=== PATIENT | male | born 1935 | race Caucasian/White ===

== ENCOUNTER 2018-02-04 21:09 | Emergency (ER) | payer OTHER ==
[2018-02-04 21:21] VITALS: BP 165/94; PULSE 82; TEMP 98; BMI 27.8
--- NOTE | 2018-02-04 21:26 | PDOC ---
History of Present Illness - General Chief Complaint: Wound Stated Complaint: skin tear Time Seen by Provider: 02/04/18 21:25 History Source: Patient - History of Present Illness Initial Comments: 02/04/18 21:41 Chief complaint: Skin tear Patient is an 82-year-old male with multiple medical problems, not diabetic who has been skin and scraped his right arm on a concrete wall causing an abrasion. Patient is up-to-date with tetanus. Patient applied Silvadene and dressing and came to the ER. GENERAL/CONSTITUTIONAL: No fever, weakness. dizziness HEAD, EYES, EARS, NOSE AND THROAT: No change in vision. No ear pain or discharge. No sore throat. CARDIOVASCULAR: No chest pain RESPIRATORY: No shortness of breath or cough GASTROINTESTINAL: No pain, nausea, vomiting, diarrhea or constipation GENITOURINARY: No dysuria MUSCULOSKELETAL: No neck or back pain SKIN: No rash, + abrasion NEUROLOGIC: No headache, vertigo, loss of consciousness, or loss of sensation. GENERAL: The patient is awake, alert, and fully oriented, in no acute distress. HEAD: Normal with no signs of trauma. EYES: Pupils equal, round and reactive to light, sclera anicteric, conjunctiva clear. ENT: pharynx: no erythema, no exudate, uvula midline NECK: supple CHEST: clear, nontender, rr ABD: soft, nontender EXTREMITIES: Right proximal forearm with 6 cm x 3 cm superficial abrasion, no active bleeding, no swelling, no signs of bony injury, full range of motion, neurovascular intact. Rest of extremities, normal range of motion, no edema. NEUROLOGICAL: Normal speech, normal gait. SKIN: Warm, Dry Past History - Past Medical History Home Medications: Ambulatory Orders Cholecalciferol (Vitamin D3) [Vitamin D3] 1,000 unit PO BID 05/21/15 Cyanocobalamin [Vitamin B12 -] 1,000 mcg PO WEEKLY 05/21/15 Diltiazem HCl [Diltiazem 24Hr Cd] 120 mg PO DAILY 05/21/15 Montelukast Na [Singulair -] 10 mg PO HS 05/21/15 Rosuvastatin Calcium [Crestor] 5 mg PO DAILY 05/21/15 Tamsulosin HCl 0.4 mg PO DAILY 05/21/15 Telmisartan 40 mg PO DAILY 05/21/15 Valacyclovir HCl [Valtrex -] 1,000 mg PO TID #21 tablet 05/21/15 Aspirin Coated [Ecotrin -] 81 mg PO DAILY 02/04/18 Ranitidine [Zantac -] 150 mg PO DAILY 02/04/18 Anemia: Yes Cardiac Disorders: Yes (CABG 2005) CVA: Yes (TIA) GI Disorders: Yes (GERD) HTN: Yes Hypercholesterolemia: Yes - Surgical History Cardiac Surgery: Yes (CABG) Orthopedic Surgery: Yes (BARB ARTHROSCOPY) - Suicide/Smoking/Psychosocial Hx Smoking History: Never smoked Have you smoked in the past 12 months: No Information on smoking cessation initiated: No Hx Alcohol Use: No Drug/Substance Use Hx: No Substance Use Type: Alcohol *Physical Exam - Vital Signs Last Vital Signs Temp Pulse Resp BP Pulse Ox 98.0 F 82 16 165/94 100 02/04/18 21:13 02/04/18 21:13 02/04/18 21:13 02/04/18 21:13 02/04/18 21:13 Medical Decision Making - Medical Decision Making 02/04/18 2 82-year-old male with abrasion to right forearm who had already stopped bleeding , applied Silvadene and wrapped it as this is happen before. Tetanus is up-to- date. Area was cleaned, no gross bleeding, will be wrapped patient. He will follow-up with his primary care doctor and/or wound care *DC/Admit/Observation/Transfer Diagnosis at time of Disposition: Skin tear of forearm without complication Qualifiers: Encounter type: initial encounter Laterality: right Qualified Code(s): S51.811A - Laceration without foreign body of right forearm, initial encounter - Discharge Dispostion Disposition: HOME Condition at time of disposition: Stable Decision to Admit order: No - Referrals Referrals: Mikal Le MD [Primary Care Provider] - - Patient Instructions Printed Discharge Instructions: DI for Abrasion Additional Instructions: Clean with soap and water 2-3 times daily, apply bacitracin or silvadene 2 times daily Have her reevaluated if redness, pus, fever or getting worse Followup with your doctor on thursday - Post Discharge Activity
[2018-02-04] MEDS ORDERED: SILVER SULFADIAZINE 1% TOP CREAM 50 GM JAR TP ONE (21:42)
== END 2018-02-04 21:51 | disposition home or self-care (01) ==
LOC: JER 21:09 → JERFT 21:09
DX: S51.811A Laceration without foreign body of right forearm, initial encounter (principal); W22.01XA Walked into wall, initial encounter; Y93.89 Activity, other specified; Y92.89 Other specified places as the place of occurrence of the external cause; Y99.8 Other external cause status; I25.810 Atherosclerosis of coronary artery bypass graft(s) without angina pectoris; I10 Essential (primary) hypertension; Z95.1 Presence of aortocoronary bypass graft; E78.00 Pure hypercholesterolemia, unspecified; K21.9 Gastro-esophageal reflux disease without esophagitis; Z86.73 Personal history of transient ischemic attack (TIA), and cerebral infarction without residual deficits; Z79.82 Long term (current) use of aspirin
CPT/HCPCS: 99281-25

== ENCOUNTER 2019-04-18 15:53 | Inpatient (IN) | payer OTHER ==
[~2019-04-18 15:53] MED LIST: PIPERACILLIN/TAZOB 4.5 GM 4.5 GM in DEXTROSE 5%-WATER 100 ML IVPB SCH
--- NOTE | 2019-04-18 16:10 | PDOC ---
History of Present Illness - General Chief Complaint: Pain Stated Complaint: ABD PAIN Time Seen by Provider: 04/18/19 16:10 History Source: Patient Exam Limitations: Intoxication (10 mg IV morphine given by EMS) - History of Present Illness Initial Comments: Pt is an 83 yo M, with PMH of HTN, CABG (quadruple bypass 2005), and cholelithiasis, who is presenting with complaints of constant, diffuse abdominal cramping since 12 pm today. Pt states he tolerated PO intake this AM, and has had regular BMs. Pt denies any prior abdominal surgeries. Pt states the pain does not radiate to the back or groin. Pt denies any fevers/chills, headache, vision changes, syncope, chest pain, palpitations, SOB, nausea/ vomiting, urinary symptoms, diarrhea/constipation, or leg swelling. Allergies: NKDA PCP: Miesha Social: Social alcohol use. Pt denies any cigarette or drug use. Pt denies any recent travel or sick contacts. Surgical: as above Family: no relevant history. 04/18/19 19:26 Past History - Travel Traveled outside of the country in the last 30 days: No Close contact w/someone who was outside of country & ill: No - Past Medical History Allergies/Adverse Reactions: Allergies Allergy/AdvReac Type Severity Reaction Status Date / Time No Known Allergies Allergy Verified 02/04/18 21:50 Home Medications: Ambulatory Orders Cholecalciferol (Vitamin D3) [Vitamin D3] 1,000 unit PO BID 05/21/15 Cyanocobalamin [Vitamin B12 -] 1,000 mcg PO WEEKLY 05/21/15 Diltiazem HCl [Diltiazem 24Hr Cd] 120 mg PO DAILY 05/21/15 Montelukast Na [Singulair -] 10 mg PO HS 05/21/15 Rosuvastatin Calcium [Crestor] 20 mg PO DAILY 05/21/15 Tamsulosin HCl 0.4 mg PO DAILY 05/21/15 Telmisartan 40 mg PO DAILY 05/21/15 Aspirin Coated [Ecotrin -] 81 mg PO DAILY 02/04/18 Ranitidine [Zantac -] 150 mg PO DAILY 02/04/18 Metoprolol Succinate 1.5 tab PO DAILY 04/18/19 Nitroglycerin [Nitrostat] 0.4 mg SL DAILY 04/18/19 Anemia: Yes Cardiac Disorders: Yes (CABG 2005) CVA: Yes (TIA) GI Disorders: Yes (GERD) HTN: Yes Hypercholesterolemia: Yes - Surgical History Cardiac Surgery: Yes (CABG) Orthopedic Surgery: Yes (BARB ARTHROSCOPY) - Suicide/Smoking/Psychosocial Hx Smoking History: Never smoked Have you smoked in the past 12 months: No Hx Alcohol Use: Yes (DAILY) Drug/Substance Use Hx: No Substance Use Type: Alcohol Review of Systems - Review of Systems Able to Perform ROS?: Yes Is the patient limited Bengali proficient: No Constitutional: Yes: Weight Stable. No: Chills, Diaphoresis, Fever, Loss of Appetite, Malaise, Weakness HEENTM: No: Blurred Vision, Double Vision, Nose Congestion, Throat Pain, Throat Swelling, Difficulty Swallowing Respiratory: No: Cough, Orthopnea, Shortness of Breath Cardiac (ROS): No: Chest Pain, Edema, Irregular Heart Rate, Lightheadedness, Palpitations, Syncope, Chest Tightness ABD/GI: Yes: See HPI, Abdominal cramping. No: Constipated, Diarrhea, Nausea, Poor Appetite, Poor Fluid Intake, Rectal Bleeding, Vomiting : No: Burning, Dysuria, Frequency, Pain, Urgency Musculoskeletal: No: Back Pain, Joint Pain, Muscle Pain, Muscle Weakness Integumentary: No: Rash Neurological: No: Headache, Numbness, Weakness, Unsteady Gait, Dizziness Psychiatric: No: Sleep Pattern Change, Change in Appetite Endocrine: No: Increased Urine, Change in Weight Hematologic/Lymphatic: No: Anemia, Blood Clots, Easy Bleeding, Easy Bruising All Other Systems: Reviewed and Negative *Physical Exam - Physical Exam Comments: Vitals stable, pt afebrile. Pt in NAD, lying comfortably, normal body habitus. Pt alert and oriented x3. manager star generally intact, muscular strength and sensation intact. No midline spinal tenderness, step-offs, or crepitus. Head normocephalic, atraumatic. Eyes PERRLA, EOMI. Oropharynx without erythema or exudates, no LAD b/l. No nasal congestion, hearing intact. Clear heart sounds, S1/S2, no JVD, b/l pedal edema, or heart murmur. Clear lung sounds, no respiratory distress, wheezes, crackles, or accessory muscle use. Diffusely tender abdomen, worst in RLQ. Non-reducible umbilical hernia (pt baseline, not received surgery 2/2 cardiac complications). Abdomen soft, protuberant, and with normoactive bowel sounds. Skin without jaundice or rash. 04/18/19 19:29 ED Treatment Course - LABORATORY CBC & Chemistry Diagram: 04/18/19 16:35 04/18/19 16:35 Medical Decision Making - Medical Decision Making Pt was seen at bedside, also will be seen by attending Dr. Huang. Pt presenting with complaints of diffuse abdominal pain. Eval for ischemia/AAA, appendicitis, bowel perforation, obstruction, diverticulitis. Provided 1 g IV ofirmev and 1 L IV NS for improvement of discomfort and hydration. Will continue to reassess pt and monitor for symptomatic improvement. ECG: NSR, intervals WNL, LAD (HR 81, AK 146, QRS 86, QTc 399). No TWIs or significant ST segment changes. No significant changes from prior ECG (05/21/2015 ). 04/18/19 19:34 CBC and CMP WNL -- mild elevated creatinine -- providing IVF Pt taken for CT abd/pelvis with IV contrast chest x-ray showed no evidence of free air. 04/18/19 19:37 CT showed pneumoperitoneum with sigmoid diverticulitis/possible abscess. Started IV zosyn Pt will go to surgery immediately with Dr. Acuna, as pt BP dropping (80s/50s ) -- pt provided more IVF and another IV peripheral line placed Pt taken emergently to OR Consulted ICU and pt accepted to hospitalist team. 04/18/19 21:08 *DC/Admit/Observation/Transfer Diagnosis at time of Disposition: Abdominal pain Qualifiers: Abdominal location: generalized Qualified Code(s): R10.84 - Generalized abdominal pain - Discharge Dispostion Condition at time of disposition: Stable Decision to Admit order: Yes - Referrals Referrals: Mikal Le MD [Primary Care Provider] - - Patient Instructions - Post Discharge Activity
[2019-04-18] MEDS ORDERED: ACETAMINOPHEN 1000 MG/100 ML VIAL (NON FORMULARY) IVPB ONE (16:46)
[2019-04-18] MEDS ORDERED: ONDANSETRON 4 MG/2 ML VIAL IVPUSH ONE (16:47)
[2019-04-18] MEDS ORDERED: ONDANSETRON 4 MG/2 ML VIAL ONE (16:54)
[2019-04-18 17:02] LABS: BASO % 0.5 % (0-2.0); EOS % 1.1 % (0-4.5); HEMATOCRIT 42.7 % (35.4-49); HEMOGLOBIN 14.7 GM/dL (11.7-16.9); LYMPH % 9.8 % (8-40); MCH 30.4 pg (25.7-33.7); MCHC 34.5 g/dl (32.0-35.9); MEAN PLT VOLUME 7.1 fl (7.5-11.1); MONO % 4.4 % (3.8-10.2); NEUT % 84.2 % (42.8-82.8); PLATELET COUNT 180 K/MM3 (134-434); RBC 4.85 M/mm3 (4.00-5.60); RDW 14.6 % (11.9-15.9); WHITE BLOOD COUNT 8.7 K/mm3 (4.0-10.0)
[2019-04-18 17:19] LABS: INR 1.13 (0.83-1.09); PROTHROMBIN TIME (PATIENT) 13.3 SEC (9.7-13.0)
[2019-04-18 17:27] LABS: ALBUMIN 3.7 g/dl (3.4-5.0); BLOOD UREA NITROGEN 24.9 mg/dL (7-18); POTASSIUM 4.3 mmol/L (3.5-5.1); TOT PROT 6.8 g/dl (6.4-8.2)
[2019-04-18] MEDS ORDERED: SODIUM CHLORIDE 1,000 ML IV STA ×2 (17:41→20:19)
--- NOTE | 2019-04-18 18:19 | PDOC ---
Documentation entered by Mikel Last SCRIBE, acting as scribe for Dalila Huang MD. Dalila Huang MD: This documentation has been prepared by the Shala lane Elijah, SCRIBE, under my direction and personally reviewed by me in its entirety. I confirm that the documentation accurately reflects all work, treatment, procedures, and medical decision making performed by me. Attending Attestation - Resident Resident Name: Antonia Chiang - ED Attending Attestation I have performed the following: I have examined & evaluated the patient, The case was reviewed & discussed with the resident, I agree w/resident's findings & plan, Exceptions are as noted - HPI HPI: 04/18/19 17:30 Patient is an 83 year old male with a significant past medical history of CAD s/ p CABG, HTN, HLD, CVA, and BPH who presents to the ED with diffuse abdominal pain beginning x4 hours ago. Patient reports that he was driving when he started to have a sudden onset of symptoms. Patient associates nausea with the pain and notes that he has not had pain like this in the past. He states the pain extends across his lower abdomen. Denies associated vomiting, constipation , diarrhea, F/C, dysuria, hematuria, frequency. Denies headache, focal weakness/numbness, CP, SOB, LE edema, rashes. Allergies: NKA PCP: Mission Commander: Dr. Driver - Physicial Exam PE: 04/18/19 17:35 GENERAL: Awake, alert, and fully oriented, in no acute distress. EYES: PERRLA, EOMI, sclera anicteric, conjunctiva clear ENT: Oropharynx clear without exudates. Moist mucosa NECK: Nontender, no stepoffs, Normal ROM, supple, no lymphadenopathy, JVD, or masses LUNGS: Breath sounds equal, clear to auscultation bilaterally. No wheezes, and no crackles HEART: Regular rate and rhythm, normal S1 and S2, no murmurs, rubs or gallops ABDOMEN: +Tenderness to RLQ. +mild distention No guarding, no rebound. No masses EXTREMITIES: Normal range of motion, no edema. No clubbing or cyanosis. No cords, erythema, or tenderness NEUROLOGICAL: Cranial nerves II through XII intact. 5/5 strength and sensation in all extremities, Normal speech, normal gait, normal cerebellar function SKIN: Warm, Dry, normal turgor, no rashes or lesions noted. - Medical Decision Making 04/18/19 18:14 83yo M presents to the ED with sudden onset lower abd pain, ttp to RLQ Pt got morphine 10mg IV en route 2/2 pain Elevated BP on arrival, likely 2/2 pain DDx includes appendicitis vs perforation vs SBO vs renal colic vs colitis vs UTI Lactic negative, making mesenteric ischemia less likely Plan for labs, UA, pain control, CTAP, reassess 04/18/19 19:00 Pain well controlled Labs thus far wnl UA and CTAP pending Case signed out to Dr. Ron for further mgmt/dispo Heart Score/ECG Review #1 04/18/19 17:08 Twelve-lead EKG was performed and reviewed by me. Normal sinus rhythm, rate 81. Normal axis and intervals wavy baseline but no obvious ST elevations
[2019-04-18] MEDS ORDERED: PIPERACILLIN/TAZOB 3.375 GM 3.375 GM in DEXTROSE 5%-WATER - 50 ML IVPB ONE (19:56)
[2019-04-18] MEDS ORDERED: PIPERACILLIN/TAZOB 3.375 GM 3.375 GM/50 ML BAG IVPB ONE (20:26)
--- NOTE | 2019-04-18 20:59 | PN ---
Teaching Attending Note Name of Resident: Jose Daniel Simon ATTENDING PHYSICIAN STATEMENT I saw and evaluated the patient. I reviewed the resident's note and discussed the case with the resident. I agree with the resident's findings and plan as documented. Seen and examined; please see resident note for further historical information. Briefly, this is a 83 y/o male with a PMH as documented presenting with abdominal pain found to have free intraperitoneal air; he has acute sigmoid diverticulitis and a 1.3cm pericolonic sigmoid abscess. Limited history obtained prior to going to OR and I saw he has documented CABG with stated "CHF " in old note from several years ago; spoke with his CV, Dr. Driver, as it was documented that he did not go to OR for umbilical hernia repair in g 6-8 mos ago angina, 1x vessel ischemia medically managed. Low risk ischemia, medicall VS, labs, imaging reviewed Moderate distress, resting in bed NC AT EOMI PERRLA Tachycardic, regular, s1/2, s/p sternotomy Tender diffusely, mild to moderate distention with some mild tympany Lungs CTAB, w/ sym exp Normal mood, not agitated Home Medications Medication Instructions Recorded Cholecalciferol (Vitamin D3) 1,000 unit PO BID 05/21/15 [Vitamin D3] Cyanocobalamin [Vitamin B12 -] 1,000 mcg PO WEEKLY 05/21/15 Diltiazem HCl [Diltiazem 24Hr Cd] 120 mg PO DAILY 05/21/15 Montelukast Na [Singulair -] 10 mg PO HS 05/21/15 Rosuvastatin Calcium [Crestor] 20 mg PO DAILY 05/21/15 Tamsulosin HCl 0.4 mg PO DAILY 05/21/15 Telmisartan 40 mg PO DAILY 05/21/15 Aspirin Coated [Ecotrin -] 81 mg PO DAILY 02/04/18 Ranitidine [Zantac -] 150 mg PO DAILY 02/04/18 Metoprolol Succinate 1.5 tab PO DAILY 04/18/19 Nitroglycerin [Nitrostat] 0.4 mg SL DAILY 04/18/19 EKG reviewed; tele ordered CT: Described pneumoperitoneum/diverticulitis with abscess; also s/p sternotopmy , cholelithiasis w/o cysitis, .6x.4cm bladder stone, atelectesis vs. scarring CXR reviewed CBC with neutrophilia without white count, slightly elevated BUN but overall unremarkable CMP. ASSESSMENT AND PLAN: Presents with abdominal pain found to have pneumoperitoneum 2/2 diverticulitis with pericolonic sigmoid abscess; he is being taken to the OR # Perforated diverticulitis with abscess -Chosing single-agent coverage; 4.5 zosyn q6h and ID consult with Dr. Ugalde; followup post-op. Will need plans for OP scope. Isotonic fluids; need to see what he gets intraoperatively and then continue maintenance. NPO. IV protonix for GI ppx. Appreciate specialist management. # Hx CAD s/p CABG -Spoke with his vice president of operations, Dr. Driver, as it was documented in previous notes that due to CV history he couldn't go to the OR for hernia repair. He had CAD s /p CABG with return of anginal sx ~6-8 months ago; he had subsequent stress test which revealed apparent single-vessel ischemia that was medically managed by titrating up beta blockers. Appreciate cardiac input, and will place consultation. -Hold ASA, BB, statin. Kiana on hold. Resume when clincially appropriate # Hx BPH -Monitor for obstruction; resume medications when confirmed dose/clincially appropriate # Hx CVA -Holding asa, statin. Resume statin when PO OK, ASA per sgy # Hx HTN -Holding diltiazem, telmisartan, metoprolol # Hx HLD -Hold statin for now # Likely asthma -On monteleukast; will need to speak with him and PCP as he was rushed to OR. Post op incentive kelly, PRN albuterol. Monitor for exacerbation. Continue monteleukast when taking PO Full Code Consults: ICU, Sgy, CV, ID
[2019-04-18] MEDS ORDERED: LACTATED RINGERS SOLUTION 1,000 ML/1,000 ML INFUS.BAG IV SCH ×2 (21:00)
--- NOTE | 2019-04-18 21:01 | CONSULT ---
Consultation: REQUESTING PROVIDER: Dr. Chiang CONSULT REQUEST: We have been asked to medically evaluate this patient for bowel perforation/pneumoperitoneum HISTORY OF PRESENT ILLNESS: 83 year old male with a history of hypertension, coronary artery bypass graft, s /p quadruple bypass, cholelithiasis, CVA, BPH presented to the hospital for several hours of sudden onset, diffuse abdominal pain with associated nausea. Per ED note, patient had not had any other history of similar pain in the past. In the ED, a CT scan found patient to have pneumoperitoneum, acute diverticulitis and 1.3cm abscess. Patient notably had no fevers in the ED but became hypotensive with maps in the 50s/low 60s. Dr. Bettencourt was consulted and patient was taken to the OR. Patient seen and examined postoperatively. He returned from the OR intubated and sedated on versed/fentanyl. No perioperative complications reported. EBL 150cc. Patient is not awake or alert and is unable to answer questions. Allergies: Calcium, penicillin (documented in 2014), iron supplements, meclizine Past surgical history: CABG, Bilateral arthroscopy Social history: prior alcohol use, no tobacco use PCP - Dr. Mikal Le REVIEW OF SYSTEMS: CONSTITUTIONAL: Absent: fever, chills, diaphoresis, generalized weakness, malaise, loss of appetite, weight change HEENT: Absent: rhinorrhea, nasal congestion, throat pain, throat swelling, difficulty swallowing, mouth swelling, ear pain, eye pain, visual changes CARDIOVASCULAR: Absent: chest pain, syncope, palpitations, irregular heart rate, lightheadedness , peripheral edema RESPIRATORY: Absent: cough, shortness of breath, dyspnea with exertion, orthopnea, wheezing, stridor, hemoptysis GASTROINTESTINAL: abdominal pain Absent: abdominal distension, nausea, vomiting, diarrhea, constipation, melena , hematochezia GENITOURINARY: Absent: dysuria, frequency, urgency, hesitancy, hematuria, flank pain, genital pain MUSCULOSKELETAL: Absent: myalgia, arthralgia, joint swelling, back pain, neck pain SKIN: Absent: rash, itching, pallor HEMATOLOGIC/IMMUNOLOGIC: Absent: easy bleeding, easy bruising, lymphadenopathy, frequent infections ENDOCRINE: Absent: unexplained weight gain, unexplained weight loss, heat intolerance, cold intolerance NEUROLOGIC: Absent: headache, focal weakness or paresthesias, dizziness, unsteady gait, seizure, mental status changes, bladder or bowel incontinence PSYCHIATRIC: Absent: anxiety, depression, suicidal or homicidal ideation, hallucinations. PHYSICAL EXAMINATION Vital Signs - 24 hr 04/18/19 04/18/19 04/18/19 16:10 20:17 20:27 Temperature 98 F 98.4 F Pulse Rate 81 Pulse Rate [ 88 90 Right Radial] Respiratory 20 16 23 H Rate Blood Pressure 133/102 H Blood Pressure 85/44 L 92/58 L [Right Arm] O2 Sat by Pulse 96 98 98 Oximetry (%) GENERAL: A&Ox0, intubated and sedated EYES: Pupils small and sluggish reacting to light ENT: Moist mucus membranes NECK: No JVD LUNGS: mechanical breath sounds, patient is vented HEART: RRR, no murmurs ABDOMEN: Soft but mildly distended with what appears to be gas (tympanitic to percussion), midline incision scar noted with overlying dressing that is dry and intact. Colostomy bag noted on L side of umbilicus without any surrounding erythema or bleeding. YI drain in place in inferior R abdomen draining small amount of serosanguinous fluid. Bowel sounds not auscultated EXTREMITIES: 2+ pulses, no edema. NEUROLOGICAL: Unable to assess due to mental status Laboratory Results - last 24 hr 04/18/19 04/18/19 04/18/19 16:35 16:35 16:35 WBC 8.7 RBC 4.85 Hgb 14.7 Hct 42.7 MCV 88.0 MCH 30.4 MCHC 34.5 RDW 14.6 Plt Count 180 MPV 7.1 L Absolute Neuts (auto) 7.3 Neutrophils % 84.2 H D Lymphocytes % 9.8 D Monocytes % 4.4 Eosinophils % 1.1 Basophils % 0.5 Nucleated RBC % 0 PT with INR INR Sodium 139 Potassium 4.3 Chloride 103 Carbon Dioxide 30 Anion Gap 6 L BUN 24.9 H Creatinine 1.0 Est GFR (CKD-EPI)AfAm 79.75 Est GFR (CKD-EPI)NonAf 68.81 Random Glucose 124 H Lactic Acid Calcium 9.0 Magnesium 2.0 Total Bilirubin 1.0 AST 17 ALT 27 Alkaline Phosphatase 43 L Total Protein 6.8 Albumin 3.7 Lipase 76 Blood Type Antibody Screen 04/18/19 04/18/19 04/18/19 16:35 16:35 17:45 WBC RBC Hgb Hct MCV MCH MCHC RDW Plt Count MPV Absolute Neuts (auto) Neutrophils % Lymphocytes % Monocytes % Eosinophils % Basophils % Nucleated RBC % PT with INR 13.30 H INR 1.13 H Sodium Potassium Chloride Carbon Dioxide Anion Gap BUN Creatinine Est GFR (CKD-EPI)AfAm Est GFR (CKD-EPI)NonAf Random Glucose Lactic Acid 1.7 Calcium Magnesium Total Bilirubin AST ALT Alkaline Phosphatase Total Protein Albumin Lipase Blood Type O POSITIVE Antibody Screen Negative Active Medications Generic Name Dose Route Start Last Admin Trade Name Ekta PRN Reason Stop Dose Admin Chlorhexidine Gluconate 1 applic 04/18/19 22:00 Hibiclens For Decolonization - TP HS RENITA Sodium Chloride 1,000 mls @ 1,000 mls/hr 04/18/19 20:19 04/18/19 20:33 Normal Saline - IV 04/18/19 21:18 1,000 mls/hr ASDIR STA Administration Lactated Ringer's 1,000 ml in 1,000 mls @ 83 mls/hr 04/18/19 21:00 Lactated Ringers Solution IV 04/20/19 09:03 ASDIR RENITA Mupirocin 1 applic 04/18/19 22:00 Bactroban Ointment (For Decolonization) - NS 04/23/19 21:59 BID RENITA CBC, BMP 04/18/19 16:35 04/18/19 16:35 ASSESSMENT/PLAN: 83 year old male with a history of hypertension, coronary artery bypass graft, s /p quadruple bypass, cholelithiasis, CVA, BPH presented to the hospital for several hours of sudden onset, diffuse abdominal pain with associated nausea found to have acute sigmoid diverticulitis with abscess and bowel perforation/ pneumoperitoneum #Sepsis 2/2 Acute Sigmoid Diverticulitis/Sigmoid Abscess #Bowel Perforation #Pneumoperitoneum #Hypertension #CAD #Hx CVA Neurological -intubated and sedated -hx of CVA and unable to assess for any current neurologic deficits -sedated with fentanyl and adding propofol -likely extubate in the AM, sedation vacation ~7am Cardiovascular -CAD and hx of CABG: hold antiplatelet agents at present time, can re-evaluate in AM -no acute abnormalities in AM -repeat morning labs -cardiology consulted for hx of single vessel ischemia on stress test Pulmonary -patient is intubated and mechanically ventilated -settings are TV 600, RR12, FiO2 50%, PEEP5 -monitor O2 sats -CXR in AM -likely extubate in AM Gastrointestinal -Sepsis 2/2 acute sigmoid diverticulitis/sigmoid abscess with bowel perforation : -got 1 dose zosyn in ED, will continue 4.5gm zosyn q6h -emergently taken to OR Per [facility] for colectomy w/ colostomy -protonix IV 40 BID -volume resuscitation -pain control -NPO -will need goals of care conversation post-operatively -ID consultation Renal -no prior renal deficits -repeat BMP in AM Infectious Diseases -patient presented for sepsis 2/2 acute sigmoid diverticulitis with bowel perforation -continue zosyn -ID consultation -fluid resuscitation post-operatively FEN -NPO while intubated, monitor for gas/stool production once awake/alert and extubated -replete lytes as necessary in AM -LR @ 125cc/hr Prophylaxis -SCDs for prophylaxis Disposition -admit to ICU, anticipate downgrade in 48 hours Visit type - Emergency Visit Emergency Visit: Yes ED Registration Date: 04/18/19 Care time: The patient presented to the Emergency Department on the above date and was hospitalized for further evaluation of their emergent condition. - New Patient This patient is new to me today: Yes Date on this admission: 04/18/19 - Critical Care Critical Care patient: Yes Total Critical Care Time (in minutes): 45 Critical Care Statement: The care of this patient involved high complexity decision making to prevent further life threatening deterioration of the patient 's condition and/or to evaluate & treat vital organ system(s) failure or risk of failure. ATTENDING PHYSICIAN STATEMENT I saw and evaluated the patient. I reviewed the resident's note and discussed the case with the resident. I agree with the resident's findings and plan as documented. SUBJECTIVE: OBJECTIVE: ASSESSMENT AND PLAN:
[2019-04-18] MEDS ORDERED: ETOMIDATE 20 MG/10 ML AMPUL IVPUSH ONE (21:16)
[2019-04-18] MEDS ORDERED: MIDAZOLAM HCL 2 MG/2 ML SINGLE DOSE VIAL ONE ×3 (21:17→22:41)
[2019-04-18] MEDS ORDERED: ROCURONIUM BROMIDE 50 MG/5 ML SYRINGE ONE ×2 (21:17→22:14)
--- NOTE | 2019-04-18 21:20 | PN ---
Progress Note (short form) - Note Progress Note: surgery pt seen and examined. full consult dictated. 83m cad, cva, htn, presented with [address] showed free air. While on phone with ED attending pt who had been normotensive developed septic shock. Emergency surgery arranged. zosyn and fluid boluses given. suspect perforated diverticulitis. for likely partial colectomy and colostomy. Prognosis poor.
[2019-04-18] MEDS ORDERED: SUCCINYLCHOLINE CHLORIDE 200 MG/10 ML SYRINGE ONE (21:30)
[2019-04-18] MEDS ORDERED: PROPOFOL 20 ML ONE (21:34)
--- NOTE | 2019-04-18 21:55 | HP ---
CHIEF COMPLAINT: Abdominal pain PCP: Dr. Whiteside HISTORY OF PRESENT ILLNESS: 83 y/o M, w/ pmh of HTN, HLD, CVA, BPH, CAD s/p CABG, presents to the ED c/o of diffuse abdominal pain of 4 hour duration, associated with nausea, that started while pt was driving. As per ED pt reports that the pain started spontaneously and worsened since onset. Nothing improved the pain. No similar episodes in the past. CT w/ contrast showed intraperiotneal free air and 1.3 cm pericolonic abscess. Pt was rushed to the OR as he began to develop septic shock. Pt was transferred to ICU post op and remains intubated. As per ED, denies fevers, chills, nausea, vomit, diarrhea, hematuria. ER course was notable for: (1) Zosyn started in ED (2) CT w/ contrast: Free air in the anterior abdominal wall, sigmoid diverticulitis noted, 1.3 cm pericolonic abscess. (3) CXR: atelectasis at the left lung base Recent Travel: denies PAST MEDICAL HISTORY: HTN, HLD, CVA, BPH, CAD s/p CABG PAST SURGICAL HISTORY: CABG Social History: Smoking/Alcohol/Drugs: unable to obtain Family History: unable to obtain Allergies No Known Allergies Allergy (Verified 02/04/18 21:50) HOME MEDICATIONS: Home Medications Medication Instructions Recorded Cholecalciferol (Vitamin D3) 1,000 unit PO BID 05/21/15 [Vitamin D3] Cyanocobalamin [Vitamin B12 -] 1,000 mcg PO WEEKLY 05/21/15 Diltiazem HCl [Diltiazem 24Hr Cd] 120 mg PO DAILY 05/21/15 Montelukast Na [Singulair -] 10 mg PO HS 05/21/15 Rosuvastatin Calcium [Crestor] 20 mg PO DAILY 05/21/15 Tamsulosin HCl 0.4 mg PO DAILY 05/21/15 Telmisartan 40 mg PO DAILY 05/21/15 Aspirin Coated [Ecotrin -] 81 mg PO DAILY 02/04/18 Ranitidine [Zantac -] 150 mg PO DAILY 02/04/18 Metoprolol Succinate 1.5 tab PO DAILY 04/18/19 Nitroglycerin [Nitrostat] 0.4 mg SL DAILY 04/18/19 REVIEW OF SYSTEMS unable to obtain- pt remains intubated PHYSICAL EXAMINATION Last Vital Signs Temp Pulse Resp BP Pulse Ox 99 F 92 H 14 114/62 100 04/19/19 00:05 04/19/19 00:05 04/19/19 00:05 04/19/19 00:05 04/19/19 00:05 GENERAL: Awake, alert, and fully oriented, in no acute distress. HEAD: Normal with no signs of trauma. EYES: PERRLA, EOMI, conjunctiva clear. NECK: supple without lymphadenopathy, JVD, or masses. LUNGS: Breath sounds equal, clear to auscultation bilaterally. No wheezes, and no crackles. HEART: Regular rate and rhythm, normal S1 and S2 without murmur, rub or gallop. ABDOMEN: Soft, not distended, decreased bowel sounds. Colostomy intact, beefy red, round, moist. YI drain 45 ml, serosanguinas UPPER EXTREMITIES: 2+ pulses, warm, well-perfused. No cyanosis. No peripheral edema. LOWER EXTREMITIES: 2+ pulses, warm, well-perfused. No peripheral edema. Left leg mildly cold, pulses intact SKIN: Warm, dry, normal turgor, no rashes or lesions noted, normal capillary refill. Laboratory Results - last 24 hr 04/18/19 04/18/19 04/18/19 16:35 16:35 16:35 WBC 8.7 RBC 4.85 Hgb 14.7 Hct 42.7 MCV 88.0 MCH 30.4 MCHC 34.5 RDW 14.6 Plt Count 180 MPV 7.1 L Absolute Neuts (auto) 7.3 Neutrophils % 84.2 H D Lymphocytes % 9.8 D Monocytes % 4.4 Eosinophils % 1.1 Basophils % 0.5 Nucleated RBC % 0 PT with INR INR Sodium 139 Potassium 4.3 Chloride 103 Carbon Dioxide 30 Anion Gap 6 L BUN 24.9 H Creatinine 1.0 Est GFR (CKD-EPI)AfAm 79.75 Est GFR (CKD-EPI)NonAf 68.81 Random Glucose 124 H Lactic Acid Calcium 9.0 Magnesium 2.0 Total Bilirubin 1.0 AST 17 ALT 27 Alkaline Phosphatase 43 L Total Protein 6.8 Albumin 3.7 Lipase 76 Blood Type Antibody Screen YI drain: 45ml Lopez 50ml Vent settings: AC/Rate 8/TV 528/O2 sat 50/ PEEP 5 ASSESSMENT/PLAN: 83 y/o M, w/ pmh of HTN, HLD, CVA, BPH, CAD s/p CABG, presents to the ED c/o of diffuse abdominal pain of 4 hour duration 2/2 to colonic perforation #) Perforated sigmoid Diverticuli w/abscess CT-Free air in the anterior abdominal wall, sigmoid diverticulitis noted, 1.3 cm pericolonic abscess. Taken to OR- sigmoid resection and colostomy placed Started on Zosyn in ED Transfer to ICU s/p surgery Pt remains intubated Keep NPO IV protonix Consult ID- to continue Zosyn Lopez inserted- output 250 ml/hr Pt high risk for shock from volume loss vs sepsis- monitor closely in ICU Arterial line placed in OR Monitor MAP continuously via A-line Maintain MAP >65 #) CAD Hold ASA, Betablockers, statins, ACEi Consult cardiology-Dr Driver Spoke w/ Dr. Driver, pts previous stress test showed single vessel ischemia #)CVA Hold ASA, statins re-asses post op #)HTN Hold Diltiazem, Telmisartan Hold metoprolol- if pt becomes tachy, possibly due to rebound, also consider sepsis and volume depletion re-asses post op #) DVT ppx SCDs and Lovenox 40 as per surgery FEN: NPO Dispo: re-asses post op, speak to surgery for abx used so it can be continued post op Visit type - Emergency Visit Emergency Visit: Yes ED Registration Date: 04/18/19 Care time: The patient presented to the Emergency Department on the above date and was hospitalized for further evaluation of their emergent condition. - New Patient This patient is new to me today: Yes Date on this admission: 04/22/19 - Critical Care Critical Care patient: No ATTENDING PHYSICIAN STATEMENT I saw and evaluated the patient. I reviewed the resident's note and discussed the case with the resident. I agree with the resident's findings and plan as documented. SUBJECTIVE: OBJECTIVE: ASSESSMENT AND PLAN:
--- NOTE | 2019-04-18 21:56 | CONS ---
DATE OF CONSULTATION: 04/18/2019 This is an emergency consultation at the request of the emergency room physician. REASON FOR CONSULTATION: Perforated viscus. BRIEF HISTORY: This is an 83-year-old male with multiple medical problems including heart disease, stroke, hypertension, hyperlipidemia with previous coronary artery bypass graft. States that 4 hours ago he developed abdominal pain while driving. He states that he had never had any pain previous to this and had been doing well up until then without loss of appetite. Because of this, came into the emergency room where he had an abdominal x-ray, which was unremarkable. He had a CAT scan of his abdomen and pelvis, which showed free air and a collection in the pelvis felt to be an abscess. His white blood cell count was noted to be normal with a left shift. A coagulation profile was unremarkable. His chemistries showed a normal creatinine and was, otherwise, unremarkable. I was notified by the ED attending of the perforated viscus, and at the time of the phone call, the patient had a normal blood pressure. It actually was elevated without tachycardia. During the conversation with the ER attending, the patient developed septic shock, and blood pressure dropped to 85/44. At this point, I spoke with the son as well as the who both were agreeable for emergent surgery, and an operating team was arranged, and the patient is going straight for surgery. PAST MEDICAL HISTORY: As stated in the HPI. PAST SURGICAL HISTORY: Includes coronary artery bypass graft. He has had no abdominal surgeries. His last colonoscopy was he feels 4 years ago and was unremarkable and was told that he did not need further colonoscopies. HOME MEDICATIONS: Reviewed. His only blood thinner was aspirin. He was on multiple medications for hypertension as well as hyperlipidemia including beta-sonia. ALLERGIES: He has no known drug allergies. SOCIAL HISTORY: Positive for occasional alcohol consumption. FAMILY HISTORY: Noncontributory. REVIEW OF SYSTEMS: General: Admits to fatigue. Cardiac: Denies chest pain. Respiratory: Admits to some shortness of breath. Gastrointestinal: Admits to constant abdominal pain diffuse in nature. At the time of my exam, he has had this pain now for approximately 8 hours. He denies nausea, denies vomiting, denies diarrhea, denies blood in his stool. Genitourinary: Denies dysuria. Musculoskeletal: Denies joint pain. Psychiatric: Denies anxiety, depression, or hearing voices. PHYSICAL EXAMINATION: General: This is a well-developed, well-nourished 83-year-old male in no distress. HEENT: His head is normocephalic. His sclerae are anicteric. Neck: Supple. Chest: Clear. Abdomen: Distended. He has a ventral hernia, which is reducible located near the central ring. He has 4 quadrant peritoneal findings. Extremities: Trace edema. DIAGNOSTIC DATA: Review of his laboratory, his white blood cell count is 8.7, his hemoglobin is 14.7, his platelet count is 180, his chemistries are unremarkable. On review of his CAT scan, he has pneumoperitoneum with acute sigmoid diverticulitis and a 1.3-cm sigmoid abscess. ASSESSMENT: This is an 83-year-old male with septic shock, perforated viscus, and significant diverticulitis seen on CAT scan. Clinically, this is most likely perforated sigmoid diverticulitis. Since the patient is hypotensive and this appears to be an acute event, would recommend emergent exploration. I suspect he will need a sigmoid colectomy as well as a colostomy. His wound will probably be left open due to contamination. I have recommended this to the patient's family as well as the patient. They are agreeable to surgery. They understand that without surgery his prognosis is extremely poor. They also understand that with surgery he has a poor prognosis as well due to his advanced age, multiple medical problems, and the fact that he is currently in septic shock. Postoperatively, the patient will require ICU care and will likely remain intubated and will have a protracted hospital course. He understands that with a colostomy this will need to stay in for at least 2 months and likely more than 6 at which point he will need another major surgery if he chooses to have this reversed. Zosyn has been given by the ER at my request, and he has also received fluids by the ED physician. At this point, the team has been assembled and will begin emergency service. DO SOTO SWEET/[id number]
[2019-04-18] MEDS ORDERED: PIPERACILLIN/TAZOB 4.5 GM 4.5 GM in DEXTROSE 5%-WATER 100 ML IVPB SCH (22:45)
--- NOTE | 2019-04-18 23:29 | OP ---
Operative Note - Note: Operative Date: 04/18/19 Pre-Operative Diagnosis: perforated viscous, acute abdoment, septic shock Operation: exploratory laparotomy, sigmoid colectomy, creation of end colostomy , creation of mucous fistula, drainage of abscess, lavage Findings: recently perforated sigmoid colon, inflammatory fluid, Post-Operative Diagnosis: Same as Pre-op Surgeon: Jaquan Bettencourt Anesthesiologist/INCOME TAX AUDITOR: Vane Wilson Anesthesia: General Specimens Removed: sigmoid colon Estimated Blood Loss (mls): 150 Drains & Tubes with Location: latricia pelvis Operative Report Dictated: Yes
[2019-04-18] MEDS ORDERED: FENTANYL INJECTION 500 MCG in DEXTROSE 5%-WATER - 90 ML IVPB SCH (23:45)
[2019-04-18] MEDS ORDERED: LACTATED RINGERS SOLUTION 1,000 ML IV SCH (23:45)
[2019-04-18] MEDS ORDERED: PROPOFOL 1,000,000 MCG/100 ML VIAL IVPB SCH (23:45)
[2019-04-19] MEDS: CHLORHEXIDINE GLUCONATE 4% CLEANSER FOR DECOLONIZATION TP SCH ×2 (00:26→23:29)
[2019-04-19] MEDS: MUPIROCIN 2% TOPICAL OINTMENT FOR DECOLONIZATION NS SCH ×3 (00:26→23:29)
[2019-04-19 00:31] LABS: ARTERIAL BLD GAS O2 SATURATION 98.6 % (95-98); ARTERIAL BLOOD GAS BASE EXCESS -0.8 meq/l (-2-2); ARTERIAL BLOOD GAS PCO2 38.8 mmHg (35-45); ARTERIAL BLOOD GAS PO2 121 mmHg (80-105)
[2019-04-19] MEDS ORDERED: PIPERACILLIN/TAZOBACTAM 4.5 GM VIAL IVPB ONE ×3 (00:31→17:45)
[2019-04-19] MEDS ORDERED: DEXTROSE 5%-WATER 100 ML IVPB ONE ×3 (00:31→17:45)
[2019-04-19 00:33] LABS: ALLENS TEST POSITIVE
[2019-04-19] MEDS: PIPERACILLIN/TAZOB 4.5 GM 4.5 GM in DEXTROSE 5%-WATER 100 ML IVPB SCH ×4 (01:08→20:00)
[2019-04-19] MEDS ORDERED: fentaNYL CITRATE 250 MCG/5 ML VIAL ONE (01:19)
[2019-04-19] MEDS ORDERED: SODIUM CHLORIDE 1,000 ML IV STA (02:40)
[2019-04-19 03:21] LABS: EPI CELLS 1.2 /HPF (0-5/HPF); HYALINE CASTS 4 /lpf (0-8); URINE APPEARANCE Error; URINE BILIRUBIN NEGATIVE (NEGATIVE); URINE COLOR YELLOW; URINE GLUCOSE (UA) NEGATIVE (NEGATIVE); URINE KETONE NEGATIVE (NEGATIVE); URINE LEUK ESTERASE NEGATIVE (NEGATIVE); URINE NITRITE NEGATIVE (NEGATIVE); URINE PROTEIN NEGATIVE (NEGATIVE); URINE RBC 236 /hpf (0-4); URINE UROBILINOGEN 0.2 mg/dL (0.2-1.0); URINE WBC 7 /hpf (0-5)
[2019-04-19 06:28] LABS: BASO % 0.2 % (0-2.0); EOS % 0.5 % (0-4.5); HEMATOCRIT 34.3 % (35.4-49); LYMPH % 9.7 % (8-40); MCH 30.5 pg (25.7-33.7); MEAN CELL VOLUME 87.2 fl (80-96); MEAN PLT VOLUME 7.1 fl (7.5-11.1); MONO % 4.3 % (3.8-10.2); NEUT % 85.3 % (42.8-82.8); PLATELET COUNT 156 K/MM3 (134-434); RBC 3.94 M/mm3 (4.00-5.60); RDW 14.6 % (11.9-15.9); WHITE BLOOD COUNT 5.8 K/mm3 (4.0-10.0)
--- NOTE | 2019-04-19 06:29 | OP ---
DATE OF OPERATION: 04/18/2019 PROCEDURE: Exploratory laparotomy, sigmoid colectomy, creation of end-colostomy , creation of mucous fistula, drainage of abscess, lavage. SURGEON: Jaquan Bettencourt MD PIPE ORGAN MECHANIC APPRENTICE: There is no executive administrative assistant. ANESTHESIOLOGIST: Vane Wilson MD DRAINS: Jorje-Beasley drain in the pelvis. BLOOD LOSS: Approximately 150 mL. DISPOSITION: ICU room in guarded condition. SPECIMEN: Sigmoid colon with perforation. BRIEF HISTORY: This is an 83-year-old male who presented to [facility] Emergency Room with abdominal pain. He was found to have a perforated viscus on CT scan, and shortly thereafter developed septic shock. He was given Zosyn antibiotic and presented for emergency surgery. DESCRIPTION OF PROCEDURE: The patient was placed in a supine procedure. After general anesthesia was initiated, the abdomen was prepped and draped in sterile fashion, and a Lopez catheter had been inserted. Next, a vertical incision was made from approximately 1 inch above the umbilicus to approximately 1 inch above the pubic tubercle. A scalpel was used to go through the skin and subcutaneous tissue. The fascia was then divided in the midline. The peritoneum was entered sharply into the abdominal cavity. Upon doing this, some purulent fluid was noted, which was sent to Microbiology for Gram stain and culture. Next, the abdomen was inspected. The sigmoid colon was thickened and inflamed with an obvious perforation on its anterior surface, which was cecal stained. The sigmoid colon was mobilized from its lateral attachments. This provided enough laxity in order to do the resection. A splenic flexure takedown was not required. At this point, a window was made proximal to the inflamed segment. A AZALIA 80 blue staple was used to divide the colon. The mesocolon was then divided with the LigaSure device along the areas where it had been scored close to the mesenteric surface of the colon. This was taken down to the junction of the sigmoid colon with the rectum. The presacral space was not violated. A Collins clamp was placed across the junction at this point. The colon was then divided with scissors proximal to the clamp and sent to Pathology marked as specimen. It was labeled as proximal sigmoid colon, was stapled then, and perforation was marked with a suture. At this point, a vigorous lavage was done with approximately 6 L of warm saline in all 4 quadrants. All return was clear. A location was selected for a left- sided ostomy in the rectus muscle approximately 1 inch above the umbilicus. A core of skin and fat was taken down to the anterior rectus sheath. It was scored in a cruciate fashion. The rectus muscle was then divided, and the posterior sheath was opened in a cruciate fashion, as well. Two finger-breadth dilatation was done. The end of the proximal sigmoid colon was brought out through the ostomy site, and there was adequate length and laxity. Care was made to avoid that the mesentery of the colon was not twisted. Next, a Jorje-Beasley drain was placed in the pelvis and secured through a skin incision in the left lower quadrant. The midline fascia was then closed with a combination of running PDS suture and 0 Vicryl suture. The Collins clamp holding the proximal rectum was incorporated into the closure to serve as a mucous fistula. Next, the skin was loosely approximated with chromic and packed with Iodoform. The mucous fistula was matured with 4 sutures to the inferior portion of the wound as the Collins clamp was removed. It was covered with a dry dressing. Attention was then turned towards the ostomy. It was matured with multiple 3-0 chromic sutures in a [place] fashion. There was significant amount of fat around the ostomy making protrusion difficult, but it was above surface level and pink at the end of the procedure. Colostomy appliance was placed. At this point, the operation terminated. The patient remained in guarded condition. His initial hypotension had resolved during the surgery, and he made adequate urine output. A Lopez catheter which was placed during the operation was left in. No nasogastric tube was required as he did not have a significant ileus at the end of the operation. Patient was sent to the intensive care unit where he was to remain intubated overnight and continue on intravenous antibiotic. If the patient chooses to be reversed in the future, he will need a longer incision and a splenic flexure takedown. DO SOTO SWEET/[id number] MTDD
[2019-04-19 07:04] LABS: ALBUMIN 2.4 g/dl (3.4-5.0); BILIRUBIN,TOTAL 1.5 mg/dL (0.2-1); BLOOD UREA NITROGEN 20.9 mg/dL (7-18); CALCIUM 7.5 mg/dL (8.5-10.1); CREATININE 0.9 mg/dL (0.55-1.3); MAGNESIUM 1.5 mg/dL (1.8-2.4); N-TERMINAL BNP 1236.8 pg/ml (5-450); PHOSPHOROUS 3.6 mg/dL (2.5-4.9); POTASSIUM 3.6 mmol/L (3.5-5.1); TOT PROT 4.8 g/dl (6.4-8.2)
[2019-04-19] MEDS ORDERED: ACETAMINOPHEN 1000 MG/100 ML VIAL (NON FORMULARY) IVPB ONE (07:15)
[2019-04-19] MEDS ORDERED: MAGNESIUM SULF 50% (8.12 MEQ/2 ML-1 GM VIAL) IVPB ONE (07:26)
--- NOTE | 2019-04-19 08:40 | PN ---
Progress Note (short form) - Note Progress Note: ID consult dictated imp/reccd seen in ICU 83 yo man admitted yesterday via ER with abdominal pain found to have perforated viscus- he is s/p ex lap with sigmoid colectomy, creation end colostomy, and drainage of abscess he remains intubated postop alert no pressors on zosyn operative cultures pending peritonitis s/p perforated diverticulitis pod #1 s//p sigmoid colectomy continue zosyn f/u operative cultures Problem List - Problems (1) Peritonitis (acute) generalized Code(s): K65.0 - GENERALIZED (ACUTE) PERITONITIS (2) Perforation of sigmoid colon due to diverticulitis Code(s): K57.20 - DVTRCLI OF LG INT W PERFORATION AND ABSCESS W/O BLEEDING
[2019-04-19] MEDS: ENOXAPARIN NA (PORCINE) 40 MG/0.4 ML DISP.SYRIN SQ SCH (10:05)
--- NOTE | 2019-04-19 10:12 | CONS ---
DATE OF CONSULTATION: 04/19/2019 HISTORY OF PRESENT ILLNESS: This is an 83-year-old man who presented to the emergency room yesterday with acute onset of abdominal pain that had started 4 hours prior. He was driving his car when the symptom occurred. He had a CT scan of his abdomen that revealed pneumoperitoneum and acute sigmoid diverticulitis with a 1.3-cm abscess. He was . He was treated with IV fluids and placed on tazobactam. He was taken to the operating room yesterday evening where he underwent an exploratory laparotomy with sigmoid colectomy, creation end-colostomy, creation mucous fistula and drainage of abscess. He currently remains intubated overnight. He is alert and resting comfortably on the ventilator. There were no pressors that were used. He is receiving IV fluids. PAST MEDICAL HISTORY: Notable for history of hypertension, hyperlipidemia, CPA, BPH, and coronary artery disease. SURGICAL HISTORY: Status post CABG. SOCIAL HISTORY: Not obtainable at this time. FAMILY HISTORY: Not obtainable at this time. REVIEW OF SYSTEMS: As per HPI. PHYSICAL EXAMINATION General: He is awake and alert. He is resting comfortably. Vital signs: Temperature is 99.3, he has had no fever, blood pressure is 87/55, pulse is 88. He on 100% of O2 saturation on 35%. He weighs 83 kg. HEENT: He is normocephalic. His eyes are anicteric. Neck: Supple. Lungs: Clear to auscultation. Heart: Regular rate and rhythm. Abdomen: Soft. It is protuberant. He has midline postoperatively. He has colostomy bag. Extremities: Without edema. DIAGNOSTIC DATA: White count is 5.8, hemoglobin 12, platelets about 156. On admission, white count was 8.7. Chemistries are notable for BUN of 9 and creatinine of 0.9. LFTs are normal. Urinalysis with 7 white cells, and operative culture from peritoneal fluid is pending. Chest x-ray is without any evidence of any infiltrate. SUMMARY: This is an 83-year-old man with peritonitis status post perforated diverticulitis postop day No. 1 status post sigmoid colectomy. Would continue Zosyn as ordered with followup of operative cultures. He remains intubated. Extubation per the ICU team. Further recommendations to follow. Hardeep [id number]
--- NOTE | 2019-04-19 10:13 | CON.CARD ---
Consult Consult Specialty:: Cardiology Referred by:: ICU Reason for Consultation:: CAD - History of Present Illness Chief Complaint: abd pain History of Present Illness: 83M h/o HTN, HLD, CVA, CAD s/p CABG p/w abd pain, nausea. Did not improve, had intraperitoneal free air on CT in ER and pericolonic abscess, went for urgent surgery yesterday for exlap and partial colectomy. Now observing in ICU, patient is intubated and unable to give further history, off sedation and awake - History Source Limitations to Obtaining History: Intubated - Past Medical History Cardio/Vascular: Yes: CAD, CHF - Past Surgical History Past Surgical History: Yes: CABG - Alcohol/Substance Use Hx Alcohol Use: Yes (daily) - Smoking History Smoking history: Never smoked Have you smoked in the past 12 months: No Home Medications - Allergies Allergies/Adverse Reactions: Allergies Allergy/AdvReac Type Severity Reaction Status Date / Time No Known Allergies Allergy Verified 02/04/18 21:50 - Home Medications Home Medications: Ambulatory Orders Cholecalciferol (Vitamin D3) [Vitamin D3] 1,000 unit PO BID 05/21/15 Cyanocobalamin [Vitamin B12 -] 1,000 mcg PO WEEKLY 05/21/15 Diltiazem HCl [Diltiazem 24Hr Cd] 120 mg PO DAILY 05/21/15 Montelukast Na [Singulair -] 10 mg PO HS 05/21/15 Rosuvastatin Calcium [Crestor] 20 mg PO DAILY 05/21/15 Tamsulosin HCl 0.4 mg PO DAILY 05/21/15 Telmisartan 40 mg PO DAILY 05/21/15 Aspirin Coated [Ecotrin -] 81 mg PO DAILY 02/04/18 Ranitidine [Zantac -] 150 mg PO DAILY 02/04/18 Metoprolol Succinate 37.5 mg PO DAILY 04/18/19 Nitroglycerin [Nitrostat] 0.4 mg SL DAILY PRN 04/18/19 Telmisartan 20 mg PO DAILY 04/18/19 Family Disease History - Family Disease History Family History: Unable to Obtain Review of Systems Unable to obtain ROS, reason: intubated Vital Signs: Vital Signs Temperature 99.3 F 04/19/19 06:00 Pulse Rate 88 04/19/19 06:00 Respiratory Rate 22 H 04/19/19 08:38 Blood Pressure 87/55 L 04/19/19 06:00 O2 Sat by Pulse Oximetry (%) 100 04/19/19 06:00 Constitutional: Yes: Well Nourished, No Distress, Calm Eyes: Yes: Conjunctiva Clear, EOM Intact HENT: Yes: Atraumatic, Normocephalic Neck: Yes: Supple, Trachea Midline Respiratory: Yes: Regular, CTA Bilaterally Gastrointestinal: Yes: Soft Cardiovascular: Yes: Regular Rate and Rhythm JVD: No Carotid Bruit: No PMI: Non-Displaced Extremities: No: Cold Edema: No Integumentary: No: Jaundice Neurological: Yes: Alert Psychiatric: No: Agitated - Other Data Labs, Other Data: CBC, BMP 04/19/19 06:00 04/19/19 06:00 INR, PTT INR 1.13 (0.83-1.09) H 04/18/19 16:35 Troponin, BNP 04/19/19 06:00 B-Natriuretic Peptide 1236.8 H Troponin, BNP 04/19/19 06:00 B-Natriuretic Peptide 1236.8 H Assessment/Plan mibi 11/2018 medium sized area of severe ischemia in basal anteroseptum ( diaphragmatic attenuation artifact present), nl EF, nl cavity size, no TID. echo 07/2018 tds, mildly impaired LV function 50-55%, RV nl, mild AR, mild to mod MR, ao root dilated 4.3 cm at sinus tele: sinus 83 y/o M, w/ pmh of HTN, HLD, CVA, BPH, CAD s/p CABG, presents to the ED c/o of diffuse abdominal pain of 4 hour duration 2/2 to colonic perforation perforated sigmoid diverticuli with abscess, s/p sigmoid resection and colostomy - monitoring in ICU post op, manage per surgery, critical care CAD, s/p CABG - last saw Dr. Driver 02/2019 - had mibi 11/2018 for chest pain that showed severe ischemia basal anteroseptum, reportedly had anginal symptoms that improved with medical management - holding BP meds for hypotension - restart metoprolol, aspirin, statin when able HTN - low BPs here - holding home meds h/o CVA - holding aspirin, statin HLD - holding statin
[2019-04-19] MEDS: PANTOPRAZOLE SODIUM 40 MG VIAL IVPUSH SCH (10:14)
[2019-04-19] MEDS ORDERED: LACTATED RINGERS SOLUTION 1000 ML INFUS.BAG IV ONE (10:33)
--- NOTE | 2019-04-19 11:26 | EKG ---
Test Reason : Blood Pressure : / mmHG Vent. Rate : 081 BPM Atrial Rate : 081 BPM P-R Int : 146 ms QRS Dur : 086 ms QT Int : 344 ms P-R-T Axes : 048 -07 057 degrees QTc Int : 399 ms POOR DATA QUALITY, INTERPRETATION MAY BE ADVERSELY AFFECTED NORMAL SINUS RHYTHM NORMAL ECG WHEN COMPARED WITH ECG OF 21-MAY-2015 09:59, NO SIGNIFICANT CHANGE WAS FOUND Confirmed by Cheo Ferris MD ([id number]) on 04/19/2019 11:26:00 AM Referred By: Confirmed By:Cheo Ferris MD
--- NOTE | 2019-04-19 11:34 | PN ---
Physical Exam: SUBJECTIVE: Patient seen and examined POD#1 S.P exploratory lab chol intubated, sedated OBJECTIVE: Vital Signs Period Temp Pulse Resp BP Sys/Young Pulse Ox Last 24 Hr 98 F-99.3 F 81-101 10-23 82-133/44-102 96-100 GENERAL: intubated but awake HEAD: NC/AT EYES: sclera anicteric ENT: moist mucous membrane NECK: Supple, no JVD LUNGS: CTA B/L, no crackles no wheezing no accessory muscle use. HEART: RRR,normal s1, s2, no M/R/G ABDOMEN: distended diffuse tenderness , cjolostomy bag on the right ma drainage in place , hypoactive bowel sounds LOWER EXTREMITIES: no edema, +2DP pulse, NEUROLOGICAL: No focal deficit. Laboratory Results - last 24 hr 04/18/19 04/18/19 04/18/19 16:35 16:35 16:35 WBC 8.7 RBC 4.85 Hgb 14.7 Hct 42.7 MCV 88.0 MCH 30.4 MCHC 34.5 RDW 14.6 Plt Count 180 MPV 7.1 L Absolute Neuts (auto) 7.3 Neutrophils % 84.2 H D Lymphocytes % 9.8 D Monocytes % 4.4 Eosinophils % 1.1 Basophils % 0.5 Nucleated RBC % 0 PT with INR INR Puncture Site ABG pH ABG pCO2 at Pt Temp ABG pO2 at Pt Temp ABG HCO3 ABG O2 Sat (Measured) ABG O2 Content ABG Base Excess Melvin Test O2 Delivery Device Oxygen Flow Rate Vent Mode Vent Rate Mechanical Rate PEEP Pressure Support Vent Sodium 139 Potassium 4.3 Chloride 103 Carbon Dioxide 30 Anion Gap 6 L BUN 24.9 H Creatinine 1.0 Est GFR (CKD-EPI)AfAm 79.75 Est GFR (CKD-EPI)NonAf 68.81 Random Glucose 124 H Hemoglobin A1c % Lactic Acid Calcium 9.0 Phosphorus Magnesium 2.0 Total Bilirubin 1.0 AST 17 ALT 27 Alkaline Phosphatase 43 L B-Natriuretic Peptide Total Protein 6.8 Albumin 3.7 Lipase 76 Urine Color Urine Appearance Urine pH Ur Specific [place] Urine Protein Urine Glucose (UA) Urine Ketones Urine Blood Urine Nitrite Urine Bilirubin Urine Urobilinogen Ur Leukocyte Esterase Urine WBC (Auto) Urine RBC (Auto) Urine Casts (Auto) U Epithel Cells (Auto) Urine Bacteria (Auto) Blood Type Antibody Screen 04/18/19 04/18/19 04/18/19 16:35 16:35 17:45 WBC RBC Hgb Hct MCV MCH MCHC RDW Plt Count MPV Absolute Neuts (auto) Neutrophils % Lymphocytes % Monocytes % Eosinophils % Basophils % Nucleated RBC % PT with INR 13.30 H INR 1.13 H Puncture Site ABG pH ABG pCO2 at Pt Temp ABG pO2 at Pt Temp ABG HCO3 ABG O2 Sat (Measured) ABG O2 Content ABG Base Excess Melvin Test O2 Delivery Device Oxygen Flow Rate Vent Mode Vent Rate Mechanical Rate PEEP Pressure Support Vent Sodium Potassium Chloride Carbon Dioxide Anion Gap BUN Creatinine Est GFR (CKD-EPI)AfAm Est GFR (CKD-EPI)NonAf Random Glucose Hemoglobin A1c % Lactic Acid 1.7 Calcium Phosphorus Magnesium Total Bilirubin AST ALT Alkaline Phosphatase B-Natriuretic Peptide Total Protein Albumin Lipase Urine Color Urine Appearance Urine pH Ur Specific [place] Urine Protein Urine Glucose (UA) Urine Ketones Urine Blood Urine Nitrite Urine Bilirubin Urine Urobilinogen Ur Leukocyte Esterase Urine WBC (Auto) Urine RBC (Auto) Urine Casts (Auto) U Epithel Cells (Auto) Urine Bacteria (Auto) Blood Type O POSITIVE Antibody Screen Negative 04/19/19 04/19/19 04/19/19 00:20 02:15 06:00 WBC 5.8 RBC 3.94 L Hgb 12.0 Hct 34.3 L D MCV 87.2 MCH 30.5 MCHC 35.0 RDW 14.6 Plt Count 156 MPV 7.1 L Absolute Neuts (auto) 5.0 Neutrophils % 85.3 H Lymphocytes % 9.7 Monocytes % 4.3 Eosinophils % 0.5 Basophils % 0.2 Nucleated RBC % 0 PT with INR INR Puncture Site Arterial line ABG pH 7.40 ABG pCO2 at Pt Temp 38.8 ABG pO2 at Pt Temp 121 H ABG HCO3 23.3 ABG O2 Sat (Measured) 98.6 H ABG O2 Content 16.9 ABG Base Excess -0.8 Melvin Test Positive O2 Delivery Device Vent Oxygen Flow Rate 50% Vent Mode A/c Vent Rate 8 Mechanical Rate Yes PEEP 5.0 Pressure Support Vent 600 Sodium Potassium Chloride Carbon Dioxide Anion Gap BUN Creatinine Est GFR (CKD-EPI)AfAm Est GFR (CKD-EPI)NonAf Random Glucose Hemoglobin A1c % Lactic Acid Calcium Phosphorus Magnesium Total Bilirubin AST ALT Alkaline Phosphatase B-Natriuretic Peptide Total Protein Albumin Lipase Urine Color Yellow Urine Appearance Error Urine pH 5.0 D Ur Specific [place] 1.036 H Urine Protein Negative Urine Glucose (UA) Negative Urine Ketones Negative Urine Blood 3+ H Urine Nitrite Negative Urine Bilirubin Negative Urine Urobilinogen 0.2 Ur Leukocyte Esterase Negative Urine WBC (Auto) 7 Urine RBC (Auto) 236 Urine Casts (Auto) 4 U Epithel Cells (Auto) 1.2 Urine Bacteria (Auto) 1.0 Blood Type Antibody Screen 04/19/19 04/19/19 06:00 06:00 WBC RBC Hgb Hct MCV MCH MCHC RDW Plt Count MPV Absolute Neuts (auto) Neutrophils % Lymphocytes % Monocytes % Eosinophils % Basophils % Nucleated RBC % PT with INR INR Puncture Site ABG pH ABG pCO2 at Pt Temp ABG pO2 at Pt Temp ABG HCO3 ABG O2 Sat (Measured) ABG O2 Content ABG Base Excess Melvin Test O2 Delivery Device Oxygen Flow Rate Vent Mode Vent Rate Mechanical Rate PEEP Pressure Support Vent Sodium 140 Potassium 3.6 Chloride 108 H Carbon Dioxide 23 Anion Gap 9 BUN 20.9 H Creatinine 0.9 Est GFR (CKD-EPI)AfAm 90.58 Est GFR (CKD-EPI)NonAf 78.15 Random Glucose 99 Hemoglobin A1c % 5.6 Lactic Acid Calcium 7.5 L Phosphorus 3.6 Magnesium 1.5 L Total Bilirubin 1.5 H AST 12 L ALT 18 Alkaline Phosphatase 27 L B-Natriuretic Peptide 1236.8 H Total Protein 4.8 L Albumin 2.4 L Lipase Urine Color Urine Appearance Urine pH Ur Specific [place] Urine Protein Urine Glucose (UA) Urine Ketones Urine Blood Urine Nitrite Urine Bilirubin Urine Urobilinogen Ur Leukocyte Esterase Urine WBC (Auto) Urine RBC (Auto) Urine Casts (Auto) U Epithel Cells (Auto) Urine Bacteria (Auto) Blood Type Antibody Screen Active Medications Generic Name Dose Route Start Last Admin Trade Name Freq PRN Reason Stop Dose Admin Chlorhexidine Gluconate 1 applic 04/18/19 22:00 04/19/19 00:26 Hibiclens For Decolonization - TP 1 applic HS RENITA Administration Enoxaparin Sodium 40 mg 04/19/19 10:00 04/19/19 10:05 Lovenox - SQ 40 mg DAILY RENITA Administration Piperacillin Sod/Tazobactam 100 mls @ 200 mls/hr 04/19/19 14:00 Sod 4.5 gm/ Dextrose IVPB Q6H-IV RENITA Protocol Morphine Sulfate 4 mg 04/19/19 11:30 Morphine Injection - IVPUSH Q4H PRN PAIN LEVEL 6-10 Mupirocin 1 applic 04/18/19 22:00 04/19/19 10:05 Bactroban Ointment (For Decolonization) - NS 04/23/19 21:59 1 applic BID RENITA Administration Pantoprazole Sodium 40 mg 04/19/19 10:00 04/19/19 10:14 Protonix Iv IVPUSH 40 mg DAILY RENITA Administration CBC, BMP 04/19/19 06:00 04/19/19 06:00 Per cardiology mibi 11/2018 medium sized area of severe ischemia in basal anteroseptum ( diaphragmatic attenuation artifact present), nl EF, nl cavity size, no TID. echo 07/2018 tds, mildly impaired LV function 50-55%, RV nl, mild AR, mild to mod MR, ao root dilated 4.3 cm at sinus ASSESSMENT/PLAN: 83 y/o M, w/ pmh of HTN, HLD, CVA, BPH, CAD s/p CABG, presents to the ED c/o of diffuse abdominal pain of 4 hour duration 2/2 to perforated vesus. # Sepsis 2/2 Acute diverticulitis with sigmoid abscess and perforated vescus # pneumoperitionium # POD#1 Exploratory laparotomy, sigmoid colectomy, creation of end colostomy, creation of mucous fistula, drainage of abscess, and lavage * monitor in ICU * maintain BP with no pressors . * intubated and plan to extubate later today * cont zosyn * cont IV fluids * Monitor I&O * NPO * pain control * ID and cardiology consulted * images reviewed # CAD # HTN # HLD #Coronary artery bypass graft #S/P quadruple bypass #Cholelithiasis #CVA #BPH * hold home meds in term of sepsis and NPo * PPI IV Visit type - Emergency Visit Emergency Visit: Yes ED Registration Date: 04/18/19 Care time: The patient presented to the Emergency Department on the above date and was hospitalized for further evaluation of their emergent condition. - New Patient This patient is new to me today: Yes Date on this admission: 04/19/19 - Critical Care Critical Care patient: Yes Total Critical Care Time (in minutes): 45 Critical Care Statement: The care of this patient involved high complexity decision making to prevent further life threatening deterioration of the patient 's condition and/or to evaluate & treat vital organ system(s) failure or risk of failure. ATTENDING PHYSICIAN STATEMENT I saw and evaluated the patient. I reviewed the resident's note and discussed the case with the resident. I agree with the resident's findings and plan as documented. SUBJECTIVE: OBJECTIVE: ASSESSMENT AND PLAN:
[2019-04-19] MEDS ORDERED: morphine SULFATE 4 MG/ML VIAL IVPUSH PRN (11:38)
--- NOTE | 2019-04-19 11:46 | PN ---
Progress Note (short form) - Note Progress Note: Anesthesia postop note 83 y/o M, s/p GA for exploratory laparotomy POD#1, vss, aaox3, extubated in icu. No anesthesia complications.
--- NOTE | 2019-04-19 11:46 | PN ---
Teaching Attending Note Name of Resident: Jaquan Samano ATTENDING PHYSICIAN STATEMENT I saw and evaluated the patient. I reviewed the resident's note and discussed the case with the resident. I agree with the resident's findings and plan as documented. SUBJECTIVE: Patient seen and examined in the ICU. Intubated and awake. No pressors but BP has been marginal overnight. Able to follow commands. Intake & Output 04/16/19 04/17/19 04/18/19 04/19/19 23:59 23:59 23:59 23:59 Intake Total 9500 2033 Output Total 7720 400 Balance 1780 1633 Weight 175 lb 185 lb Last Vital Signs Temp Pulse Resp BP Pulse Ox 99.3 F 88 22 H 87/55 L 100 04/19/19 06:00 04/19/19 06:00 04/19/19 08:38 04/19/19 06:00 04/19/19 06:00 Active Medications Chlorhexidine Gluconate (Hibiclens For Decolonization -) 1 applic TP HS [facility] Last Admin: 04/19/19 00:26 Dose: 1 applic Enoxaparin Sodium (Lovenox -) 40 mg SQ DAILY [facility] Last Admin: 04/19/19 10:05 Dose: 40 mg Piperacillin Sod/Tazobactam (Sod 4.5 gm/ Dextrose) 100 mls @ 200 mls/hr IVPB Q6H-IV RENITA; Protocol Morphine Sulfate (Morphine Sulfate) 4 mg IVPUSH Q4H PRN PRN Reason: PAIN LEVEL 6-10 Mupirocin (Bactroban Ointment (For Decolonization) -) 1 applic NS BID [facility] Stop: 04/23/19 21:59 Last Admin: 04/19/19 10:05 Dose: 1 applic Pantoprazole Sodium (Protonix Iv) 40 mg IVPUSH DAILY [facility] Last Admin: 04/19/19 10:14 Dose: 40 mg GENERAL: Awake and alert, Vented EYES: (-) Pallor (-) Icterus ENT: Dry mucus membranes NECK: No JVD LUNGS: Vented, clear HEART: RRR, no murmurs ABDOMEN: Soft, mildly distended, hypoactive BS., dressings intact, (+) Colostomy bag without any surrounding erythema or bleeding. (+) YI drain RLQ EXTREMITIES: 2+ pulses, no edema. NEUROLOGICAL: Awake and alert, non-focal Laboratory Results - last 24 hr 04/18/19 04/18/19 04/18/19 16:35 16:35 16:35 WBC 8.7 RBC 4.85 Hgb 14.7 Hct 42.7 MCV 88.0 MCH 30.4 MCHC 34.5 RDW 14.6 Plt Count 180 MPV 7.1 L Absolute Neuts (auto) 7.3 Neutrophils % 84.2 H D Lymphocytes % 9.8 D Monocytes % 4.4 Eosinophils % 1.1 Basophils % 0.5 Nucleated RBC % 0 PT with INR INR Puncture Site ABG pH ABG pCO2 at Pt Temp ABG pO2 at Pt Temp ABG HCO3 ABG O2 Sat (Measured) ABG O2 Content ABG Base Excess Melvin Test O2 Delivery Device Oxygen Flow Rate Vent Mode Vent Rate Mechanical Rate PEEP Pressure Support Vent Sodium 139 Potassium 4.3 Chloride 103 Carbon Dioxide 30 Anion Gap 6 L BUN 24.9 H Creatinine 1.0 Est GFR (CKD-EPI)AfAm 79.75 Est GFR (CKD-EPI)NonAf 68.81 Random Glucose 124 H Hemoglobin A1c % Lactic Acid Calcium 9.0 Phosphorus Magnesium 2.0 Total Bilirubin 1.0 AST 17 ALT 27 Alkaline Phosphatase 43 L B-Natriuretic Peptide Total Protein 6.8 Albumin 3.7 Lipase 76 Urine Color Urine Appearance Urine pH Ur Specific [place] Urine Protein Urine Glucose (UA) Urine Ketones Urine Blood Urine Nitrite Urine Bilirubin Urine Urobilinogen Ur Leukocyte Esterase Urine WBC (Auto) Urine RBC (Auto) Urine Casts (Auto) U Epithel Cells (Auto) Urine Bacteria (Auto) Blood Type Antibody Screen 04/18/19 04/18/19 04/18/19 16:35 16:35 17:45 WBC RBC Hgb Hct MCV MCH MCHC RDW Plt Count MPV Absolute Neuts (auto) Neutrophils % Lymphocytes % Monocytes % Eosinophils % Basophils % Nucleated RBC % PT with INR 13.30 H INR 1.13 H Puncture Site ABG pH ABG pCO2 at Pt Temp ABG pO2 at Pt Temp ABG HCO3 ABG O2 Sat (Measured) ABG O2 Content ABG Base Excess Melvin Test O2 Delivery Device Oxygen Flow Rate Vent Mode Vent Rate Mechanical Rate PEEP Pressure Support Vent Sodium Potassium Chloride Carbon Dioxide Anion Gap BUN Creatinine Est GFR (CKD-EPI)AfAm Est GFR (CKD-EPI)NonAf Random Glucose Hemoglobin A1c % Lactic Acid 1.7 Calcium Phosphorus Magnesium Total Bilirubin AST ALT Alkaline Phosphatase B-Natriuretic Peptide Total Protein Albumin Lipase Urine Color Urine Appearance Urine pH Ur Specific [place] Urine Protein Urine Glucose (UA) Urine Ketones Urine Blood Urine Nitrite Urine Bilirubin Urine Urobilinogen Ur Leukocyte Esterase Urine WBC (Auto) Urine RBC (Auto) Urine Casts (Auto) U Epithel Cells (Auto) Urine Bacteria (Auto) Blood Type O POSITIVE Antibody Screen Negative 04/19/19 04/19/19 04/19/19 00:20 02:15 06:00 WBC 5.8 RBC 3.94 L Hgb 12.0 Hct 34.3 L D MCV 87.2 MCH 30.5 MCHC 35.0 RDW 14.6 Plt Count 156 MPV 7.1 L Absolute Neuts (auto) 5.0 Neutrophils % 85.3 H Lymphocytes % 9.7 Monocytes % 4.3 Eosinophils % 0.5 Basophils % 0.2 Nucleated RBC % 0 PT with INR INR Puncture Site Arterial line ABG pH 7.40 ABG pCO2 at Pt Temp 38.8 ABG pO2 at Pt Temp 121 H ABG HCO3 23.3 ABG O2 Sat (Measured) 98.6 H ABG O2 Content 16.9 ABG Base Excess -0.8 Melvin Test Positive O2 Delivery Device Vent Oxygen Flow Rate 50% Vent Mode A/c Vent Rate 8 Mechanical Rate Yes PEEP 5.0 Pressure Support Vent 600 Sodium Potassium Chloride Carbon Dioxide Anion Gap BUN Creatinine Est GFR (CKD-EPI)AfAm Est GFR (CKD-EPI)NonAf Random Glucose Hemoglobin A1c % Lactic Acid Calcium Phosphorus Magnesium Total Bilirubin AST ALT Alkaline Phosphatase B-Natriuretic Peptide Total Protein Albumin Lipase Urine Color Yellow Urine Appearance Error Urine pH 5.0 D Ur Specific [place] 1.036 H Urine Protein Negative Urine Glucose (UA) Negative Urine Ketones Negative Urine Blood 3+ H Urine Nitrite Negative Urine Bilirubin Negative Urine Urobilinogen 0.2 Ur Leukocyte Esterase Negative Urine WBC (Auto) 7 Urine RBC (Auto) 236 Urine Casts (Auto) 4 U Epithel Cells (Auto) 1.2 Urine Bacteria (Auto) 1.0 Blood Type Antibody Screen 04/19/19 04/19/19 06:00 06:00 WBC RBC Hgb Hct MCV MCH MCHC RDW Plt Count MPV Absolute Neuts (auto) Neutrophils % Lymphocytes % Monocytes % Eosinophils % Basophils % Nucleated RBC % PT with INR INR Puncture Site ABG pH ABG pCO2 at Pt Temp ABG pO2 at Pt Temp ABG HCO3 ABG O2 Sat (Measured) ABG O2 Content ABG Base Excess Melvin Test O2 Delivery Device Oxygen Flow Rate Vent Mode Vent Rate Mechanical Rate PEEP Pressure Support Vent Sodium 140 Potassium 3.6 Chloride 108 H Carbon Dioxide 23 Anion Gap 9 BUN 20.9 H Creatinine 0.9 Est GFR (CKD-EPI)AfAm 90.58 Est GFR (CKD-EPI)NonAf 78.15 Random Glucose 99 Hemoglobin A1c % 5.6 Lactic Acid Calcium 7.5 L Phosphorus 3.6 Magnesium 1.5 L Total Bilirubin 1.5 H AST 12 L ALT 18 Alkaline Phosphatase 27 L B-Natriuretic Peptide 1236.8 H Total Protein 4.8 L Albumin 2.4 L Lipase Urine Color Urine Appearance Urine pH Ur Specific [place] Urine Protein Urine Glucose (UA) Urine Ketones Urine Blood Urine Nitrite Urine Bilirubin Urine Urobilinogen Ur Leukocyte Esterase Urine WBC (Auto) Urine RBC (Auto) Urine Casts (Auto) U Epithel Cells (Auto) Urine Bacteria (Auto) Blood Type Antibody Screen ASSESSMENT/PLAN: POD #1: Exploratory laparotomy, sigmoid colectomy, creation of end colostomy, creation of mucous fistula, drainage of abscess, and lavage Hypertension Coronary artery bypass graft S/P quadruple bypass Cholelithiasis CVA BPH Acute sigmoid diverticulitis Pneumoperitoneum Wean to extubate IVF for volume resuscitation VTE prophylaxis ABX coverage per ID Pain control PPI Cardiology evaluation called PO when cleared by surgery Requires ICU monitoring Dr Mueller Critical care time spent in reviewing chart, evaluating patient and formulating plan - 36 minutes.
--- NOTE | 2019-04-19 12:35 | ECHO ---
Name: VIJI VIRAMONTES Exam:Adult Echocardiogram Study Date: 04/19/2019 07:54 AM Age: 83 yrs Reason For Study: CHF Height: 68 in Weight: 175 lb BSA: 1.9 m2 MMode/2D Measurements & Calculations IVSd: 1.1 cm Ao root diam: 3.9 cm LVIDd: 4.3 cm LA dimension: 3.0 cm LVIDs: 3.2 cm LVPWd: 0.88 cm EDV(Teich): 82.5 ml LVOT diam: 2.0 cm ESV(Teich): 41.1 ml LAV (MOD-bp): 30.9 ml Doppler Measurements & Calculations MV E max jose: 58.7 cm/sec Ao V2 max: 164.2 cm/sec MV A max jose: 85.9 cm/sec Ao max P.8 mmHg MV E/A: 0.68 MV dec time: 0.14 sec KIMANI(V,D): 1.8 cm2 LV V1 max P.3 mmHg TR max jose: 195.5 cm/sec LV V1 max: 90.2 cm/sec TR max P.3 mmHg PA V2 max: 119.4 cm/sec Med Peak E' Jose: 13.2 cm/sec PA max P.7 mmHg Med E/e': 4.5 Lat Peak E' Jose: 14.4 cm/sec Lat E/e': 4.1 PI Vmax: 173.7 cm/sec Procedure A two-dimensional transthoracic echocardiogram with color flow and Doppler was performed. The study w as technically difficult with many images being suboptimal in quality. The patient was in normal sinus r hythm during the exam. Left Ventricle Ejection Fraction = 50%. Left ventricular systolic function is low normal. E/A reversal consistent wi th but not diagnostic of poor LV compliance. Right Ventricle The right ventricle is not well visualized. Atria The left atrial size is normal. Mitral Valve There is mild to moderate mitral annular calcification. There is no mitral regurgitation noted. Tricuspid Valve The tricuspid valve is not well visualized. The tricuspid valve is not well visualized, but is grossl y normal. No tricuspid regurgitation. Aortic Valve Fibrocalcific aortic valve without significant stenosis. No aortic regurgitation is present. Pulmonic Valve The pulmonic valve is not well visualized. There is no pulmonic valvular regurgitation. Great Vessels Mild aortic root dilatation. Mildly dilated ascending aorta. Pericardium/Pleura There is no pericardial effusion. Moderate size left pleural effusion. Interpretation Summary The study was technically difficult with many images being suboptimal in quality. Left ventricular systolic function is low normal. E/A reversal consistent with but not diagnostic of poor LV compliance Ejection Fraction = 50%. There is mild to moderate mitral annular calcification. Fibrocalcific aortic valve without significant stenosis. Mild aortic root dilatation. Mildly dilated ascending aorta. There is no pericardial effusion. Moderate size left pleural effusion. MD Jakob Bass 04/19/2019 12:35 PM
[2019-04-19] MEDS ORDERED: SODIUM CHLORIDE 500 ML IV STA (12:52)
--- NOTE | 2019-04-19 12:52 | PN ---
Progress Note (short form) - Note Progress Note: surgery pt seen and examined. awake. extubated. no nausea. lethargic from morphine. b/p 85/40. urine clear. abd- soft, distended, dressing with minimal soilage. mucous fistula intact. colostomy maroon without output. latricia sanguinous Laboratory Tests 04/19/19 04/19/19 06:00 06:00 WBC 5.8 Hgb 12.0 Plt Count 156 Magnesium 1.5 L A/P 1) Pod#1- cont npo, ivf, latricia packing. bacon per critical care 2) ileus- should last 2-3 more days 3) perforated viscous- on zosyn, follow cultures. consider adding yeast coverage until gram stain back 4) septic shock- getting volume replacement per critical care 5) prophylaxis- lovenox, oob, spirometer, protonix 6) hypomagnesemia- replaced
[2019-04-19] MEDS: KCL 10 MEQ IVPB 10 MEQ/100 ML INFUS.BAG IVPB SCH ×3 (13:49→16:00)
[2019-04-19] MEDS ORDERED: PIPERACILLIN/TAZOB 4.5 GM 4.5 GM in DEXTROSE 5%-WATER 100 ML IVPB SCH (14:00)
--- NOTE | 2019-04-19 14:00 | PN ---
Physical Exam: SUBJECTIVE: Patient seen and examined at the bedside. This morning was alert and oriented and taken off sedation. Good mental status, cough, and RSBI and subsequently extubated during rounds to venti-mask. Had low end blood pressures and given boluses of fluids to which he responded well to. OBJECTIVE: Vital Signs Period Temp Pulse Resp BP Sys/Young Pulse Ox Last 24 Hr 98 F-99.3 F 81-101 10-27 78-133/44-102 95-100 GENERAL: awake and alert, responsive to stimuli, oriented EYES: PERRL, EOMI ENT: Moist mucus membranes NECK: No JVD LUNGS: decreased breath sounds at the bases. No noted wheezes, coarse breath sounds, crackles. HEART: Regular rhythm with premature beats heard, no murmurs or rubs. ABDOMEN: Soft, mildly distended, midline incision scar noted with overlying dressing that is dry and intact. Colostomy bag noted on L side of umbilicus without any surrounding erythema or bleeding. YI drain in place in inferior R abdomen draining small amount of serosanguinous fluid. EXTREMITIES: 2+ pulses, no edema. NEUROLOGICAL: CNII-XII intact, muscle strength equal bilaterally upper and lower extremities. Laboratory Results - last 24 hr 04/18/19 04/18/19 04/18/19 16:35 16:35 16:35 WBC 8.7 RBC 4.85 Hgb 14.7 Hct 42.7 MCV 88.0 MCH 30.4 MCHC 34.5 RDW 14.6 Plt Count 180 MPV 7.1 L Absolute Neuts (auto) 7.3 Neutrophils % 84.2 H D Lymphocytes % 9.8 D Monocytes % 4.4 Eosinophils % 1.1 Basophils % 0.5 Nucleated RBC % 0 PT with INR INR Puncture Site ABG pH ABG pCO2 at Pt Temp ABG pO2 at Pt Temp ABG HCO3 ABG O2 Sat (Measured) ABG O2 Content ABG Base Excess Melvin Test O2 Delivery Device Oxygen Flow Rate Vent Mode Vent Rate Mechanical Rate PEEP Pressure Support Vent Sodium 139 Potassium 4.3 Chloride 103 Carbon Dioxide 30 Anion Gap 6 L BUN 24.9 H Creatinine 1.0 Est GFR (CKD-EPI)AfAm 79.75 Est GFR (CKD-EPI)NonAf 68.81 Random Glucose 124 H Hemoglobin A1c % Lactic Acid Calcium 9.0 Phosphorus Magnesium 2.0 Total Bilirubin 1.0 AST 17 ALT 27 Alkaline Phosphatase 43 L B-Natriuretic Peptide Total Protein 6.8 Albumin 3.7 Lipase 76 Urine Color Urine Appearance Urine pH Ur Specific Golden Urine Protein Urine Glucose (UA) Urine Ketones Urine Blood Urine Nitrite Urine Bilirubin Urine Urobilinogen Ur Leukocyte Esterase Urine WBC (Auto) Urine RBC (Auto) Urine Casts (Auto) U Epithel Cells (Auto) Urine Bacteria (Auto) Blood Type Antibody Screen 04/18/19 04/18/19 04/18/19 16:35 16:35 17:45 WBC RBC Hgb Hct MCV MCH MCHC RDW Plt Count MPV Absolute Neuts (auto) Neutrophils % Lymphocytes % Monocytes % Eosinophils % Basophils % Nucleated RBC % PT with INR 13.30 H INR 1.13 H Puncture Site ABG pH ABG pCO2 at Pt Temp ABG pO2 at Pt Temp ABG HCO3 ABG O2 Sat (Measured) ABG O2 Content ABG Base Excess Melvin Test O2 Delivery Device Oxygen Flow Rate Vent Mode Vent Rate Mechanical Rate PEEP Pressure Support Vent Sodium Potassium Chloride Carbon Dioxide Anion Gap BUN Creatinine Est GFR (CKD-EPI)AfAm Est GFR (CKD-EPI)NonAf Random Glucose Hemoglobin A1c % Lactic Acid 1.7 Calcium Phosphorus Magnesium Total Bilirubin AST ALT Alkaline Phosphatase B-Natriuretic Peptide Total Protein Albumin Lipase Urine Color Urine Appearance Urine pH Ur Specific Golden Urine Protein Urine Glucose (UA) Urine Ketones Urine Blood Urine Nitrite Urine Bilirubin Urine Urobilinogen Ur Leukocyte Esterase Urine WBC (Auto) Urine RBC (Auto) Urine Casts (Auto) U Epithel Cells (Auto) Urine Bacteria (Auto) Blood Type O POSITIVE Antibody Screen Negative 04/19/19 04/19/19 04/19/19 00:20 02:15 06:00 WBC 5.8 RBC 3.94 L Hgb 12.0 Hct 34.3 L D MCV 87.2 MCH 30.5 MCHC 35.0 RDW 14.6 Plt Count 156 MPV 7.1 L Absolute Neuts (auto) 5.0 Neutrophils % 85.3 H Lymphocytes % 9.7 Monocytes % 4.3 Eosinophils % 0.5 Basophils % 0.2 Nucleated RBC % 0 PT with INR INR Puncture Site Arterial line ABG pH 7.40 ABG pCO2 at Pt Temp 38.8 ABG pO2 at Pt Temp 121 H ABG HCO3 23.3 ABG O2 Sat (Measured) 98.6 H ABG O2 Content 16.9 ABG Base Excess -0.8 Melvin Test Positive O2 Delivery Device Vent Oxygen Flow Rate 50% Vent Mode A/c Vent Rate 8 Mechanical Rate Yes PEEP 5.0 Pressure Support Vent 600 Sodium Potassium Chloride Carbon Dioxide Anion Gap BUN Creatinine Est GFR (CKD-EPI)AfAm Est GFR (CKD-EPI)NonAf Random Glucose Hemoglobin A1c % Lactic Acid Calcium Phosphorus Magnesium Total Bilirubin AST ALT Alkaline Phosphatase B-Natriuretic Peptide Total Protein Albumin Lipase Urine Color Yellow Urine Appearance Error Urine pH 5.0 D Ur Specific Golden 1.036 H Urine Protein Negative Urine Glucose (UA) Negative Urine Ketones Negative Urine Blood 3+ H Urine Nitrite Negative Urine Bilirubin Negative Urine Urobilinogen 0.2 Ur Leukocyte Esterase Negative Urine WBC (Auto) 7 Urine RBC (Auto) 236 Urine Casts (Auto) 4 U Epithel Cells (Auto) 1.2 Urine Bacteria (Auto) 1.0 Blood Type Antibody Screen 04/19/19 04/19/19 06:00 06:00 WBC RBC Hgb Hct MCV MCH MCHC RDW Plt Count MPV Absolute Neuts (auto) Neutrophils % Lymphocytes % Monocytes % Eosinophils % Basophils % Nucleated RBC % PT with INR INR Puncture Site ABG pH ABG pCO2 at Pt Temp ABG pO2 at Pt Temp ABG HCO3 ABG O2 Sat (Measured) ABG O2 Content ABG Base Excess Melvin Test O2 Delivery Device Oxygen Flow Rate Vent Mode Vent Rate Mechanical Rate PEEP Pressure Support Vent Sodium 140 Potassium 3.6 Chloride 108 H Carbon Dioxide 23 Anion Gap 9 BUN 20.9 H Creatinine 0.9 Est GFR (CKD-EPI)AfAm 90.58 Est GFR (CKD-EPI)NonAf 78.15 Random Glucose 99 Hemoglobin A1c % 5.6 Lactic Acid Calcium 7.5 L Phosphorus 3.6 Magnesium 1.5 L Total Bilirubin 1.5 H AST 12 L ALT 18 Alkaline Phosphatase 27 L B-Natriuretic Peptide 1236.8 H Total Protein 4.8 L Albumin 2.4 L Lipase Urine Color Urine Appearance Urine pH Ur Specific Golden Urine Protein Urine Glucose (UA) Urine Ketones Urine Blood Urine Nitrite Urine Bilirubin Urine Urobilinogen Ur Leukocyte Esterase Urine WBC (Auto) Urine RBC (Auto) Urine Casts (Auto) U Epithel Cells (Auto) Urine Bacteria (Auto) Blood Type Antibody Screen Active Medications Generic Name Dose Route Start Last Admin Trade Name Freq PRN Reason Stop Dose Admin Chlorhexidine Gluconate 1 applic 04/18/19 22:00 04/19/19 00:26 Hibiclens For Decolonization - TP 1 applic HS RENITA Administration Enoxaparin Sodium 40 mg 04/19/19 10:00 04/19/19 10:05 Lovenox - SQ 40 mg DAILY RENITA Administration Fluconazole 200 mg 04/20/19 10:00 Diflucan - PO DAILY RENITA Potassium Chloride 10 meq in 100 mls @ 100 mls/hr 04/19/19 13:15 04/19/19 13: 49 Potassium Chloride 10 Meq Premix Ivpb - IVPB 04/19/19 16:14 100 mls/hr Q60M RENITA Administration Piperacillin Sod/Tazobactam 100 mls @ 200 mls/hr 04/19/19 18:00 Sod 4.5 gm/ Dextrose IVPB Q8H-IV RENITA Protocol Morphine Sulfate 4 mg 04/19/19 11:38 04/19/19 12:13 Morphine Sulfate IVPUSH 4 mg Q4H PRN Administration PAIN LEVEL 6-10 Mupirocin 1 applic 04/18/19 22:00 04/19/19 10:05 Bactroban Ointment (For Decolonization) - NS 04/23/19 21:59 1 applic BID RENITA Administration Pantoprazole Sodium 40 mg 04/19/19 10:00 04/19/19 10:14 Protonix Iv IVPUSH 40 mg DAILY RENITA Administration ASSESSMENT/PLAN: Man Mccoy is an 83 year old male with a history of hypertension, coronary artery bypass graft, s/p quadruple bypass, cholelithiasis, CVA, BPH presented to the hospital for several hours of sudden onset, diffuse abdominal pain with associated nausea found to have acute sigmoid diverticulitis with abscess and bowel perforation/pneumoperitoneum admitted to the ICU s/p washout, sigmoid colectomy, abscess drainage POD 1. Sepsis 2/2 Acute Sigmoid Diverticulitis/Sigmoid Abscess Bowel Perforation Pneumoperitoneum Hypertension CAD Hx CVA Neurological -awake and alert -morphine 4mg q6h prn for pain Cardiovascular -cardiology consulted for hx of single vessel ischemia on stress test -BP low, given boluses, responding well -continue to monitor BP -volume resuscitate s/p surgery Pulmonary -monitor O2 sats, on NC -CXR 04/19, no acute abnormalities Gastrointestinal -CT showing pneumoperitoneum, acute diverticulitis, perforation, and 1.3cm abscess -got 1 dose zosyn in ED, will continue 4.5gm zosyn q8h -emergently taken to OR Per [facility] for colectomy w/ colostomy -add Diflucan 200mg for yeast coverage -peritoneal fluid noted to be purulent, sent off for cultures -protonix IV 40 BID -volume resuscitation LR at 125cc/hr and boluses as necessary -GI consulted Renal -no acute issues Infectious Diseases -continue zosyn 4.45gm -add diflucan 200mg for yeast coverage -peritoneal fluid cultures -urine cultures -Dr. Patrick consulted, recs appreciated FEN -NPO until cleared by surgery, meds PO -continue to monitor electrolytes and replete as necessary, hypomagnesemia repleted -LR @ 125cc/hr, boluses as necessary Prophylaxis -SCDs for prophylaxis -Lovenox 40mg daily CODE -full code Disposition -continue to monitor in ICU CASE DISCUSSED WITH DR JAY JAY RAGLAND DO - PGY-1 Visit type - Emergency Visit Emergency Visit: No - New Patient This patient is new to me today: Yes Date on this admission: 04/19/19 - Critical Care Critical Care patient: Yes Total Critical Care Time (in minutes): 35 Critical Care Statement: The care of this patient involved high complexity decision making to prevent further life threatening deterioration of the patient 's condition and/or to evaluate & treat vital organ system(s) failure or risk of failure.
[2019-04-19] MEDS ORDERED: FLUCONAZOLE 100 MG TABLET (UD) PO SCH (15:00)
--- NOTE | 2019-04-19 15:23 | CONS ---
DATE OF CONSULTATION: DATE OF DICTATION: 04/19/2019 GASTROINTESTINAL CONSULTATION HISTORY OF PRESENT ILLNESS: The patient is an 83-year-old man with a past medical history of hypertension, hyperlipidemia, CVA, BPH, and CAD, bypass surgery, who was admitted to the hospital with a 4-hour history of diffuse abdominal pain and associated nausea which began as the patient was driving. A CT scan in the ER revealed intraperitoneal free air and a 1.3-cm pericolonic abscess and sigmoid diverticulitis. During the course he underwent exploratory laparotomy, sigmoid colectomy, creation of end colostomy and mucous fistula, drainage of abscess and lavage for a perforated sigmoid colon. This was done on the . Today he is extubated, and the family is at the bedside. He is complaining of some abdominal pain. No other complaints at this time. He has not had a recent colonoscopy or upper endoscopy in the past. PAST MEDICAL AND SURGICAL HISTORY: As listed in the HPI. ALLERGIES: No known drug allergies. SOCIAL HISTORY: Does not drink, smoke, or use drugs. FAMILY HISTORY: No history of GI or gynecologic malignancy as per the family. HOME MEDICATIONS: Reviewed, include vitamin D, vitamin B12, diltiazem, Singulair, Crestor, tamsulosin, aspirin, Zantac, metoprolol, nitroglycerin, and . REVIEW OF SYSTEMS: Unable to obtain a full review of systems, given the patient was just extubated. PHYSICAL EXAMINATION: VITAL SIGNS: Temperature 98.6, pulse 81, blood pressure 95/56, respiratory rate 20, saturation 95% on venturi mask. GENERAL: In no acute distress. HEENT: Anicteric sclerae. CARDIOVASCULAR: S1, S2, regular rate and rhythm. ABDOMEN: Tender postsurgically, colostomy intact. Serosanguineous fluid is visualized and the drain approximately 40 mL. LABORATORY: White blood cell count 5.8, hemoglobin and hematocrit 12/34, platelet count 156, INR 1.1. Sodium 140, potassium 3.6, BUN/creatinine 20/0.9, glucose 99, total bilirubin 1.5. AST 12, ALT 18, alkaline phosphatase 27, BNP 1200, lipase 76. IMPRESSION: Perforated sigmoid diverticulitis. RECOMMENDATION: Continue him on therapy, gentle hydration. Continue PPI therapy as well as Diflucan. Surgery followup. Diet should be advanced as per the surgical team. Medical ICU care. DO DILLON NICOLEFMA/[id number]
--- NOTE | 2019-04-19 15:35 | PN ---
Teaching Attending Note Name of Resident: Rubens Montero ATTENDING PHYSICIAN STATEMENT I saw and evaluated the patient. I reviewed the resident's note and discussed the case with the resident. I agree with the resident's findings and plan as documented. SUBJECTIVE: Mr Mccoy is intubated but awake. Indicates that he is feeling well except he wants to be extubated. Denies pain OBJECTIVE: Last Vital Signs Temp Pulse Resp BP Pulse Ox 37.4 C 81 27 H 96/56 L 95 04/19/19 06:00 04/19/19 12:00 04/19/19 12:00 04/19/19 12:00 04/19/19 12:30 Gen: nad Pulm: ctab, intubated CV: rrr w/o m/r/g Abd: hypoactive bowel sounds, distended, drain in place Ext: no c/c/e CBC, BMP 04/19/19 06:00 04/19/19 06:00 ASSESSMENT AND PLAN: Problem List - Problems (1) Perforation of sigmoid colon due to diverticulitis Assessment/Plan: -s/p surgical intervention -general surgery following and drain in place -GI note reviewed -continue zosyn and diflucan for peritonitis -currently npo Code(s): K57.20 - DVTRCLI OF LG INT W PERFORATION AND ABSCESS W/O BLEEDING (2) Acute respiratory failure with hypoxia Assessment/Plan: -currently in ICU -plan for extubation today -case d/w icu team Code(s): J96.01 - ACUTE RESPIRATORY FAILURE WITH HYPOXIA (3) HTN (hypertension) Assessment/Plan: -low normal currently -close monitoring Code(s): I10 - ESSENTIAL (PRIMARY) HYPERTENSION (4) CAD (coronary artery disease) Assessment/Plan: -case d/w Dr Martines -restart medical management when stable and can tolerate Code(s): I25.10 - ATHSCL HEART DISEASE OF [place] CORONARY ARTERY W/O ANG PCTRS (5) CVA (cerebral vascular accident) Assessment/Plan: -restart aspirin when safe Code(s): I63.9 - CEREBRAL INFARCTION, UNSPECIFIED
[2019-04-19] MEDS: FLUCONAZOLE 200 MG/D5W 100 ML IVPB SCH (17:57)
[2019-04-19] MEDS ORDERED: LACTATED RINGERS SOLUTION 1,000 ML/1,000 ML INFUS.BAG IV SCH (23:15)
[2019-04-20] MEDS: PIPERACILLIN/TAZOB 4.5 GM 4.5 GM in DEXTROSE 5%-WATER 100 ML IVPB SCH ×5 (03:00→17:09)
[2019-04-20] MEDS ORDERED: PIPERACILLIN/TAZOBACTAM 4.5 GM VIAL IVPB ONE ×3 (03:16→17:01)
[2019-04-20] MEDS ORDERED: DEXTROSE 5%-WATER 100 ML IVPB ONE ×3 (03:17→17:01)
[2019-04-20 06:47] LABS: HEMATOCRIT 36.1 % (35.4-49); HEMOGLOBIN 12.4 GM/dL (11.7-16.9); MCH 30.5 pg (25.7-33.7); MCHC 34.5 g/dl (32.0-35.9); MEAN CELL VOLUME 88.6 fl (80-96); MEAN PLT VOLUME 7.5 fl (7.5-11.1); PLATELET COUNT 149 K/MM3 (134-434); RBC 4.07 M/mm3 (4.00-5.60); RDW 14.8 % (11.9-15.9); WHITE BLOOD COUNT 9.2 K/mm3 (4.0-10.0)
[2019-04-20 06:52] LABS: ALBUMIN 2.3 g/dl (3.4-5.0); BILIRUBIN,TOTAL 1.5 mg/dL (0.2-1); BLOOD UREA NITROGEN 16.1 mg/dL (7-18); CALCIUM 8.2 mg/dL (8.5-10.1); MAGNESIUM 2.1 mg/dL (1.8-2.4); POTASSIUM 4.7 mmol/L (3.5-5.1); TOT PROT 5.1 g/dl (6.4-8.2)
--- NOTE | 2019-04-20 07:43 | PN ---
Physical Exam: SUBJECTIVE: Patient seen and examined at bed side, in ICU , feeling better , sitting in chair , no flatus and no BM yet . abdominal pain and distension.no fever,no chills, OBJECTIVE: Vital Signs Period Temp Pulse Resp BP Sys/Young Pulse Ox Last 24 Hr 98.2 F-99.9 F 81-108 18-27 78-143/55-87 92-100 GENERAL: intubated but awake HEAD: NC/AT EYES: sclera anicteric ENT: moist mucous membrane NECK: Supple, no JVD LUNGS: CTA B/L, no crackles no wheezing no accessory muscle use. HEART: RRR,normal s1, s2, no M/R/G ABDOMEN: distended diffuse tenderness , colostomy bag on the right , drainage in place , hypoactive bowel sounds , LOWER EXTREMITIES: no edema, +2DP pulse, NEUROLOGICAL: No focal deficit. Laboratory Results - last 24 hr 04/20/19 04/20/19 05:15 05:15 WBC 9.2 RBC 4.07 Hgb 12.4 Hct 36.1 MCV 88.6 MCH 30.5 MCHC 34.5 RDW 14.8 Plt Count 149 MPV 7.5 Sodium 139 Potassium 4.7 Chloride 104 Carbon Dioxide 30 Anion Gap 5 L BUN 16.1 Creatinine 1.0 Est GFR (CKD-EPI)AfAm 79.75 Est GFR (CKD-EPI)NonAf 68.81 Random Glucose 102 Calcium 8.2 L Phosphorus 3.0 Magnesium 2.1 Total Bilirubin 1.5 H AST 20 ALT 17 Alkaline Phosphatase 33 L Total Protein 5.1 L Albumin 2.3 L Active Medications Generic Name Dose Route Start Last Admin Trade Name Ekta PRN Reason Stop Dose Admin Chlorhexidine Gluconate 1 applic 04/18/19 22:00 04/19/19 23:29 Hibiclens For Decolonization - TP 1 applic HS RENITA Administration Enoxaparin Sodium 40 mg 04/19/19 10:00 04/19/19 10:05 Lovenox - SQ 40 mg DAILY RENITA Administration Piperacillin Sod/Tazobactam 100 mls @ 200 mls/hr 04/19/19 18:00 Sod 4.5 gm/ Dextrose IVPB Q8H-IV RENITA Protocol Piperacillin Sod/Tazobactam 100 mls @ 200 mls/hr 04/19/19 18:00 04/20/19 03: 20 Sod 4.5 gm/ Dextrose IVPB 04/20/19 10:29 200 mls/hr Q8H-IV RENITA Administration Protocol Fluconazole 100 mls @ 100 mls/hr 04/19/19 17:00 04/19/19 17:57 Diflucan 200 Mg/D5w Premixed Ivpb - IVPB 100 mls/hr Q24H RENITA Administration Morphine Sulfate 4 mg 04/19/19 11:38 04/19/19 12:13 Morphine Sulfate IVPUSH 4 mg Q4H PRN Administration PAIN LEVEL 6-10 Mupirocin 1 applic 04/18/19 22:00 04/19/19 23:29 Bactroban Ointment (For Decolonization) - NS 04/23/19 21:59 1 applic BID RENITA Administration Pantoprazole Sodium 40 mg 04/19/19 10:00 04/19/19 10:14 Protonix Iv IVPUSH 40 mg DAILY RENITA Administration CBC, BMP 04/20/19 05:15 04/20/19 05:15 Per cardiology mibi 11/2018 medium sized area of severe ischemia in basal anteroseptum ( diaphragmatic attenuation artifact present), nl EF, nl cavity size, no TID. echo 07/2018 tds, mildly impaired LV function 50-55%, RV nl, mild AR, mild to mod MR, ao root dilated 4.3 cm at sinus ASSESSMENT/PLAN: 83 y/o M, w/ pmh of HTN, HLD, CVA, BPH, CAD s/p CABG, presents to the ED c/o of diffuse abdominal pain of 4 hour duration 2/2 to perforated vesus. # Sepsis 2/2 Acute diverticulitis with sigmoid abscess and perforated vescus # pneumoperitionium # POD#1 Exploratory laparotomy, sigmoid colectomy, creation of end colostomy, creation of mucous fistula, drainage of abscess, and lavage * monitor in ICU * maintain BP with no pressors . * extubated * cont zosyn and diflucan day 2 * cont IV fluids * Monitor I&O * NPO till pass flatus * pain control * ID and cardiology consulted * images reviewed * peritoneal fluids with lactose fermenting negative bacilli # CAD # HTN # HLD #Coronary artery bypass graft #S/P quadruple bypass #Cholelithiasis #CVA #BPH * hold home meds in term of sepsis and NPo * PPI IV Visit type - Emergency Visit Emergency Visit: Yes ED Registration Date: 04/18/19 Care time: The patient presented to the Emergency Department on the above date and was hospitalized for further evaluation of their emergent condition. - New Patient This patient is new to me today: No - Critical Care Critical Care patient: No ATTENDING PHYSICIAN STATEMENT I saw and evaluated the patient. I reviewed the resident's note and discussed the case with the resident. I agree with the resident's findings and plan as documented. SUBJECTIVE: OBJECTIVE: ASSESSMENT AND PLAN:
[2019-04-20] MEDS: SODIUM CHLORIDE 1,000 ML IV SCH (09:56)
[2019-04-20] MEDS: ENOXAPARIN NA (PORCINE) 40 MG/0.4 ML DISP.SYRIN SQ SCH (09:59)
[2019-04-20] MEDS: PANTOPRAZOLE SODIUM 40 MG VIAL IVPUSH SCH (10:00)
[2019-04-20] MEDS: MUPIROCIN 2% TOPICAL OINTMENT FOR DECOLONIZATION NS SCH ×2 (10:12→21:01)
--- NOTE | 2019-04-20 10:20 | PN ---
Progress Note (short form) - Note Progress Note: no chest pain, palps, dizziness, dyspnea. complains of abd pain Vital Signs Period Temp Pulse Resp BP Sys/Young Pulse Ox Last 24 Hr 98.2 F-99.9 F 81-111 18-28 96-143/56-87 92-100 Constitutional: Yes: Well Nourished, No Distress, Calm Eyes: Yes: Conjunctiva Clear, EOM Intact HENT: Yes: Atraumatic, Normocephalic Neck: Yes: Supple, Trachea Midline Respiratory: Yes: Regular, CTA Bilaterally Gastrointestinal: Yes: Soft Cardiovascular: Yes: Regular Rate and Rhythm JVD: No Carotid Bruit: No PMI: Non-Displaced Extremities: No: Cold Edema: No Integumentary: No: Jaundice Neurological: Yes: Alert, oriented Psychiatric: No: Agitated Assessment/Plan mibi 11/2018 medium sized area of severe ischemia in basal anteroseptum ( diaphragmatic attenuation artifact present), nl EF, nl cavity size, no TID. echo 07/2018 tds, mildly impaired LV function 50-55%, RV nl, mild AR, mild to mod MR, ao root dilated 4.3 cm at sinus tele: sinus 83 y/o M, w/ pmh of HTN, HLD, CVA, BPH, CAD s/p CABG, presents to the ED c/o of diffuse abdominal pain of 4 hour duration 2/2 to colonic perforation perforated sigmoid diverticuli with abscess, s/p sigmoid resection and colostomy - monitoring in ICU post op, manage per surgery, critical care CAD, s/p CABG - last saw Dr. Driver 02/2019 - had mibi 11/2018 for chest pain that showed severe ischemia basal anteroseptum, reportedly had anginal symptoms that improved with medical management - holding home meds while NPO - restart metoprolol, aspirin, statin when able HTN - BP stable - holding home meds, monitor trend h/o CVA - holding aspirin, statin HLD - holding statin
--- NOTE | 2019-04-20 10:24 | PN ---
Progress Note (short form) - Note Progress Note: surgery pt seen and examined. awake. feels well. bp normal. oob to chair yesterday. minimal discomfort. urine clear. abd- soft, distended, dressing with minimal soilage. mucous fistula intact. colostomy maroon without output, packing intact latricia serous Laboratory Tests 04/20/19 04/20/19 05:15 05:15 WBC 9.2 Magnesium 2.1 A/P 1) Pod#2- cont npo, ivf, latricia packing. bacon per critical care 2) ileus- should last 1-2 more days 3) perforated viscous- on zosyn/diflucan follow cultures. gram stain with gm neg aaron 4) septic shock- resolved 5) prophylaxis- lovenox, oob, spirometer, protonix, can resume asa 6) hypomagnesemia- resolved
--- NOTE | 2019-04-20 10:29 | PN ---
Progress Note (short form) - Note Progress Note: extubated doing well no fevers Vital Signs Period Temp Pulse Resp BP Sys/Young Pulse Ox Last 24 Hr 98.0 F-99.9 F 81-111 18-28 96-143/56-87 92-100 cor-rrr lungs decreased bs at bses abd firm +ostomy, dressing in place ext no edema CBC, BMP 04/20/19 05:15 04/20/19 05:15 Microbiology 04/18/19 22:00 Peritoneal Fluid Gram Stain - Final 04/18/19 22:00 Peritoneal Fluid Body Fluid Culture - Preliminary Lactose Fermenting Neg Bacilli 04/19/19 02:15 Urine - Urine Clean Catch Urine Culture - Final NO GROWTH OBTAINED imp/reccd seen in ICU peritonitis s/p perforated diverticulitis pod #2 s/p sigmoid colectomy continue zosyn/diflucan doing well incentive spirometry f/u operative cultures d/w surgery Problem List - Problems (1) Peritonitis (acute) generalized Code(s): K65.0 - GENERALIZED (ACUTE) PERITONITIS (2) Perforation of sigmoid colon due to diverticulitis Code(s): K57.20 - DVTRCLI OF LG INT W PERFORATION AND ABSCESS W/O BLEEDING
--- NOTE | 2019-04-20 11:44 | PN ---
Teaching Attending Note Name of Resident: Rubens Montero ATTENDING PHYSICIAN STATEMENT I saw and evaluated the patient. I reviewed the resident's note and discussed the case with the resident. I agree with the resident's findings and plan as documented with exceptions below. SUBJECTIVE: Patient seen and examined, awake, extubated, denies any pain or dyspnea currently. Not passing gas yet. OBJECTIVE: Vital Signs Period Temp Pulse Resp BP Sys/Young Pulse Ox Last 24 Hr 98.0 F-99.9 F 81-111 18-28 96-143/56-87 92-100 Intake & Output 04/17/19 04/18/19 04/19/19 04/20/19 23:59 23:59 23:59 23:59 Intake Total 9500 4326 700 Output Total 7720 1225 1230 Balance 1780 3101 -530 Weight 175 lb 185 lb 184 lb 4.903 oz General: sitting in bed, awake, no acute distress Neck: soft, supple, no JVD Chest: decreased breath sounds at bases Abdomen:firm, distended, unable to appreciate bowel sounds, minimal soiling of dressing, minimal vague tenderness Extremities: no edema CVS:S1S2 regular Home Medications Medication Instructions Recorded Cholecalciferol (Vitamin D3) 1,000 unit PO BID 05/21/15 [Vitamin D3] Cyanocobalamin [Vitamin B12 -] 1,000 mcg PO WEEKLY 05/21/15 Diltiazem HCl [Diltiazem 24Hr Cd] 120 mg PO DAILY 05/21/15 Montelukast Na [Singulair -] 10 mg PO HS 05/21/15 Rosuvastatin Calcium [Crestor] 20 mg PO DAILY 05/21/15 Tamsulosin HCl 0.4 mg PO DAILY 05/21/15 Telmisartan 40 mg PO DAILY 05/21/15 Aspirin Coated [Ecotrin -] 81 mg PO DAILY 02/04/18 Ranitidine [Zantac -] 150 mg PO DAILY 02/04/18 Metoprolol Succinate 37.5 mg PO DAILY 04/18/19 Nitroglycerin [Nitrostat] 0.4 mg SL DAILY PRN 04/18/19 Telmisartan 20 mg PO DAILY 04/18/19 Active Medications Aspirin (Asa -) 81 mg PO ONCE ONE Stop: 04/20/19 11:33 Atorvastatin Calcium (Lipitor -) 40 mg PO HS [facility] Chlorhexidine Gluconate (Hibiclens For Decolonization -) 1 applic TP HS [facility] Last Admin: 04/19/19 23:29 Dose: 1 applic Enoxaparin Sodium (Lovenox -) 40 mg SQ DAILY [facility] Last Admin: 04/20/19 09:59 Dose: 40 mg Piperacillin Sod/Tazobactam (Sod 4.5 gm/ Dextrose) 100 mls @ 200 mls/hr IVPB Q8H-IV R[facility]ITA; Protocol Fluconazole (Diflucan 200 Mg/D5w Premixed Ivpb -) 100 mls @ 100 mls/hr IVPB Q24H [facility] Last Admin: 04/19/19 17:57 Dose: 100 mls/hr Sodium Chloride (Normal Saline -) 1,000 mls @ 50 mls/hr IV ASDIR [facility] Last Admin: 04/20/19 09:56 Dose: 50 mls/hr Morphine Sulfate (Morphine Sulfate) 4 mg IVPUSH Q4H PRN PRN Reason: PAIN LEVEL 6-10 Last Admin: 04/19/19 12:13 Dose: 4 mg Mupirocin (Bactroban Ointment (For Decolonization) -) 1 applic NS BID [facility] Stop: 04/23/19 21:59 Last Admin: 04/20/19 10:12 Dose: 1 applic Pantoprazole Sodium (Protonix Iv) 40 mg IVPUSH DAILY [facility] Last Admin: 04/20/19 10:00 Dose: 40 mg Laboratory Results - last 24 hr 04/20/19 04/20/19 05:15 05:15 WBC 9.2 RBC 4.07 Hgb 12.4 Hct 36.1 MCV 88.6 MCH 30.5 MCHC 34.5 RDW 14.8 Plt Count 149 MPV 7.5 Sodium 139 Potassium 4.7 Chloride 104 Carbon Dioxide 30 Anion Gap 5 L BUN 16.1 Creatinine 1.0 Est GFR (CKD-EPI)AfAm 79.75 Est GFR (CKD-EPI)NonAf 68.81 Random Glucose 102 Calcium 8.2 L Phosphorus 3.0 Magnesium 2.1 Total Bilirubin 1.5 H AST 20 ALT 17 Alkaline Phosphatase 33 L Total Protein 5.1 L [address]in [address] A/P 04/18 results reviewed ASSESSMENT AND PLAN: 83 yom with PMHx of CAD s/p CABG, HTN, HLD, BPH, CVA admitted with acute abdomen from sigmoid diverticulitis with perforation/abscess s/p emergent surgery. -Acute sigmoid diverticulitis with abscess/perforation s/p emergent Exlap/ resection/colostomy/mucous fistula and lavage 04/18/2019 -Post operative ileus -Post op hypoxic respiratory failure s/p extubation 04/19 -Septic shock -CAD s/p CABG -HTN -HLD -BPH -CVA Plan: Extubated, doing well. Surgery input noted, Ileus expected to resolve over 1-2 days, monitor for now. Advance PO per surgery. ID input noted. zosyn/flagyl, follow up cultures. cardiology input appreciated. Continue ASA/statin. Resume metoprolol as hemodynamics permit. GI/DVTPPX ICU level of care Care co-ordinated with ICU, cardiology, ID total critical care time spent 36 min.
--- NOTE | 2019-04-20 12:41 | PN ---
Teaching Attending Note Name of Resident: Jaquan Samano ATTENDING PHYSICIAN STATEMENT I saw and evaluated the patient. I reviewed the resident's note and discussed the case with the resident. I agree with the resident's findings and plan as documented. SUBJECTIVE: Patient seen and examined in the ICU. Extubated and awake and alert. Denies CP or SOB. Marginal BP overnight responded to IVF. Minimal post-op discomfort. Intake & Output 04/17/19 04/18/19 04/19/19 04/20/19 23:59 23:59 23:59 23:59 Intake Total 9500 4326 700 Output Total 7720 1225 1230 Balance 1780 3101 -530 Weight 175 lb 185 lb 184 lb Last Vital Signs Temp Pulse Resp BP Pulse Ox 98.0 F 101 H 28 H 139/84 100 04/20/19 10:00 04/20/19 10:00 04/20/19 10:00 04/20/19 10:00 04/20/19 07:32 Active Medications Atorvastatin Calcium (Lipitor -) 40 mg PO HS [facility] Chlorhexidine Gluconate (Hibiclens For Decolonization -) 1 applic TP HS [facility] Last Admin: 04/19/19 23:29 Dose: 1 applic Enoxaparin Sodium (Lovenox -) 40 mg SQ DAILY [facility] Last Admin: 04/20/19 09:59 Dose: 40 mg Piperacillin Sod/Tazobactam (Sod 4.5 gm/ Dextrose) 100 mls @ 200 mls/hr IVPB Q8H-IV [facility]; Protocol Fluconazole (Diflucan 200 Mg/D5w Premixed Ivpb -) 100 mls @ 100 mls/hr IVPB Q24H [facility] Last Admin: 04/19/19 17:57 Dose: 100 mls/hr Sodium Chloride (Normal Saline -) 1,000 mls @ 50 mls/hr IV ASDIR [facility] Last Admin: 04/20/19 09:56 Dose: 50 mls/hr Morphine Sulfate (Morphine Sulfate) 4 mg IVPUSH Q4H PRN PRN Reason: PAIN LEVEL 6-10 Last Admin: 04/19/19 12:13 Dose: 4 mg Mupirocin (Bactroban Ointment (For Decolonization) -) 1 applic NS BID [facility] Stop: 04/23/19 21:59 Last Admin: 04/20/19 10:12 Dose: 1 applic Pantoprazole Sodium (Protonix Iv) 40 mg IVPUSH DAILY [facility] Last Admin: 04/20/19 10:00 Dose: 40 mg GENERAL: Awake and alert, NAD EYES: (-) Pallor (-) Icterus ENT: Dry mucus membranes NECK: No JVD LUNGS: Clear HEART: RRR, no murmurs ABDOMEN: Softly distended, hypoactive BS., dressings intact, (+) Colostomy bag without any surrounding erythema or bleeding. (+) YI drain RLQ EXTREMITIES: 2+ pulses, no edema. NEUROLOGICAL: Awake and alert, non-focal Laboratory Results - last 24 hr 04/20/19 04/20/19 05:15 05:15 WBC 9.2 RBC 4.07 Hgb 12.4 Hct 36.1 MCV 88.6 MCH 30.5 MCHC 34.5 RDW 14.8 Plt Count 149 MPV 7.5 Sodium 139 Potassium 4.7 Chloride 104 Carbon Dioxide 30 Anion Gap 5 L BUN 16.1 Creatinine 1.0 Est GFR (CKD-EPI)AfAm 79.75 Est GFR (CKD-EPI)NonAf 68.81 Random Glucose 102 Calcium 8.2 L Phosphorus 3.0 Magnesium 2.1 Total Bilirubin 1.5 H AST 20 ALT 17 Alkaline Phosphatase 33 L Total Protein 5.1 L Albumin 2.3 L ASSESSMENT/PLAN: POD #2: Exploratory laparotomy, sigmoid colectomy, creation of end colostomy, creation of mucous fistula, drainage of abscess, and lavage Hypertension Coronary artery bypass graft S/P quadruple bypass Cholelithiasis CVA BPH Acute sigmoid diverticulitis Pneumoperitoneum O2 as needed to maintain saturation Continue IVF VTE prophylaxis ABX coverage per ID Pain control PPI PO when cleared by surgery Cardiac Telemetry monitoring Dr Mueller
[2019-04-20] MEDS: ASPIRIN 81 MG CHEWABLE TABLETS PO ONE ×2 (12:46→13:33)
--- NOTE | 2019-04-20 13:46 | PN ---
Physical Exam: SUBJECTIVE: Patient seen and examined at the bedside. Overnight, patient had low blood pressures with MAPs below 65 and was given bolus 500cc to which he responded well to. Since that time, pressures have remained stable. Patient has since transitioned to room air and is saturating well. States he has abdominal pain that is most tender around the area of the incision and around the area. Currently denies chest pain, sob, n/v, fever, chills, weakness, numbness, tingling. OBJECTIVE: Vital Signs Period Temp Pulse Resp BP Sys/Young Pulse Ox Last 24 Hr 98.0 F-99.9 F 83-111 18-28 99-143/56-87 92-100 GENERAL: awake and alert, responsive to stimuli, oriented EYES: PERRL, EOMI ENT: Moist mucus membranes NECK: No JVD LUNGS: decreased breath sounds at the bases. No noted wheezes, coarse breath sounds, crackles. HEART: Regular rhythm with premature beats heard, no murmurs or rubs. ABDOMEN: Soft, moderately distended, midline incision scar noted with overlying dressing that is intact and has serosanginous drainage. Colostomy bag noted on L side of umbilicus without any surrounding erythema or bleeding. YI drain in place in inferior R abdomen draining serosanguinous fluid. EXTREMITIES: 2+ pulses, no edema. NEUROLOGICAL: CNII-XII intact, muscle strength equal bilaterally upper and lower extremities. Laboratory Results - last 24 hr 04/20/19 04/20/19 05:15 05:15 WBC 9.2 RBC 4.07 Hgb 12.4 Hct 36.1 MCV 88.6 MCH 30.5 MCHC 34.5 RDW 14.8 Plt Count 149 MPV 7.5 Sodium 139 Potassium 4.7 Chloride 104 Carbon Dioxide 30 Anion Gap 5 L BUN 16.1 Creatinine 1.0 Est GFR (CKD-EPI)AfAm 79.75 Est GFR (CKD-EPI)NonAf 68.81 Random Glucose 102 Calcium 8.2 L Phosphorus 3.0 Magnesium 2.1 Total Bilirubin 1.5 H AST 20 ALT 17 Alkaline Phosphatase 33 L Total Protein 5.1 L Albumin 2.3 L Active Medications Generic Name Dose Route Start Last Admin Trade Name Freq PRN Reason Stop Dose Admin Atorvastatin Calcium 40 mg 04/20/19 22:00 Lipitor - PO HS [facility]EN[facility] Chlorhexidine Gluconate 1 applic 04/18/19 22:00 08/13/19 23:29 Hibiclens For Decolonization - TP 1 applic HS [facility] Administration Enoxaparin Sodium 40 mg 04/19/19 10:00 04/20/19 09:59 Lovenox - SQ 40 mg DAILY [facility] Administration Piperacillin Sod/Tazobactam 100 mls @ 200 mls/hr 04/19/19 18:00 04/20/19 12: 47 Sod 4.5 gm/ Dextrose IVPB Not Given Q8H-IV [facility] Protocol Fluconazole 100 mls @ 100 mls/hr 04/19/19 17:00 04/19/19 17:57 Diflucan 200 Mg/D5w Premixed Ivpb - IVPB 100 mls/hr Q24H [facility] Administration Sodium Chloride 1,000 mls @ 50 mls/hr 04/20/19 08:30 04/20/19 09:56 Normal Saline - IV 50 mls/hr ASDIR [facility] Administration Morphine Sulfate 4 mg 04/19/19 11:38 04/19/19 12:13 Morphine Sulfate IVPUSH 4 mg Q4H PRN Administration PAIN LEVEL 6-10 Mupirocin 1 applic 04/18/19 22:00 04/20/19 10:12 Bactroban Ointment (For Decolonization) - NS 04/23/19 21:59 1 applic BID [facility] Administration Pantoprazole Sodium 40 mg 04/19/19 10:00 04/20/19 10:00 Protonix Iv IVPUSH 40 mg DAILY [facility] Administration ASSESSMENT/PLAN: Man Mccoy is an 83 year old male with a history of hypertension, coronary artery bypass graft, s/p quadruple bypass, cholelithiasis, CVA, BPH presented to the hospital for several hours of sudden onset, diffuse abdominal pain with associated nausea found to have acute sigmoid diverticulitis with abscess and bowel perforation/pneumoperitoneum admitted to the ICU s/p washout, sigmoid colectomy, abscess drainage POD 2. Sepsis 2/2 Acute Sigmoid Diverticulitis/Sigmoid Abscess Bowel Perforation Pneumoperitoneum Hypertension CAD Hx CVA Neurological -awake and alert -morphine 4mg q6h prn for pain Cardiovascular -cardiology consulted for hx of single vessel ischemia on stress test -BP low, given boluses, responding well -continue to monitor BP -volume resuscitate s/p surgery -arterial line removed today -restart aspirin and lipitor today -hold metoprolol as pressures low today, restart when BP higher Pulmonary -monitor O2 sats, on NC -CXR 04/19, no acute abnormalities -continue incentive spirometry Gastrointestinal -CT showing pneumoperitoneum, acute diverticulitis, perforation, and 1.3cm abscess -continue 4.5gm zosyn q8h -emergently taken to OR Per [facility] for colectomy w/ colostomy -add Diflucan 200mg for yeast coverage -peritoneal fluid noted to be purulent, sent off for cultures, cultures showing gram negative lactose fermenting bacilli -protonix IV 40 BID -volume resuscitation NS at 50cc/hr and boluses as necessary -ileus should last 1-2 more days as per surgery -GI consulted, recs appreciated Renal -bacon catheter removed today Infectious Diseases -continue zosyn 4.45gm q8h -diflucan 200mg for yeast coverage -peritoneal fluid cultures -urine cultures -Dr. Patrick consulted, recs appreciated FEN -NS 50cc/hr, boluses as necessary -continue to monitor electrolytes and replete as necessary -NPO until cleared by surgery, meds PO Prophylaxis -SCDs for prophylaxis -Lovenox 40mg daily CODE -full code Disposition -continue to monitor in ICU CASE DISCUSSED WITH DR JAY JAY RAGLAND DO - PGY-1 Visit type - Emergency Visit Emergency Visit: No - New Patient This patient is new to me today: No - Critical Care Critical Care patient: No Total Critical Care Time (in minutes): 36 Critical Care Statement: The care of this patient involved high complexity decision making to prevent further life threatening deterioration of the patient 's condition and/or to evaluate & treat vital organ system(s) failure or risk of failure.
[2019-04-20] MEDS: FLUCONAZOLE 200 MG/D5W 100 ML IVPB SCH (17:10)
--- NOTE | 2019-04-20 17:32 | PATH ---
Surgical Pathology Report Patient Name: VIJI VIRAMONTES [facility]. Rec. #: [id number] /Age/Gender: 1935 (Age: 83) / M Account: [id number] Location: ICU [facility] Taken: 04/18/2019 Received: 04/19/2019 Reported: 04/20/2019 Physicians: Jaquan Bettencourt M.D. Specimen(s) Received PERFORATED SIGMOID COLON Clinical History Perforation of intestine Final Diagnosis SIGMOID COLON, PERFORATED, RESECTION: SEGMENT OF COLON WITH DIVERTICULOSIS, DIVERTICULITIS, MARKED ACUTE INFLAMMATION, ABSCESS FORMATION, ULCERATION, AND ASSOCIATED PERFORATION. HYPERPLASTIC POLYP. ACUTE SEROSITIS. Electronically Signed Janessa Nunez M.D. Gross Description Received in formalin labeled "perforated sigmoid colon, staple end proximal," is a 13 cm in length portion of colon with an open mucosal margin at the distal end and a stapled mucosal margin at the proximal end, per the surgeon. The specimen displays abundant attached pericolonic adipose tissue. The serosa is nails-pink with exudate and a focal large defect/perforation, marked by a suture. The lumen contains abundant fecal material. The mucosa displays a 0.5 x 0.3 x 0.2 cm brown pedunculated polyp. The polyp appears confined to the mucosa. Sectioning of the specimen displays abundant diverticula. Mr Teacher sections are submitted in 10 cassettes as follows: 1-stapled proximal mucosal margin; 2-open distal mucosal margin; 2-4-[id number] from perforation site; 6-mucosal polyp; 7-18-gmveeabzro uninvolved diverticula. 04/19/2019 saudi04/19/2019
[2019-04-20] MEDS: CHLORHEXIDINE GLUCONATE 4% CLEANSER FOR DECOLONIZATION TP SCH (21:01)
[2019-04-20] MEDS ORDERED: ATORVASTATIN CA 40 MG TABLET (FP) PO SCH (22:00)
[2019-04-20] MEDS ORDERED: METOPROLOL TARTRATE 5 MG/5 ML VIAL IVPUSH ONE (23:59)
[2019-04-21] MEDS ORDERED: PIPERACILLIN/TAZOBACTAM 4.5 GM VIAL IVPB ONE ×3 (03:08→14:49)
[2019-04-21] MEDS ORDERED: DEXTROSE 5%-WATER 100 ML IVPB ONE ×3 (03:08→14:49)
[2019-04-21] MEDS: PIPERACILLIN/TAZOB 4.5 GM 4.5 GM in DEXTROSE 5%-WATER 100 ML IVPB SCH ×3 (03:36→18:51)
[2019-04-21 07:09] LABS: HEMATOCRIT 37.6 % (35.4-49); HEMOGLOBIN 12.9 GM/dL (11.7-16.9); MCH 30.4 pg (25.7-33.7); MCHC 34.4 g/dl (32.0-35.9); MEAN CELL VOLUME 88.4 fl (80-96); MEAN PLT VOLUME 7.5 fl (7.5-11.1); PLATELET COUNT 162 K/MM3 (134-434); RBC 4.25 M/mm3 (4.00-5.60); RDW 14.5 % (11.9-15.9); WHITE BLOOD COUNT 10.7 K/mm3 (4.0-10.0)
[2019-04-21 07:12] LABS: BLOOD UREA NITROGEN 18.5 mg/dL (7-18); CALCIUM 8.4 mg/dL (8.5-10.1); CREATININE 1.1 mg/dL (0.55-1.3); MAGNESIUM 2.3 mg/dL (1.8-2.4); POTASSIUM 3.9 mmol/L (3.5-5.1)
--- NOTE | 2019-04-21 07:42 | PN ---
Physical Exam: SUBJECTIVE: Patient seen and examined\no acute events over night , no fever no chills, still with right side abdominal pain ,no flatus and not able to pass urine reports slight vomiting. OBJECTIVE: Vital Signs Period Temp Pulse Resp BP Sys/Young Pulse Ox Last 24 Hr 97.5 F-99.5 F 82-111 13-28 122-177/54-118 96-98 GENERAL: The patient is awake, alert, and fully oriented, in no acute distress. HEAD: Normal with no signs of trauma. EYES: PERRL, extraocular movements intact, sclera anicteric, conjunctiva clear. NECK: Trachea midline,supple. LUNGS: Breath sounds equal, clear to auscultation bilaterally, no wheezes, no crackles, no accessory muscle use. HEART: sinus tachy , S1, S2 without murmur, rub or gallop. ABDOMEN: obese Soft,diffuse tenderness , distended with right side drainage and left side cholostomy bag, med line surgery sight covered with gauss rebound, no hepatosplenomegaly, no masses. EXTREMITIES: 2+ pulses, warm, well-perfused, no edema. NEUROLOGICAL: no focal deficit . Normal speech, gait not observed. Laboratory Results - last 24 hr 04/21/19 05:39 Sodium 139 Potassium 3.9 Chloride 104 Carbon Dioxide 26 Anion Gap 8 BUN 18.5 H Creatinine 1.1 Est GFR (CKD-EPI)AfAm 71.07 Est GFR (CKD-EPI)NonAf 61.32 Random Glucose 92 Calcium 8.4 L Phosphorus 3.0 Magnesium 2.3 Active Medications Generic Name Dose Route Start Last Admin Trade Name Freq PRN Reason Stop Dose Admin Atorvastatin Calcium 40 mg 04/20/19 22:00 04/20/19 21:01 Lipitor - PO 40 mg HS [facility]ENITA Administration Chlorhexidine Gluconate 1 applic 04/18/19 22:00 04/20/19 21:01 Hibiclens For Decolonization - TP 1 applic HS [facility] Administration Enoxaparin Sodium 40 mg 04/19/19 10:00 04/20/19 09:59 Lovenox - SQ 40 mg DAILY [facility] Administration Piperacillin Sod/Tazobactam 100 mls @ 200 mls/hr 04/19/19 18:00 04/21/19 03: 36 Sod 4.5 gm/ Dextrose IVPB 200 mls/hr Q8H-IV [facility] Administration Protocol Fluconazole 100 mls @ 100 mls/hr 04/19/19 17:00 04/20/19 17:10 Diflucan 200 Mg/D5w Premixed Ivpb - IVPB 100 mls/hr Q24H [facility] Administration Sodium Chloride 1,000 mls @ 50 mls/hr 04/20/19 08:30 04/20/19 09:56 Normal Saline - IV 50 mls/hr ASDIR [facility] Administration Morphine Sulfate 4 mg 04/19/19 11:38 04/19/19 12:13 Morphine Sulfate IVPUSH 4 mg Q4H PRN Administration PAIN LEVEL 6-10 Mupirocin 1 applic 04/18/19 22:00 04/20/19 21:01 Bactroban Ointment (For Decolonization) - NS 04/23/19 21:59 1 applic BID [facility] Administration Pantoprazole Sodium 40 mg 04/19/19 10:00 04/20/19 10:00 Protonix Iv IVPUSH 40 mg DAILY [facility] Administration CBC, BMP 04/21/19 05:39 04/21/19 05:39 Microbiology 04/18/19 22:00 Peritoneal Fluid Gram Stain - Final 04/18/19 22:00 Peritoneal Fluid Body Fluid Culture - Preliminary Lactose Fermenting Neg Bacilli 04/19/19 02:15 Urine - Urine Clean Catch Urine Culture - Final NO GROWTH OBTAINED ASSESSMENT/PLAN: 83 y/o M, w/ pmh of HTN, HLD, CVA, BPH, CAD s/p CABG, presents to the ED c/o of diffuse abdominal pain of 4 hour duration 2/2 to perforated vesus. # Sepsis 2/2 Acute diverticulitis with sigmoid abscess and perforated vescus # pneumoperitionium # POD#2 Exploratory laparotomy, sigmoid colectomy, creation of end colostomy, creation of mucous fistula, drainage of abscess, and lavage #Elius expected to improve in the next 48 hours per surgery * monitor in ICU , transfer to /S * maintain BP with no pressors . * extubated * cont zosyn and diflucan day 3 * cont IV fluids * Monitor I&O * NPO till pass flatus * pain control * ID and cardiology consulted * images reviewed * peritoneal fluids with lactose fermenting negative bacilli # CAD # HTN # HLD #Coronary artery bypass graft #S/P quadruple bypass #Cholelithiasis #CVA #BPH * cont home meds ASA , Metoprlol, Lipitor * PPI IV Visit type - Emergency Visit Emergency Visit: Yes ED Registration Date: 04/18/19 Care time: The patient presented to the Emergency Department on the above date and was hospitalized for further evaluation of their emergent condition. - New Patient This patient is new to me today: No - Critical Care Critical Care patient: No ATTENDING PHYSICIAN STATEMENT I saw and evaluated the patient. I reviewed the resident's note and discussed the case with the resident. I agree with the resident's findings and plan as documented. SUBJECTIVE: OBJECTIVE: ASSESSMENT AND PLAN:
--- NOTE | 2019-04-21 09:00 | PN ---
Progress Note, Physician Chief Complaint: unable to urinate since bacon was discontinued yest Agitated May need to have bacon back TELE: Sinus tach; BP elevated as he is straining to urinate - Current Medication List Current Medications: Active Medications Atorvastatin Calcium (Lipitor -) 40 mg PO HS COUNTS INCLUDE 234 BEDS AT THE [facility] Last Admin: 04/20/19 21:01 Dose: 40 mg Chlorhexidine Gluconate (Hibiclens For Decolonization -) 1 applic TP HS COUNTS INCLUDE 234 BEDS AT THE [facility] Last Admin: 04/20/19 21:01 Dose: 1 applic Enoxaparin Sodium (Lovenox -) 40 mg SQ DAILY COUNTS INCLUDE 234 BEDS AT THE [facility] Last Admin: 04/20/19 09:59 Dose: 40 mg Piperacillin Sod/Tazobactam (Sod 4.5 gm/ Dextrose) 100 mls @ 200 mls/hr IVPB Q8H-IV [facility]; Protocol Last Admin: 04/21/19 03:36 Dose: 200 mls/hr Fluconazole (Diflucan 200 Mg/D5w Premixed Ivpb -) 100 mls @ 100 mls/hr IVPB Q24H COUNTS INCLUDE 234 BEDS AT THE [facility] Last Admin: 04/20/19 17:10 Dose: 100 mls/hr Sodium Chloride (Normal Saline -) 1,000 mls @ 50 mls/hr IV ASDIR COUNTS INCLUDE 234 BEDS AT THE [facility] Last Admin: 04/20/19 09:56 Dose: 50 mls/hr Morphine Sulfate (Morphine Sulfate) 4 mg IVPUSH Q4H PRN PRN Reason: PAIN LEVEL 6-10 Last Admin: 04/19/19 12:13 Dose: 4 mg Mupirocin (Bactroban Ointment (For Decolonization) -) 1 applic NS BID COUNTS INCLUDE 234 BEDS AT THE [facility] Stop: 04/23/19 21:59 Last Admin: 04/20/19 21:01 Dose: 1 applic Pantoprazole Sodium (Protonix Iv) 40 mg IVPUSH DAILY COUNTS INCLUDE 234 BEDS AT THE [facility] Last Admin: 04/20/19 10:00 Dose: 40 mg - Objective Vital Signs: Vital Signs Temperature 98.3 F 04/21/19 08:00 Pulse Rate 110 H 04/21/19 08:00 Respiratory Rate 34 H 04/21/19 08:00 Blood Pressure 166/129 H 04/21/19 08:00 O2 Sat by Pulse Oximetry (%) 98 04/20/19 21:00 Constitutional: Yes: No Distress Eyes: Yes: Conjunctiva Clear Cardiovascular: Yes: Regular Rate and Rhythm Respiratory: Yes: CTA Bilaterally (no wheezing or rales) Edema: No Neurological: Yes: Alert, Oriented Labs: CBC, BMP 04/21/19 05:39 04/21/19 05:39 INR, PTT INR 1.13 (0.83-1.09) H 04/18/19 16:35 Laboratory Tests 04/21/19 04/21/19 05:39 05:39 WBC 10.7 H Hgb 12.9 Plt Count 162 Sodium 139 Potassium 3.9 Creatinine 1.1 Random Glucose 92 Magnesium 2.3 - ....Imaging EKG: Image Reviewed Assessment/Plan Assessment/Plan mibi 11/2018 medium sized area of severe ischemia in basal anteroseptum ( diaphragmatic attenuation artifact present), nl EF, nl cavity size, no TID. echo 07/2018 tds, mildly impaired LV function 50-55%, RV nl, mild AR, mild to mod MR, ao root dilated 4.3 cm at sinus tele: sinus 83 y/o M, w/ pmh of HTN, HLD, CVA, BPH, CAD s/p CABG, presents to the ED c/o of diffuse abdominal pain of 4 hour duration 2/2 to colonic perforation perforated sigmoid diverticuli with abscess, s/p sigmoid resection and colostomy - monitoring in ICU post op, manage per surgery, critical care CAD, s/p CABG - last saw Dr. Driver 02/2019 - had mibi 11/2018 for chest pain that showed severe ischemia basal anteroseptum, reportedly had anginal symptoms that improved with medical management - holding home meds while NPO - restart metoprolol, aspirin, statin when able HTN -BP now elevated in setting of urinary retention, BP previously well controlled. -Will likely require bacon again, defer to ICU team h/o CVA - holding aspirin, statin HLD - holding statin
[2019-04-21] MEDS: SODIUM CHLORIDE 1,000 ML IV SCH (09:39)
[2019-04-21] MEDS: METOPROLOL TARTRATE 5 MG/5 ML VIAL IVPUSH SCH ×2 (09:39→15:32)
[2019-04-21] MEDS: PANTOPRAZOLE SODIUM 40 MG VIAL IVPUSH SCH (09:40)
[2019-04-21] MEDS: ENOXAPARIN NA (PORCINE) 40 MG/0.4 ML DISP.SYRIN SQ SCH (09:43)
--- NOTE | 2019-04-21 10:28 | PN ---
Progress Note (short form) - Note Progress Note: surgery pt seen and examined. sitting in chair. hungry. had some retention but voiding now. no nausea abd- soft, moderate distension, colostomy dusky, latricia serous, wound clean with packing removed Laboratory Tests 04/21/19 05:39 WBC 10.7 H Hgb 12.9 A/P 1) Pod#3- cont npo, ivf, latricia, packing removed. bacon out 2) ileus- should last 1-2 more days. keep npo today. maybe clear liquids tomorrow 3) perforated viscous- on zosyn/diflucan follow cultures. gram stain with gm neg aaron 4) septic shock- resolved 5) prophylaxis- lovenox, oob, spirometer, protonix, can resume asa 6) hypomagnesemia- resolved 7) open wound- irrigate daily with saline and dry dressing
[2019-04-21] MEDS: MUPIROCIN 2% TOPICAL OINTMENT FOR DECOLONIZATION NS SCH (10:30)
--- NOTE | 2019-04-21 11:37 | PN ---
Physical Exam: SUBJECTIVE: Patient seen and examined at the bedside. Overnight the patient had to use the bathroom and got a bit confused/ agitated and ripped his colostomy bag off. It was replaced without incident. There is still no gas/ stool in the colostomy bag. Additionally, the patient reports that since his bacon was removed yesterday he has been having some issues with urinary retention. Patient is stable for transfer to telemetry today. OBJECTIVE: Vital Signs Period Temp Pulse Resp BP Sys/Young Pulse Ox Last 24 Hr 97.5 F-99.5 F 82-110 13-34 102-177/54-129 96-98 GENERAL: The patient is awake, alert, and fully oriented, in no acute distress. HEAD: Normal with no signs of trauma. EYES: PERRL, extraocular movements intact, sclera anicteric, conjunctiva clear. No ptosis. ENT: Ears normal, nares patent, oropharynx clear without exudates, moist mucous membranes. NECK: Trachea midline, full range of motion, supple. LUNGS: Breath sounds equal, clear to auscultation bilaterally, no wheezes, no crackles, no accessory muscle use. HEART: Regular rate and rhythm ABDOMEN: Soft, moderately distended, midline incision scar noted with overlying dressing that is c/d/i. Colostomy bag noted on L side of umbilicus without any surrounding erythema or bleeding. YI drain in place in inferior R abdomen draining serosanguinous fluid. EXTREMITIES: 2+ pulses, warm, well-perfused, no edema. NEUROLOGICAL: Cranial nerves II through XII grossly intact. Normal speech, gait not observed. PSYCH: Normal mood, normal affect. SKIN: Warm, dry, normal turgor, no rashes or lesions noted Laboratory Results - last 24 hr 04/21/19 04/21/19 05:39 05:39 WBC 10.7 H RBC 4.25 Hgb 12.9 Hct 37.6 MCV 88.4 MCH 30.4 MCHC 34.4 RDW 14.5 Plt Count 162 MPV 7.5 Sodium 139 Potassium 3.9 Chloride 104 Carbon Dioxide 26 Anion Gap 8 BUN 18.5 H Creatinine 1.1 Est GFR (CKD-EPI)AfAm 71.07 Est GFR (CKD-EPI)NonAf 61.32 Random Glucose 92 Calcium 8.4 L Phosphorus 3.0 Magnesium 2.3 Active Medications Generic Name Dose Route Start Last Admin Trade Name Freq PRN Reason Stop Dose Admin Atorvastatin Calcium 40 mg 04/20/19 22:00 04/20/19 21:01 Lipitor - PO 40 mg HS RENITA Administration Chlorhexidine Gluconate 1 applic 04/18/19 22:00 04/20/19 21:01 Hibiclens For Decolonization - TP 1 applic HS RENITA Administration Enoxaparin Sodium 40 mg 04/19/19 10:00 04/21/19 09:43 Lovenox - SQ 40 mg DAILY RENITA Administration Piperacillin Sod/Tazobactam 100 mls @ 200 mls/hr 04/19/19 18:00 04/21/19 09: 40 Sod 4.5 gm/ Dextrose IVPB 200 mls/hr Q8H-IV RENITA Administration Protocol Fluconazole 100 mls @ 100 mls/hr 04/19/19 17:00 04/20/19 17:10 Diflucan 200 Mg/D5w Premixed Ivpb - IVPB 100 mls/hr Q24H RENITA Administration Sodium Chloride 1,000 mls @ 50 mls/hr 04/20/19 08:30 04/21/19 09:39 Normal Saline - IV 50 mls/hr ASDIR RENITA Administration Metoprolol Tartrate 5 mg 04/21/19 09:15 04/21/19 09:39 Lopressor Injection - IVPUSH 5 mg Q6H-IV RENITA Administration Morphine Sulfate 4 mg 04/19/19 11:38 04/19/19 12:13 Morphine Sulfate IVPUSH 4 mg Q4H PRN Administration PAIN LEVEL 6-10 Mupirocin 1 applic 04/18/19 22:00 04/20/19 21:01 Bactroban Ointment (For Decolonization) - NS 04/23/19 21:59 1 applic BID RENITA Administration Pantoprazole Sodium 40 mg 04/19/19 10:00 04/21/19 09:40 Protonix Iv IVPUSH 40 mg DAILY RENITA Administration ASSESSMENT/PLAN: Man Mccoy is an 83 year old male with a history of hypertension, coronary artery bypass graft, s/p quadruple bypass, cholelithiasis, CVA, BPH presented to the hospital for several hours of sudden onset, diffuse abdominal pain with associated nausea found to have acute sigmoid diverticulitis with abscess and bowel perforation/pneumoperitoneum admitted to the ICU s/p washout, sigmoid colectomy, abscess drainage POD 2. Sepsis 2/2 Acute Sigmoid Diverticulitis/Sigmoid Abscess Bowel Perforation Pneumoperitoneum Hypertension CAD Hx CVA Neurological -awake and alert -morphine 4mg q6h prn for pain Cardiovascular -cardiology consulted for hx of single vessel ischemia on stress test -BP low, given boluses, responding well -continue to monitor BP -volume resuscitate s/p surgery -arterial line removed yesterday -restarted aspirin and lipitor today -hold metoprolol as pressures continue to be low Pulmonary -monitor O2 sats, on NC -CXR 04/19, no acute abnormalities -continue incentive spirometry Gastrointestinal -CT showing pneumoperitoneum, acute diverticulitis, perforation, and 1.3cm abscess -continue 4.5gm zosyn q8h -emergently taken to OR Per [facility] for colectomy w/ colostomy -add Diflucan 200mg for yeast coverage -peritoneal fluid noted to be purulent, sent off for cultures, cultures showing gram negative lactose fermenting bacilli -protonix IV 40 BID -volume resuscitation NS at 50cc/hr and boluses as necessary -ileus should last 1-2 more days as per surgery - Encourage ambulation to help with ileus - continue to keep NPO for now. -GI consulted, recs appreciated Renal -bacon catheter removed yesterday -consider replacing catheter if patient continues to have urinary retention problem Infectious Diseases -continue zosyn 4.45gm q8h -diflucan 200mg for yeast coverage -peritoneal fluid cultures -urine cultures -Dr. Patrick consulted, recs appreciated FEN -NS 50cc/hr, boluses as necessary -continue to monitor electrolytes and replete as necessary -NPO until cleared by surgery, meds PO Prophylaxis -SCDs for prophylaxis -Lovenox 40mg daily CODE -full code Disposition -Patient is stable for transfer to telemetry. Visit type - Emergency Visit Emergency Visit: Yes ED Registration Date: 04/18/19 Care time: The patient presented to the Emergency Department on the above date and was hospitalized for further evaluation of their emergent condition. - New Patient This patient is new to me today: Yes Date on this admission: 04/21/19 - Critical Care Critical Care patient: Yes Total Critical Care Time (in minutes): 40 Critical Care Statement: The care of this patient involved high complexity decision making to prevent further life threatening deterioration of the patient 's condition and/or to evaluate & treat vital organ system(s) failure or risk of failure. ATTENDING PHYSICIAN STATEMENT I saw and evaluated the patient. I reviewed the resident's note and discussed the case with the resident. I agree with the resident's findings and plan as documented. SUBJECTIVE: OBJECTIVE: ASSESSMENT AND PLAN:
--- NOTE | 2019-04-21 12:58 | PN ---
Teaching Attending Note Name of Resident: Juhi Mcfarland ATTENDING PHYSICIAN STATEMENT I saw and evaluated the patient. I reviewed the resident's note and discussed the case with the resident. I agree with the resident's findings and plan as documented. SUBJECTIVE: Patient seen and examined in the ICU. OOB to chair. Had some urinary retention. Denies CP or SOB. Minimal post-op discomfort. No output from colostomy. Intake & Output 04/18/19 04/19/19 04/20/19 04/21/19 23:59 23:59 23:59 23:59 Intake Total 9500 4326 1550 800 Output Total 7720 1225 2035 710 Balance 1780 3101 -485 90 Weight 175 lb 185 lb 184 lb 186 lb 15.232 oz Last Vital Signs Temp Pulse Resp BP Pulse Ox 98 F 86 18 105/80 98 04/21/19 11:14 04/21/19 11:14 04/21/19 11:14 04/21/19 11:14 04/21/19 09:00 Active Medications Atorvastatin Calcium (Lipitor -) 40 mg PO HS RENITA Last Admin: 04/20/19 21:01 Dose: 40 mg Chlorhexidine Gluconate (Hibiclens For Decolonization -) 1 applic TP HS RENITA Last Admin: 04/20/19 21:01 Dose: 1 applic Enoxaparin Sodium (Lovenox -) 40 mg SQ DAILY RENITA Last Admin: 04/21/19 09:43 Dose: 40 mg Piperacillin Sod/Tazobactam (Sod 4.5 gm/ Dextrose) 100 mls @ 200 mls/hr IVPB Q8H-IV RENITA; Protocol Last Admin: 04/21/19 09:40 Dose: 200 mls/hr Fluconazole (Diflucan 200 Mg/D5w Premixed Ivpb -) 100 mls @ 100 mls/hr IVPB Q24H RENITA Last Admin: 04/20/19 17:10 Dose: 100 mls/hr Sodium Chloride (Normal Saline -) 1,000 mls @ 50 mls/hr IV ASDIR RENITA Last Admin: 04/21/19 09:39 Dose: 50 mls/hr Metoprolol Tartrate (Lopressor Injection -) 5 mg IVPUSH Q6H-IV RENITA Last Admin: 04/21/19 09:39 Dose: 5 mg Morphine Sulfate (Morphine Sulfate) 4 mg IVPUSH Q4H PRN PRN Reason: PAIN LEVEL 6-10 Last Admin: 04/19/19 12:13 Dose: 4 mg Mupirocin (Bactroban Ointment (For Decolonization) -) 1 applic NS BID [facility] Stop: 04/23/19 21:59 Last Admin: 04/20/19 21:01 Dose: 1 applic Pantoprazole Sodium (Protonix Iv) 40 mg IVPUSH DAILY [facility] Last Admin: 04/21/19 09:40 Dose: 40 mg GENERAL: Awake and alert, NAD EYES: (-) Pallor (-) Icterus ENT: Dry mucus membranes NECK: No JVD LUNGS: Clear HEART: RRR, no murmurs ABDOMEN: Softly distended, hypoactive BS., dressings intact, (+) Colostomy bag without any surrounding erythema or bleeding. (+) YI drain RLQ EXTREMITIES: 2+ pulses, no edema. NEUROLOGICAL: Awake and alert, non-focal Laboratory Results - last 24 hr 04/21/19 04/21/19 05:39 05:39 WBC 10.7 H RBC 4.25 Hgb 12.9 Hct 37.6 MCV 88.4 MCH 30.4 MCHC 34.4 RDW 14.5 Plt Count 162 MPV 7.5 Sodium 139 Potassium 3.9 Chloride 104 Carbon Dioxide 26 Anion Gap 8 BUN 18.5 H Creatinine 1.1 Est GFR (CKD-EPI)AfAm 71.07 Est GFR (CKD-EPI)NonAf 61.32 Random Glucose 92 Calcium 8.4 L Phosphorus 3.0 Magnesium 2.3 ASSESSMENT/PLAN: POD #3: Exploratory laparotomy, sigmoid colectomy, creation of end colostomy, creation of mucous fistula, drainage of abscess, and lavage Hypertension Coronary artery bypass graft S/P quadruple bypass Cholelithiasis CVA BPH Acute sigmoid diverticulitis Pneumoperitoneum O2 as needed to maintain saturation IVF VTE prophylaxis ABX coverage per ID Pain control PPI NPO: PO when cleared by surgery Cardiac Telemetry monitoring Dr Mueller
--- NOTE | 2019-04-21 16:13 | PN ---
Teaching Attending Note Name of Resident: Rubens Montero ATTENDING PHYSICIAN STATEMENT I saw and evaluated the patient. I reviewed the resident's note and discussed the case with the resident. I agree with the resident's findings and plan as documented with exceptions below. SUBJECTIVE: Patient seen and examined. reports passing some gas. Abdominal pain improved. no chest pain, dizziness, dyspnea or new concerns. OBJECTIVE: Vital Signs Period Temp Pulse Resp BP Sys/Young Pulse Ox Last 24 Hr 98 F-99.5 F 82-110 13-34 102-177/54-129 98-98 Intake & Output 04/18/19 04/19/19 04/20/19 04/21/19 23:59 23:59 23:59 23:59 Intake Total 9500 4326 1550 800 Output Total 7720 1225 2035 833 Balance 1780 3101 -485 -33 Weight 175 lb 185 lb 184 lb 186 lb 15.232 oz General: lying in bed in no acute distress Neck: soft, supple CVS: S1S2 regular Chest: decreased breath sounds at bases Abdomen: soft, colostomy, dressing clean, hypoactive bowel sounds, mild tenderness around incisional site Extremities: no edema Home Medications Medication Instructions Recorded Rosuvastatin Calcium [Crestor] 20 mg PO DAILY 05/21/15 Aspirin Coated [Ecotrin -] 81 mg PO DAILY 02/04/18 Metoprolol Succinate 37.5 mg PO DAILY 04/18/19 Nitroglycerin [Nitrostat] 0.4 mg SL DAILY PRN 04/18/19 Telmisartan 20 mg PO DAILY 04/18/19 Active Medications Atorvastatin Calcium (Lipitor -) 40 mg PO HS [facility] [place] Last Admin: 04/20/19 21:01 Dose: 40 mg Chlorhexidine Gluconate (Hibiclens For Decolonization -) 1 applic TP HS [facility] [place] Last Admin: 04/20/19 21:01 Dose: 1 applic Enoxaparin Sodium (Lovenox -) 40 mg SQ DAILY RENITA Last Admin: 04/21/19 09:43 Dose: 40 mg Piperacillin Sod/Tazobactam (Sod 4.5 gm/ Dextrose) 100 mls @ 200 mls/hr IVPB Q8H-IV RENITA; Protocol Last Admin: 04/21/19 09:40 Dose: 200 mls/hr Fluconazole (Diflucan 200 Mg/D5w Premixed Ivpb -) 100 mls @ 100 mls/hr IVPB Q24H [facility] [place] Last Admin: 04/20/19 17:10 Dose: 100 mls/hr Sodium Chloride (Normal Saline -) 1,000 mls @ 50 mls/hr IV ASDIR [facility] [place] Last Admin: 04/21/19 09:39 Dose: 50 mls/hr Metoprolol Tartrate (Lopressor Injection -) 5 mg IVPUSH Q6H-IV [facility] [place] Last Admin: 04/21/19 15:32 Dose: 5 mg Morphine Sulfate (Morphine Sulfate) 4 mg IVPUSH Q4H PRN PRN Reason: PAIN LEVEL 6-10 Last Admin: 04/19/19 12:13 Dose: 4 mg Mupirocin (Bactroban Ointment (For Decolonization) -) 1 applic NS BID [facility] [place] Stop: 04/23/19 21:59 Last Admin: 04/21/19 10:30 Dose: 1 applic Pantoprazole Sodium (Protonix Iv) 40 mg IVPUSH DAILY [facility] [place] Last Admin: 04/21/19 09:40 Dose: 40 mg Laboratory Results - last 24 hr 04/21/19 04/21/19 05:39 05:39 WBC 10.7 H RBC 4.25 Hgb 12.9 Hct 37.6 MCV 88.4 MCH 30.4 MCHC 34.4 RDW 14.5 Plt Count 162 MPV 7.5 Sodium 139 Potassium 3.9 Chloride 104 Carbon Dioxide 26 Anion Gap 8 BUN 18.5 H Creatinine 1.1 Est GFR (CKD-EPI)AfAm 71.07 Est GFR (CKD-EPI)NonAf 61.32 Random Glucose 92 Calcium 8.4 L Phosphorus 3.0 Magnesium 2.3 Microbiology 04/18/19 22:00 Peritoneal Fluid Gram Stain - Final 04/18/19 22:00 Peritoneal Fluid Body Fluid Culture - Final Escherichia Coli 04/18/19 22:00 Peritoneal Fluid Anaerobic Culture - Preliminary Pending Organism 04/19/19 02:15 Urine - Urine Clean Catch Urine Culture - Final NO GROWTH OBTAINED ASSESSMENT AND PLAN: 83 yom with PMHx of CAD s/p CABG, HTN, HLD, BPH, CVA admitted with acute abdomen from sigmoid diverticulitis with perforation/abscess s/p emergent surgery. -Acute sigmoid diverticulitis with abscess/perforation s/p emergent Exlap/ resection/colostomy/mucous fistula and lavage 04/18/2019 -Post operative ileus -Post op hypoxic respiratory failure s/p extubation 04/19 -Septic shock -CAD s/p CABG -HTN -HLD -BPH -CVA Plan: Extubated, doing well. Surgery input noted, Pos bowel sounds, passing some gas, likely clears tomorow. ID input noted. zosyn/flagyl, cultures noted. cardiology input appreciated. Continue ASA/statin. Resume metoprolol as hemodynamics permit. GI/DVTPPX Agree with transfer to telemetry OOB, PT eval, incentive spirometry. Discussed with patient and nursing.
[2019-04-21] MEDS ORDERED: morphine SULFATE 4 MG/ML VIAL IVPUSH PRN (17:29)
[2019-04-21] MEDS ORDERED: FLUCONAZOLE 200 MG/D5W 100 ML IVPB SCH (18:00)
[2019-04-21] MEDS: ATORVASTATIN CA 40 MG TABLET (FP) PO SCH (21:44)
[2019-04-21] MEDS ORDERED: PT OWN MED DRAWER 7, Y5N ONE (22:30)
[2019-04-22] MEDS ORDERED: DEXTROSE 5%-WATER 100 ML IVPB ONE ×2 (00:54→10:34)
[2019-04-22] MEDS ORDERED: PIPERACILLIN/TAZOBACTAM 4.5 GM VIAL IVPB ONE ×2 (00:54→08:07)
[2019-04-22] MEDS: PIPERACILLIN/TAZOB 4.5 GM 4.5 GM in DEXTROSE 5%-WATER 100 ML IVPB SCH (01:02)
--- NOTE | 2019-04-22 07:22 | PN ---
Physical Exam: SUBJECTIVE: Patient seen and examined at bed side monitored in tele , no changes still NPO no flatus of out put from the cholostomy bag some abdominal discomfort. No N/V bacon inserted this Am due to urinary retention. OBJECTIVE: Vital Signs Period Temp Pulse Resp BP Sys/Young Pulse Ox Last 24 Hr 97.9 F-98.5 F 75-110 16-34 102-166/72-129 97-98 GENERAL: The patient is awake, alert, and fully oriented, in no acute distress. HEAD: Normal with no signs of trauma. EYES: PERRL, extraocular movements intact, sclera anicteric, conjunctiva clear. NECK: Trachea midline,supple. LUNGS: Breath sounds equal, clear to auscultation bilaterally, no wheezes, no crackles, no accessory muscle use. HEART: sinus tachy , S1, S2 without murmur, rub or gallop. ABDOMEN: obese Soft,diffuse tenderness , distended with right side drainage and left side cholostomy bag, med line surgery sight covered with gauss rebound, EXTREMITIES: 2+ pulses, warm, well-perfused, no edema. NEUROLOGICAL: no focal deficit . Normal speech, gait not observed. Laboratory Results - last 24 hr 04/21/19 05:39 WBC 10.7 H RBC 4.25 Hgb 12.9 Hct 37.6 MCV 88.4 MCH 30.4 MCHC 34.4 RDW 14.5 Plt Count 162 MPV 7.5 Active Medications Generic Name Dose Route Start Last Admin Trade Name Freq PRN Reason Stop Dose Admin Atorvastatin Calcium 40 mg 04/21/19 22:00 04/21/19 21:44 Lipitor - PO 40 mg HS RENITA Administration Enoxaparin Sodium 40 mg 04/22/19 10:00 Lovenox - SQ DAILY RENITA Fluconazole 100 mls @ 100 mls/hr 04/21/19 18:00 04/21/19 17:15 Diflucan 200 Mg/D5w Premixed Ivpb - IVPB 100 mls/hr Q24H RENITA Administration Sodium Chloride 1,000 mls @ 50 mls/hr 04/21/19 17:29 Normal Saline - IV ASDIR RENITA Piperacillin Sod/Tazobactam 100 mls @ 200 mls/hr 04/21/19 18:00 04/22/19 01: 02 Sod 4.5 gm/ Dextrose IVPB 200 mls/hr Q8H-IV RENITA Administration Protocol Morphine Sulfate 4 mg 04/21/19 17:29 Morphine Sulfate IVPUSH Q4H PRN PAIN LEVEL 6-10 Pantoprazole Sodium 40 mg 04/22/19 10:00 Protonix Iv IVPUSH DAILY RENITA ASSESSMENT/PLAN: 83 y/o M, w/ pmh of HTN, HLD, CVA, BPH, CAD s/p CABG, presents to the ED c/o of diffuse abdominal pain of 4 hour duration 2/2 to perforated vesus. # Sepsis 2/2 Acute diverticulitis with sigmoid abscess and perforated vescus # pneumoperitionium # POD#4 Exploratory laparotomy, sigmoid colectomy, creation of end colostomy, creation of mucous fistula, drainage of abscess, and lavage #Elius expected to improve in the next 48 hours per surgery # Post op urinary retention , insert bacon * monitor in tele , * maintain BP with no pressors . * extubated * cont zosyn and Flagyl DC Diflucan * cont IV fluids dded K * Monitor I&O * NPO till pass flatus * pain control * ID and cardiology consulted * images reviewed * peritoneal fluids with lactose fermenting negative bacilli # CAD # HTN # HLD #Coronary artery bypass graft #S/P quadruple bypass #Cholelithiasis #CVA #BPH * cont home meds ASA , Metoprlol, Lipitor * PPI IV Visit type - Emergency Visit Emergency Visit: Yes ED Registration Date: 04/18/19 Care time: The patient presented to the Emergency Department on the above date and was hospitalized for further evaluation of their emergent condition. - New Patient This patient is new to me today: No - Critical Care Critical Care patient: No ATTENDING PHYSICIAN STATEMENT I saw and evaluated the patient. I reviewed the resident's note and discussed the case with the resident. I agree with the resident's findings and plan as documented. SUBJECTIVE: OBJECTIVE: ASSESSMENT AND PLAN:
[2019-04-22 07:34] LABS: BASO % 0.2 % (0-2.0); EOS % 2.2 % (0-4.5); HEMATOCRIT 34.1 % (35.4-49); HEMOGLOBIN 11.9 GM/dL (11.7-16.9); LYMPH % 6.8 % (8-40); MCH 30.5 pg (25.7-33.7); MCHC 34.9 g/dl (32.0-35.9); MEAN CELL VOLUME 87.6 fl (80-96); MEAN PLT VOLUME 7.7 fl (7.5-11.1); MONO % 6.6 % (3.8-10.2); NEUT % 84.2 % (42.8-82.8); PLATELET COUNT 156 K/MM3 (134-434); RBC 3.89 M/mm3 (4.00-5.60); RDW 14.7 % (11.9-15.9); WHITE BLOOD COUNT 9.2 K/mm3 (4.0-10.0)
[2019-04-22 07:54] LABS: BLOOD UREA NITROGEN 19.2 mg/dL (7-18); CREATININE 0.9 mg/dL (0.55-1.3); MAGNESIUM 2.4 mg/dL (1.8-2.4); PHOSPHOROUS 2.2 mg/dL (2.5-4.9); POTASSIUM 3.4 mmol/L (3.5-5.1)
[2019-04-22] MEDS ORDERED: WATER IVPB ONE (08:01)
[2019-04-22] MEDS ORDERED: POTASSIUM PHOSPHATE IVPB ONE (08:01)
[2019-04-22] MEDS ORDERED: DEXTROSE IVPB ONE (08:01)
[2019-04-22] MEDS ORDERED: DEXTROSE 5%-WATER 200 ML IVPB ONE (08:07)
--- NOTE | 2019-04-22 08:08 | PN ---
Progress Note, Physician Chief Complaint: more comfortable Straight cathed yest BP improved now TELE: NSR - Current Medication List Current Medications: Active Medications Atorvastatin Calcium (Lipitor -) 40 mg PO HS RENITA Last Admin: 04/21/19 21:44 Dose: 40 mg Enoxaparin Sodium (Lovenox -) 40 mg SQ DAILY RENITA Fluconazole (Diflucan 200 Mg/D5w Premixed Ivpb -) 100 mls @ 100 mls/hr IVPB Q24H RENITA Last Admin: 04/21/19 17:15 Dose: 100 mls/hr Sodium Chloride (Normal Saline -) 1,000 mls @ 50 mls/hr IV ASDIR RENITA Piperacillin Sod/Tazobactam (Sod 4.5 gm/ Dextrose) 100 mls @ 200 mls/hr IVPB Q8H-IV RENITA; Protocol Last Admin: 04/22/19 01:02 Dose: 200 mls/hr Potassium Phosphate 25 mm/ (Dextrose) 258.3333 mls @ 62.5 mls/hr IVPB ONCE ONE Stop: 04/22/19 12:08 Morphine Sulfate (Morphine Sulfate) 4 mg IVPUSH Q4H PRN PRN Reason: PAIN LEVEL 6-10 Pantoprazole Sodium (Protonix Iv) 40 mg IVPUSH DAILY RENITA - Objective Vital Signs: Vital Signs Temperature 98.4 F 04/22/19 05:00 Pulse Rate 75 04/22/19 05:00 Respiratory Rate 21 H 04/22/19 05:00 Blood Pressure 129/91 04/22/19 05:00 O2 Sat by Pulse Oximetry (%) 97 04/21/19 21:00 Constitutional: Yes: No Distress Cardiovascular: Yes: Regular Rate and Rhythm Respiratory: Yes: CTA Bilaterally Gastrointestinal: Yes: Soft (NT) Edema: No Neurological: Yes: Alert, Oriented Labs: CBC, BMP 04/22/19 05:50 04/22/19 05:50 INR, PTT INR 1.13 (0.83-1.09) H 04/18/19 16:35 - ....Imaging EKG: Image Reviewed Assessment/Plan DATA: mibi 11/2018 medium sized area of severe ischemia in basal anteroseptum ( diaphragmatic attenuation artifact present), nl EF, nl cavity size, no TID. echo 07/2018 tds, mildly impaired LV function 50-55%, RV nl, mild AR, mild to mod MR, ao root dilated 4.3 cm at sinus tele: sinus 83 y/o M, w/ pmh of HTN, HLD, CVA, BPH, CAD s/p CABG, presents to the ED c/o of diffuse abdominal pain of 4 hour duration 2/2 to colonic perforation perforated sigmoid diverticuli with abscess, s/p sigmoid resection and colostomy - monitoring in ICU post op, manage per surgery, critical care CAD, s/p CABG - last saw Dr. Driver 02/2019 - had mibi 11/2018 for chest pain that showed severe ischemia basal anteroseptum, reportedly had anginal symptoms that improved with medical management - holding home meds while NPO - restart metoprolol, aspirin, statin when able HTN -BP improved, was elevated in setting urinary retention yesterday -Plans to resume Flomax and place bacon h/o CVA - holding aspirin, statin HLD - holding statin
--- NOTE | 2019-04-22 09:43 | PN ---
Progress Note (short form) - Note Progress Note: extubated doing well no fevers has bacon catheter using incentive spirometry Vital Signs Period Temp Pulse Resp BP Sys/Young Pulse Ox Last 24 Hr 97.9 F-99 F 75-93 16-24 102-156/72-105 97-97 cor-rrr lungs decreased bs at bases abd soft, +ostomy, open midline vertical wound with YI drain with serous fluid ext no edema +bacon CBC, BMP 04/22/19 05:50 04/22/19 05:50 Microbiology 04/18/19 22:00 Peritoneal Fluid Gram Stain - Final 04/18/19 22:00 Peritoneal Fluid Body Fluid Culture - Final Escherichia Coli 04/18/19 22:00 Peritoneal Fluid Anaerobic Culture - Preliminary Pending Organism 04/19/19 02:15 Urine - Urine Clean Catch Urine Culture - Final NO GROWTH OBTAINED imp/reccd peritonitis s/p perforated diverticulitis pod #4 s/p sigmoid colectomy-doing well d/c diflucan de-escalate to rocephin/flagyl encourage oob and incentive spirometry day #4 antibiotics continue zosyn/diflucan doing well incentive spirometry urinary retention Problem List - Problems (1) Peritonitis (acute) generalized Code(s): K65.0 - GENERALIZED (ACUTE) PERITONITIS (2) Perforation of sigmoid colon due to diverticulitis Code(s): K57.20 - DVTRCLI OF LG INT W PERFORATION AND ABSCESS W/O BLEEDING
[2019-04-22] MEDS: PANTOPRAZOLE SODIUM 40 MG VIAL IVPUSH SCH (09:54)
[2019-04-22] MEDS: ENOXAPARIN NA (PORCINE) 40 MG/0.4 ML DISP.SYRIN SQ SCH (09:55)
[2019-04-22] MEDS: SODIUM CHLORIDE 1,000 ML IV SCH ×2 (10:23→17:31)
--- NOTE | 2019-04-22 10:25 | PN ---
Physical Exam: SUBJECTIVE: Patient seen and examined OBJECTIVE: Vital Signs Period Temp Pulse Resp BP Sys/Young Pulse Ox Last 24 Hr 97.9 F-99 F 75-93 16-24 105-156/78-105 97-97 GENERAL: The patient is awake, alert, and fully oriented, in no acute distress. HEAD: Normal with no signs of trauma. EYES: PERRL, extraocular movements intact, sclera anicteric, conjunctiva clear. No ptosis. ENT: Ears normal, nares patent, oropharynx clear without exudates, moist mucous membranes. NECK: Trachea midline, full range of motion, supple. LUNGS: Breath sounds equal, clear to auscultation bilaterally, no wheezes, no crackles, no accessory muscle use. HEART: Regular rate and rhythm, S1, S2 without murmur, rub or gallop. ABDOMEN: Soft, nontender, nondistended, normoactive bowel sounds, no guarding, no rebound, no hepatosplenomegaly, no masses. EXTREMITIES: 2+ pulses, warm, well-perfused, no edema. NEUROLOGICAL: Cranial nerves II through XII grossly intact. Normal speech, gait not observed. PSYCH: Normal mood, normal affect. SKIN: Warm, dry, normal turgor, no rashes or lesions noted Laboratory Results - last 24 hr 04/22/19 04/22/19 05:50 05:50 WBC 9.2 RBC 3.89 L Hgb 11.9 Hct 34.1 L MCV 87.6 MCH 30.5 MCHC 34.9 RDW 14.7 Plt Count 156 MPV 7.7 Absolute Neuts (auto) 7.7 Neutrophils % 84.2 H Lymphocytes % 6.8 L D Monocytes % 6.6 Eosinophils % 2.2 D Basophils % 0.2 Nucleated RBC % 0 Sodium 144 Potassium 3.4 L Chloride 110 H Carbon Dioxide 25 Anion Gap 9 BUN 19.2 H Creatinine 0.9 Est GFR (CKD-EPI)AfAm 90.58 Est GFR (CKD-EPI)NonAf 78.15 Random Glucose 89 Calcium 8.0 L Phosphorus 2.2 L Magnesium 2.4 Active Medications Generic Name Dose Route Start Last Admin Trade Name Freq PRN Reason Stop Dose Admin Atorvastatin Calcium 40 mg 04/21/19 22:00 04/21/19 21:44 Lipitor - PO 40 mg HS [facility] Administration Enoxaparin Sodium 40 mg 04/22/19 10:00 Lovenox - SQ DAILY [facility] Sodium Chloride 1,000 mls @ 50 mls/hr 04/21/19 17:29 Normal Saline - IV ASDIR [facility] Potassium Phosphate 25 mm/ 258.3333 mls @ 62.5 mls/hr 04/22/19 08:01 Dextrose IVPB 04/22/19 12:08 ONCE ONE Ceftriaxone Sodium 2 gm/ 100 mls @ 200 mls/hr 04/22/19 10:00 Dextrose IVPB DAILY [facility] Protocol Metronidazole 500 mg in 100 mls @ 100 mls/hr 04/22/19 10:00 Flagyl 500mg Premixed Ivpb - IVPB Q8H-IV [facility] Potassium Chloride 10 meq in 100 mls @ 100 mls/hr 04/22/19 10:30 Potassium Chloride 10 Meq Premix Ivpb - IVPB 04/22/19 11:29 Q60M [facility] Morphine Sulfate 4 mg 04/21/19 17:29 Morphine Sulfate IVPUSH Q4H PRN PAIN LEVEL 6-10 Pantoprazole Sodium 40 mg 04/22/19 10:00 Protonix Iv IVPUSH DAILY [facility] ASSESSMENT/PLAN: ATTENDING PHYSICIAN STATEMENT I saw and evaluated the patient. I reviewed the resident's note and discussed the case with the resident. I agree with the resident's findings and plan as documented. SUBJECTIVE: OBJECTIVE: ASSESSMENT AND PLAN:
[2019-04-22] MEDS ORDERED: KCL 10 MEQ IVPB 10 MEQ/100 ML INFUS.BAG IVPB SCH (10:30)
[2019-04-22] MEDS: CEFTRIAXONE 2 GM in DEXTROSE 5%-WATER 100 ML IVPB SCH (10:35)
--- NOTE | 2019-04-22 10:39 | PN ---
Teaching Attending Note Name of Resident: Rubens Montero ATTENDING PHYSICIAN STATEMENT I saw and evaluated the patient. I reviewed the resident's note and discussed the case with the resident. I agree with the resident's findings and plan as documented with exceptions below. SUBJECTIVE: Patient seen and examined. Not passing gas yet, Had suprapubic discomfort earlier, relieved with bacon. No new abdominal pain, nausea, or vomiting. No fevers, chest pain or palpitations. OBJECTIVE: Vital Signs Period Temp Pulse Resp BP Sys/Young Pulse Ox Last 24 Hr 97.9 F-99 F 75-93 16-24 105-156/78-105 97-97 Intake & Output 04/19/19 04/20/19 04/21/19 04/22/19 23:59 23:59 23:59 23:59 Intake Total 4326 1550 1600 450 Output Total 1225 2035 1065 820 Balance 3101 -511 535 -370 Weight 185 lb 184 lb 186 lb 15.232 oz 186 lb 12.8 oz General: sitting in bed in no acute distress Neck: soft, supple, no JVD Chest: decreased breath sounds at bases Abdomen: soft, distended, unable to appreciate bowel sounds, RLQ wound with serous discharge, colostomy with some greenish stool, Non tender on exam no suprapubic or CVA tenderness Extremities: no edema Home Medications Medication Instructions Recorded Rosuvastatin Calcium [Crestor] 20 mg PO DAILY 05/21/15 Aspirin Coated [Ecotrin -] 81 mg PO DAILY 02/04/18 Metoprolol Succinate 37.5 mg PO DAILY 04/18/19 Nitroglycerin [Nitrostat] 0.4 mg SL DAILY PRN 04/18/19 Telmisartan 20 mg PO DAILY 04/18/19 Active Medications Atorvastatin Calcium (Lipitor -) 40 mg PO HS [facility] Last Admin: 04/21/19 21:44 Dose: 40 mg Enoxaparin Sodium (Lovenox -) 40 mg SQ DAILY [facility] Last Admin: 04/22/19 09:55 Dose: 40 mg Sodium Chloride (Normal Saline -) 1,000 mls @ 50 mls/hr IV ASDIR [facility] Last Admin: 04/22/19 10:23 Dose: 50 mls/hr Potassium Phosphate 25 mm/ (Dextrose) 258.3333 mls @ 62.5 mls/hr IVPB ONCE ONE Stop: 04/22/19 12:08 Last Admin: 04/22/19 09:53 Dose: 62.5 mls/hr Ceftriaxone Sodium 2 gm/ (Dextrose) 100 mls @ 200 mls/hr IVPB DAILY [facility]; Protocol Last Admin: 04/22/19 10:35 Dose: 200 mls/hr Metronidazole (Flagyl 500mg Premixed Ivpb -) 500 mg in 100 mls @ 100 mls/hr IVPB Q8H-IV [facility] Potassium Chloride (Potassium Chloride 10 Meq Premix Ivpb -) 10 meq in 100 mls @ 100 mls/hr IVPB Q60M [facility] Stop: 04/22/19 11:29 Last Admin: 04/22/19 10:31 Dose: Not Given Morphine Sulfate (Morphine Sulfate) 4 mg IVPUSH Q4H PRN PRN Reason: PAIN LEVEL 6-10 Pantoprazole Sodium (Protonix Iv) 40 mg IVPUSH DAILY [facility] Last Admin: 04/22/19 09:54 Dose: 40 mg Laboratory Results - last 24 hr 04/22/19 04/22/19 05:50 05:50 WBC 9.2 RBC 3.89 L Hgb 11.9 Hct 34.1 L MCV 87.6 MCH 30.5 MCHC 34.9 RDW 14.7 Plt Count 156 MPV 7.7 Absolute Neuts (auto) 7.7 Neutrophils % 84.2 H Lymphocytes % 6.8 L D Monocytes % 6.6 Eosinophils % 2.2 D Basophils % 0.2 Nucleated RBC % 0 Sodium 144 Potassium 3.4 L Chloride 110 H Carbon Dioxide 25 Anion Gap 9 BUN 19.2 H Creatinine 0.9 Est GFR (CKD-EPI)AfAm 90.58 Est GFR (CKD-EPI)NonAf 78.15 Random Glucose 89 Calcium 8.0 L Phosphorus 2.2 L Magnesium 2.4 Microbiology 04/18/19 22:00 Peritoneal Fluid Gram Stain - Final 04/18/19 22:00 Peritoneal Fluid Body Fluid Culture - Final Escherichia Coli 04/18/19 22:00 Peritoneal Fluid Anaerobic Culture - Preliminary Pending Organism 04/19/19 02:15 Urine - Urine Clean Catch Urine Culture - Final NO GROWTH OBTAINED ASSESSMENT AND PLAN: 83 yom with PMHx of CAD s/p CABG, HTN, HLD, BPH, CVA admitted with acute abdomen from sigmoid diverticulitis with perforation/abscess s/p emergent surgery. -Acute sigmoid diverticulitis with abscess/perforation s/p emergent Exlap/ resection/colostomy/mucous fistula and lavage 04/18/2019 -Post operative ileus -Post op hypoxic respiratory failure s/p extubation 04/19 -Septic shock -Acute urinary retention, likely from ileus, poor ambulation -CAD s/p CABG -HTN -HLD -BPH -CVA Plan: Extubated, doing well. Surgery input noted, NPO for now, advance per surgery Wound care per surgery. ID input noted. changed to ceftriaxone/flagyl, cultures noted. Cardiology input appreciated. Continue ASA/statin as tolerated. Resume metoprolol as hemodynamics permit. Bacon placed, voiding trial when taking po and ambulatory. GI/DVTPPX OOB, PT eval, incentive spirometry. Discussed with patient and nursing in detail, all questions answered.
--- NOTE | 2019-04-22 11:41 | PN ---
Progress Note (short form) - Note Progress Note: Pt seen earlier this am. He hasn't passed any flatus via his colostomy. Yesterday he was OOB and ambulated in the hallways. No nausea or emesis. Informed by the nursing staff that on repeat straight cath he had 500ml retained urine. Vital Signs Period Temp Pulse Resp BP Sys/Young Pulse Ox Last 24 Hr 97.9 F-99 F 75-100 16-24 123-156/78-105 97-97 YI: 150 ml GEN: A&0x3, NAD ABD: soft, distended. non-tender. colostomy viable/pink. No air or flatus in bag. Midline incision skin edges open intermittently. No drainage noted on the dressing. no erythema. inferior portion of wound with intact mucous fistula. YI - serosangrenous CBC, BMP 04/22/19 05:50 04/22/19 05:50 Microbiology 04/19/19 02:15 Urine - Urine Clean Catch Urine Culture - Final NO GROWTH OBTAINED 04/18/19 22:00 Peritoneal Fluid Gram Stain - Final 04/18/19 22:00 Peritoneal Fluid Body Fluid Culture - Final Escherichia Coli 04/18/19 22:00 Peritoneal Fluid Anaerobic Culture - Preliminary Pending Organism A/p: 83 yo male s/p ex lap with sigmoid colectomy, end colostomy and mucous fistula. Drainage of abscess and lavage Spoke with Dr Bettencourt, pt to remain npo. He may take oral medications/ice chips bacon cath placed OOB and ambulate Awaiting bowel function. Colostomy care and local wound care daily. Culture as above sensitive to rocephin
--- NOTE | 2019-04-22 12:17 | PN ---
Progress Note (short form) - Note Progress Note: Awake and alert. OOB to chair. Denies CP or SOB. No flatus and BM. Minimal post-op discomfort. No output from colostomy. Intake & Output 04/19/19 04/20/19 04/21/19 04/22/19 23:59 23:59 23:59 23:59 Intake Total 4326 1550 1600 450 Output Total 1225 2035 1065 820 Balance 3101 -485 535 -370 Weight 185 lb 184 lb 186 lb 15.232 oz 186 lb 12.8 oz Last Vital Signs Temp Pulse Resp BP Pulse Ox 99 F 88 24 H 123/78 97 04/22/19 08:00 04/22/19 08:00 04/22/19 08:00 04/22/19 08:00 04/22/19 08:00 Active Medications Atorvastatin Calcium (Lipitor -) 40 mg PO HS [facility] Last Admin: 04/21/19 21:44 Dose: 40 mg Enoxaparin Sodium (Lovenox -) 40 mg SQ DAILY [facility] Last Admin: 04/22/19 09:55 Dose: 40 mg Sodium Chloride (Normal Saline -) 1,000 mls @ 50 mls/hr IV ASDIR [facility] Last Admin: 04/22/19 10:23 Dose: 50 mls/hr Ceftriaxone Sodium 2 gm/ (Dextrose) 100 mls @ 200 mls/hr IVPB DAILY [facility]; Protocol Last Admin: 04/22/19 10:35 Dose: 200 mls/hr Metronidazole (Flagyl 500mg Premixed Ivpb -) 500 mg in 100 mls @ 100 mls/hr IVPB Q8H-IV [facility] Last Admin: 04/22/19 11:01 Dose: 100 mls/hr Morphine Sulfate (Morphine Sulfate) 4 mg IVPUSH Q4H PRN PRN Reason: PAIN LEVEL 6-10 Pantoprazole Sodium (Protonix Iv) 40 mg IVPUSH DAILY [facility] Last Admin: 04/22/19 09:54 Dose: 40 mg GENERAL: Awake and alert, NAD EYES: (-) Pallor (-) Icterus ENT: Dry mucus membranes NECK: No JVD LUNGS: Clear HEART: RRR, no murmurs ABDOMEN: Softly distended, hypoactive BS, dressings intact, (+) Colostomy bag without any surrounding erythema or bleeding. (+) YI drain RLQ EXTREMITIES: 2+ pulses, no edema. NEUROLOGICAL: Awake and alert, non-focal Laboratory Results - last 24 hr 04/22/19 04/22/19 05:50 05:50 WBC 9.2 RBC 3.89 L Hgb 11.9 Hct 34.1 L MCV 87.6 MCH 30.5 MCHC 34.9 RDW 14.7 Plt Count 156 MPV 7.7 Absolute Neuts (auto) 7.7 Neutrophils % 84.2 H Lymphocytes % 6.8 L D Monocytes % 6.6 Eosinophils % 2.2 D Basophils % 0.2 Nucleated RBC % 0 Sodium 144 Potassium 3.4 L Chloride 110 H Carbon Dioxide 25 Anion Gap 9 BUN 19.2 H Creatinine 0.9 Est GFR (CKD-EPI)AfAm 90.58 Est GFR (CKD-EPI)NonAf 78.15 Random Glucose 89 Calcium 8.0 L Phosphorus 2.2 L Magnesium 2.4 ASSESSMENT/PLAN: POD #4: Exploratory laparotomy, sigmoid colectomy, creation of end colostomy, creation of mucous fistula, drainage of abscess, and lavage Hypertension Coronary artery bypass graft S/P quadruple bypass Cholelithiasis CVA BPH Acute sigmoid diverticulitis Pneumoperitoneum O2 as needed to maintain saturation IVF VTE prophylaxis ABX coverage per ID Pain control PPI NPO: Monitor for return of bowel function. Cardiac Telemetry monitoring Dr Mueller
[2019-04-22] MEDS: FLUCONAZOLE 200 MG/D5W 100 ML IVPB SCH (13:35)
--- NOTE | 2019-04-22 18:00 | PN ---
Progress Note (short form) - Note Progress Note: surgery pt seen and examined. gas in bag today and some liquid stool. a little confused. abd- soft, less distension, incision clean, colostomy dark red and producing Laboratory Tests 04/22/19 05:50 WBC 9.2 A/P 1) Pod#4- clear liquids, cont ivf, latricia, 2) ileus- slowly resolving. clear liquids 3) perforated viscous- sensitive e.coli. abx downgraded by ID 4) septic shock- resolved 5) prophylaxis- lovenox, oob, spirometer, protonix, can resume asa 6) hypomagnesemia- resolved 7) open wound- irrigate daily with saline and dry dressing
[2019-04-22] MEDS: ATORVASTATIN CA 40 MG TABLET (FP) PO SCH (21:48)
[2019-04-22] MEDS: TAMSULOSIN HCL 0.4 MG CAP PO SCH (21:48)
[2019-04-23 06:40] LABS: BASO % 0.3 % (0-2.0); EOS % 5.8 % (0-4.5); HEMATOCRIT 32.8 % (35.4-49); HEMOGLOBIN 11.5 GM/dL (11.7-16.9); LYMPH % 11.6 % (8-40); MCH 30.4 pg (25.7-33.7); MCHC 35.1 g/dl (32.0-35.9); MEAN CELL VOLUME 86.6 fl (80-96); MEAN PLT VOLUME 7.4 fl (7.5-11.1); MONO % 10.2 % (3.8-10.2); NEUT % 72.1 % (42.8-82.8); PLATELET COUNT 155 K/MM3 (134-434); RBC 3.78 M/mm3 (4.00-5.60); RDW 14.5 % (11.9-15.9); WHITE BLOOD COUNT 6.7 K/mm3 (4.0-10.0)
[2019-04-23 07:03] LABS: BILIRUBIN,TOTAL 0.8 mg/dL (0.2-1); CALCIUM 7.9 mg/dL (8.5-10.1); CREATININE 0.6 mg/dL (0.55-1.3); POTASSIUM 3.1 mmol/L (3.5-5.1); TOT PROT 4.9 g/dl (6.4-8.2)
--- NOTE | 2019-04-23 07:38 | PN ---
Progress Note, Physician Chief Complaint: abd pain, perforation History of Present Illness: abd much better, no more pain/pressure no cp no sob no palp, syncope - Current Medication List Current Medications: Active Medications Atorvastatin Calcium (Lipitor -) 40 mg PO HS [facility] Last Admin: 04/22/19 21:48 Dose: 40 mg Enoxaparin Sodium (Lovenox -) 40 mg SQ DAILY [facility] Last Admin: 04/22/19 09:55 Dose: 40 mg Sodium Chloride (Normal Saline -) 1,000 mls @ 50 mls/hr IV ASDIR [facility] Last Admin: 04/22/19 17:31 Dose: Not Given Ceftriaxone Sodium 2 gm/ (Dextrose) 100 mls @ 200 mls/hr IVPB DAILY [facility]; Protocol Last Admin: 04/22/19 10:35 Dose: 200 mls/hr Metronidazole (Flagyl 500mg Premixed Ivpb -) 500 mg in 100 mls @ 100 mls/hr IVPB Q8H-IV [facility] Last Admin: 04/23/19 01:02 Dose: 100 mls/hr Morphine Sulfate (Morphine Sulfate) 4 mg IVPUSH Q4H PRN PRN Reason: PAIN LEVEL 6-10 Pantoprazole Sodium (Protonix Iv) 40 mg IVPUSH DAILY [facility] Last Admin: 04/22/19 09:54 Dose: 40 mg Tamsulosin HCl (Flomax -) 0.4 mg PO HS [facility] Last Admin: 04/22/19 21:48 Dose: 0.4 mg - Objective Vital Signs: Vital Signs Temperature 97.7 F 04/23/19 04:00 Pulse Rate 90 04/23/19 04:00 Respiratory Rate 18 04/23/19 04:00 Blood Pressure 131/85 04/23/19 04:00 O2 Sat by Pulse Oximetry (%) 97 04/22/19 21:00 Constitutional: Yes: Well Nourished, No Distress, Calm Cardiovascular: Yes: Regular Rate and Rhythm, S1, S2. No: Gallop, Murmur Respiratory: Yes: Regular, CTA Bilaterally. No: Accessory Muscle Use, Rales Extremities: No: Cold Edema: No Neurological: Yes: Alert, Oriented Psychiatric: No: Agitated Labs: CBC, BMP 04/23/19 05:20 04/23/19 05:20 INR, PTT INR 1.13 (0.83-1.09) H 04/18/19 16:35 Assessment/Plan mibi 11/2018 medium sized area of severe ischemia in basal anteroseptum ( diaphragmatic attenuation artifact present), nl EF, nl cavity size, no TID. echo 07/2018 tds, mildly impaired LV function 50-55%, RV nl, mild AR, mild to mod MR, ao root dilated 4.3 cm at sinus tele: nsr, nsvt X 4B 83 y/o M, w/ pmh of HTN, HLD, CVA, BPH, CAD s/p CABG, presents to the ED c/o of diffuse abdominal pain of 4 hour duration 2/2 to colonic perforation perforated sigmoid diverticuli with abscess, s/p sigmoid resection and colostomy - monitoring in ICU post op, manage per surgery, critical care CAD, s/p CABG - last saw Dr. Driver 02/2019 - had mibi 11/2018 for chest pain that showed severe ischemia basal anteroseptum, reportedly had anginal symptoms that improved with medical management - no longer NPO status - restart metoprolol, statin when able - resume aspirin when ok with surgery (has drain in) - replete K NSVT: - brief run on tele - normal LVEF - no angina here, low risk ischemia on stress test - cont cad meds including bb, monitor tele--no further w/u required - replete K and Mag to aggressive targets (KCL ordered) HTN - bp controlled - po meds on hold while NPO h/o CVA - cont home meds statin HLD - holding statin
[2019-04-23] MEDS ORDERED: POTASSIUM CHLORIDE ORAL LIQUID 20 MEQ/15 ML PO ONE (10:02)
--- NOTE | 2019-04-23 10:28 | PN ---
Progress Note (short form) - Note Progress Note: Awake and alert. Less abdominal distention. Denies CP or SOB. Colostomy output noted. Intake & Output 04/20/19 04/21/19 04/22/19 04/23/19 23:59 23:59 23:59 23:59 Intake Total 1550 1600 1300.2 650 Output Total 2035 1065 1950 610 Balance -485 535 -649.8 40 Weight 184 lb 186 lb 15.232 oz 186 lb 12.8 oz 190 lb 8 oz Last Vital Signs Temp Pulse Resp BP Pulse Ox 97.7 F 91 H 17 127/76 97 04/23/19 04:00 04/23/19 08:00 04/23/19 08:00 04/23/19 08:00 04/22/19 21:00 Active Medications Atorvastatin Calcium (Lipitor -) 40 mg PO [facility] Last Admin: 04/22/19 21:48 Dose: 40 mg Enoxaparin Sodium (Lovenox -) 40 mg SQ DAILY [facility] Last Admin: 04/22/19 09:55 Dose: 40 mg Sodium Chloride (Normal Saline -) 1,000 mls @ 50 mls/hr IV ASDIR [facility] Last Admin: 04/22/19 17:31 Dose: Not Given Ceftriaxone Sodium 2 gm/ (Dextrose) 100 mls @ 200 mls/hr IVPB DAILY [facility]; Protocol Last Admin: 04/22/19 10:35 Dose: 200 mls/hr Metronidazole (Flagyl 500mg Premixed Ivpb -) 500 mg in 100 mls @ 100 mls/hr IVPB Q8H-IV [facility] Last Admin: 04/23/19 01:02 Dose: 100 mls/hr Potassium Chloride (Potassium Chloride 10 Meq Premix Ivpb -) 10 meq in 100 mls @ 100 mls/hr IVPB Q60M [facility] Stop: 04/23/19 10:44 Metoprolol Succinate (Toprol Xl -) 37.5 mg PO DAILY [facility] Morphine Sulfate (Morphine Sulfate) 4 mg IVPUSH Q4H PRN PRN Reason: PAIN LEVEL 6-10 Pantoprazole Sodium (Protonix Iv) 40 mg IVPUSH DAILY [facility] Last Admin: 04/22/19 09:54 Dose: 40 mg Tamsulosin HCl (Flomax -) 0.4 mg PO [facility] Last Admin: 04/22/19 21:48 Dose: 0.4 mg GENERAL: Awake and alert, NAD EYES: (-) Pallor (-) Icterus ENT: Dry mucus membranes NECK: No JVD LUNGS: Clear HEART: RRR, no murmurs ABDOMEN: Less distended, (+) BS, dressings intact, (+) Colostomy bag without any surrounding erythema or bleeding. (+) YI drain RLQ EXTREMITIES: 2+ pulses, no edema. NEUROLOGICAL: Awake and alert, non-focal Laboratory Results - last 24 hr 04/23/19 04/23/19 05:20 05:20 WBC 6.7 RBC 3.78 L Hgb 11.5 L Hct 32.8 L MCV 86.6 MCH 30.4 MCHC 35.1 RDW 14.5 Plt Count 155 MPV 7.4 L Absolute Neuts (auto) 4.8 Neutrophils % 72.1 Lymphocytes % 11.6 D Monocytes % 10.2 Eosinophils % 5.8 H D Basophils % 0.3 Nucleated RBC % 0 Sodium 144 Potassium 3.1 L Chloride 109 H Carbon Dioxide 26 Anion Gap 9 BUN 14.0 Creatinine 0.6 Est GFR (CKD-EPI)AfAm 107.01 Est GFR (CKD-EPI)NonAf 92.33 Random Glucose 76 Calcium 7.9 L Total Bilirubin 0.8 AST 17 ALT 13 Alkaline Phosphatase 41 L Total Protein 4.9 L Albumin 2.0 L ASSESSMENT/PLAN: POD #5: Exploratory laparotomy, sigmoid colectomy, creation of end colostomy, creation of mucous fistula, drainage of abscess, and lavage Hypertension Coronary artery bypass graft S/P quadruple bypass Cholelithiasis CVA BPH Acute sigmoid diverticulitis Pneumoperitoneum O2 as needed to maintain saturation IVF VTE prophylaxis ABX coverage per ID Pain control PPI PO per Surgery Cardiac Telemetry monitoring Dr Mueller
[2019-04-23] MEDS ORDERED: DEXTROSE 5%-WATER 100 ML IVPB ONE (11:06)
[2019-04-23] MEDS: PANTOPRAZOLE SODIUM 40 MG VIAL IVPUSH SCH (11:11)
[2019-04-23] MEDS: ENOXAPARIN NA (PORCINE) 40 MG/0.4 ML DISP.SYRIN SQ SCH (11:11)
[2019-04-23] MEDS: CEFTRIAXONE 2 GM in DEXTROSE 5%-WATER 100 ML IVPB SCH (11:11)
[2019-04-23] MEDS: metoPROLOL SUCCINATE 25 MG TAB.SR.24H (FP) PO SCH (11:12)
[2019-04-23] MEDS: KCL 10 MEQ IVPB 10 MEQ/100 ML INFUS.BAG IVPB SCH ×3 (11:29→13:35)
--- NOTE | 2019-04-23 12:30 | PN ---
Progress Note (short form) - Note Progress Note: surgery pt seen and examined. stool in bag. tolerated liquids. hungry. abd- soft, less distension, incision clean, colostomy dark red and producing. latricia with old blood Laboratory Tests 04/23/19 04/23/19 05:20 05:20 WBC 6.7 Potassium 3.1 L A/P 1) Pod#5- regular diet, ivf per critical care, cont latricia, 2) ileus- slowly resolving. regular diet. consider stopping ivf if tolerates 3) perforated viscous- sensitive e.coli. abx downgraded by ID 4) septic shock- resolved 5) prophylaxis- lovenox, oob, spirometer, protonix, can resume asa if indicated 6) hypomagnesemia- resolved 7) open wound- irrigate daily with saline and dry dressing 8) hypokalemia- replace
[2019-04-23] MEDS ORDERED: MORPHINE SULFATE 2 MG/ML VIAL IVPUSH PRN (15:12)
--- NOTE | 2019-04-23 15:21 | PN ---
Physical Exam: SUBJECTIVE: Patient seen and examined, passing gas, stool in colostomy, ambulating to the bathroom, no abdominal pain, tolerating diet, no complaints. OBJECTIVE: Vital Signs Period Temp Pulse Resp BP Sys/Young Pulse Ox Last 24 Hr 97.7 F-98.1 F 86-94 17-21 117-131/73-90 97-100 Intake & Output 04/20/19 04/21/19 04/22/19 04/23/19 23:59 23:59 23:59 23:59 Intake Total 1550 1600 1300.2 650 Output Total 2035 1065 1950 610 Balance -485 535 -649.8 40 Weight 184 lb 186 lb 15.232 oz 186 lb 12.8 oz 190 lb 8 oz General: sitting in bed in no acute distress Neck: soft, supple, no JVD CVS:S1S2 regular Chest: Decreased breath sounds at bases Abdomen: soft, distended, unable to appreciate bowel sounds, RLQ wound with serous discharge, colostomy with greenish stool, Non tender on exam no suprapubic or CVA tenderness Extremities: no edema Laboratory Results - last 24 hr 04/23/19 04/23/19 05:20 05:20 WBC 6.7 RBC 3.78 L Hgb 11.5 L Hct 32.8 L MCV 86.6 MCH 30.4 MCHC 35.1 RDW 14.5 Plt Count 155 MPV 7.4 L Absolute Neuts (auto) 4.8 Neutrophils % 72.1 Lymphocytes % 11.6 D Monocytes % 10.2 Eosinophils % 5.8 H D Basophils % 0.3 Nucleated RBC % 0 Sodium 144 Potassium 3.1 L Chloride 109 H Carbon Dioxide 26 Anion Gap 9 BUN 14.0 Creatinine 0.6 Est GFR (CKD-EPI)AfAm 107.01 Est GFR (CKD-EPI)NonAf 92.33 Random Glucose 76 Calcium 7.9 L Total Bilirubin 0.8 AST 17 ALT 13 Alkaline Phosphatase 41 L Total Protein 4.9 L Albumin 2.0 L Active Medications Generic Name Dose Route Start Last Admin Trade Name Freq PRN Reason Stop Dose Admin Aspirin 81 mg 04/24/19 10:00 Ecotrin - PO DAILY [facility] Atorvastatin Calcium 40 mg 04/21/19 22:00 04/22/19 21:48 Lipitor - PO 40 mg HS [facility] Administration Enoxaparin Sodium 40 mg 04/22/19 10:00 04/23/19 11:11 Lovenox - SQ 40 mg DAILY [facility] Administration Ceftriaxone Sodium 2 gm/ 100 mls @ 200 mls/hr 04/22/19 10:00 04/23/19 11:11 Dextrose IVPB 200 mls/hr DAILY [facility] Administration Protocol Metronidazole 500 mg in 100 mls @ 100 mls/hr 04/22/19 10:00 04/23/19 11:11 Flagyl 500mg Premixed Ivpb - IVPB 100 mls/hr Q8H-IV [facility] Administration Metoprolol Succinate 37.5 mg 04/23/19 10:00 04/23/19 11:12 Toprol Xl - PO 37.5 mg DAILY [facility] Administration Morphine Sulfate 2 mg 04/23/19 15:12 Morphine Sulfate IVPUSH Q6H PRN PAIN LEVEL 6-10 Non-Formulary Medication 20 mg 04/24/19 10:00 Telmisartan [Telmisartan] PO DAILY [facility] Pantoprazole Sodium 40 mg 04/22/19 10:00 04/23/19 11:11 Protonix Iv IVPUSH 40 mg DAILY [facility] Administration Tamsulosin HCl 0.4 mg 04/22/19 22:00 04/22/19 21:48 Flomax - PO 0.4 mg HS [facility] Administration Microbiology 04/18/19 22:00 Peritoneal Fluid Gram Stain - Final 04/18/19 22:00 Peritoneal Fluid Body Fluid Culture - Final Escherichia Coli 04/18/19 22:00 Peritoneal Fluid Anaerobic Culture - Preliminary Pending Organism 04/19/19 02:15 Urine - Urine Clean Catch Urine Culture - Final NO GROWTH OBTAINED ASSESSMENT/PLAN: 83 yom with PMHx of CAD s/p CABG, HTN, HLD, BPH, CVA admitted with acute abdomen from sigmoid diverticulitis with perforation/abscess s/p emergent surgery. -Acute sigmoid diverticulitis with abscess/perforation s/p emergent Exlap/ resection/colostomy/mucous fistula and lavage 04/18/2019 -Post operative ileus -Post op hypoxic respiratory failure s/p extubation 04/19 -Septic shock -Acute urinary retention, likely from ileus, poor ambulation -CAD s/p CABG -HTN -HLD -BPH -CVA Plan: Extubated, doing well. Surgery input noted. Diet advanced. Resume ASA. Dc IVF. Wound care per surgery. ID input noted. Antibiotics tapered to Ceftriaxone/Flagyl, cultures noted. Cardiology input appreciated. Continue ASA/statin. Resume metoprolol Lopez placed, voiding trial in 24 hours as improves and ambulatory. Incentive spirometry. GI/DVTPPX OOB, PT eval, Dispo planning home vs SNF early next week if continues to improve. Discussed with patient and nursing in detail, all questions answered. Visit type - Emergency Visit Emergency Visit: Yes ED Registration Date: 04/18/19 Care time: The patient presented to the Emergency Department on the above date and was hospitalized for further evaluation of their emergent condition. - New Patient This patient is new to me today: No - Critical Care Critical Care patient: No - Discharge Referral Referred to [facility] No
[2019-04-23] MEDS: TAMSULOSIN HCL 0.4 MG CAP PO SCH (22:26)
[2019-04-23] MEDS: ATORVASTATIN CA 40 MG TABLET (FP) PO SCH (22:26)
[2019-04-24 06:57] LABS: BASO % 0.3 % (0-2.0); EOS % 4.7 % (0-4.5); HEMATOCRIT 34.5 % (35.4-49); HEMOGLOBIN 11.9 GM/dL (11.7-16.9); LYMPH % 13.4 % (8-40); MCH 29.8 pg (25.7-33.7); MCHC 34.4 g/dl (32.0-35.9); MEAN CELL VOLUME 86.7 fl (80-96); MEAN PLT VOLUME 7.5 fl (7.5-11.1); MONO % 11.5 % (3.8-10.2); NEUT % 70.1 % (42.8-82.8); PLATELET COUNT 172 K/MM3 (134-434); RBC 3.98 M/mm3 (4.00-5.60); RDW 14.4 % (11.9-15.9); WHITE BLOOD COUNT 5.7 K/mm3 (4.0-10.0)
[2019-04-24 07:09] LABS: BILIRUBIN,TOTAL 0.7 mg/dL (0.2-1); BLOOD UREA NITROGEN 9.3 mg/dL (7-18); CALCIUM 7.9 mg/dL (8.5-10.1); CREATININE 0.7 mg/dL (0.55-1.3); MAGNESIUM 1.4 mg/dL (1.8-2.4); PHOSPHOROUS 2.3 mg/dL (2.5-4.9); POTASSIUM 3.4 mmol/L (3.5-5.1); TOT PROT 5.1 g/dl (6.4-8.2)
[2019-04-24] MEDS ORDERED: POTASSIUM CHLORIDE TABS 20 MEQ TABLET.ER (FP) PO ONE (07:44)
--- NOTE | 2019-04-24 07:44 | PN ---
Progress Note (short form) - Note Progress Note: surgery pt seen and examined. more stool in bag. tolerated regular diet abd- soft, minimal distension, incision clean, colostomy dark red and producing. latricia with old blood Laboratory Tests 04/24/19 04/24/19 05:33 05:33 WBC 5.7 Potassium 3.4 L A/P 1) Pod#6- regular diet, cont latricia, 2) ileus- slowly resolving. regular diet. 3) perforated viscous- sensitive e.coli. abx downgraded by ID 4) septic shock- resolved 5) prophylaxis- lovenox, oob, spirometer, protonix, asa 6) hypomagnesemia- resolved 7) open wound- irrigate daily with saline and dry dressing 8) hypokalemia- replace again
[2019-04-24] MEDS ORDERED: MAGNESIUM SULF 50% (8.12 MEQ/2 ML-1 GM VIAL) IVPB ONE (07:49)
--- NOTE | 2019-04-24 09:29 | PN ---
Progress Note (short form) - Note Progress Note: doing well out of bed to chair tolerating diet with colostomy function still with bacon catheter Vital Signs Period Temp Pulse Resp BP Sys/Young Pulse Ox Last 24 Hr 99 F 88-94 18-18 125-147/83-89 100 cor-rrr lungs clear abd soft +ostomy +dressing ext no edema +bacon CBC, BMP 04/24/19 05:33 04/24/19 05:33 Microbiology 04/18/19 22:00 Peritoneal Fluid Gram Stain - Final 04/18/19 22:00 Peritoneal Fluid Body Fluid Culture - Final Escherichia Coli 04/18/19 22:00 Peritoneal Fluid Anaerobic Culture - Preliminary Pending Organism 04/19/19 02:15 Urine - Urine Clean Catch Urine Culture - Final NO GROWTH OBTAINED Current Medications Aspirin (Ecotrin -) 81 mg PO DAILY [facility] Atorvastatin Calcium (Lipitor -) 40 mg PO HS [facility] Last Admin: 04/23/19 22:26 Dose: 40 mg Enoxaparin Sodium (Lovenox -) 40 mg SQ DAILY [facility] Last Admin: 04/23/19 11:11 Dose: 40 mg Ceftriaxone Sodium 2 gm/ (Dextrose) 100 mls @ 200 mls/hr IVPB DAILY [facility]; Protocol Last Admin: 04/23/19 11:11 Dose: 200 mls/hr Metronidazole (Flagyl 500mg Premixed Ivpb -) 500 mg in 100 mls @ 100 mls/hr IVPB Q8H-IV [facility] Last Admin: 04/24/19 02:30 Dose: 100 mls/hr Metoprolol Succinate (Toprol Xl -) 37.5 mg PO DAILY [facility] Last Admin: 04/23/19 11:12 Dose: 37.5 mg Morphine Sulfate (Morphine Sulfate) 2 mg IVPUSH Q6H PRN PRN Reason: PAIN LEVEL 6-10 Pantoprazole Sodium (Protonix Iv) 40 mg IVPUSH DAILY [facility] Last Admin: 04/23/19 11:11 Dose: 40 mg Potassium Chloride (Potassium Chloride Oral Liquid) 40 meq PO BID [facility] Stop: 04/24/19 22:01 Tamsulosin HCl (Flomax -) 0.4 mg PO HS [facility] Last Admin: 04/23/19 22:26 Dose: 0.4 mg Valsartan (Diovan -) 80 mg PO DAILY [facility] imp/reccd peritonitis s/p perforated diverticulitis pod #6 s/p sigmoid colectomy-doing well encourage oob and incentive spirometry day #6 antibiotics-continue rocephin/flagyl- ?d/c bacon soon doing well Problem List - Problems (1) Peritonitis (acute) generalized Code(s): K65.0 - GENERALIZED (ACUTE) PERITONITIS (2) Perforation of sigmoid colon due to diverticulitis Code(s): K57.20 - DVTRCLI OF LG INT W PERFORATION AND ABSCESS W/O BLEEDING
[2019-04-24] MEDS ORDERED: POTASSIUM CHLORIDE ORAL LIQUID 20 MEQ/15 ML PO SCH (10:00)
[2019-04-24] MEDS ORDERED: metoPROLOL SUCCINATE 25 MG TAB.SR.24H (FP) PO SCH (10:00)
[2019-04-24] MEDS ORDERED: DEXTROSE 5%-WATER 100 ML IVPB ONE (10:21)
[2019-04-24] MEDS: VALSARTAN 80 MG TABLET (UD) PO SCH (10:30)
[2019-04-24] MEDS: ASPIRIN COATED 81 MG TABLET.EC PO SCH (10:30)
[2019-04-24] MEDS: PANTOPRAZOLE SODIUM 40 MG VIAL IVPUSH SCH (10:30)
[2019-04-24] MEDS: ENOXAPARIN NA (PORCINE) 40 MG/0.4 ML DISP.SYRIN SQ SCH (10:30)
[2019-04-24] MEDS: metoPROLOL SUCCINATE 25 MG TAB.SR.24H (FP) PO SCH (10:35)
--- NOTE | 2019-04-24 10:36 | PN ---
Progress Note (short form) - Note Progress Note: Awake and alert. Doing well. Tolerating PO intake. Denies CP or SOB. Colostomy functioning. Intake & Output 04/21/19 04/22/19 04/23/19 04/24/19 23:59 23:59 23:59 23:59 Intake Total 1600 1300.2 1450 100 Output Total 1065 1950 1210 Balance 535 -649.8 240 100 Weight 186 lb 15.232 oz 186 lb 12.8 oz 190 lb 8 oz Last Vital Signs Temp Pulse Resp BP Pulse Ox 99 F 88 18 132/84 100 04/24/19 00:00 04/24/19 04:00 04/24/19 04:00 04/24/19 04:00 04/23/19 21:00 Active Medications Aspirin (Ecotrin -) 81 mg PO DAILY [facility] Atorvastatin Calcium (Lipitor -) 40 mg PO HS [facility] Last Admin: 04/23/19 22:26 Dose: 40 mg Enoxaparin Sodium (Lovenox -) 40 mg SQ DAILY [facility] Last Admin: 04/23/19 11:11 Dose: 40 mg Ceftriaxone Sodium 2 gm/ (Dextrose) 100 mls @ 200 mls/hr IVPB DAILY [facility]; Protocol Last Admin: 04/23/19 11:11 Dose: 200 mls/hr Metronidazole (Flagyl 500mg Premixed Ivpb -) 500 mg in 100 mls @ 100 mls/hr IVPB Q8H-IV [facility] Last Admin: 04/24/19 02:30 Dose: 100 mls/hr Metoprolol Succinate (Toprol Xl -) 37.5 mg PO DAILY [facility] Last Admin: 04/23/19 11:12 Dose: 37.5 mg Morphine Sulfate (Morphine Sulfate) 2 mg IVPUSH Q6H PRN PRN Reason: PAIN LEVEL 6-10 Pantoprazole Sodium (Protonix Iv) 40 mg IVPUSH DAILY [facility] Last Admin: 04/23/19 11:11 Dose: 40 mg Potassium Chloride (Potassium Chloride Oral Liquid) 40 meq PO BID [facility] Stop: 04/24/19 22:01 Tamsulosin HCl (Flomax -) 0.4 mg PO HS [facility] Last Admin: 04/23/19 22:26 Dose: 0.4 mg Valsartan (Diovan -) 80 mg PO DAILY [facility] GENERAL: Awake and alert, NAD EYES: (-) Pallor (-) Icterus ENT: Dry mucus membranes NECK: No JVD LUNGS: Clear HEART: RRR, no murmurs ABDOMEN: (+) BS, dressings intact, (+) Colostomy bag without any surrounding erythema or bleeding. (+) YI drain RLQ EXTREMITIES: 2+ pulses, no edema. NEUROLOGICAL: Awake and alert, non-focal Laboratory Results - last 24 hr 04/24/19 04/24/19 05:33 05:33 WBC 5.7 RBC 3.98 L Hgb 11.9 Hct 34.5 L MCV 86.7 MCH 29.8 MCHC 34.4 RDW 14.4 Plt Count 172 MPV 7.5 Absolute Neuts (auto) 4.0 Neutrophils % 70.1 Lymphocytes % 13.4 Monocytes % 11.5 H Eosinophils % 4.7 H Basophils % 0.3 Nucleated RBC % 0 Sodium 141 Potassium 3.4 L Chloride 104 Carbon Dioxide 29 Anion Gap 8 BUN 9.3 Creatinine 0.7 Est GFR (CKD-EPI)AfAm 100.44 Est GFR (CKD-EPI)NonAf 86.66 Random Glucose 117 H Calcium 7.9 L Phosphorus 2.3 L Magnesium 1.4 L Total Bilirubin 0.7 AST 18 ALT 15 Alkaline Phosphatase 48 Total Protein 5.1 L Albumin 2.0 L ASSESSMENT/PLAN: POD #6: Exploratory laparotomy, sigmoid colectomy, creation of end colostomy, creation of mucous fistula, drainage of abscess, and lavage Hypertension Coronary artery bypass graft S/P quadruple bypass Cholelithiasis CVA BPH Acute sigmoid diverticulitis Pneumoperitoneum O2 as needed to maintain saturation IVF VTE prophylaxis ABX coverage per ID Pain control PPI PO as tolerated Cardiac Telemetry monitoring Dr Mueller
--- NOTE | 2019-04-24 10:37 | PN ---
Progress Note, Physician Chief Complaint: perf divertic History of Present Illness: no abd pain no cp, sob no palpit, syncope - Current Medication List Current Medications: Active Medications Aspirin (Ecotrin -) 81 mg PO DAILY [facility] Atorvastatin Calcium (Lipitor -) 40 mg PO HS [facility] Last Admin: 04/23/19 22:26 Dose: 40 mg Enoxaparin Sodium (Lovenox -) 40 mg SQ DAILY [facility] Last Admin: 04/23/19 11:11 Dose: 40 mg Ceftriaxone Sodium 2 gm/ (Dextrose) 100 mls @ 200 mls/hr IVPB DAILY [facility]; Protocol Last Admin: 04/23/19 11:11 Dose: 200 mls/hr Metronidazole (Flagyl 500mg Premixed Ivpb -) 500 mg in 100 mls @ 100 mls/hr IVPB Q8H-IV [facility] Last Admin: 04/24/19 02:30 Dose: 100 mls/hr Metoprolol Succinate (Toprol Xl -) 37.5 mg PO DAILY [facility] Last Admin: 04/23/19 11:12 Dose: 37.5 mg Morphine Sulfate (Morphine Sulfate) 2 mg IVPUSH Q6H PRN PRN Reason: PAIN LEVEL 6-10 Pantoprazole Sodium (Protonix Iv) 40 mg IVPUSH DAILY [facility] Last Admin: 04/23/19 11:11 Dose: 40 mg Potassium Chloride (Potassium Chloride Oral Liquid) 40 meq PO BID [facility] Stop: 04/24/19 22:01 Tamsulosin HCl (Flomax -) 0.4 mg PO HS [facility] Last Admin: 04/23/19 22:26 Dose: 0.4 mg Valsartan (Diovan -) 80 mg PO DAILY [facility] - Objective Vital Signs: Vital Signs Temperature 99 F 04/24/19 00:00 Pulse Rate 88 04/24/19 04:00 Respiratory Rate 18 04/24/19 04:00 Blood Pressure 132/84 04/24/19 04:00 O2 Sat by Pulse Oximetry (%) 100 04/23/19 21:00 Constitutional: Yes: Well Nourished, No Distress, Calm Cardiovascular: Yes: Regular Rate and Rhythm, S1, S2. No: Gallop, Murmur Respiratory: Yes: Regular, CTA Bilaterally. No: Accessory Muscle Use, Rales, Rhonchi, Wheezes Extremities: No: Cold Edema: No Neurological: Yes: Alert, Oriented Psychiatric: No: Agitated Labs: CBC, BMP 04/24/19 05:33 04/24/19 05:33 INR, PTT INR 1.13 (0.83-1.09) H 04/18/19 16:35 Assessment/Plan mibi 11/2018 medium sized area of severe ischemia in basal anteroseptum ( diaphragmatic attenuation artifact present), nl EF, nl cavity size, no TID. echo 07/2018 tds, mildly impaired LV function 50-55%, RV nl, mild AR, mild to mod MR, ao root dilated 4.3 cm at sinus tele: nsr, apc's. brief run PSVT (no VT) 83 y/o M, w/ pmh of HTN, HLD, CVA, BPH, CAD s/p CABG, presents to the ED c/o of diffuse abdominal pain of 4 hour duration 2/2 to colonic perforation perforated sigmoid diverticuli with abscess, s/p sigmoid resection and colostomy - monitoring in ICU post op, manage per surgery, critical care CAD, s/p CABG - last saw Dr. Driver 02/2019 - had mibi 11/2018 for chest pain that showed severe ischemia basal anteroseptum, reportedly had anginal symptoms that improved with medical management - back on ASA, per surgery - cont metoprolol, statin - replete K NSVT: - brief run on tele - normal LVEF - no angina here, low risk ischemia on stress test - cont cad meds including bb, monitor tele--no further w/u required - replete K and Mag to aggressive targets HTN - bp controlled - po meds on hold while NPO h/o CVA - cont home meds statin HLD - holding statin
[2019-04-24] MEDS: CEFTRIAXONE 2 GM in DEXTROSE 5%-WATER 100 ML IVPB SCH (11:00)
[2019-04-24 17:14] VITALS: BMI 28.8
--- NOTE | 2019-04-24 17:23 | PN ---
Physical Exam: SUBJECTIVE: Patient seen and examined, denies any nausea/vomiting/abdominal pain. Ambulating, eager to go home. OBJECTIVE: Vital Signs Period Temp Pulse Resp BP Sys/Young Pulse Ox Last 24 Hr 99 F 78-94 18-20 109-140/73-86 100-100 Intake & Output 04/21/19 04/22/19 04/23/19 04/24/19 23:59 23:59 23:59 23:59 Intake Total 1600 1300.2 1450 100 Output Total 1065 1950 1210 800 Balance 535 -649.8 240 -700 Weight 186 lb 15.232 oz 186 lb 12.8 oz 190 lb 8 oz General: sitting in bed in no acute distress Neck: soft, supple, no JVD CVS:S1S2 regular Chest: Decreased breath sounds at bases Abdomen: soft, distended, pos bowel sounds, RLQ wound with serous discharge, colostomy with greenish stool, drain in place, Non tender on exam no suprapubic or CVA tenderness Extremities: no edema Laboratory Results - last 24 hr 04/24/19 04/24/19 05:33 05:33 WBC 5.7 RBC 3.98 L Hgb 11.9 Hct 34.5 L MCV 86.7 MCH 29.8 MCHC 34.4 RDW 14.4 Plt Count 172 MPV 7.5 Absolute Neuts (auto) 4.0 Neutrophils % 70.1 Lymphocytes % 13.4 Monocytes % 11.5 H Eosinophils % 4.7 H Basophils % 0.3 Nucleated RBC % 0 Sodium 141 Potassium 3.4 L Chloride 104 Carbon Dioxide 29 Anion Gap 8 BUN 9.3 Creatinine 0.7 Est GFR (CKD-EPI)AfAm 100.44 Est GFR (CKD-EPI)NonAf 86.66 Random Glucose 117 H Calcium 7.9 L Phosphorus 2.3 L Magnesium 1.4 L Total Bilirubin 0.7 AST 18 ALT 15 Alkaline Phosphatase 48 Total Protein 5.1 L Albumin 2.0 L Active Medications Generic Name Dose Route Start Last Admin Trade Name Freq PRN Reason Stop Dose Admin Aspirin 81 mg 04/24/19 10:00 04/24/19 10:30 Ecotrin - PO 81 mg DAILY [facility] Administration Atorvastatin Calcium 40 mg 04/21/19 22:00 04/23/19 22:26 Lipitor - PO 40 mg HS [facility] Administration Enoxaparin Sodium 40 mg 04/22/19 10:00 04/24/19 10:30 Lovenox - SQ 40 mg DAILY [facility] Administration Ceftriaxone Sodium 2 gm/ 100 mls @ 200 mls/hr 04/22/19 10:00 04/24/19 11:00 Dextrose IVPB 200 mls/hr DAILY [facility] Administration Protocol Metronidazole 500 mg in 100 mls @ 100 mls/hr 04/22/19 10:00 04/24/19 10:30 Flagyl 500mg Premixed Ivpb - IVPB 100 mls/hr Q8H-IV [facility] Administration Metoprolol Succinate 37.5 mg 04/23/19 10:00 04/24/19 10:35 Toprol Xl - PO 37.5 mg DAILY [facility] Administration Morphine Sulfate 2 mg 04/23/19 15:12 Morphine Sulfate IVPUSH Q6H PRN PAIN LEVEL 6-10 Pantoprazole Sodium 40 mg 04/22/19 10:00 04/24/19 10:30 Protonix Iv IVPUSH 40 mg DAILY [facility] Administration Potassium Chloride 40 meq 04/24/19 10:00 04/24/19 10:30 Potassium Chloride Oral Liquid PO 04/24/19 22:01 40 meq BID [facility] Administration Tamsulosin HCl 0.4 mg 04/22/19 22:00 04/23/19 22:26 Flomax - PO 0.4 mg HS [facility] Administration Valsartan 80 mg 04/24/19 10:00 04/24/19 10:30 Diovan - PO 80 mg DAILY [facility] Administration Microbiology 04/18/19 22:00 Peritoneal Fluid Gram Stain - Final 04/18/19 22:00 Peritoneal Fluid Body Fluid Culture - Final Escherichia Coli 04/18/19 22:00 Peritoneal Fluid Anaerobic Culture - Final Bacteroides Distasonis 04/19/19 02:15 Urine - Urine Clean Catch Urine Culture - Final NO GROWTH OBTAINED ASSESSMENT/PLAN: 83 yom with PMHx of CAD s/p CABG, HTN, HLD, BPH, CVA admitted with acute abdomen from sigmoid diverticulitis with perforation/abscess s/p emergent surgery. -Acute sigmoid diverticulitis with abscess/perforation s/p emergent Exlap/ resection/colostomy/mucous fistula and lavage 04/18/2019 -Post operative ileus -Post op hypoxic respiratory failure s/p extubation 04/19 -Septic shock -Acute urinary retention, likely from ileus, poor ambulation -Hypokalemia -Hypomagnesemia -Hypophosphatemia -CAD s/p CABG -HTN -HLD -BPH -CVA Plan: Extubated, doing well. Surgery input noted. Diet advanced. Resume ASA. Dc IVF. Wound care/Drain removal per surgery. ID input noted. Antibiotics tapered to Ceftriaxone/Flagyl, cultures noted. Cardiology input appreciated. Continue ASA/statin/Metoprolol dc bacon, voiding trial. Replete K/Mg/Phos Incentive spirometry. GI/DVTPPX OOB, PT eval, Dispo planning home vs SNF in 48 hours if continues to improve. Discussed with patient and nursing in detail, all questions answered. Visit type - Emergency Visit Emergency Visit: Yes ED Registration Date: 04/18/19 Care time: The patient presented to the Emergency Department on the above date and was hospitalized for further evaluation of their emergent condition. - New Patient This patient is new to me today: No - Critical Care Critical Care patient: No - Discharge Referral Referred to [facility] No
[2019-04-24] MEDS: ATORVASTATIN CA 40 MG TABLET (FP) PO SCH (22:14)
[2019-04-24] MEDS: NAPH,MB-DB/K PH,MBDB POWDER PACKET PO SCH (22:14)
[2019-04-24] MEDS: TAMSULOSIN HCL 0.4 MG CAP PO SCH (22:14)
[2019-04-25] MEDS ORDERED: ACETAMINOPHEN 325 MG TABLET (FP) PO ONE (02:07)
[2019-04-25 06:39] LABS: BASO % 0.4 % (0-2.0); EOS % 3.3 % (0-4.5); HEMOGLOBIN 10.9 GM/dL (11.7-16.9); LYMPH % 12.3 % (8-40); MCH 30.2 pg (25.7-33.7); MCHC 35.2 g/dl (32.0-35.9); MEAN CELL VOLUME 85.6 fl (80-96); MEAN PLT VOLUME 7.6 fl (7.5-11.1); MONO % 11.4 % (3.8-10.2); NEUT % 72.6 % (42.8-82.8); PLATELET COUNT 184 K/MM3 (134-434); RBC 3.62 M/mm3 (4.00-5.60); RDW 14.6 % (11.9-15.9); WHITE BLOOD COUNT 7.2 K/mm3 (4.0-10.0)
[2019-04-25 06:43] LABS: BLOOD UREA NITROGEN 9.6 mg/dL (7-18); CALCIUM 7.5 mg/dL (8.5-10.1); CREATININE 0.7 mg/dL (0.55-1.3); PHOSPHOROUS 2.9 mg/dL (2.5-4.9); POTASSIUM 3.4 mmol/L (3.5-5.1)
--- NOTE | 2019-04-25 07:15 | PN ---
Physical Exam: SUBJECTIVE: Patient seen and examined feeling better asking to go home , some sool in colostomy bag had fever 100.9 over night and YI tune dislodged while sleeing OBJECTIVE: Vital Signs Period Temp Pulse Resp BP Sys/Young Pulse Ox Last 24 Hr 99 F-100.9 F 78-99 18-20 95-129/62-77 100-100 GENERAL: The patient is awake, alert, and fully oriented, in no acute distress. HEAD: Normal with no signs of trauma. EYES: PERRL, extraocular movements intact, sclera anicteric, conjunctiva clear. NECK: Trachea midline,supple. LUNGS: Breath sounds equal, clear to auscultation bilaterally, no wheezes, no crackles, no accessory muscle use. HEART: NSR , S1, S2 without murmur, rub or gallop. ABDOMEN: obese Soft,NT , distended with left side cholostomy bag, med line surgery sight covered with gauss EXTREMITIES: 2+ pulses, warm, well-perfused, no edema. NEUROLOGICAL: no focal deficit . Normal speech, gait not observed. Laboratory Results - last 24 hr 04/25/19 05:30 Sodium 141 Potassium 3.4 L Chloride 106 Carbon Dioxide 28 Anion Gap 7 L BUN 9.6 Creatinine 0.7 Est GFR (CKD-EPI)AfAm 100.44 Est GFR (CKD-EPI)NonAf 86.66 Random Glucose 98 Calcium 7.5 L Phosphorus 2.9 Magnesium 2.0 Active Medications Generic Name Dose Route Start Last Admin Trade Name Freq PRN Reason Stop Dose Admin Aspirin 81 mg 04/24/19 10:00 04/24/19 10:30 Ecotrin - PO 81 mg DAILY [facility] Administration Atorvastatin Calcium 40 mg 04/21/19 22:00 04/24/19 22:14 Lipitor - PO 40 mg HS [facility] Administration Enoxaparin Sodium 40 mg 04/22/19 10:00 04/24/19 10:30 Lovenox - SQ 40 mg DAILY [facility] Administration Ceftriaxone Sodium 2 gm/ 100 mls @ 200 mls/hr 04/22/19 10:00 04/24/19 11:00 Dextrose IVPB 200 mls/hr DAILY [facility] Administration Protocol Metronidazole 500 mg in 100 mls @ 100 mls/hr 04/22/19 10:00 04/25/19 02:35 Flagyl 500mg Premixed Ivpb - IVPB 100 mls/hr Q8H-IV [facility] Administration Metoprolol Succinate 37.5 mg 04/23/19 10:00 04/24/19 10:35 Toprol Xl - PO 37.5 mg DAILY [facility] Administration Morphine Sulfate 2 mg 04/23/19 15:12 Morphine Sulfate IVPUSH Q6H PRN PAIN LEVEL 6-10 Pantoprazole Sodium 40 mg 04/22/19 10:00 04/24/19 10:30 Protonix Iv IVPUSH 40 mg DAILY [facility] Administration Potassium Phos/Sodium Phos 2 packet 04/24/19 22:00 04/24/19 22:14 Phos-Nak Packet - PO 04/25/19 10:01 2 packet BID [facility] Administration Tamsulosin HCl 0.4 mg 04/22/19 22:00 04/24/19 22:14 Flomax - PO 0.4 mg HS [facility] Administration Valsartan 80 mg 04/24/19 10:00 04/24/19 10:30 Diovan - PO 80 mg DAILY [facility] Administration ASSESSMENT/PLAN: 83 y/o M, w/ pmh of HTN, HLD, CVA, BPH, CAD s/p CABG, presents to the ED c/o of diffuse abdominal pain of 4 hour duration 2/2 to perforated vesus. # Sepsis 2/2 Acute diverticulitis with sigmoid abscess and perforated vescus , resolved # pneumoperitionium, resolved # opened wound irrigate daily with saline and daily dressing # POD#7 Exploratory laparotomy, sigmoid colectomy, creation of end colostomy, creation of mucous fistula, drainage of abscess, and lavage #Elius expected to improve in the next 48 hours per surgery # Post op urinary retention , insert bacon * monitor in tele , * maintain BP with no pressors . * extubated * cont zosyn and Flagyl DC Diflucan * dc IV fluids * Monitor I&O * regular diet * pain control * ID and cardiology consulted * images reviewed * peritoneal fluids with lactose fermenting negative bacilli # CAD # HTN # HLD #Coronary artery bypass graft #S/P quadruple bypass #Cholelithiasis #CVA #BPH * cont home meds ASA , Metoprlol, Lipitor * PPI IV * incentive spirometry # monitor lytes and replenish as needed * regular diet * switch to po abx Augmentin in am for 72 hours and possible dc in the next 24 -48 hour Visit type - Emergency Visit Emergency Visit: Yes ED Registration Date: 04/18/19 Care time: The patient presented to the Emergency Department on the above date and was hospitalized for further evaluation of their emergent condition. - New Patient This patient is new to me today: No - Critical Care Critical Care patient: No ATTENDING PHYSICIAN STATEMENT I saw and evaluated the patient. I reviewed the resident's note and discussed the case with the resident. I agree with the resident's findings and plan as documented. SUBJECTIVE: OBJECTIVE: ASSESSMENT AND PLAN:
--- NOTE | 2019-04-25 09:15 | PN ---
Physical Exam: SUBJECTIVE: Patient seen and examined OBJECTIVE: Vital Signs Temperature 99 F 04/25/19 04:32 Pulse Rate 92 H 04/25/19 08:00 Respiratory Rate 22 H 04/25/19 08:00 Blood Pressure 115/71 04/25/19 08:00 O2 Sat by Pulse Oximetry (%) 97 04/25/19 08:05 GENERAL: The patient is awake, alert, and fully oriented, in no acute distress. HEAD: Normal with no signs of trauma. EYES: PERRL, extraocular movements intact, sclera anicteric, conjunctiva clear. No ptosis. ENT: Ears normal, nares patent, oropharynx clear without exudates, moist mucous membranes. NECK: Trachea midline, full range of motion, supple. LUNGS: Breath sounds equal, clear to auscultation bilaterally, no wheezes, no crackles, no accessory muscle use. HEART: Regular rate and rhythm, S1, S2 without murmur, rub or gallop. ABDOMEN: Soft, nontender, nondistended, normoactive bowel sounds, no guarding, no rebound, no hepatosplenomegaly, no masses. EXTREMITIES: 2+ pulses, warm, well-perfused, no edema. NEUROLOGICAL: Cranial nerves II through XII grossly intact. Normal speech, gait not observed. PSYCH: Normal mood, normal affect. SKIN: Warm, dry, normal turgor, no rashes or lesions noted Laboratory Results - last 24 hr 04/25/19 04/25/19 04/25/19 05:30 05:30 06:00 WBC 7.2 RBC 3.62 L Hgb 10.9 L Hct 31.0 L MCV 85.6 MCH 30.2 MCHC 35.2 RDW 14.6 Plt Count 184 MPV 7.6 Absolute Neuts (auto) 5.2 Neutrophils % 72.6 Lymphocytes % 12.3 Monocytes % 11.4 H Eosinophils % 3.3 Basophils % 0.4 Nucleated RBC % 0 Sodium 141 Potassium 3.4 L Chloride 106 Carbon Dioxide 28 Anion Gap 7 L BUN 9.6 Creatinine 0.7 Est GFR (CKD-EPI)AfAm 100.44 Est GFR (CKD-EPI)NonAf 86.66 Random Glucose 98 Calcium 7.5 L Phosphorus 2.9 Magnesium 2.0 Urine Color Yellow Urine Appearance Clear Urine pH 6.0 Ur Specific [place] 1.020 Urine Protein 1+ H Urine Glucose (UA) Negative Urine Ketones Trace Urine Blood 2+ H Urine Nitrite Positive Urine Bilirubin 1+ H Urine Urobilinogen 0.2 Ur Leukocyte Esterase Negative Active Medications Generic Name Dose Route Start Last Admin Trade Name Ekta PRN Reason Stop Dose Admin Aspirin 81 mg 04/24/19 10:00 04/24/19 10:30 Ecotrin - PO 81 mg DAILY [facility] Administration Atorvastatin Calcium 40 mg 04/21/19 22:00 04/24/19 22:14 Lipitor - PO 40 mg HS [facility] Administration Enoxaparin Sodium 40 mg 04/22/19 10:00 04/24/19 10:30 Lovenox - SQ 40 mg DAILY [facility] Administration Ceftriaxone Sodium 2 gm/ 100 mls @ 200 mls/hr 04/22/19 10:00 04/24/19 11:00 Dextrose IVPB 200 mls/hr DAILY [facility] Administration Protocol Metronidazole 500 mg in 100 mls @ 100 mls/hr 04/22/19 10:00 04/25/19 02:35 Flagyl 500mg Premixed Ivpb - IVPB 100 mls/hr Q8H-IV [facility] Administration Metoprolol Succinate 37.5 mg 04/23/19 10:00 04/24/19 10:35 Toprol Xl - PO 37.5 mg DAILY [facility] Administration Morphine Sulfate 2 mg 04/23/19 15:12 Morphine Sulfate IVPUSH Q6H PRN PAIN LEVEL 6-10 Pantoprazole Sodium 40 mg 04/22/19 10:00 04/24/19 10:30 Protonix Iv IVPUSH 40 mg DAILY [facility] Administration Potassium Phos/Sodium Phos 2 packet 04/24/19 22:00 04/24/19 22:14 Phos-Nak Packet - PO 04/25/19 10:01 2 packet BID [facility] Administration Tamsulosin HCl 0.4 mg 04/22/19 22:00 04/24/19 22:14 Flomax - PO 0.4 mg HS [facility] Administration Valsartan 80 mg 04/24/19 10:00 04/24/19 10:30 Diovan - PO 80 mg DAILY [facility] Administration ASSESSMENT/PLAN:
--- NOTE | 2019-04-25 09:15 | PN ---
Physical Exam: SUBJECTIVE: Patient seen and examined this am. He has been oob and ambulating. Tolerating a diet. Pt's YI was dislodged early this am. OBJECTIVE: Vital Signs Temperature 99 F 04/25/19 04:32 Pulse Rate 92 H 04/25/19 08:00 Respiratory Rate 22 H 04/25/19 08:00 Blood Pressure 115/71 04/25/19 08:00 O2 Sat by Pulse Oximetry (%) 97 04/25/19 08:05 GENERAL: The patient is awake, alert, and fully oriented, in no acute distress. ABDOMEN: Soft, nontender, nondistended. Midline incision irrigated and probed with Q-tip to open skin edges, no drainage or erythema noted. Mucous fistula at the base. Ostomy with stool/flatus. Ostomy maroon colored. YI suture in place to RL abdomen(no drain) suture removed. EXTREMITIES: no edema, or calf tenderness b/l. Laboratory Results - last 24 hr 04/25/19 04/25/19 04/25/19 05:30 05:30 06:00 WBC 7.2 RBC 3.62 L Hgb 10.9 L Hct 31.0 L MCV 85.6 MCH 30.2 MCHC 35.2 RDW 14.6 Plt Count 184 MPV 7.6 Absolute Neuts (auto) 5.2 Neutrophils % 72.6 Lymphocytes % 12.3 Monocytes % 11.4 H Eosinophils % 3.3 Basophils % 0.4 Nucleated RBC % 0 Sodium 141 Potassium 3.4 L Chloride 106 Carbon Dioxide 28 Anion Gap 7 L BUN 9.6 Creatinine 0.7 Est GFR (CKD-EPI)AfAm 100.44 Est GFR (CKD-EPI)NonAf 86.66 Random Glucose 98 Calcium 7.5 L Phosphorus 2.9 Magnesium 2.0 Urine Color Yellow Urine Appearance Clear Urine pH 6.0 Ur Specific [place] 1.020 Urine Protein 1+ H Urine Glucose (UA) Negative Urine Ketones Trace Urine Blood 2+ H Urine Nitrite Positive Urine Bilirubin 1+ H Urine Urobilinogen 0.2 Ur Leukocyte Esterase Negative Active Medications Generic Name Dose Route Start Last Admin Trade Name Freq PRN Reason Stop Dose Admin Aspirin 81 mg 04/24/19 10:00 04/24/19 10:30 Ecotrin - PO 81 mg DAILY RENITA Administration Atorvastatin Calcium 40 mg 04/21/19 22:00 04/24/19 22:14 Lipitor - PO 40 mg HS RENITA Administration Enoxaparin Sodium 40 mg 04/22/19 10:00 04/24/19 10:30 Lovenox - SQ 40 mg DAILY RENITA Administration Ceftriaxone Sodium 2 gm/ 100 mls @ 200 mls/hr 04/22/19 10:00 04/24/19 11:00 Dextrose IVPB 200 mls/hr DAILY RENITA Administration Protocol Metronidazole 500 mg in 100 mls @ 100 mls/hr 04/22/19 10:00 04/25/19 02:35 Flagyl 500mg Premixed Ivpb - IVPB 100 mls/hr Q8H-IV RENITA Administration Metoprolol Succinate 37.5 mg 04/23/19 10:00 04/24/19 10:35 Toprol Xl - PO 37.5 mg DAILY RENITA Administration Morphine Sulfate 2 mg 04/23/19 15:12 Morphine Sulfate IVPUSH Q6H PRN PAIN LEVEL 6-10 Pantoprazole Sodium 40 mg 04/22/19 10:00 04/24/19 10:30 Protonix Iv IVPUSH 40 mg DAILY RENITA Administration Potassium Phos/Sodium Phos 2 packet 04/24/19 22:00 04/24/19 22:14 Phos-Nak Packet - PO 04/25/19 10:01 2 packet BID RENITA Administration Tamsulosin HCl 0.4 mg 04/22/19 22:00 04/24/19 22:14 Flomax - PO 0.4 mg HS RENITA Administration Valsartan 80 mg 04/24/19 10:00 04/24/19 10:30 Diovan - PO 80 mg DAILY RENITA Administration Microbiology Blood cultures pending from 04/25 ASSESSMENT/PLAN: 83 yo male s/p exp lap with sigmoid colostomy, mucous fistula and abscess drainage. POD#7 Tolerating regular diet VNS for local wound care and ostomy care Monitor fever curve, no drainage noted from the wound ID follow for IV abx versus oral hypokalemia-repleted today oral oral potassium x1 now Continue OOB and ambulate Drain fell out last pm, unclear if drain was removed intact. D/w Dr. Bettencourt and will obtain abd xray to r/o retained drain
[2019-04-25] MEDS ORDERED: POTASSIUM CHLORIDE TABS 20 MEQ TABLET.ER (FP) PO ONE ×2 (09:45→14:33)
[2019-04-25] MEDS ORDERED: DEXTROSE 5%-WATER 100 ML IVPB ONE (09:56)
[2019-04-25] MEDS: VALSARTAN 80 MG TABLET (UD) PO SCH (10:03)
[2019-04-25] MEDS: ASPIRIN COATED 81 MG TABLET.EC PO SCH (10:04)
[2019-04-25] MEDS: NAPH,MB-DB/K PH,MBDB POWDER PACKET PO SCH (10:07)
[2019-04-25] MEDS: metoPROLOL SUCCINATE 25 MG TAB.SR.24H (FP) PO SCH (10:09)
[2019-04-25] MEDS: ENOXAPARIN NA (PORCINE) 40 MG/0.4 ML DISP.SYRIN SQ SCH (10:13)
[2019-04-25] MEDS: PANTOPRAZOLE SODIUM 40 MG VIAL IVPUSH SCH (10:13)
[2019-04-25] MEDS: CEFTRIAXONE 2 GM in DEXTROSE 5%-WATER 100 ML IVPB SCH (10:13)
--- NOTE | 2019-04-25 10:16 | PN ---
Progress Note (short form) - Note Progress Note: doing well out of bed to chair tolerating diet with colostomy function bacon d/shira latricia drain dislodged overnight- nowout Vital Signs Period Temp Pulse Resp BP Sys/Young Pulse Ox Last 24 Hr 99 F-100.9 F 89-99 20-22 95-129/62-77 97-100 cor-rrr llungs clear abd soft,nt +ostomy +midline incision packed ext no edema CBC, BMP 04/25/19 05:30 04/25/19 05:30 Microbiology 04/18/19 22:00 Peritoneal Fluid Gram Stain - Final 04/18/19 22:00 Peritoneal Fluid Body Fluid Culture - Final Escherichia Coli 04/18/19 22:00 Peritoneal Fluid Anaerobic Culture - Final Bacteroides Distasonis 04/19/19 02:15 Urine - Urine Clean Catch Urine Culture - Final NO GROWTH OBTAINED Active Medications Aspirin (Ecotrin -) 81 mg PO DAILY [facility] Last Admin: 04/24/19 10:30 Dose: 81 mg Atorvastatin Calcium (Lipitor -) 40 mg PO [facility] Last Admin: 04/24/19 22:14 Dose: 40 mg Enoxaparin Sodium (Lovenox -) 40 mg SQ DAILY [facility] Last Admin: 04/24/19 10:30 Dose: 40 mg Ceftriaxone Sodium 2 gm/ (Dextrose) 100 mls @ 200 mls/hr IVPB DAILY [facility]; Protocol Last Admin: 04/24/19 11:00 Dose: 200 mls/hr Metronidazole (Flagyl 500mg Premixed Ivpb -) 500 mg in 100 mls @ 100 mls/hr IVPB Q8H-IV [facility] Last Admin: 04/25/19 02:35 Dose: 100 mls/hr Metoprolol Succinate (Toprol Xl -) 37.5 mg PO DAILY [facility] Last Admin: 04/24/19 10:35 Dose: 37.5 mg Morphine Sulfate (Morphine Sulfate) 2 mg IVPUSH Q6H PRN PRN Reason: PAIN LEVEL 6-10 Pantoprazole Sodium (Protonix Iv) 40 mg IVPUSH DAILY [facility] Last Admin: 04/24/19 10:30 Dose: 40 mg Tamsulosin HCl (Flomax -) 0.4 mg PO HS [facility] Last Admin: 04/24/19 22:14 Dose: 0.4 mg Valsartan (Diovan -) 80 mg PO DAILY [facility] Last Admin: 04/24/19 10:30 Dose: 80 mg imp/reccd low grade temp this am- would observe- wbc normal, encourage OOB and incentive spirometry peritonitis s/p perforated diverticulitis pod #7 s/p sigmoid colectomy-doing well day #7 antibiotics- rocephin/flagyl- switch to po augmentin for 72 hours in am if he remains afebrile d/w surgeon Problem List - Problems (1) Peritonitis (acute) generalized Code(s): K65.0 - GENERALIZED (ACUTE) PERITONITIS (2) Perforation of sigmoid colon due to diverticulitis Code(s): K57.20 - DVTRCLI OF LG INT W PERFORATION AND ABSCESS W/O BLEEDING
--- NOTE | 2019-04-25 11:10 | PN ---
Progress Note, Physician Chief Complaint: abd perf History of Present Illness: no cp, sob, palpit, syncope - Current Medication List Current Medications: Active Medications Aspirin (Ecotrin -) 81 mg PO DAILY [facility] Last Admin: 04/25/19 10:04 Dose: 81 mg Atorvastatin Calcium (Lipitor -) 40 mg PO HS [facility] Last Admin: 04/24/19 22:14 Dose: 40 mg Enoxaparin Sodium (Lovenox -) 40 mg SQ DAILY [facility] Last Admin: 04/25/19 10:13 Dose: 40 mg Ceftriaxone Sodium 2 gm/ (Dextrose) 100 mls @ 200 mls/hr IVPB DAILY [facility]; Protocol Last Admin: 04/25/19 10:13 Dose: 200 mls/hr Metronidazole (Flagyl 500mg Premixed Ivpb -) 500 mg in 100 mls @ 100 mls/hr IVPB Q8H-IV [facility] Last Admin: 04/25/19 10:09 Dose: 100 mls/hr Metoprolol Succinate (Toprol Xl -) 37.5 mg PO DAILY [facility] Last Admin: 04/25/19 10:09 Dose: 37.5 mg Morphine Sulfate (Morphine Sulfate) 2 mg IVPUSH Q6H PRN PRN Reason: PAIN LEVEL 6-10 Pantoprazole Sodium (Protonix Iv) 40 mg IVPUSH DAILY [facility] Last Admin: 04/25/19 10:13 Dose: 40 mg Tamsulosin HCl (Flomax -) 0.4 mg PO [facility] Last Admin: 04/24/19 22:14 Dose: 0.4 mg Valsartan (Diovan -) 80 mg PO DAILY [facility] Last Admin: 04/25/19 10:03 Dose: 80 mg - Objective Vital Signs: Vital Signs Temperature 97.6 F 04/25/19 10:28 Pulse Rate 92 H 04/25/19 08:00 Respiratory Rate 22 H 04/25/19 08:00 Blood Pressure 115/71 04/25/19 08:00 O2 Sat by Pulse Oximetry (%) 97 04/25/19 08:05 Constitutional: Yes: Well Nourished, No Distress, Calm Cardiovascular: Yes: Regular Rate and Rhythm, S1, S2. No: Gallop, Murmur Respiratory: Yes: Regular, CTA Bilaterally. No: Accessory Muscle Use Extremities: No: Cold Edema: No Neurological: Yes: Alert, Oriented Psychiatric: No: Agitated Labs: CBC, BMP 04/25/19 05:30 04/25/19 05:30 INR, PTT INR 1.13 (0.83-1.09) H 04/18/19 16:35 Assessment/Plan mibi 11/2018 medium sized area of severe ischemia in basal anteroseptum ( diaphragmatic attenuation artifact present), nl EF, nl cavity size, no TID. echo 07/2018 tds, mildly impaired LV function 50-55%, RV nl, mild AR, mild to mod MR, ao root dilated 4.3 cm at sinus tele: nsr, brief run PSVT (no VT) 83 y/o M, w/ pmh of HTN, HLD, CVA, BPH, CAD s/p CABG, presents to the ED c/o of diffuse abdominal pain of 4 hour duration 2/2 to colonic perforation perforated sigmoid diverticuli with abscess, s/p sigmoid resection and colostomy - monitoring in ICU post op, manage per surgery, critical care CAD, s/p CABG - last saw Dr. Driver 02/2019 - had mibi 11/2018 for chest pain that showed severe ischemia basal anteroseptum, reportedly had anginal symptoms that improved with medical management - back on ASA, per surgery - cont metoprolol, statin - replete K as doing NSVT: - brief run on tele x1-->quiescent now x 48 hrs or so - normal LVEF - no angina here, low risk ischemia on stress test - cont cad meds including bb, monitor tele--no further w/u required - replete K and Mag to aggressive targets HTN - bp controlled - po meds on hold while NPO h/o CVA - cont home meds statin HLD - holding statin
[2019-04-25 11:25] LABS: EPI CELLS 3.3 /HPF (0-5/HPF); HYALINE CASTS 33 /lpf (0-8); URINE APPEARANCE CLOUDY; URINE BILIRUBIN NEGATIVE (NEGATIVE); URINE COLOR DK YELLOW; URINE GLUCOSE (UA) NEGATIVE (NEGATIVE); URINE KETONE NEGATIVE (NEGATIVE); URINE LEUK ESTERASE TRACE (NEGATIVE); URINE NITRITE POSITIVE (NEGATIVE); URINE PROTEIN TRACE (NEGATIVE); URINE RBC 82 /hpf (0-4); URINE UROBILINOGEN 0.2 mg/dL (0.2-1.0); URINE WBC 7 /hpf (0-5)
--- NOTE | 2019-04-25 11:29 | PN ---
Teaching Attending Note Name of Resident: Rubens Montero ATTENDING PHYSICIAN STATEMENT I saw and evaluated the patient. I reviewed the resident's note and discussed the case with the resident. I agree with the resident's findings and plan as documented with exceptions below. SUBJECTIVE: Patient seen and examined. Denies any nausea, vomiting, abdominal pain. Tolerating diet. reports might have turned in bed last night resulting in dislodging of the YI drain. OBJECTIVE: Vital Signs Period Temp Pulse Resp BP Sys/Young Pulse Ox Last 24 Hr 97.6 F-100.9 F 89-99 20-22 95-129/62-77 97-100 Intake & Output 04/22/19 04/23/19 04/24/19 04/25/19 23:59 23:59 23:59 23:59 Intake Total 1300.2 1450 100 100 Output Total 1950 1210 900 635 Balance -649.8 240 -800 -535 Weight 186 lb 12.8 oz 190 lb 8 oz General: sitting in bed in no acute distress Neck: soft, supple, no JVD CVS:S1S2 regular Chest: CTAB, no rales or wheezing Abdomen: soft, distended, pos bowel sounds, RLQ wound with serous discharge, colostomy with greenish stool, Non tender on exam no suprapubic or CVA tenderness Extremities: no edema Home Medications Medication Instructions Recorded Rosuvastatin Calcium [Crestor] 20 mg PO DAILY 05/21/15 Aspirin Coated [Ecotrin -] 81 mg PO DAILY 02/04/18 Metoprolol Succinate 37.5 mg PO DAILY 04/18/19 Nitroglycerin [Nitrostat] 0.4 mg SL DAILY PRN 04/18/19 Telmisartan 20 mg PO DAILY 04/18/19 Active Medications Aspirin (Ecotrin -) 81 mg PO DAILY [facility] Last Admin: 04/25/19 10:04 Dose: 81 mg Atorvastatin Calcium (Lipitor -) 40 mg PO HS [facility] Last Admin: 04/24/19 22:14 Dose: 40 mg Enoxaparin Sodium (Lovenox -) 40 mg SQ DAILY [facility] Last Admin: 04/25/19 10:13 Dose: 40 mg Ceftriaxone Sodium 2 gm/ (Dextrose) 100 mls @ 200 mls/hr IVPB DAILY [facility]; Protocol Last Admin: 04/25/19 10:13 Dose: 200 mls/hr Metronidazole (Flagyl 500mg Premixed Ivpb -) 500 mg in 100 mls @ 100 mls/hr IVPB Q8H-IV [facility] Last Admin: 04/25/19 10:09 Dose: 100 mls/hr Metoprolol Succinate (Toprol Xl -) 37.5 mg PO DAILY [facility] Last Admin: 04/25/19 10:09 Dose: 37.5 mg Morphine Sulfate (Morphine Sulfate) 2 mg IVPUSH Q6H PRN PRN Reason: PAIN LEVEL 6-10 Pantoprazole Sodium (Protonix Iv) 40 mg IVPUSH DAILY [facility] Last Admin: 04/25/19 10:13 Dose: 40 mg Tamsulosin HCl (Flomax -) 0.4 mg PO [facility] Last Admin: 04/24/19 22:14 Dose: 0.4 mg Valsartan (Diovan -) 80 mg PO DAILY [facility] Last Admin: 04/25/19 10:03 Dose: 80 mg Microbiology 04/18/19 22:00 Peritoneal Fluid Gram Stain - Final 04/18/19 22:00 Peritoneal Fluid Body Fluid Culture - Final Escherichia Coli 04/18/19 22:00 Peritoneal Fluid Anaerobic Culture - Final Bacteroides Distasonis Laboratory Results - last 24 hr 04/25/19 04/25/19 04/25/19 05:30 05:30 06:00 WBC 7.2 RBC 3.62 L Hgb 10.9 L Hct 31.0 L MCV 85.6 MCH 30.2 MCHC 35.2 RDW 14.6 Plt Count 184 MPV 7.6 Absolute Neuts (auto) 5.2 Neutrophils % 72.6 Lymphocytes % 12.3 Monocytes % 11.4 H Eosinophils % 3.3 Basophils % 0.4 Nucleated RBC % 0 Sodium 141 Potassium 3.4 L Chloride 106 Carbon Dioxide 28 Anion Gap 7 L BUN 9.6 Creatinine 0.7 Est GFR (CKD-EPI)AfAm 100.44 Est GFR (CKD-EPI)NonAf 86.66 Random Glucose 98 Calcium 7.5 L Phosphorus 2.9 Magnesium 2.0 Urine Color Dk yellow Urine Appearance Cloudy Urine pH 6.0 Ur Specific [place] 1.016 Urine Protein Trace Urine Glucose (UA) Negative Urine Ketones Negative Urine Blood 2+ H Urine Nitrite Positive H Urine Bilirubin Negative Urine Urobilinogen 0.2 Ur Leukocyte Esterase Trace Urine WBC (Auto) 7 Urine RBC (Auto) 82 Urine Casts (Auto) 33 U Epithel Cells (Auto) 3.3 Urine Bacteria (Auto) 1.0 ASSESSMENT AND PLAN: 83 yom with PMHx of CAD s/p CABG, HTN, HLD, BPH, CVA admitted with acute abdomen from sigmoid diverticulitis with perforation/abscess s/p emergent surgery. -Acute sigmoid diverticulitis with abscess/perforation s/p emergent Exlap/ resection/colostomy/mucous fistula and lavage 04/18/2019 -Post operative ileus -Post op hypoxic respiratory failure s/p extubation 04/19 -Septic shock -Acute urinary retention, likely from ileus, poor ambulation -Hypokalemia -Hypomagnesemia -Hypophosphatemia -CAD s/p CABG -HTN -HLD -BPH -CVA Plan: YI drained dislodged overnight. Surgery input noted, plan for abdominal xray. Wound care per surgery. Tolerating diet well. ID input noted, change to PO Augmentin tomorrow for 72 hours if no new concerns. Continue ASA/statin/metoprolol Lopez d/shira, voiding well, monitor for now. Replete K/Mg/Phos prn. Incentive spirometry. GI/DVTPPX OOB, PT eval, Dispo dc planning home with services in 24 hours if no new concerns. Discussed with patient and surgery team.
--- NOTE | 2019-04-25 14:33 | PN ---
Progress Note (short form) - Note Progress Note: surgery pt seen and examined. removed his latricia last night. no pain afebrile abd- soft, minimal distension, incision clean, colostomy dark red and producing. Laboratory Tests 04/25/19 05:30 WBC 7.2 Hgb 10.9 L A/P 1) Pod#7- regular diet, latricia out, 2) ileus- resolved regular diet. 3) perforated viscous- sensitive e.coli. abx downgraded by ID. per id 4) septic shock- resolved 5) prophylaxis- lovenox, oob, spirometer, protonix, asa 6) hypomagnesemia- resolved 7) open wound- irrigate daily with saline and dry dressing 8) hypokalemia- replace again
[2019-04-25] MEDS: ATORVASTATIN CA 40 MG TABLET (FP) PO SCH (21:19)
[2019-04-25] MEDS: TAMSULOSIN HCL 0.4 MG CAP PO SCH (21:19)
[2019-04-26 06:38] LABS: BASO % 0.4 % (0-2.0); EOS % 2.9 % (0-4.5); HEMATOCRIT 30.6 % (35.4-49); HEMOGLOBIN 10.6 GM/dL (11.7-16.9); LYMPH % 10.1 % (8-40); MCH 30.2 pg (25.7-33.7); MCHC 34.7 g/dl (32.0-35.9); MEAN CELL VOLUME 87.2 fl (80-96); MEAN PLT VOLUME 7.8 fl (7.5-11.1); MONO % 7.7 % (3.8-10.2); NEUT % 78.9 % (42.8-82.8); PLATELET COUNT 242 K/MM3 (134-434); RBC 3.51 M/mm3 (4.00-5.60); RDW 14.6 % (11.9-15.9); WHITE BLOOD COUNT 8.9 K/mm3 (4.0-10.0)
[2019-04-26 06:50] VITALS: TEMP 98.6
[2019-04-26 06:55] VITALS: BP 136/84; PULSE 95
[2019-04-26 06:57] LABS: ALBUMIN 1.9 g/dl (3.4-5.0); BILIRUBIN,TOTAL 0.5 mg/dL (0.2-1); CALCIUM 7.7 mg/dL (8.5-10.1); CREATININE 0.7 mg/dL (0.55-1.3); MAGNESIUM 1.9 mg/dL (1.8-2.4); PHOSPHOROUS 2.8 mg/dL (2.5-4.9); TOT PROT 4.8 g/dl (6.4-8.2)
--- NOTE | 2019-04-26 07:26 | PN ---
Physical Exam: SUBJECTIVE: Patient seen and examined OBJECTIVE: Vital Signs Period Temp Pulse Resp BP Sys/Young Pulse Ox Last 24 Hr 97.6 F-98.6 F 90-114 18-24 103-136/65-84 97-98 GENERAL: The patient is awake, alert, and fully oriented, in no acute distress. HEAD: Normal with no signs of trauma. EYES: PERRL, extraocular movements intact, sclera anicteric, conjunctiva clear. No ptosis. ENT: Ears normal, nares patent, oropharynx clear without exudates, moist mucous membranes. NECK: Trachea midline, full range of motion, supple. LUNGS: Breath sounds equal, clear to auscultation bilaterally, no wheezes, no crackles, no accessory muscle use. HEART: Regular rate and rhythm, S1, S2 without murmur, rub or gallop. ABDOMEN: Soft, nontender, nondistended, normoactive bowel sounds, no guarding, no rebound, no hepatosplenomegaly, no masses. EXTREMITIES: 2+ pulses, warm, well-perfused, no edema. NEUROLOGICAL: Cranial nerves II through XII grossly intact. Normal speech, gait not observed. PSYCH: Normal mood, normal affect. SKIN: Warm, dry, normal turgor, no rashes or lesions noted Laboratory Results - last 24 hr 04/25/19 04/25/19 04/26/19 05:30 06:00 05:25 WBC 7.2 RBC 3.62 L Hgb 10.9 L Hct 31.0 L MCV 85.6 MCH 30.2 MCHC 35.2 RDW 14.6 Plt Count 184 MPV 7.6 Absolute Neuts (auto) 5.2 Neutrophils % 72.6 Lymphocytes % 12.3 Monocytes % 11.4 H Eosinophils % 3.3 Basophils % 0.4 Nucleated RBC % 0 Sodium 141 Potassium 4.0 Chloride 106 Carbon Dioxide 29 Anion Gap 6 L BUN 11.0 Creatinine 0.7 Est GFR (CKD-EPI)AfAm 100.44 Est GFR (CKD-EPI)NonAf 86.66 Random Glucose 107 H Calcium 7.7 L Phosphorus 2.8 Magnesium 1.9 Total Bilirubin 0.5 AST 24 ALT 19 Alkaline Phosphatase 46 Total Protein 4.8 L Albumin 1.9 L Urine Color Dk yellow Urine Appearance Cloudy Urine pH 6.0 Ur Specific [place] 1.016 Urine Protein Trace Urine Glucose (UA) Negative Urine Ketones Negative Urine Blood 2+ H Urine Nitrite Positive H Urine Bilirubin Negative Urine Urobilinogen 0.2 Ur Leukocyte Esterase Trace Urine WBC (Auto) 7 Urine RBC (Auto) 82 Urine Casts (Auto) 33 U Pathogenic Cast Auto None seen U Epithel Cells (Auto) 3.3 Urine Bacteria (Auto) 1.0 04/26/19 05:25 WBC 8.9 RBC 3.51 L Hgb 10.6 L Hct 30.6 L MCV 87.2 MCH 30.2 MCHC 34.7 RDW 14.6 Plt Count 242 D MPV 7.8 Absolute Neuts (auto) 7.0 Neutrophils % 78.9 Lymphocytes % 10.1 Monocytes % 7.7 Eosinophils % 2.9 Basophils % 0.4 Nucleated RBC % 0 Sodium Potassium Chloride Carbon Dioxide Anion Gap BUN Creatinine Est GFR (CKD-EPI)AfAm Est GFR (CKD-EPI)NonAf Random Glucose Calcium Phosphorus Magnesium Total Bilirubin AST ALT Alkaline Phosphatase Total Protein Albumin Urine Color Urine Appearance Urine pH Ur Specific [place] Urine Protein Urine Glucose (UA) Urine Ketones Urine Blood Urine Nitrite Urine Bilirubin Urine Urobilinogen Ur Leukocyte Esterase Urine WBC (Auto) Urine RBC (Auto) Urine Casts (Auto) U Pathogenic Cast Auto U Epithel Cells (Auto) Urine Bacteria (Auto) Active Medications Generic Name Dose Route Start Last Admin Trade Name Dwayneq PRN Reason Stop Dose Admin Amoxicillin/Clavulanate Potassium 1 tab 04/26/19 10:00 Augmentin - 875mg Tablet PO 04/29/19 10:00 BID@[id number] RENITA Aspirin 81 mg 04/24/19 10:00 04/25/19 10:04 Ecotrin - PO 81 mg DAILY RENITA Administration Atorvastatin Calcium 40 mg 04/21/19 22:00 04/25/19 21:19 Lipitor - PO 40 mg HS RENITA Administration Enoxaparin Sodium 40 mg 04/22/19 10:00 04/25/19 10:13 Lovenox - SQ 40 mg DAILY RENITA Administration Ceftriaxone Sodium 2 gm/ 100 mls @ 200 mls/hr 04/22/19 10:00 04/25/19 10:13 Dextrose IVPB 200 mls/hr DAILY RENITA Administration Protocol Metronidazole 500 mg in 100 mls @ 100 mls/hr 04/22/19 10:00 04/26/19 01:25 Flagyl 500mg Premixed Ivpb - IVPB 100 mls/hr Q8H-IV RENITA Administration Metoprolol Succinate 37.5 mg 04/23/19 10:00 04/25/19 10:09 Toprol Xl - PO 37.5 mg DAILY RENITA Administration Morphine Sulfate 2 mg 04/23/19 15:12 04/25/19 23:34 Morphine Sulfate IVPUSH 2 mg Q6H PRN Administration PAIN LEVEL 6-10 Pantoprazole Sodium 40 mg 04/22/19 10:00 04/25/19 10:13 Protonix Iv IVPUSH 40 mg DAILY RENITA Administration Tamsulosin HCl 0.4 mg 04/22/19 22:00 04/25/19 21:19 Flomax - PO 0.4 mg HS RENITA Administration Valsartan 80 mg 04/24/19 10:00 04/25/19 10:03 Diovan - PO 80 mg DAILY RENITA Administration ASSESSMENT/PLAN: ATTENDING PHYSICIAN STATEMENT I saw and evaluated the patient. I reviewed the resident's note and discussed the case with the resident. I agree with the resident's findings and plan as documented. SUBJECTIVE: OBJECTIVE: ASSESSMENT AND PLAN:
--- NOTE | 2019-04-26 09:56 | PN ---
Teaching Attending Note Name of Resident: Rubens Montero ATTENDING PHYSICIAN STATEMENT I saw and evaluated the patient. I reviewed the resident's note and discussed the case with the resident. I agree with the resident's findings and plan as documented with exceptions below. SUBJECTIVE: patient seen and examined. Denies any nausea, vomiting, abdominal pain. Able to void only when gets up, no complaints otherwise. OBJECTIVE: Vital Signs Period Temp Pulse Resp BP Sys/Young Pulse Ox Last 24 Hr 97.6 F-98.6 F 90-114 18-24 103-136/65-84 98 Intake & Output 04/23/19 04/24/19 04/25/19 04/26/19 23:59 23:59 23:59 23:59 Intake Total 8381 805 4194 100 Output Total 9609 624 5498 Balance 240 -800 45 100 Weight 190 lb 8 oz General: sitting in chair, no acute distress chest: CTAB, no rales or wheezing Abdomen:soft, improved distension, pos bowel sounds, left colostomy with greenish stools, right lower abdominal wound with minimal surrounding erythema and scant clear discharge, NT Extremities: no edema Home Medications Medication Instructions Recorded Rosuvastatin Calcium [Crestor] 20 mg PO DAILY 05/21/15 Aspirin Coated [Ecotrin -] 81 mg PO DAILY 02/04/18 Metoprolol Succinate 37.5 mg PO DAILY 04/18/19 Nitroglycerin [Nitrostat] 0.4 mg SL DAILY PRN 04/18/19 Telmisartan 20 mg PO DAILY 04/18/19 Active Medications Amoxicillin/Clavulanate Potassium (Augmentin - 875mg Tablet) 1 tab PO BID@0800, 1730 [facility] Stop: 04/29/19 10:00 Aspirin (Ecotrin -) 81 mg PO DAILY [facility] Last Admin: 04/25/19 10:04 Dose: 81 mg Atorvastatin Calcium (Lipitor -) 40 mg PO HS [facility] Last Admin: 04/25/19 21:19 Dose: 40 mg Enoxaparin Sodium (Lovenox -) 40 mg SQ DAILY [facility] Last Admin: 04/25/19 10:13 Dose: 40 mg Ceftriaxone Sodium 2 gm/ (Dextrose) 100 mls @ 200 mls/hr IVPB DAILY [facility]; Protocol Last Admin: 04/25/19 10:13 Dose: 200 mls/hr Metronidazole (Flagyl 500mg Premixed Ivpb -) 500 mg in 100 mls @ 100 mls/hr IVPB Q8H-IV [facility] Last Admin: 04/26/19 01:25 Dose: 100 mls/hr Metoprolol Succinate (Toprol Xl -) 37.5 mg PO DAILY [facility] Last Admin: 04/25/19 10:09 Dose: 37.5 mg Morphine Sulfate (Morphine Sulfate) 2 mg IVPUSH Q6H PRN PRN Reason: PAIN LEVEL 6-10 Last Admin: 04/25/19 23:34 Dose: 2 mg Pantoprazole Sodium (Protonix Iv) 40 mg IVPUSH DAILY [facility] Last Admin: 04/25/19 10:13 Dose: 40 mg Tamsulosin HCl (Flomax -) 0.4 mg PO HS [facility] Last Admin: 04/25/19 21:19 Dose: 0.4 mg Valsartan (Diovan -) 80 mg PO DAILY [facility] Last Admin: 04/25/19 10:03 Dose: 80 mg Laboratory Results - last 24 hr 04/25/19 04/26/19 04/26/19 06:00 05:25 05:25 WBC 8.9 RBC 3.51 L Hgb 10.6 L Hct 30.6 L MCV 87.2 MCH 30.2 MCHC 34.7 RDW 14.6 Plt Count 242 D MPV 7.8 Absolute Neuts (auto) 7.0 Neutrophils % 78.9 Lymphocytes % 10.1 Monocytes % 7.7 Eosinophils % 2.9 Basophils % 0.4 Nucleated RBC % 0 Sodium 141 Potassium 4.0 Chloride 106 Carbon Dioxide 29 Anion Gap 6 L BUN 11.0 Creatinine 0.7 Est GFR (CKD-EPI)AfAm 100.44 Est GFR (CKD-EPI)NonAf 86.66 Random Glucose 107 H Calcium 7.7 L Phosphorus 2.8 Magnesium 1.9 Total Bilirubin 0.5 AST 24 ALT 19 Alkaline Phosphatase 46 Total Protein 4.8 L Albumin 1.9 L Urine Color Dk yellow Urine Appearance Cloudy Urine pH 6.0 Ur Specific [place] 1.016 Urine Protein Trace Urine Glucose (UA) Negative Urine Ketones Negative Urine Blood 2+ H Urine Nitrite Positive H Urine Bilirubin Negative Urine Urobilinogen 0.2 Ur Leukocyte Esterase Trace Urine WBC (Auto) 7 Urine RBC (Auto) 82 Urine Casts (Auto) 33 U Pathogenic Cast Auto None seen U Epithel Cells (Auto) 3.3 Urine Bacteria (Auto) 1.0 Microbiology 04/25/19 05:30 Blood - Arterial Blood Culture - Preliminary NO GROWTH OBTAINED AFTER 24 HOURS, INCUBATION TO CONTINUE FOR 4 DAYS. 04/25/19 05:30 Blood - Arterial Blood Culture - Preliminary NO GROWTH OBTAINED AFTER 24 HOURS, INCUBATION TO CONTINUE FOR 4 DAYS. 04/18/19 22:00 Peritoneal Fluid Gram Stain - Final 04/18/19 22:00 Peritoneal Fluid Body Fluid Culture - Final Escherichia Coli 04/18/19 22:00 Peritoneal Fluid Anaerobic Culture - Final Bacteroides Distasonis 04/19/19 02:15 Urine - Urine Clean Catch Urine Culture - Final NO GROWTH OBTAINED ASSESSMENT AND PLAN: 3 yom with PMHx of CAD s/p CABG, HTN, HLD, BPH, CVA admitted with acute abdomen from sigmoid diverticulitis with perforation/abscess s/p emergent surgery. -Acute sigmoid diverticulitis with abscess/perforation s/p emergent Exlap/ resection/colostomy/mucous fistula and lavage 04/18/2019 -Post operative ileus -Post op hypoxic respiratory failure s/p extubation 04/19 -Septic shock -Acute urinary retention, likely from ileus, poor ambulation+/- underlying BPH -Hypokalemia -Hypomagnesemia -Hypophosphatemia -CAD s/p CABG -HTN -HLD -BPH -CVA Plan: No new concerns or GI symptoms, tolerating diet. Abdominal Xray non concerning. Await surgery clearance for d/c home VNS arranged for colostomy care and teaching. Wound care per surgery. Patient able to void when standing up. No concerns of retention, renal function stable. Encourage ambulation, continue flomax and outpatient urology follow up ID input noted, change to PO Augmentin on dc for 72 hours if no new concerns. Continue ASA/statin/metoprolol Replete K/Mg/Phos prn. Incentive spirometry. GI/DVTPPX OOB, PT eval noted, Dispo anticipate home with services today if cleared by surgery and no new concerns. Discussed with patient and nursing in detail, all questions answered.
[2019-04-26] MEDS ORDERED: AMOX TR/POT CLAV 875MG/125MG TABLETS (FP) PO SCH (10:00)
--- NOTE | 2019-04-26 10:38 | PN ---
Progress Note (short form) - Note Progress Note: no cp, palps, dizziness, dyspnea Current Medications Amoxicillin/Clavulanate Potassium (Augmentin - 875mg Tablet) 1 tab PO BID@0800, 1730 [facility] Stop: 04/29/19 10:00 Aspirin (Ecotrin -) 81 mg PO DAILY [facility] Last Admin: 04/25/19 10:04 Dose: 81 mg Atorvastatin Calcium (Lipitor -) 40 mg PO HS [facility] Last Admin: 04/25/19 21:19 Dose: 40 mg Enoxaparin Sodium (Lovenox -) 40 mg SQ DAILY [facility] Last Admin: 04/25/19 10:13 Dose: 40 mg Ceftriaxone Sodium 2 gm/ (Dextrose) 100 mls @ 200 mls/hr IVPB DAILY [facility]; Protocol Last Admin: 04/25/19 10:13 Dose: 200 mls/hr Metronidazole (Flagyl 500mg Premixed Ivpb -) 500 mg in 100 mls @ 100 mls/hr IVPB Q8H-IV [facility] Last Admin: 04/26/19 01:25 Dose: 100 mls/hr Metoprolol Succinate (Toprol Xl -) 37.5 mg PO DAILY [facility] Last Admin: 04/25/19 10:09 Dose: 37.5 mg Morphine Sulfate (Morphine Sulfate) 2 mg IVPUSH Q6H PRN PRN Reason: PAIN LEVEL 6-10 Last Admin: 04/25/19 23:34 Dose: 2 mg Pantoprazole Sodium (Protonix Iv) 40 mg IVPUSH DAILY [facility] Last Admin: 04/25/19 10:13 Dose: 40 mg Tamsulosin HCl (Flomax -) 0.4 mg PO [facility] Last Admin: 04/25/19 21:19 Dose: 0.4 mg Valsartan (Diovan -) 80 mg PO DAILY [facility] Last Admin: 04/25/19 10:03 Dose: 80 mg Vital Signs Period Temp Pulse Resp BP Sys/Young Pulse Ox Last 24 Hr 97.8 F-98.6 F 90-114 18-24 103-136/65-84 98 Constitutional: Yes: Well Nourished, No Distress, Calm Cardiovascular: Yes: Regular Rate and Rhythm, S1, S2. No: Gallop, Murmur Respiratory: Yes: Regular, CTA Bilaterally. No: Accessory Muscle Use Extremities: No: Cold Edema: No Neurological: Yes: Alert, Oriented Psychiatric: No: Agitated no jaundice, diaphoresis Assessment/Plan mibi 11/2018 medium sized area of severe ischemia in basal anteroseptum ( diaphragmatic attenuation artifact present), nl EF, nl cavity size, no TID. echo 07/2018 tds, mildly impaired LV function 50-55%, RV nl, mild AR, mild to mod MR, ao root dilated 4.3 cm at sinus tele: nsr, brief run PSVT (no VT) 83 y/o M, w/ pmh of HTN, HLD, CVA, BPH, CAD s/p CABG, presents to the ED c/o of diffuse abdominal pain of 4 hour duration 2/2 to colonic perforation perforated sigmoid diverticuli with abscess, s/p sigmoid resection and colostomy - monitoring in ICU post op, manage per surgery, critical care CAD, s/p CABG - last saw Dr. Driver 02/2019 - had mibi 11/2018 for chest pain that showed severe ischemia basal anteroseptum, reportedly had anginal symptoms that improved with medical management - back on ASA, per surgery - cont metoprolol, statin - replete K as doing NSVT: - brief run on tele this weekend, no further episodes - has had brief PSVT - normal LVEF - no angina here, low risk ischemia on stress test - cont cad meds including bb, monitor tele--no further w/u required - replete K and Mag to aggressive targets HTN - bp controlled - po meds on hold while NPO h/o CVA - cont home meds statin HLD - holding statin DC telemetry
[2019-04-26] MEDS ORDERED: DEXTROSE 5%-WATER 100 ML IVPB ONE (11:42)
--- NOTE | 2019-04-26 13:31 | DS ---
Physical Exam: SUBJECTIVE: Patient seen and examined feeling better , passing urine when standing , denies any fever , or abdominal pain asking to go home. OBJECTIVE: Vital Signs Period Temp Pulse Resp BP Sys/Young Pulse Ox Last 24 Hr 97.8 F-98.6 F 92-114 18-24 124-136/74-84 98 PHYSICAL EXAM GENERAL: The patient is awake, alert, and fully oriented, in no acute distress. HEAD: Normal with no signs of trauma. EYES: PERRL, extraocular movements intact, sclera anicteric, conjunctiva clear. NECK: Trachea midline,supple. LUNGS: Breath sounds equal, clear to auscultation bilaterally, no wheezes, no crackles, no accessory muscle use. HEART: NSR , S1, S2 without murmur, rub or gallop. ABDOMEN: obese Soft,NT , mild distended with left side cholostomy bag ith stool , med line surgery sight covered with gauss , clean and dry EXTREMITIES: 2+ pulses, warm, well-perfused, no edema. NEUROLOGICAL: no focal deficit . Normal speech, gait not observed. LABS Laboratory Results - last 24 hr 04/25/19 04/26/19 04/26/19 06:00 05:25 05:25 WBC 8.9 RBC 3.51 L Hgb 10.6 L Hct 30.6 L MCV 87.2 MCH 30.2 MCHC 34.7 RDW 14.6 Plt Count 242 D MPV 7.8 Absolute Neuts (auto) 7.0 Neutrophils % 78.9 Lymphocytes % 10.1 Monocytes % 7.7 Eosinophils % 2.9 Basophils % 0.4 Nucleated RBC % 0 Sodium 141 Potassium 4.0 Chloride 106 Carbon Dioxide 29 Anion Gap 6 L BUN 11.0 Creatinine 0.7 Est GFR (CKD-EPI)AfAm 100.44 Est GFR (CKD-EPI)NonAf 86.66 Random Glucose 107 H Calcium 7.7 L Phosphorus 2.8 Magnesium 1.9 Total Bilirubin 0.5 AST 24 ALT 19 Alkaline Phosphatase 46 Total Protein 4.8 L Albumin 1.9 L U Pathogenic Cast Auto None seen CBC, BMP 04/26/19 05:25 04/26/19 05:25 Microbiology 04/25/19 05:30 Blood - Arterial Blood Culture - Preliminary NO GROWTH OBTAINED AFTER 24 HOURS, INCUBATION TO CONTINUE FOR 4 DAYS. 04/25/19 05:30 Blood - Arterial Blood Culture - Preliminary NO GROWTH OBTAINED AFTER 24 HOURS, INCUBATION TO CONTINUE FOR 4 DAYS. 04/18/19 22:00 Peritoneal Fluid Gram Stain - Final 04/18/19 22:00 Peritoneal Fluid Body Fluid Culture - Final Escherichia Coli 04/18/19 22:00 Peritoneal Fluid Anaerobic Culture - Final Bacteroides Distasonis 04/19/19 02:15 Urine - Urine Clean Catch Urine Culture - Final NO GROWTH OBTAINED HOSPITAL COURSE: Date of Admission:04/18/19 Date of Discharge: 04/26/19 83 y/o M, w/ pmh of HTN, HLD, CVA, BPH, CAD s/p CABG, presents to the ED c/o of diffuse abdominal pain of 4 hour duration 2/2 to abscess with perforated vesus.was found to have sepsis , pneumoperitonium and operated on by Dr Rufus Quiles , cholstomy bag in place with stool, Apolinar was dislodged with no complication ,pt treated with iv fluids and IV antibiotics Zosyn and flagyl and diflucan ,peritoneal fluids with lactose fermenting negative bacilli , was monitored in ICU and then transferred to [facility], will be dc home with 3 days of Augmentin BID, pt can resume all home meds as before admission , wound care to be provided by VNS and to educated pt about changing colostomy bag and changing on wound. pt to follow up with surgeon ad pcp within one week. pt t call pcp if any urinary retention develop, tylenol for pain and avoid weight bearing. Minutes to complete discharge: 45 Discharge Summary Reason For Visit: PERFORATION OF INTESTINE,PNEUMOPERITONEUM Current Active Problems CAD (coronary artery disease) (Chronic) HTN (hypertension) (Chronic) Condition: Stable - Instructions Diet, Activity, Other Instructions: You presented to the hospital due to severe abdominal pain , you were found to have an abscess with perforation in your colon , surgery was done and colostomy bag was placed. You will be discharged home with visiting nurse to teach you how to change the colostomy bag and how to take care of the surgery wound MEDICATIONS: START these medications; Augmentin twice daily for 3 more days Flomax 0.4 mg daily at bedtime to help you pass urine Resume all your home medications as before. INSTRUCTIONS: WOUND CARE: Visiting nurse services for midline abdominal wound care and ostomy care. Irrigate the midline wound daily with normal saline and cover with a dry gauze. 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 The patient has a size 70MM colostmy bag/wafer, please instruct the patient on colostomy care. Ambulation and activity as much as tolerated. Incentive spirometry every 1 hour when awake as able for the next 1 week. Please take medication flomax at night. Avoid sudden changes in position while on this medication. If you notice any new dizziness, please notify your doctor. FOLLOW UP: please follow up with your primary physician within one week . Please follow up with the surgeon within one week Dr Sg Hooper, information provided in discharged instruction. Please discuss with your doctor for outpatient urologist follow up. if you develop fevers >100.4, chills, nausea , chest pain , belly pain, increased discharge from the wound, redness of the wound, inability to pass urine, worsening abdominal pain or any new concerns, please call 911 or return to emergency room. Referrals: Mikal Le MD [Primary Care Provider] - 1 Week Jaquan Bettencourt MD [Staff Physician] - 1 Week Disposition: VNS/HOME HEALTH CARE - Home Medications Comprehensive Discharge Medication List: Ambulatory Orders Rosuvastatin Calcium [Crestor] 20 mg PO DAILY 05/21/15 Aspirin Coated [Ecotrin -] 81 mg PO DAILY 02/04/18 Metoprolol Succinate 37.5 mg PO DAILY 04/18/19 Nitroglycerin [Nitrostat] 0.4 mg SL DAILY PRN 04/18/19 Amox-Tr/K Cl [Augmentin 875-125mg Tablet -] 1 tab PO BID@0800,1730 #6 tablet Tamsulosin HCl [Flomax -] 0.4 mg PO HS #30 cap.er.24h 04/26/19 Telmisartan 20 mg PO DAILY 04/26/19 This patient is new to me today: No Emergency Visit: Yes ED Registration Date: 04/18/19 Care time: The patient presented to the Emergency Department on the above date and was hospitalized for further evaluation of their emergent condition. Critical Care patient: No - Discharge Referral Referred to [facility] Med P.C.: No ATTENDING PHYSICIAN STATEMENT I saw and evaluated the patient. I reviewed the resident's note and discussed the case with the resident. I agree with the resident's findings and plan as documented. SUBJECTIVE: OBJECTIVE: ASSESSMENT AND PLAN:
--- NOTE | 2019-04-26 13:48 | PN ---
Progress Note (short form) - Note Progress Note: Surgery: Pt oob to chair today, tolerating a regular diet. Lopez removed yesterday and voiding on his own. Vital Signs Period Temp Pulse Resp BP Sys/Young Pulse Ox Last 24 Hr 97.8 F-98.6 F 92-114 18-24 124-136/74-84 98 GEN: A&0x3, NAD ABD: midline incision cleaned with normal saline and wound repacked. No purulent drainage noted. Ostomy with liquid stool and flatus. Soft, non-tender. mucous fistula at base of incision(scant drainage). CBC, BMP 04/26/19 05:25 04/26/19 05:25 A/P: 83 yo male s/p ex lap with sigmoid colostomy/mucous fistula and drainage of intra-abd abscess Plan for dishcarge to home today. VNS completed including wound care orders/ostomy appliance supplies(ordered) Case D/w Dr. Bettencourt and the medical team. Follow-up in 1 week at the office number listed.
== END 2019-04-26 15:46 | disposition home health service (06) | DRG 853 ==
LOC: JER 15:53 → JERBED 20:46 → JICU 23:30 → J2W 04-21 15:43
PROVIDERS: ADMIT Internal Medicine; ATTEND Hospitalist
PROC: 0D1N0Z4 Bypass Sigmoid Colon to Cutaneous, Open Approach (ICD-10-PCS; 2019-04-18)
PROC: 0DTN0ZZ Resection of Sigmoid Colon, Open Approach (ICD-10-PCS; principal; 2019-04-18 21:30)
DX: A41.59 Other Gram-negative sepsis (principal); R65.21 Severe sepsis with septic shock; K57.20 Diverticulitis of large intestine with perforation and abscess without bleeding; J98.11 Atelectasis; I47.1 Supraventricular tachycardia; K56.7 Ileus, unspecified; E78.5 Hyperlipidemia, unspecified; I10 Essential (primary) hypertension; I25.10 Atherosclerotic heart disease of native coronary artery without angina pectoris; Z95.1 Presence of aortocoronary bypass graft; E83.42 Hypomagnesemia; E87.6 Hypokalemia; R33.9 Retention of urine, unspecified; E83.39 Other disorders of phosphorus metabolism; N40.0 Benign prostatic hyperplasia without lower urinary tract symptoms
CPT/HCPCS: 36415; 36600; 71045-TC-FY; 74018-TC-FY; 74177-TC; 80048; 80053; 81003; 82803; 83036; 83605; 83690; 83735; 83880; 84100; 85025; 85027; 85610; 86850; 86900; 86901; 87040; 87070; 87075; 87076; 87086; 87186; 87205; 88307-TC; 93005; 93010; 93306-TC; 94002; 94760; 97116-GP; 97161-GP; 99283-25; J0131; J7030

== ENCOUNTER 2019-07-24 16:37 | Emergency (ER) | payer OTHER ==
[2019-07-24 16:44] VITALS: BP 145/68; PULSE 69; TEMP 98.1; BMI 25.1
[2019-07-24] MEDS ORDERED: DIPHTH,PERTUSS(ACELL),TET 0.5 ML DISP.SYRIN IM ONE ×2 (16:55→17:02)
--- NOTE | 2019-07-24 17:00 | PDOC ---
History of Present Illness - General Chief Complaint: Injury Stated Complaint: FALL Time Seen by Provider: 07/24/19 16:48 History Source: Patient Exam Limitations: No Limitations - History of Present Illness Initial Comments: 07/24/19 16:56 HISTORY OF PRESENT ILLNESS: 83-year-old male past medical history of IN status post CABG, hyperlipidemia, hypertension, BPH, diverticulitis status post hemicolectomy who presents to the emergency department for evaluation of occipital head laceration status post slip and fall while walking down 2 steps. Patient reports he was stepping into a sunken living room wearing slippery shoes and when he went to step down he slipped off the step falling feet first and striking the back of his head on a hardwood floor. He denies any loss of consciousness or vomiting. Patient also with multiple bruises and abrasions to bilateral arms sustained during the fall. No recent travel or sick contacts. PAST MEDICAL HISTORY: See HPI SURGICAL HISTORY: See HPI ALLERGIES: No known drug allergies REVIEW OF SYSTEMS General/Constitutional: Denies fever or chills. Denies weakness, weight change. HEENT: See HPI Cardiovascular: Denies chest pain or shortness of breath. Respiratory: Denies cough, wheezing, or hemoptysis. Gastrointestinal: Denies nausea, vomiting, diarrhea or constipation. Denies rectal bleeding. Genitourinary: Denies dysuria, frequency, or change in urination. Musculoskeletal: Denies joint or muscle swelling or pain. Denies neck or back pain. Skin and breasts: Denies rash or easy bruising. Neurologic: Denies headache, vertigo, loss of consciousness, or loss of sensation. Psychiatric: Denies depression or anxiety. Endocrine: Denies increased thirst. Denies abnormal weight change. Hematologic/Lymphatic: Denies anemia, easy bleeding, or history of blood clots. Allergic/Immunologic: Denies hives or skin allergy. Denies latex allergy. PHYSICAL EXAM General Appearance: Well-appearing, appropriately dressed. No apparent distress , no intoxication. HEENT: EOMI, PERRLA, normal ENT inspection, normal voice, TMs normal, pharynx normal. No conjunctival pallor. No photophobia, scleral icterus. No hemotympanum present. No evidence of septal hematoma. Neck: Supple. Trachea midline. No tenderness, rigidity, carotid bruit, stridor , lymphadenopathy, or thyromegaly. No bony tenderness, crepitus or step-off present upon palpation midline. No muscle spasms present. Respiratory/Chest: Lungs CTAB. No shortness of breath, chest tenderness, respiratory distress, accessory muscle use. No crackles, rales, rhonchi, stridor , wheezing, dullness Cardiovascular: RRR. S1, S2. No JVD, murmur, bradycardia, tachycardia. Vascular Pulses: Dorsalis-Pedis (R): 2+, Dorsalis-Pedis (L): 2+ Gastrointestinal/Abdominal: Normal bowel sounds. Abdomen soft, non-distended. No tenderness or rebound tenderness. No organomegaly, pulsatile mass, guarding, hernia, hepatomegaly, splenomegaly. Lymphatic: No adenopathy, tenderness. Musculoskeletal/Extremities: Normal inspection. FROM of all extremities, normal capillary refill. Pelvis Stable. No CVA tenderness. No tenderness to extremities, pedal edema, swelling, erythema or deformity. Integumentary: Neurologic: relish maker II-XII intact. Fully oriented, alert. Appropriate mood/affect. Motor strength 5/5. No appreciable EOM palsy, facial droop or sensory deficit. Gait steady. Past History - Past Medical History Allergies/Adverse Reactions: Allergies Allergy/AdvReac Type Severity Reaction Status Date / Time No Known Allergies Allergy Verified 07/24/19 16:39 Home Medications: Ambulatory Orders Rosuvastatin Calcium [Crestor] 20 mg PO DAILY 05/21/15 Aspirin Coated [Ecotrin -] 81 mg PO DAILY 02/04/18 Metoprolol Succinate 37.5 mg PO DAILY 04/18/19 Nitroglycerin [Nitrostat] 0.4 mg SL DAILY PRN 04/18/19 Tamsulosin HCl [Flomax -] 0.4 mg PO HS #30 cap.er.24h 04/26/19 Telmisartan 20 mg PO DAILY 04/26/19 Diltiazem HCl [Diltiazem ER] 120 mg PO DAILY 07/24/19 Montelukast Sodium [Singulair] 10 mg PO DAILY 07/24/19 Ranitidine HCl 150 mg PO DAILY 07/24/19 Tamsulosin HCl [Flomax] 0.4 mg PO DAILY 07/24/19 Anemia: Yes Cardiac Disorders: Yes (CAD) CVA: Yes (CVA/TIA, Dela Cruz's Palsy) COPD: No GI Disorders: Yes (GERD) Disorders: Yes (BPH) HTN: Yes Hypercholesterolemia: Yes - Surgical History Cardiac Surgery: Yes (CABG 2005) Orthopedic Surgery: Yes (BARB ARTHROSCOPY) - Immunization History Immunization Up to Date: No - Psycho Social/Smoking Cessation Hx Smoking History: Never smoked Have you smoked in the past 12 months: No Hx Alcohol Use: No Drug/Substance Use Hx: No Substance Use Type: Alcohol Hx Substance Use Treatment: No *Physical Exam - Vital Signs Last Vital Signs Temp Pulse Resp BP Pulse Ox 98.1 F 69 18 145/68 98 07/24/19 16:40 07/24/19 16:40 07/24/19 16:40 07/24/19 16:40 07/24/19 16:40 Procedures - Consent Consent obtained: Verbal, From Patient - Laceration/Wound Repair Right Posterior Head Wound Length: 5.0 to 7.5 cm Wound Explored: clean Wound's Depth, Shape: superficial Irrigated w/ Saline: Yes Betadine Prep: Yes Anesthesia: 2% Lidocaine Amount of Anesthetic (ccs): 6 Wound Debrided: minimal Wound Repaired With: Jossie Number of Sutures: 8 Layer Closure: No Sterile Dressing Applied: Yes Splint Applied: No Sling Applied: No Progress: 07/24/19 18:57 Patient tolerated well. ED Treatment Course - RADIOLOGY Radiology Studies Ordered: Category Date Time Status CERVICAL SPINE CT W/O CONTR [CT] Stat CT Scan 07/24/19 16:[address] WITHOUT CONTRAST [CT] Stat CT Scan 07/24/19 16:55 Ordered Medical Decision Making - Medical Decision Making 07/24/19 16:58 A/P: 83-year-old man with scalp laceration status post slip and fall Neurologic exam is within normal limits Gait is steady No hemotympanum present No evidence of septal hematoma Full range of motion of cervical spine Multiple abrasions present to bilateral upper extremities Multiple ecchymosis present to bilateral upper extremities-present prior to fall CT of the head and C-spine without contrast Boostrix Laceration repair-see procedure note for details. 07/24/19 18:54 CAT scan is read by imaging on-call: Brain parenchymal architecture appears normal with preservation of the russell- white differentiation. There is no acute intracranial hemorrhage, mass-effect or midline shift. No abnormal intra-axial or extra axial fluid collection is seen. Mild chronic microvascular ischemic changes involving the supratentorial periventricular deep white matter. Ventricles and basilar cisterns are maintained. Small scalp hematoma/laceration overlying the right parietal occipital bone without underlying skull fracture. The imaged paranasal sinuses and mastoid air cells are unremarkable. 07/24/19 20:13 CT of the C-spine as read by imaging on-call: Straightening of the cervical lordosis without acute fracture or traumatic malalignment. Discharge home I discussed the physical exam findings, ancillary test results and final diagnoses with the patient. I answered all of the patient's questions. The patient was satisfied with the care received and felt comfortable with the discharge plan and treatment plan. The patient will call their primary care physician within 24 hours to arrange follow-up and will return to the Emergency Department with any new, persistent or worsening symptoms. Discharge - Discharge Information Problems reviewed: Yes Clinical Impression/Diagnosis: Fall (on) (from) other stairs and steps, initial encounter Laceration of occipital scalp Qualifiers: Encounter type: initial encounter Qualified Code(s): S01.01XA - Laceration without foreign body of scalp, initial encounter Closed head injury Qualifiers: Encounter type: initial encounter Qualified Code(s): S09.90XA - Unspecified injury of head, initial encounter Condition: Fair Disposition: HOME - Admission No - Follow up/Referral - Patient Discharge Instructions Patient Printed Discharge Instructions: DI for Closed Head Injury Additional Instructions: Your CAT scan today showed the laceration to your scalp without any fracture or bleeding into your brain tissue. Rest, no exercise or gym until jossie are removed May use ice packs tonight as needed for swelling and pain Put a towel over pillow/old pillowcase to avoid damage from bacitracin and bleeding to linens until jossie removed Use antibiotic cream/ointment once in the morning once at night until jossie are removed May use Tylenol or Motrin for pain relief Return to emergency department for worsening pain, swelling, bleeding, or evidence of serious head injury You had 8 jossie placed on the back of your head. Staple removal in 5-7 days - Post Discharge Activity
[2019-07-24] MEDS ORDERED: BACITRACIN 15 GM TUBE TOPICAL OINTMENT TP ONE (18:57)
[2019-07-24] MEDS ORDERED: BACITRACIN 0.9 GM PACKET ONE (19:08)
== END 2019-07-24 20:15 | disposition home or self-care (01) ==
LOC: JER 16:37
PROC: 3E0234Z Introduction of Serum, Toxoid and Vaccine into Muscle, Percutaneous Approach (ICD-10-PCS; principal; 2019-07-24)
PROC: 0HQ0XZZ Repair Scalp Skin, External Approach (ICD-10-PCS; 2019-07-24)
DX: S01.01XA Laceration without foreign body of scalp, initial encounter (principal); W10.8XXA Fall (on) (from) other stairs and steps, initial encounter; Y93.89 Activity, other specified; Y92.018 Other place in single-family (private) house as the place of occurrence of the external cause; Y99.8 Other external cause status; I25.10 Atherosclerotic heart disease of native coronary artery without angina pectoris; I10 Essential (primary) hypertension; Z95.1 Presence of aortocoronary bypass graft; I25.2 Old myocardial infarction; E78.00 Pure hypercholesterolemia, unspecified; N40.0 Benign prostatic hyperplasia without lower urinary tract symptoms; Z86.73 Personal history of transient ischemic attack (TIA), and cerebral infarction without residual deficits; Z86.69 Personal history of other diseases of the nervous system and sense organs; Z86.2 Personal history of diseases of the blood and blood-forming organs and certain disorders involving the immune mechanism
CPT/HCPCS: 12002-25; 70450-TC; 72125-TC; 90471; 90715; 99282-25

== ENCOUNTER 2019-08-11 08:43 | Day surgery (SDC) | payer OTHER ==
[2019-08-10 13:47] VITALS: BMI 25.8
[2019-08-11] MEDS ORDERED: PROPOFOL 20 ML ONE ×2 (09:21)
[2019-08-11] MEDS ORDERED: SUCCINYLCHOLINE CHLORIDE 200 MG/10 ML SYRINGE ONE (09:22)
[2019-08-11] MEDS ORDERED: DEXAMETHASONE SOD PHOSPHATE 4 MG/1 ML VIAL ONE (09:22)
[2019-08-11] MEDS ORDERED: EPHEDRINE SULFATE/0.9% NACL/PF 50 MG/10 ML SYRINGE NR ONE ×2 (09:22)
[2019-08-11] MEDS ORDERED: MIDAZOLAM HCL 2 MG/2 ML SINGLE DOSE VIAL ONE (10:29)
[2019-08-11] MEDS ORDERED: ceFAZolin SODIUM 1 GM VIAL IVPB ONE (10:53)
[2019-08-11] MEDS ORDERED: GENTAMICIN 80MG PREMIX BAG IVPB ONE (10:53)
[2019-08-11] MEDS ORDERED: ONDANSETRON 4 MG/2 ML VIAL IVPUSH PRN (11:21)
[2019-08-11] MEDS ORDERED: oxyCODONE HCL 5 MG TABLET PO PRN (11:21)
[2019-08-11] MEDS ORDERED: BACITRACIN 15 GM TUBE TOPICAL OINTMENT ONE (11:33)
[2019-08-11] MEDS ORDERED: BACITRACIN/POLYMYXIN B SULFATE 15 GM TUBE TP SCH (11:45)
--- NOTE | 2019-08-11 12:14 | OP ---
DATE OF OPERATION: 08/11/2019 PREOPERATIVE DIAGNOSIS: Benign prostatic hypertrophy and bladder stone. POSTOPERATIVE DIAGNOSIS: Benign prostatic hypertrophy and bladder stone. PROCEDURE: Cystoscopy, removal of bladder stone and bipolar transurethral vaporization of prostate. SURGEON: Lola Gil MD INDICATIONS: Patient is an 83-year-old male noted to have a bladder stone and enlarged prostate. After reviewing treatment options, patient elected to have the bladder stone removed, as well as bipolar TUVP of the prostate in an effort to decrease the risk of bladder stone recurrence. PROCEDURE: After informed consent was obtained, patient was supine on the table. After cardiac monitoring and spinal anesthetic was given, he was prepped and draped dorsal supine position. The meatus was dilated for narrowing. With the 20-Mongolian and then the 26-Mongolian resectoscope was inserted without difficulty. Prostatic urethra was 5 cm visually occlusive with enlarged median bar. Bladder stone was visualized approximately 8 mm in size. This was evacuated with the InboxFever evacuator and sent to Pathology for analysis. No other stones were noted. No tumors noted in the bladder. At this point using the Vaportrode the median bar was taken to the level to the bladder neck and then some lateral lobe tissue was vaporized circumferentially as well. There was no vaporization within 2 cm of the verumontanum to minimize the chance of incontinence. All bleeding sites were cauterized. No incidental injury to the bladder or ureteral orifice noted. The cystoscope was then removed and a 24-Mongolian Lopez was then placed to straight drainage. [place] tinged urine was retrieved. Patient awoke from anesthesia and transferred to the recovery room in stable condition. There were no complications. Estimated blood loss was minimal. LOLA GIL M.D. [id number]
[2019-08-11 14:07] VITALS: TEMP 97.5
[2019-08-11 16:17] VITALS: BP 107/56; PULSE 72
--- NOTE | 2019-08-12 16:42 | PATH ---
Surgical Pathology Report Patient Name: VIJI VIRAMONTES [facility]. Rec. #: [id number] /Age/Gender: 1935 (Age: 83) / M Account: [id number] Location: [facility] SURGICAL Taken: 08/11/2019 Received: 08/11/2019 Reported: 08/12/2019 Physicians: Jaquan Coy M.D. Specimen(s) Received BLADDER STONE Clinical History Benign prostate hyperplasia, bladder stone Final Diagnosis BLADDER STONE, LITHOTRIPSY: BLADDER CALCULI. MACROSCOPIC DIAGNOSIS. Electronically Signed Janessa Nunez M.D. Gross Description Received fresh labeled "bladder stone," is a 0.7 cm in greatest dimension nails-yellow, irregular calculus which is sent for chemical analysis. 08/11/201908/11/2019
== END 2019-08-11 16:05 | disposition home or self-care (01) ==
LOC: JASU-SURG 08:43
PROVIDERS: ATTEND Urology
PROC: 0VT08ZZ Resection of Prostate, Via Natural or Artificial Opening Endoscopic (ICD-10-PCS; principal; 2019-08-11 11:00)
PROC: 0TCB8ZZ Extirpation of Matter from Bladder, Via Natural or Artificial Opening Endoscopic (ICD-10-PCS; 2019-08-11 11:00)
DX: N40.0 Benign prostatic hyperplasia without lower urinary tract symptoms (principal); N21.0 Calculus in bladder
CPT/HCPCS: 36415; 82360; 88300-TC; 94760

== ENCOUNTER 2019-10-05 09:21 | Day surgery (SDC) | payer OTHER ==
[2019-10-04 12:39] VITALS: BMI 26.4
[2019-10-05 11:11] VITALS: TEMP 97.5
[2019-10-05 12:14] VITALS: BP 117/74; PULSE 76
--- NOTE | 2019-10-06 17:38 | PATH ---
Surgical Pathology Report Patient Name: VIJI VIRAMONTES [facility]. Rec. #: [id number] /Age/Gender: 1935 (Age: 83) / M Account: [id number] Location: [facility]-ENDOSCOPY Taken: 10/05/2019 Received: 10/05/2019 Reported: 10/06/2019 Physicians: Anum Espinoza M.D. Specimen(s) Received A: DUODENAL BULB 2ND PORTION B: GASTRIC ANTRUM C: DISTAL AND MID ESOPHAGUS D: POLYPS TRANSVERSE COLON Clinical History Colon cancer screening, history of esophageal stricture, history of perforated diverticulitis Postoperative diagnosis: Gastric ulcers, gastritis, transverse colon polyps, diverticulosis Final Diagnosis A. BULB AND SECOND PORTION DUODENUM, BIOPSY: DUODENAL MUCOSA WITH NO SIGNIFICANT PATHOLOGIC CHANGE. NO HISTOLOGIC EVIDENCE OF INTRAEPITHELIAL LYMPHOCYTOSIS. B. GASTRIC ANTRUM AND ANTRAL ULCERS, BIOPSY: GASTRIC MUCOSA WITH FOCAL EROSION, CHRONIC AND FOCALLY ACUTE GASTRITIS, AND INTESTINAL METAPLASIA. IMMUNOSTAIN FOR H. PYLORI IS NEGATIVE. NEGATIVE FOR DYSPLASIA. C. DISTAL AND MID ESOPHAGUS, BIOPSY: ESOPHAGEAL MUCOSA WITH BASAL CELL HYPERPLASIA, MILD CHRONIC INFLAMMATION,AND PROMINENT INTRAEPITHELIAL EOSINOPHILS (EOSINOPHILS COUNT: 30/ HPF). SEE COMMENT. Comment: The differential diagnoses include eosinophilic esophagitis and reflux esophagitis. Suggest clinical correlation. D. TRANSVERSE COLON POLYPS, POLYPECTOMY: TUBULAR ADENOMA, TWO FRAGMENTS. Electronically Signed Jose Maria Basilio M.D. Gross Description A. Received in formalin, labeled "biopsy bulb and second portion duodenum" are 4 nails, irregular portions of soft tissue ranging from 0.1-0.4 cm. in greatest dimension. The specimens are submitted in toto in one cassette. B. Received in formalin, labeled "biopsy gastric antrum and antral ulcer" are 4 nails, irregular portions of soft tissue ranging from 0.2-0.5 cm. in greatest dimension. The specimens are submitted in toto in one cassette. C. Received in formalin, labeled "biopsy distal and mid esophagus" are 3 nails, irregular portions of soft tissue averaging 0.4 cm. in greatest dimension. The specimens are submitted in toto in one cassette. D. Received in formalin, labeled "polyps transverse colon" are 3 nails, irregular portions of soft tissue averaging 0.3 cm. in greatest dimension. The specimens are submitted in toto in one cassette. DL/10/05/2019 [facility]/10/05/2019
== END 2019-10-05 12:17 | disposition home or self-care (01) ==
LOC: JASU-ENDO 09:21
PROVIDERS: ATTEND Internal Medicine Gastroenterology
PROC: 0DB98ZX Excision of Duodenum, Via Natural or Artificial Opening Endoscopic, Diagnostic (ICD-10-PCS; 2019-10-05)
PROC: 0DB68ZX Excision of Stomach, Via Natural or Artificial Opening Endoscopic, Diagnostic (ICD-10-PCS; 2019-10-05)
PROC: 0DB28ZX Excision of Middle Esophagus, Via Natural or Artificial Opening Endoscopic, Diagnostic (ICD-10-PCS; 2019-10-05)
PROC: 0DB38ZX Excision of Lower Esophagus, Via Natural or Artificial Opening Endoscopic, Diagnostic (ICD-10-PCS; 2019-10-05)
PROC: 0DBL8ZX Excision of Transverse Colon, Via Natural or Artificial Opening Endoscopic, Diagnostic (ICD-10-PCS; principal; 2019-10-05 09:45)
DX: Z12.11 Encounter for screening for malignant neoplasm of colon (principal); Z86.010 Personal history of colon polyps; D12.3 Benign neoplasm of transverse colon; K57.30 Diverticulosis of large intestine without perforation or abscess without bleeding; K25.9 Gastric ulcer, unspecified as acute or chronic, without hemorrhage or perforation; K29.70 Gastritis, unspecified, without bleeding; K22.4 Dyskinesia of esophagus

== ENCOUNTER 2019-11-29 08:00 | Inpatient (IN) | payer OTHER ==
--- NOTE | 2020-04-03 11:43 | PREOP ---
DATE OF ADMISSION: 04/18/2020 Patient to be admitted to the [facility] the day before surgery for formal bowel prep in anticipation of abdominal surgery. HISTORY: This is an 84-year-old man who presents for laparotomy, take down of left colostomy, further resection of left colon with low-anterior anastomosis, possible diverting ileostomy. Patient initially presented with a perforated viscus, and on April 18, 2019, required urgent surgery in the form of exploratory laparotomy/sigmoid colectomy/creation of left-end colostomy and a mucous fistula, with drainage of abscess. Patient did relatively well during that admission, was ultimately discharged home, and seen postoperatively. It did take him some time to recover from the trauma of immobilization and intra-abdominal sepsis. Nonetheless, he has continued to progress and presents at this juncture for take down of his colostomy with mandaeism of colonic continuity. Patient did recently undergo an upper endoscopy, particularly considering he does have a history of esophageal stricture. That study demonstrated no persistence of his stricture and only mild chronic inflammation. Patient also completed a recent full colonoscopy on October 05, 2019, where apart from 2 small polyps in the transverse colon for which biopsies were consistent with tubular adenomas, and diverticulosis, no significant other findings were encountered. PAST MEDICAL HISTORY: Significant for coronary artery disease and he is status post coronary artery bypass grafting 12 years ago. Patient states he had a recent echocardiogram and was told everything was fine. No Cardiology notes available, at the time of this dictation. Patient also with a history of benign esophageal stricture, which has required balloon dilatation in the past. No known history, as per patient, of hypertension, diabetes, respiratory, renal or hepatic insufficiency. PAST SURGICAL HISTORY: Significant for his coronary artery bypass grafting 12 years ago. In April 2019, he underwent his laparotomy for a perforated colon. In 2019, subsequently underwent a TURP, as well. Patient has also had a left knee arthroscopy. ALLERGIES: None known. CURRENT MEDICATIONS: Include metoprolol, diltiazem, hydrochlorothiazide, baby aspirin, flomax, nitroglycerin, pantoprazole, Crestor, Singulair, telmisartan, Vit B12 and Vit D. SOCIAL HISTORY: Negative tobacco. Positive alcohol, 2 drinks daily. FAMILY HISTORY: Father: History of ischemic heart disease. Mother: Unknown. Siblings: One with non-Hodgkin lymphoma, another with multiple myeloma. REVIEW OF SYSTEMS: Otherwise nil. PHYSICAL EXAMINATION: General: Awake, and alert, in no acute distress. Appears slightly overweight. Abdomen: Soft and nontender. Healed midline wound, which had been left open during his previous procedure in April 2019. Stoma intact. Generalized laxity to the anterior abdominal wall, suspicious for at least thinning of the muscle if not some degree of herniation. Low-midline mucous fistula noted. IMPRESSION: An 84-year-old man who had developed perforated diverticulitis in April 2019 with an intra-abdominal abscess and septic shock, requiring urgent operation in the form of laparotomy, resection, colostomy, mucous fistula, and drainage of abscess. Patient ultimately did well, was discharged home, and has since recovered. PLAN: Patient is adamant about proceeding with mandaeism of colonic integrity on the left side. States he does not want to continue to live with the odor of the colostomy, as well as its mere presence. He clearly understands the potential risks associated with the procedure, which have been reviewed extensively. Indications, alternatives, possible complications have been reviewed with the patient, as well as his and daughter. Consent obtained. Patient will be seen preoperatively by his health support specialist for preop cardiac evaluation. He will be seen preoperatively by his medical doctor for medical evaluation. I have asked the patient to complete a CAT scan of the abdomen and pelvis, to be certain there is no intra-abdominal process that has persisted since his prior intervention. Patient to be admitted 1 day preop for formal bowel prep in the form of p.o. GoLYTELY, as well as cleansing enemas. Hardeep MAC/[id number] cc: Hardeep Gustafson
[2020-04-17] MEDS ORDERED: LACTATED RINGERS SOLUTION 1,000 ML IV SCH (12:30)
[2020-04-17] MEDS ORDERED: PEG 3350/NA SULF BICARB CL/KCL 4000 ML SOLN.RECON PO ONE (13:00)
[2020-04-17 13:07] LABS: HEMATOCRIT 35.9 % (35.4-49); MCH 28.8 pg (25.7-33.7); MCHC 33.4 g/dl (32.0-35.9); MEAN PLT VOLUME 7.9 fl (7.5-11.1); PLATELET COUNT 148 K/MM3 (134-434); RBC 4.17 M/mm3 (4.00-5.60); RDW 14.4 % (11.9-15.9); WHITE BLOOD COUNT 5.9 K/mm3 (4.0-10.0)
[2020-04-17 13:32] LABS: ALBUMIN 3.4 g/dl (3.4-5.0); BILIRUBIN,TOTAL 0.9 mg/dL (0.2-1); BLOOD UREA NITROGEN 21.8 mg/dL (7-18); CREATININE 0.9 mg/dL (0.55-1.3); POTASSIUM 3.7 mmol/L (3.5-5.1); TOT PROT 6.5 g/dl (6.4-8.2)
--- NOTE | 2020-04-17 15:17 | EKG ---
Test Reason : Blood Pressure : / mmHG Vent. Rate : 050 BPM Atrial Rate : 050 BPM P-R Int : 170 ms QRS Dur : 094 ms QT Int : 456 ms P-R-T Axes : 021 -07 059 degrees QTc Int : 415 ms SINUS BRADYCARDIA OTHERWISE NORMAL ECG WHEN COMPARED WITH ECG OF 18-APR-2019 16:22, VENT. RATE HAS DECREASED BY 31 BPM Confirmed by MD DREW, JORGE A ([id number]) on 04/17/2020 3:17:28 PM Referred By: Bob Haile Confirmed By:JORGE A RUSSELL MD
[2020-04-18] MEDS ORDERED: PROPOFOL 20 ML ONE (07:25)
[2020-04-18] MEDS ORDERED: SUCCINYLCHOLINE CHLORIDE 200 MG/10 ML SYRINGE ONE (07:25)
[2020-04-18] MEDS ORDERED: LIDOCAINE HCL/PF 2% SDV 5ML VIAL ONE (07:25)
[2020-04-18] MEDS ORDERED: ROCURONIUM BROMIDE 50 MG/5 ML SYRINGE ONE ×2 (07:25→08:54)
[2020-04-18] MEDS ORDERED: MIDAZOLAM HCL 2 MG/2 ML SINGLE DOSE VIAL ONE (07:26)
[2020-04-18] MEDS ORDERED: ERTAPENEM SODIUM 1 GM in SODIUM CHLORIDE 50 ML IVPB ONE (08:00)
[2020-04-18] MEDS ORDERED: ETOMIDATE 20 MG/10 ML AMPUL IVPUSH ONE (08:06)
[2020-04-18] MEDS ORDERED: ERTAPENEM SODIUM 1 GM VIAL IVPB ONE (08:12)
[2020-04-18] MEDS ORDERED: TAMSULOSIN HCL 0.4 MG CAP PO SCH (08:30)
[2020-04-18] MEDS ORDERED: GlUCAGON HUMAN RECOMBINANT 1 MG/VIAL ONE ×2 (09:13→09:16)
[2020-04-18] MEDS ORDERED: PANTOPRAZOLE 20 MG TABLET PO SCH (10:00)
[2020-04-18] MEDS ORDERED: metoPROLOL SUCCINATE 25 MG TAB.SR.24H (FP) PO SCH (10:00)
[2020-04-18] MEDS ORDERED: ONDANSETRON 4 MG/2 ML VIAL IVPUSH PRN (10:29)
[2020-04-18 10:51] LABS: HEMATOCRIT 36.9 % (35.4-49); HEMOGLOBIN 12.5 GM/dL (11.7-16.9); MCH 29.2 pg (25.7-33.7); MCHC 33.8 g/dl (32.0-35.9); MEAN CELL VOLUME 86.4 fl (80-96); MEAN PLT VOLUME 6.9 fl (7.5-11.1); PLATELET COUNT 177 K/MM3 (134-434); RBC 4.27 M/mm3 (4.00-5.60); RDW 14.3 % (11.9-15.9); WHITE BLOOD COUNT 10.5 K/mm3 (4.0-10.0)
[2020-04-18] MEDS ORDERED: NEOSTIGMINE METHYLSULFATE 0.5 MG/1 ML - 10 ML MDV ONE (10:51)
[2020-04-18] MEDS ORDERED: GLYCOPYRROLATE 0.2 MG/1 ML VIAL ONE (10:52)
[2020-04-18] MEDS ORDERED: HYDROmorphone HCl 2 MG/ML VIAL ONE (12:14)
[2020-04-18] MEDS: HYDROmorphone HCl 2 MG/ML VIAL IVPUSH ONE ×4 (12:15→12:45)
[2020-04-18] MEDS ORDERED: LABETALOL HCL 5 MG/1 ML (100MG/20 ML VIAL) IVPB ONE (13:11)
[2020-04-18] MEDS ORDERED: LABETALOL HCL 5 MG/1 ML (100MG/20 ML VIAL) IVPUSH ONE ×3 (13:11→16:19)
[2020-04-18] MEDS ORDERED: LACTATED RINGERS SOLUTION 1,000 ML IV SCH ×2 (13:15→13:32)
[2020-04-18] MEDS: LACTATED RINGERS SOLUTION 1,000 ML IV SCH ×2 (13:45→14:39)
--- NOTE | 2020-04-18 14:26 | CONSULT ---
Consultation: REQUESTING PROVIDER: CONSULT REQUEST: We have been asked to medically evaluate this patient for ICU HISTORY OF PRESENT ILLNESS: 84 yo M PMH HTN, HLD, CVA, BPH, CAD s/p CABG( x12 y) , presents to ICU following surgery for take down of left colostomy, further resection of L colon with low anterior anastomosis ( 2/2 perforation of intestine/diverticula of large intestine w/ perforation and abscess 04/2019). Since last admission, pt maintained good follow up. Pt had upper endoscopy 09/2019 showing mild chronic inflammation. colonoscopy 09/2019 showing diverticulosis and 2 polyps in transverse colon consistant with tubular adenoma REVIEW OF SYSTEMS: CONSTITUTIONAL: Absent: fever, chills, diaphoresis, generalized weakness, malaise, loss of appetite, weight change HEENT: Absent: rhinorrhea, nasal congestion, throat pain, throat swelling, difficulty swallowing, mouth swelling, ear pain, eye pain, visual changes CARDIOVASCULAR: Absent: chest pain, syncope, palpitations, irregular heart rate, lightheadedness, peripheral edema RESPIRATORY: Absent: cough, shortness of breath, dyspnea with exertion, orthopnea, wheezing, stridor, hemoptysis GASTROINTESTINAL: Absent: abdominal pain, abdominal distension, nausea, vomiting, diarrhea, constipation, melena, hematochezia GENITOURINARY: Absent: dysuria, frequency, urgency, hesitancy, hematuria, flank pain, genital pain SKIN: Absent: rash, itching, pallor NEUROLOGIC: Absent: headache, focal weakness or paresthesias, dizziness, unsteady gait, seizure, mental status changes, bladder or bowel incontinence PHYSICAL EXAMINATION Vital Signs - 24 hr 04/17/20 04/17/20 04/17/20 18:06 20:26 20:38 Temperature 97.5 F L 97.8 F Pulse Rate 57 L 53 L Respiratory 18 18 Rate Blood Pressure 164/72 167/88 O2 Sat by Pulse 96 97 97 Oximetry (%) 04/18/20 04/18/20 04/18/20 04:00 11:26 11:45 Temperature 98.3 F 98.4 F Pulse Rate 62 79 85 Respiratory 20 18 20 Rate Blood Pressure 157/79 142/75 126/72 O2 Sat by Pulse 100 100 Oximetry (%) 04/18/20 04/18/20 04/18/20 12:00 12:15 12:30 Temperature Pulse Rate 103 H 92 H 82 Respiratory 13 20 22 H Rate Blood Pressure 170/80 178/145 H 174/97 H O2 Sat by Pulse 99 100 100 Oximetry (%) GENERAL: lethargic but awakens when prompted. HEAD: Normal with no signs of trauma. EYES: extraocular movements intact, sclera anicteric EARS, NOSE, THROAT: oropharynx clear without exudates. Moist mucous membranes. LUNGS: Breath sounds equal, clear to auscultation bilaterally. No accessory muscle use. HEART: Regular rate and rhythm, normal S1 and S2 without murmur ABDOMEN: Soft, nontender, not distended, normoactive bowel sounds, no guarding, no rebound LOWER EXTREMITIES: 2+ pulses, warm, well-perfused. No calf tenderness. No peripheral edema. SKIN: Warm, dry, normal turgor, no rashes or lesions noted. CBC, BMP 04/18/20 10:45 04/17/20 11:45 Active Medications Generic Name Dose Route Start Last Admin Trade Name Freq PRN Reason Stop Dose Admin Chlorhexidine Gluconate 1 applic 04/18/20 22:00 Hibiclens For Decolonization - TP HS RENITA Diltiazem HCl 120 mg 04/19/20 10:00 Cardizem Cd - PO DAILY RENITA Enoxaparin Sodium 40 mg 04/19/20 10:00 Lovenox - SQ DAILY RENITA Fentanyl 50 mcg 04/18/20 13:09 Sublimaze Injection - IVPUSH 04/19/20 13:08 [id number] PRN PAIN-PACU ORDER X 4 DOSES ONLY Ertapenem 1 gm/ Sodium 50 mls @ 100 mls/hr 04/19/20 10:00 Chloride IVPB 04/19/20 10:29 DAILY RENITA Lactated Ringer's 1,000 mls @ 100 mls/hr 04/18/20 14:00 04/18/20 13:45 Lactated Ringers Solution IV 0 mls ASDIR RENITA Administration Metoprolol Succinate 25 mg 04/19/20 10:00 Toprol Xl - PO DAILY RENITA Montelukast Sodium 10 mg 04/18/20 22:00 Singulair - PO HS RENITA Morphine Sulfate 4 mg 04/18/20 10:29 Morphine Sulfate IVPB Q3H PRN PAIN LEVEL 7 - 10 Mupirocin 1 applic 04/18/20 22:00 Bactroban Ointment (For Decolonization) - NS 04/23/20 21:59 BID [facility] Ondansetron HCl 4 mg 04/18/20 10:29 Zofran Injection IVPUSH Q6H PRN NAUSEA Oxycodone HCl 7.5 mg 04/18/20 10:29 Roxicodone - PO Q4H PRN PAIN LEVEL 4 - 6 Pantoprazole Sodium 20 mg 04/19/20 10:00 Protonix - PO DAILY [facility] Tamsulosin HCl 0.4 mg 04/19/20 08:30 Flomax - PO DAILY@0830 [facility] ASSESSMENT/PLAN: 84 yo M PMH of HTN, CADs s/p quadruple bypass, cholelithiasis, CVA, BPH presented to the hospital for reversal of colostomy. admitted to ICU for post-op observation Neurological - lethargic but wakes up to answer questions and follows commands Cardiovascular -CAD and hx of CABG: - had cardiology pre-op clearance - c/w cardizem, toprol - will resume varun-i - will give labetalol for BP once Pulmonary - no acute events - cont singulair - incentive spirometry ID - c/w ertapenem periop c/w IVF Renal -no prior renal deficits -repeat BMP in AM FEN -NPO except meds and ice chips -replete lytes as necessary in AM -LR @ 100cc/hr Prophylaxis -SCDs for prophylaxis Disposition -admit to ICU, anticipate downgrade in 48 hours Dispo: We will continue to follow the patient. Thank you for this consultative opportunity. ATTENDING PHYSICIAN STATEMENT I saw and evaluated the patient. I reviewed the resident's note and discussed the case with the resident. I agree with the resident's findings and plan as documented. SUBJECTIVE: OBJECTIVE: ASSESSMENT AND PLAN:
--- NOTE | 2020-04-18 14:31 | PN ---
Teaching Attending Note Name of Resident: Skylar Gold ATTENDING PHYSICIAN STATEMENT I saw and evaluated the patient. I reviewed the resident's note and discussed the case with the resident. I agree with the resident's findings and plan as documented. SUBJECTIVE: Pt seen and examined in the ICU. Pt is s/p ex-lap/colostomy takedown/low an terior anastamosis/ostomy closure. EBL 500mL. Denies pain currently. No shortness of breath or chest pain. OBJECTIVE: Vital Signs Period Temp Pulse Resp BP Sys/Young Pulse Ox Last 24 Hr 97.5 F-98.4 F 53-103 13-22 126-178/72-145 96-100 Intake & Output 04/15/20 04/16/20 04/17/20 04/18/20 23:59 23:59 23:59 23:59 Intake Total 4100 1875 Output Total 3400 1515 Balance 700 360 Weight 79.469 kg Gen: NAD at rest Heart: RRR Lung: decreased breath sounds at the bases Abd: soft, dressings intact, +YI sanguinous Ext: no edema CBC, BMP 04/18/20 10:45 04/17/20 11:45 Active Medications Chlorhexidine Gluconate (Hibiclens For Decolonization -) 1 applic TP HS [facility] Diltiazem HCl (Cardizem Cd -) 120 mg PO DAILY [facility] Enoxaparin Sodium (Lovenox -) 40 mg SQ DAILY [facility] Fentanyl (Sublimaze Injection -) 50 mcg IVPUSH [id number] PRN PRN Reason: PAIN-PACU ORDER X 4 DOSES ONLY Stop: 04/19/20 13:08 Ertapenem 1 gm/ Sodium (Chloride) 50 mls @ 100 mls/hr IVPB DAILY [facility] Stop: 04/19/20 10:29 Lactated Ringer's (Lactated Ringers Solution) 1,000 mls @ 100 mls/hr IV ASDIR [facility] Last Admin: 04/18/20 13:45 Dose: 0 mls Documented by: Metoprolol Succinate (Toprol Xl -) 25 mg PO DAILY [facility] Montelukast Sodium (Singulair -) 10 mg PO HS [facility] Morphine Sulfate (Morphine Sulfate) 4 mg IVPB Q3H PRN PRN Reason: PAIN LEVEL 7 - 10 Mupirocin (Bactroban Ointment (For Decolonization) -) 1 applic NS BID [facility] Stop: 04/23/20 21:59 Ondansetron HCl (Zofran Injection) 4 mg IVPUSH Q6H PRN PRN Reason: NAUSEA Oxycodone HCl (Roxicodone -) 7.5 mg PO Q4H PRN PRN Reason: PAIN LEVEL 4 - 6 Pantoprazole Sodium (Protonix -) 20 mg PO DAILY [facility] Tamsulosin HCl (Flomax -) 0.4 mg PO DAILY@0830 [facility] ASSESSMENT AND PLAN: h/o Perforated Diverticulitis 04/2019 s/p ex-lap/colostomy takedown/low anterior anastamosis/ostomy closure POD 0 CAD s/p CABG Hyperlipidemia BPH - IVF - pain control - incentive spirometry - perioperative antibiotics - monitor for bowel function - DVT prophylaxis
[2020-04-18] MEDS ORDERED: LABETALOL HCL 5 MG/1 ML (100MG/20 ML VIAL) ONE (14:36)
[2020-04-18] MEDS: morphine SULFATE 4 MG/ML VIAL IVPB PRN ×2 (14:44→21:37)
[2020-04-18] MEDS ORDERED: hydrALAZINE HCL 20 MG/ML VIAL IVPUSH ONE (18:13)
[2020-04-18] MEDS ORDERED: VALSARTAN 160 MG TABLET (UD) PO ONE (18:17)
[2020-04-18] MEDS: CHLORHEXIDINE GLUCONATE 4% CLEANSER FOR DECOLONIZATION TP SCH (21:34)
[2020-04-18] MEDS: MONTELUKAST NA 10 MG TABLET PO SCH (21:34)
[2020-04-18] MEDS: MUPIROCIN 2% TOPICAL OINTMENT FOR DECOLONIZATION NS SCH (21:38)
[2020-04-18] MEDS ORDERED: MONTELUKAST NA 10 MG TABLET PO SCH (22:00)
--- NOTE | 2020-04-19 06:18 | OP ---
DATE OF OPERATION: 04/18/2020 PREOPERATIVE DIAGNOSIS: Large-bowel diverticular disease/colostomy status. POSTOPERATIVE DIAGNOSIS: Large-bowel diverticular disease/colostomy status. PROCEDURE: Exploratory laparotomy/lysis of adhesions/takedown colostomy stoma/takedown mucous fistula stoma/left colon resection with low anterior anastomosis/anal dilatation/rigid sigmoidoscopy/peritoneal lavage. OPERATING SURGEON: Bob Haile MD TECHNICAL SOLUTIONS ENGINEER: Han Chu MD ANESTHESIA: General. ANESTHESIOLOGIST: Cheo Campbell MD HISTORY: This is an 84-year-old man who 18 months ago had presented with perforated sigmoid diverticulitis, required a laparotomy with sigmoid resection, drainage of abscess colostomy and mucous fistula. Patient has been adamant about proceeding with reconstitution of bowel integrity despite his age and his history of coronary artery disease. Indications, alternatives, possible complications of the procedure including have been reviewed with the patient and family. Patient adamant about proceeding. Consent obtained. DESCRIPTION OF PROCEDURE: With the patient in the supine position, the lower extremities up in stirrups, the abdomen and perineum were prepped and draped in sterile fashion using Betadine. A midline incision was made in the preexisting scar and deepened into the subcutaneous space. Subcutaneous tissues were divided using electrocautery ultimately arriving at the midline fascia. The midline fascia was identified, incised, and the abdominal cavity entered. Lysis of adhesions ensued, freeing omentum and bowel from the anterior abdominal wall. First directing our attention to the mucous fistula at the inferior aspect of the midline wound, this was taken down under direct vision and the distal segment mobilized. Now directing our attention to the skin around the colostomy at the level of the left mid abdomen, an incision was made and deepened into the subcutaneous space. The fascial ring about the stoma was incised and ultimately the stoma was freed from the abdominal wall. In order to facilitate reconstitution of bowel integrity, it required takedown of the splenic flexure. The entire left colon was mobilized to the level of the mid transverse colon. The bulk of the descending colon was associated with significant diverticular disease. The descending colon was resected and sent as specimen, as was the colostomy stoma and mucous fistula stomas. Bowel continuity was restored, creating an EEA anastomosis. First the anvil was placed in the cut end of the mobilized transverse colon and a pursestring suture was applied. Now going below, anal dilatation ensued. Rectal dilatation ensued with sequential dilators. Ultimately the transanal portion of the EEA device was passed up the rectum, where it reached the transected portion of the rectum itself, which had existed after resection of the mucous fistula. The spike of the EEA was delivered through that staple line. The anvil and the spike were then mated and under direct vision the stapler was closed to ensure there were no other adjacent tissues or organs associated with the stapler. The stapler was then fired. After removing the EEA device, there were 2 perfectly round and intact donuts. With the anastomosis under saline from above, rigid sigmoidoscope was placed in the rectum, and air was insufflated, distending the anastomosis under water 3 consecutive times. There were no air bubbles or leaks identified. The rigid sigmoidoscope was then advanced from below and the anastomosis could be visualized but was not traversed. Peritoneal lavage ensued and adequate hemostasis was ensured. The old stoma site at the level of the left mid abdomen was closed in 2 layers, each time using 0 PDS suture material. The midline wound was closed using a continuous PDS number 1 suture beginning at each end of the wound with the suture tied at the wound mid point. Along the course of the closure, several number 1 Vicryls were placed as well. Subcutaneous space was irrigated and the midline skin edges approximated using metallic clips. They were widely spaced. Betadine gauze was placed between the clips to leave the wound open to be removed in approximately 72 hours. The old stoma site was then packed with Betadine gauze as well. Dressings applied and procedure terminated. Needle, sponge, instrument counts correct. Estimated blood loss 500 mL. Specimens included colostomy stoma, mucous fistula stoma as well as left colon. Drains, 1 YI. Patient tolerated procedure and procedure was terminated. Hardeep [id number] cc: Mikal Le MD
[2020-04-19 07:09] LABS: BLOOD UREA NITROGEN 21.3 mg/dL (7-18); CALCIUM 8.1 mg/dL (8.5-10.1); CREATININE 1.2 mg/dL (0.55-1.3); MAGNESIUM 1.6 mg/dL (1.8-2.4); PHOSPHOROUS 3.6 mg/dL (2.5-4.9); POTASSIUM 3.9 mmol/L (3.5-5.1)
[2020-04-19 07:17] LABS: HEMATOCRIT 38.5 % (35.4-49); MCH 29.1 pg (25.7-33.7); MCHC 33.7 g/dl (32.0-35.9); MEAN CELL VOLUME 86.5 fl (80-96); PLATELET COUNT 164 K/MM3 (134-434); RBC 4.45 M/mm3 (4.00-5.60); RDW 14.3 % (11.9-15.9); WHITE BLOOD COUNT 10.1 K/mm3 (4.0-10.0)
--- NOTE | 2020-04-19 08:27 | PN ---
Progress Note (short form) - Note Progress Note: Anesthesia postop note 84 y/o M s/p GA for reversal of ostomy, left colon resection POD#1, vss, aaox3, pain well controlled. No anesthesia complications.
[2020-04-19] MEDS ORDERED: MAGNESIUM SULF 50% (8.12 MEQ/2 ML-1 GM VIAL) IVPB ONE (08:43)
[2020-04-19] MEDS: VALSARTAN 80 MG TABLET (UD) PO SCH (09:24)
[2020-04-19] MEDS: oxyCODONE HCL 5 MG TABLET PO PRN ×2 (09:25→20:36)
[2020-04-19] MEDS: metoPROLOL SUCCINATE 25 MG TAB.SR.24H (FP) PO SCH (09:27)
[2020-04-19] MEDS: PANTOPRAZOLE 20 MG TABLET PO SCH (09:27)
[2020-04-19] MEDS: TAMSULOSIN HCL 0.4 MG CAP PO SCH (09:27)
[2020-04-19] MEDS: ENOXAPARIN NA (PORCINE) 40 MG/0.4 ML DISP.SYRIN SQ SCH (09:28)
[2020-04-19] MEDS: MUPIROCIN 2% TOPICAL OINTMENT FOR DECOLONIZATION NS SCH ×2 (09:28→21:05)
--- NOTE | 2020-04-19 09:50 | PN ---
Progress Note (short form) - Note Progress Note: surgery pt seen and examined. pleasantly confused. doesnt know where he is or that he had surgery. no pain. no n/v. u/o 1500 afebrile, hr 109 abd- bandage c/d/i, expected tenderness, mild distension, latricia serous Laboratory Tests 04/19/20 04/19/20 05:30 05:30 WBC 10.1 H Magnesium 1.6 L A/P 1) Pod#1- cont npo except meds, latricia, ivf 2) prophylaxis- lovenox, protonix, oob, spirometer, finish invanz 3) htn, copd- on home meds except telmisartan (non formulary) 4) tachycardia- per icu. 5) hypomagnesemia- being replaced 6) pain- morphine, oxycodone, tylenol possible transfer to floor if stable per icu
[2020-04-19] MEDS ORDERED: PT OWN MED DRAWER 7, Y5N ONE (09:51)
[2020-04-19] MEDS ORDERED: ERTAPENEM SODIUM 1 GM in SODIUM CHLORIDE 50 ML IVPB SCH (10:00)
[2020-04-19] MEDS ORDERED: TELMISARTAN 40 MG PO SCH (10:00)
[2020-04-19] MEDS ORDERED: MAGNESIUM SULFATE IN WATER 2 GM/50 ML IVPB IVPB ONE (10:15)
--- NOTE | 2020-04-19 13:03 | PN ---
Teaching Attending Note Name of Resident: Skylar Gold ATTENDING PHYSICIAN STATEMENT I saw and evaluated the patient. I reviewed the resident's note and discussed the case with the resident. I agree with the resident's findings and plan as documented. SUBJECTIVE: Patient seen and examined in the ICU. Awake and alert but confused. POD#1 ex-lap/colostomy takedown/low anterior anastamosis/ostomy closure. EBL 500mL. He denies abdominal pain. No CP or SOB. Seen by surgery this AM. OBJECTIVE: Intake & Output 04/16/20 04/17/20 04/18/20 04/19/20 23:59 23:59 23:59 23:59 Intake Total 4100 2375 1111 Output Total 3400 2135 10 Balance 786 207 8539 Weight 175 lb 3.2 oz Last Vital Signs Temp Pulse Resp BP Pulse Ox 99.0 F 104 H 31 H 126/71 96 04/19/20 10:00 04/19/20 12:00 04/19/20 12:00 04/19/20 12:00 04/19/20 09:00 Active Medications Chlorhexidine Gluconate (Hibiclens For Decolonization -) 1 applic TP [facility] Last Admin: 04/18/20 21:34 Dose: 1 applic Documented by: Diltiazem HCl (Cardizem Cd -) 120 mg PO DAILY [facility] Last Admin: 04/19/20 09:25 Dose: 120 mg Documented by: Enoxaparin Sodium (Lovenox -) 40 mg SQ DAILY [facility] Last Admin: 04/19/20 09:28 Dose: 40 mg Documented by: Lactated Ringer's (Lactated Ringers Solution) 1,000 mls @ 100 mls/hr IV ASDIR [facility] Last Admin: 04/18/20 14:39 Dose: 100 mls/hr Documented by: Metoprolol Succinate (Toprol Xl -) 25 mg PO DAILY [facility] Last Admin: 04/19/20 09:27 Dose: 25 mg Documented by: Montelukast Sodium (Singulair -) 10 mg PO [facility] Last Admin: 04/18/20 21:34 Dose: 10 mg Documented by: Mupirocin (Bactroban Ointment (For Decolonization) -) 1 applic NS BID [facility] Stop: 04/23/20 21:59 Last Admin: 04/19/20 09:28 Dose: 1 applic Documented by: Ondansetron HCl (Zofran Injection) 4 mg IVPUSH Q6H PRN PRN Reason: NAUSEA Oxycodone HCl (Roxicodone -) 7.5 mg PO Q4H PRN PRN Reason: PAIN LEVEL 4 - 6 Last Admin: 04/19/20 09:25 Dose: 7.5 mg Documented by: Pantoprazole Sodium (Protonix -) 20 mg PO DAILY [facility] Last Admin: 04/19/20 09:27 Dose: 20 mg Documented by: Tamsulosin HCl (Flomax -) 0.4 mg PO DAILY@30 [facility] Last Admin: 04/19/20 09:27 Dose: 0.4 mg Documented by: Valsartan (Diovan -) 160 mg PO DAILY [facility] Last Admin: 04/19/20 09:24 Dose: 160 mg Documented by: Gen: Awake and alert, confused Heart: RRR Lung: decreased breath sounds at the bases Abd: soft, dressings intact, +YI sanguinous Ext: no edema Laboratory Results - last 24 hr 04/19/20 04/19/20 05:30 05:30 WBC 10.1 H RBC 4.45 Hgb 13.0 Hct 38.5 MCV 86.5 MCH 29.1 MCHC 33.7 RDW 14.3 Plt Count 164 MPV 8.0 D Sodium 141 Potassium 3.9 Chloride 103 Carbon Dioxide 30 Anion Gap 8 BUN 21.3 H Creatinine 1.2 Est GFR (CKD-EPI)AfAm 63.52 Est GFR (CKD-EPI)NonAf 54.81 Random Glucose 113 H Calcium 8.1 L Phosphorus 3.6 Magnesium 1.6 L ASSESSMENT AND PLAN: h/o Perforated Diverticulitis 04/2019 POD #1 : s/p ex-lap/colostomy takedown/low anterior anastamosis/ostomy closure CAD s/p CABG Hyperlipidemia BPH Acute Delerium Apparent history of mild dementia - Monitor Neuro exam: no motor weakness but questionable expressive aphasia - IVF - pain control - incentive spirometry - monitor for bowel function - DVT prophylaxis - CT head Dr Mueller
--- NOTE | 2020-04-19 13:07 | PN ---
Physical Exam: SUBJECTIVE: Patient seen and examined at bedside. pt denies sob or chest pain. pt endorses word finding difficulty. pt can state his name and endorses understanding but cannot answer qustions. daughter states that normally he does not have word finding difficulties and that his doctor states he did not have dementia ( passed screening) he is n ormally very functional- drives, walks. only becomes forgetful if telling a story. OBJECTIVE: Vital Signs Period Temp Pulse Resp BP Sys/Young Pulse Ox Last 24 Hr 97.7 F-99.3 F 81-109 11-31 96-183/59-106 90-100 GENERAL: The patient is awake, alert, and oriented to self, in no acute distress. expressive aphasia HEAD: Normal with no signs of trauma. NECK: Trachea midline, full range of motion, supple. LUNGS: Breath sounds equal, clear to auscultation bilaterally, no accessory muscle use. HEART: Regular rate and rhythm, S1, S2 without murmur ABDOMEN: Soft, nontender, nondistended, normoactive bowel sounds, no guarding. dressing over abdomen with YI draining EXTREMITIES: 2+ pulses, warm, well-perfused, no edema. SKIN: Warm, dry, normal turgor, no rashes or lesions noted Neuro: CN2-12 intact. MS 5/5 in b/l UE and LE . no facial asymmetry Laboratory Results - last 24 hr 04/19/20 04/19/20 05:30 05:30 WBC 10.1 H RBC 4.45 Hgb 13.0 Hct 38.5 MCV 86.5 MCH 29.1 MCHC 33.7 RDW 14.3 Plt Count 164 MPV 8.0 D Sodium 141 Potassium 3.9 Chloride 103 Carbon Dioxide 30 Anion Gap 8 BUN 21.3 H Creatinine 1.2 Est GFR (CKD-EPI)AfAm 63.52 Est GFR (CKD-EPI)NonAf 54.81 Random Glucose 113 H Calcium 8.1 L Phosphorus 3.6 Magnesium 1.6 L Active Medications Generic Name Dose Route Start Last Admin Trade Name Freq PRN Reason Stop Dose Admin Chlorhexidine Gluconate 1 applic 04/18/20 22:00 04/18/20 21:34 Hibiclens For Decolonization - TP 1 applic HS [facility] Administration Diltiazem HCl 120 mg 04/19/20 10:00 04/19/20 09:25 Cardizem Cd - PO 120 mg DAILY [facility] Administration Enoxaparin Sodium 40 mg 04/19/20 10:00 04/19/20 09:28 Lovenox - SQ 40 mg DAILY [facility] Administration Lactated Ringer's 1,000 mls @ 100 mls/hr 04/18/20 14:00 04/18/20 14:39 Lactated Ringers Solution IV 100 mls/hr ASDIR [facility] Administration Metoprolol Succinate 25 mg 04/19/20 10:00 04/19/20 09:27 Toprol Xl - PO 25 mg DAILY [facility] Administration Montelukast Sodium 10 mg 04/18/20 22:00 04/18/20 21:34 Singulair - PO 10 mg HS [facility] Administration Mupirocin 1 applic 04/18/20 22:00 04/19/20 09:28 Bactroban Ointment (For Decolonization) - NS 04/23/20 21:59 1 applic BID [facility] Administration Ondansetron HCl 4 mg 04/18/20 10:29 Zofran Injection IVPUSH Q6H PRN NAUSEA Oxycodone HCl 7.5 mg 04/18/20 10:29 04/19/20 09:25 Roxicodone - PO 7.5 mg Q4H PRN Administration PAIN LEVEL 4 - 6 Pantoprazole Sodium 20 mg 04/19/20 10:00 04/19/20 09:27 Protonix - PO 20 mg DAILY [facility] Administration Tamsulosin HCl 0.4 mg 04/19/20 08:30 04/19/20 09:27 Flomax - PO 0.4 mg DAILY@0830 [facility] Administration Valsartan 160 mg 04/19/20 10:00 04/19/20 09:24 Diovan - PO 160 mg DAILY [facility] Administration ASSESSMENT/PLAN: 84 yo M PMH of HTN, CADs s/p quadruple bypass, cholelithiasis, CVA, BPH presented to the hospital for reversal of colostomy. admitted to ICU for post-op observation. POD 1 Neurological -expressive aphasia. will do head CT--> neg for acute pathology Cardiovascular -CAD and hx of CABG, HTN - had cardiology pre-op clearance - c/w cardizem, toprol, fiovam Pulmonary - no acute events - cont singulair - incentive spirometry ID - s/p ertapenem periop -c/w IVF Renal -no prior renal deficits FEN -NPO except meds and ice chips -LR @ 100cc/hr Prophylaxis -SCDs for prophylaxis Disposition: transfer to tele ATTENDING PHYSICIAN STATEMENT I saw and evaluated the patient. I reviewed the resident's note and discussed the case with the resident. I agree with the resident's findings and plan as documented. SUBJECTIVE: OBJECTIVE: ASSESSMENT AND PLAN:
[2020-04-19 15:39] VITALS: BMI 27.3
--- NOTE | 2020-04-19 16:42 | PN ---
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 Since last admission, pt maintained good follow up. Pt presented for elective reversal of ostomy. no reported intra-op complications. Pt was observed in ICU, early evening had elevated BPs which were responsive to labetalol and hydralazine. BPs stabilized throughout the day. pt seemed confused, oriented to self but seemed like expressive aphasia so CT head was done and negative for acute pathology. symptoms have improved throughout the day. pt was encouraged to cont incentive spirometry. pt got ertapenem go-op. labs and lytes were monitored. home meds were resumed. Disposition: transfer to tele
[2020-04-19] MEDS: LACTATED RINGERS SOLUTION 1,000 ML IV SCH (16:54)
[2020-04-19] MEDS: CHLORHEXIDINE GLUCONATE 4% CLEANSER FOR DECOLONIZATION TP SCH (21:05)
[2020-04-19] MEDS: MONTELUKAST NA 10 MG TABLET PO SCH (21:05)
[2020-04-20 06:38] LABS: BASO % 0.2 % (0-2.0); EOS % 1.5 % (0-4.5); HEMATOCRIT 36.3 % (35.4-49); HEMOGLOBIN 12.3 GM/dL (11.7-16.9); LYMPH % 6.6 % (8-40); MCH 29.3 pg (25.7-33.7); MCHC 33.8 g/dl (32.0-35.9); MEAN CELL VOLUME 86.9 fl (80-96); MEAN PLT VOLUME 7.9 fl (7.5-11.1); MONO % 4.7 % (3.8-10.2); PLATELET COUNT 140 K/MM3 (134-434); RBC 4.18 M/mm3 (4.00-5.60); RDW 14.6 % (11.9-15.9); WHITE BLOOD COUNT 9.5 K/mm3 (4.0-10.0)
[2020-04-20 07:10] LABS: ALBUMIN 2.5 g/dl (3.4-5.0); BILIRUBIN,TOTAL 1.6 mg/dL (0.2-1); BLOOD UREA NITROGEN 19.8 mg/dL (7-18); CALCIUM 8.2 mg/dL (8.5-10.1); CREATININE 0.9 mg/dL (0.55-1.3); MAGNESIUM 2.2 mg/dL (1.8-2.4); PHOSPHOROUS 2.1 mg/dL (2.5-4.9); POTASSIUM 3.6 mmol/L (3.5-5.1); TOT PROT 5.6 g/dl (6.4-8.2)
[2020-04-20] MEDS ORDERED: POTASSIUM PHOSPHATE 15 MM in SODIUM CHLORIDE 250 ML IVPB ONE (09:00)
[2020-04-20] MEDS: MUPIROCIN 2% TOPICAL OINTMENT FOR DECOLONIZATION NS SCH ×2 (09:09→22:40)
[2020-04-20] MEDS: TAMSULOSIN HCL 0.4 MG CAP PO SCH (09:09)
[2020-04-20] MEDS: VALSARTAN 80 MG TABLET (UD) PO SCH (09:10)
[2020-04-20] MEDS: PANTOPRAZOLE 20 MG TABLET PO SCH (09:11)
[2020-04-20] MEDS: metoPROLOL SUCCINATE 25 MG TAB.SR.24H (FP) PO SCH (09:11)
[2020-04-20] MEDS: ENOXAPARIN NA (PORCINE) 40 MG/0.4 ML DISP.SYRIN SQ SCH (09:24)
[2020-04-20] MEDS: LACTATED RINGERS SOLUTION 1,000 ML IV SCH ×2 (09:26→14:33)
--- NOTE | 2020-04-20 11:11 | PN ---
Physical Exam: SUBJECTIVE: Patient seen and examined at bedside. no acute complaints. he is more conversional and memory improved OBJECTIVE: Vital Signs Period Temp Pulse Resp BP Sys/Young Pulse Ox Last 24 Hr 98.4 F-99.5 F 84-104 17-31 125-152/64-86 94-96 GENERAL: The patient is awake, alert, and fully oriented, in no acute distress. HEAD: Normal with no signs of trauma. LUNGS: Breath sounds equal, clear to auscultation bilaterally, no accessory muscle use. HEART: Regular rate and rhythm, S1, S2 + systolic murmur ABDOMEN: Soft, nontender, nondistended, normoactive bowel sounds, no guarding EXTREMITIES: 2+ pulses, warm, well-perfused, no edema. NEUROLOGICAL: Cranial nerves II through XII grossly intact. Normal speech Laboratory Results - last 24 hr 04/20/20 04/20/20 06:13 06:13 WBC 9.5 RBC 4.18 Hgb 12.3 Hct 36.3 MCV 86.9 MCH 29.3 MCHC 33.8 RDW 14.6 Plt Count 140 MPV 7.9 Absolute Neuts (auto) 8.3 H Neutrophils % 87.0 H Lymphocytes % 6.6 L D Monocytes % 4.7 Eosinophils % 1.5 Basophils % 0.2 Nucleated RBC % 0 Sodium 139 Potassium 3.6 Chloride 103 Carbon Dioxide 28 Anion Gap 8 BUN 19.8 H Creatinine 0.9 Est GFR (CKD-EPI)AfAm 89.95 Est GFR (CKD-EPI)NonAf 77.61 Random Glucose 113 H Calcium 8.2 L Phosphorus 2.1 L Magnesium 2.2 Total Bilirubin 1.6 H AST 13 L ALT 10 L Alkaline Phosphatase 47 Total Protein 5.6 L Albumin 2.5 L Active Medications Generic Name Dose Route Start Last Admin Trade Name Freq PRN Reason Stop Dose Admin Chlorhexidine Gluconate 1 applic 04/18/20 22:00 04/19/20 21:05 Hibiclens For Decolonization - TP 1 applic HS [facility] Administration Diltiazem HCl 120 mg 04/19/20 10:00 04/20/20 09:11 Cardizem Cd - PO 120 mg DAILY [facility] Administration Enoxaparin Sodium 40 mg 04/19/20 10:00 04/20/20 09:24 Lovenox - SQ 40 mg DAILY [facility] Administration Lactated Ringer's 1,000 mls @ 100 mls/hr 04/18/20 14:00 04/20/20 09:26 Lactated Ringers Solution IV 100 mls/hr ASDIR [facility] Administration Potassium Phosphate 15 mm/ 255 mls @ 62.5 mls/hr 04/20/20 09:00 Sodium Chloride IVPB 04/20/20 13:04 ONCE ONE Metoprolol Succinate 25 mg 04/19/20 10:00 04/20/20 09:11 Toprol Xl - PO 25 mg DAILY [facility] Administration Montelukast Sodium 10 mg 04/18/20 22:00 04/19/20 21:05 Singulair - PO 10 mg HS [facility] Administration Mupirocin 1 applic 04/18/20 22:00 04/20/20 09:09 Bactroban Ointment (For Decolonization) - NS 04/23/20 21:59 1 applic BID [facility] Administration Ondansetron HCl 4 mg 04/18/20 10:29 Zofran Injection IVPUSH Q6H PRN NAUSEA Oxycodone HCl 7.5 mg 04/18/20 10:29 04/19/20 20:36 Roxicodone - PO 7.5 mg Q4H PRN Administration PAIN LEVEL 4 - 6 Pantoprazole Sodium 20 mg 04/19/20 10:00 04/20/20 09:11 Protonix - PO 20 mg DAILY [facility] Administration Tamsulosin HCl 0.4 mg 04/19/20 08:30 04/20/20 09:09 Flomax - PO 0.4 mg DAILY@0830 [facility] Administration Valsartan 160 mg 04/19/20 10:00 04/20/20 09:10 Diovan - PO 160 mg DAILY [facility] Administration ASSESSMENT/PLAN: 84 yo M PMH of HTN, CADs s/p quadruple bypass, cholelithiasis, CVA, BPH presented to the hospital for reversal of colostomy. admitted to ICU for post-op observation. POD 2 Neurological -AOx3 will do head CT--> neg for acute pathology Cardiovascular -CAD and hx of CABG, HTN - had cardiology pre-op clearance - c/w cardizem, toprol, fiovam Pulmonary - no acute events - cont singulair - incentive spirometry ID - s/p ertapenem periop -c/w IVF Renal -no prior renal deficits FEN -NPO except meds and ice chips -LR @ 100cc/hr Prophylaxis -SCDs for prophylaxis Disposition: transfer to tele ATTENDING PHYSICIAN STATEMENT I saw and evaluated the patient. I reviewed the resident's note and discussed the case with the resident. I agree with the resident's findings and plan as documented. SUBJECTIVE: OBJECTIVE: ASSESSMENT AND PLAN:
--- NOTE | 2020-04-20 11:50 | PN ---
Teaching Attending Note Name of Resident: Skylar Gold ATTENDING PHYSICIAN STATEMENT I saw and evaluated the patient. I reviewed the resident's note and discussed the case with the resident. I agree with the resident's findings and plan as documented. SUBJECTIVE: Patient seen and examined in the ICU. Awake and alert. Mental status improved. POD#2 ex-lap/colostomy takedown/low anterior anastamosis/ostomy closure. He denies abdominal pain. No CP or SOB. OBJECTIVE: Intake & Output 04/17/20 04/18/20 04/19/20 04/20/20 23:59 23:59 23:59 23:59 Intake Total 4100 2375 2411 Output Total 3400 2135 390 Balance 123 879 8879 Weight 175 lb 3.2 oz 175 lb Last Vital Signs Temp Pulse Resp BP Pulse Ox 99.5 F 91 H 23 H 152/80 95 04/20/20 06:00 04/20/20 06:00 04/20/20 06:00 04/20/20 06:00 04/20/20 06:00 Active Medications Chlorhexidine Gluconate (Hibiclens For Decolonization -) 1 applic TP [facility] Last Admin: 04/19/20 21:05 Dose: 1 applic Documented by: Diltiazem HCl (Cardizem Cd -) 120 mg PO DAILY [facility] Last Admin: 04/20/20 09:11 Dose: 120 mg Documented by: Enoxaparin Sodium (Lovenox -) 40 mg SQ DAILY [facility] Last Admin: 04/20/20 09:24 Dose: 40 mg Documented by: Lactated Ringer's (Lactated Ringers Solution) 1,000 mls @ 100 mls/hr IV ASDIR [facility] Last Admin: 04/20/20 09:26 Dose: 100 mls/hr Documented by: Potassium Phosphate 15 mm/ (Sodium Chloride) 255 mls @ 62.5 mls/hr IVPB ONCE ONE Stop: 04/20/20 13:04 Metoprolol Succinate (Toprol Xl -) 25 mg PO DAILY [facility] Last Admin: 04/20/20 09:11 Dose: 25 mg Documented by: Montelukast Sodium (Singulair -) 10 mg PO [facility] Last Admin: 04/19/20 21:05 Dose: 10 mg Documented by: Mupirocin (Bactroban Ointment (For Decolonization) -) 1 applic NS BID [facility] Stop: 04/23/20 21:59 Last Admin: 04/20/20 09:09 Dose: 1 applic Documented by: Ondansetron HCl (Zofran Injection) 4 mg IVPUSH Q6H PRN PRN Reason: NAUSEA Oxycodone HCl (Roxicodone -) 7.5 mg PO Q4H PRN PRN Reason: PAIN LEVEL 4 - 6 Last Admin: 04/19/20 20:36 Dose: 7.5 mg Documented by: Pantoprazole Sodium (Protonix -) 20 mg PO DAILY [facility] Last Admin: 04/20/20 09:11 Dose: 20 mg Documented by: Tamsulosin HCl (Flomax -) 0.4 mg PO DAILY@0830 [facility] Last Admin: 04/20/20 09:09 Dose: 0.4 mg Documented by: Valsartan (Diovan -) 160 mg PO DAILY [facility] Last Admin: 04/20/20 09:10 Dose: 160 mg Documented by: Gen: Awake and alert, less confused Heart: RRR Lung: decreased breath sounds at the bases Abd: soft, dressings intact, +YI sanguinous Ext: no edema Laboratory Results - last 24 hr 04/20/20 04/20/20 06:13 06:13 WBC 9.5 RBC 4.18 Hgb 12.3 Hct 36.3 MCV 86.9 MCH 29.3 MCHC 33.8 RDW 14.6 Plt Count 140 MPV 7.9 Absolute Neuts (auto) 8.3 H Neutrophils % 87.0 H Lymphocytes % 6.6 L D Monocytes % 4.7 Eosinophils % 1.5 Basophils % 0.2 Nucleated RBC % 0 Sodium 139 Potassium 3.6 Chloride 103 Carbon Dioxide 28 Anion Gap 8 BUN 19.8 H Creatinine 0.9 Est GFR (CKD-EPI)AfAm 89.95 Est GFR (CKD-EPI)NonAf 77.61 Random Glucose 113 H Calcium 8.2 L Phosphorus 2.1 L Magnesium 2.2 Total Bilirubin 1.6 H AST 13 L ALT 10 L Alkaline Phosphatase 47 Total Protein 5.6 L Albumin 2.5 L ASSESSMENT AND PLAN: h/o Perforated Diverticulitis 04/2019 POD #2 : s/p ex-lap/colostomy takedown/low anterior anastamosis/ostomy closure CAD s/p CABG Hyperlipidemia BPH Acute Delerium Apparent history of mild dementia - Monitor Mental status - IVF - pain control - incentive spirometry - monitor for bowel function - DVT prophylaxis - PO per surgery Dr Mueller
[2020-04-20] MEDS ORDERED: metoPROLOL SUCCINATE 25 MG TAB.SR.24H (FP) PO ONE (12:29)
[2020-04-20] MEDS: oxyCODONE HCL 5 MG TABLET PO PRN ×2 (12:52→20:14)
[2020-04-20 13:01] LABS: BILIRUBIN,DIRECT 0.6 mg/dL (0.0-0.2)
--- NOTE | 2020-04-20 15:59 | PN ---
Progress Note (short form) - Note Progress Note: surgery pt seen and examined. oriented today. no pain except left knee. no n/v. u/o adequate afebrile, hr < 100 abd- bandage c/d/i, non tender, mild distension, latricia serous Laboratory Tests 04/19/20 04/20/20 04/20/20 05:30 06:13 06:13 WBC 9.5 Hgb 12.3 Plt Count 140 Potassium 3.6 Phosphorus 2.1 L Magnesium 1.6 L 2.2 A/P 1) Pod#2- cont npo except meds, latricia, ivf 2) prophylaxis- lovenox, protonix, oob, spirometer, off invanz 3) htn, copd- on home meds except telmisartan replaced by valsartan 4) tachycardia- resolved 5) hypomagnesemia- corrected 6) pain- morphine, oxycodone, tylenol 7) hypophosphatemia- will replace 8) open wound- packing removal tomorrow possible transfer to floor if stable per icu
--- NOTE | 2020-04-20 18:05 | PATH ---
Surgical Pathology Report Patient Name: VIJI VIRAMONTES [facility]. Rec. 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 Specimen(s) Received A: DESCENDING COLON B: LEFT COLON WITH COLOSTOMY C: DISTAL SIGMOID COLON WITH MUCOUS FISTULA Clinical History Perforation of intestine/diverticula of large intestine with perforation and abscess Final Diagnosis A. DESCENDING COLON, RESECTION: SEGMENT OF COLON WITH DIVERTICULOSIS AND FOCAL PERICOLONIC ADIPOSE TISSUE HEMORRHAGE. SURGICAL MARGINS ARE VIABLE. B. COLON WITH COLOSTOMY, LEFT EXCISION: ENTEROCUTANEOUS MUCOSA WITH MILD CHRONIC INFLAMMATION AND FIBROSIS CONSISTENT WITH COLOSTOMY. 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 Electronically Signed Janessa Nunez M.D. Gross Description A. Received in formalin labeled "descending colon," is an 11 cm in length portion of colon with 2 stapled mucosal margins and abundant attached pericolonic, focally hemorrhagic adipose tissue. The serosa is nails-russell and smooth. The mucosa is nails with normal folds. No mucosal masses are identified. No definitive rupture site is identified. Sectioning reveals 2 small, uncomplicated diverticula. Manager Foreign sections are submitted in 4 cassettes as follows: 4-3-guxptacuyfcu stapled mucosal margins; 5-8-mttonacellj. B. Received in formalin labeled "left colon with colostomy," is a 3.7 x 1.3 cm nails, irregular portion of skin with a 3.5 cm in length attached portion of previously opened bowel. The bowel mucosa is nails with normal folds. No lesions are identified. A account development representative section is submitted in one cassette. C. Received in formalin labeled "distal sigmoid colon with mucus fistula," is a 5.0 cm in length previously opened portion of bowel. The bowel displays a 1.5 cm in greatest dimension attached portion of skin. A account development representative section is submitted in one cassette. 04/19/2020 saudi04/19/2020
[2020-04-20] MEDS ORDERED: amLODIPine BESYLATE 5 MG TABLET (FP) PO ONE (19:38)
[2020-04-20] MEDS: MONTELUKAST NA 10 MG TABLET PO SCH (22:38)
[2020-04-20] MEDS: CHLORHEXIDINE GLUCONATE 4% CLEANSER FOR DECOLONIZATION TP SCH (22:40)
[2020-04-21 07:41] LABS: BASO % 0.2 % (0-2.0); EOS % 1.7 % (0-4.5); HEMATOCRIT 36.3 % (35.4-49); HEMOGLOBIN 12.4 GM/dL (11.7-16.9); LYMPH % 6.5 % (8-40); MCH 29.1 pg (25.7-33.7); MEAN CELL VOLUME 85.7 fl (80-96); MEAN PLT VOLUME 7.9 fl (7.5-11.1); MONO % 4.9 % (3.8-10.2); NEUT % 86.7 % (42.8-82.8); PLATELET COUNT 172 K/MM3 (134-434); RBC 4.24 M/mm3 (4.00-5.60); RDW 14.3 % (11.9-15.9); WHITE BLOOD COUNT 10.3 K/mm3 (4.0-10.0)
--- NOTE | 2020-04-21 07:46 | PN ---
Physical Exam: SUBJECTIVE: Patient seen and examined at bedside- patient had an acute episode of delerium overnight however was re-oriented ; otherwise he states he is passing gas however has not had any BM yet- he denies any chest pain, SOB, n./v OBJECTIVE: Vital Signs Period Temp Pulse Resp BP Sys/Young Pulse Ox Last 24 Hr 98.1 F-98.9 F 81-98 19-23 156-205/85-96 95-100 GENERAL: The patient is awake, alert, and fully oriented, in no acute distress. EYES: PEERLA; EOMI; no scleral icterus . NECK: no JVD; no lymphadenopathy LUNGS: CTA B/L no rales, rhonchi or wheezing . HEART:RRR S1, S2 without murmur, rub or gallop. ABDOMEN: Soft,dressing c/d/i hypoactive BS; no tenderness upon palpation. EXTREMITIES: 2+ pulses, warm, well-perfused, no edema SCDS in place NEUROLOGICAL: Cranial nerves II through XII grossly intact. Normal speech, gait not observed. PSYCH: Normal mood, normal affect. SKIN: Warm, dry, normal turgor, no rashes or lesions noted Laboratory Results - last 24 hr 04/17/20 04/20/20 04/21/20 12:25 06:13 05:30 WBC 10.3 H RBC 4.24 Hgb 12.4 Hct 36.3 MCV 85.7 MCH 29.1 MCHC 34.0 RDW 14.3 Plt Count 172 D MPV 7.9 Absolute Neuts (auto) 8.9 H Neutrophils % 86.7 H Lymphocytes % 6.5 L Monocytes % 4.9 Eosinophils % 1.7 Basophils % 0.2 Nucleated RBC % 0 Sodium 139 Potassium 3.6 Chloride 103 Carbon Dioxide 28 Anion Gap 8 BUN 19.8 H Creatinine 0.9 Est GFR (CKD-EPI)AfAm 89.95 Est GFR (CKD-EPI)NonAf 77.61 Random Glucose 113 H Calcium 8.2 L Phosphorus 2.1 L Magnesium 2.2 Total Bilirubin 1.6 H Direct Bilirubin 0.6 H AST 13 L ALT 10 L Alkaline Phosphatase 47 Total Protein 5.6 L Albumin 2.5 L Crossmatch IS Only See Detail Active Medications Generic Name Dose Route Start Last Admin Trade Name Freq PRN Reason Stop Dose Admin Chlorhexidine Gluconate 1 applic 04/18/20 22:00 04/20/20 22:40 Hibiclens For Decolonization - TP 1 applic HS RENITA Administration Diltiazem HCl 120 mg 04/19/20 10:00 04/20/20 09:11 Cardizem Cd - PO 120 mg DAILY RENITA Administration Enoxaparin Sodium 40 mg 04/19/20 10:00 04/20/20 09:24 Lovenox - SQ 40 mg DAILY RENITA Administration Lactated Ringer's 1,000 mls @ 100 mls/hr 04/18/20 14:00 04/20/20 14:33 Lactated Ringers Solution IV Not Given ASDIR RENITA Metoprolol Succinate 25 mg 04/19/20 10:00 04/20/20 09:11 Toprol Xl - PO 25 mg DAILY RENITA Administration Montelukast Sodium 10 mg 04/18/20 22:00 04/20/20 22:38 Singulair - PO 10 mg HS RENITA Administration Mupirocin 1 applic 04/18/20 22:00 04/20/20 22:40 Bactroban Ointment (For Decolonization) - NS 04/23/20 21:59 1 applic BID RENITA Administration Ondansetron HCl 4 mg 04/18/20 10:29 Zofran Injection IVPUSH Q6H PRN NAUSEA Oxycodone HCl 7.5 mg 04/18/20 10:29 04/20/20 20:14 Roxicodone - PO 7.5 mg Q4H PRN Administration PAIN LEVEL 4 - 6 Pantoprazole Sodium 20 mg 04/19/20 10:00 04/20/20 09:11 Protonix - PO 20 mg DAILY RENITA Administration Tamsulosin HCl 0.4 mg 04/19/20 08:30 04/20/20 09:09 Flomax - PO 0.4 mg DAILY@0830 RENITA Administration Valsartan 160 mg 04/19/20 10:00 04/20/20 09:10 Diovan - PO 160 mg DAILY RENITA Administration ASSESSMENT/PLAN: 84 yo M PMH of HTN, CADs s/p quadruple bypass, cholelithiasis, CVA, BPH presented to the hospital for reversal of colostomy. admitted to ICU for post-op observation. POD 3 Neurological -AOx3 head CT--> neg for acute pathology Cardiovascular -CAD and hx of CABG, HTN - had cardiology pre-op clearance - c/w cardizem, toprol, diovan Pulmonary - no acute events - cont singulair - incentive spirometry ID - s/p ertapenem periop -c/w IVF Renal -no prior renal deficits FEN -NPO except meds and ice chips -LR @ 100cc/hr Prophylaxis -SCDs for prophylaxis dispo: stable for transfer to tele floor Problem List - Problems (1) CAD (coronary artery disease) Code(s): I25.10 - ATHSCL HEART DISEASE OF [place] CORONARY ARTERY W/O ANG PCTRS (2) HTN (hypertension) Code(s): I10 - ESSENTIAL (PRIMARY) HYPERTENSION (3) Abdominal pain Code(s): R10.9 - UNSPECIFIED ABDOMINAL PAIN Qualifiers: Abdominal location: generalized Qualified Code(s): R10.84 - Generalized abdominal pain (4) Perforation of sigmoid colon due to diverticulitis Code(s): K57.20 - DVTRCLI OF LG INT W PERFORATION AND ABSCESS W/O BLEEDING Visit type - Emergency Visit Emergency Visit: Yes ED Registration Date: 04/17/20 Care time: The patient presented to the Emergency Department on the above date and was hospitalized for further evaluation of their emergent condition. - New Patient This patient is new to me today: No - Critical Care Critical Care patient: Yes Total Critical Care Time (in minutes): 35 Critical Care Statement: The care of this patient involved high complexity decision making to prevent further life threatening deterioration of the patient's condition and/or to evaluate & treat vital organ system(s) failure or risk of failure. - Medication Review Med list reviewed for High Risk Meds patients 65 and older: Yes ATTENDING PHYSICIAN STATEMENT I saw and evaluated the patient. I reviewed the resident's note and discussed the case with the resident. I agree with the resident's findings and plan as documented. SUBJECTIVE: OBJECTIVE: ASSESSMENT AND PLAN:
[2020-04-21 07:59] LABS: BLOOD UREA NITROGEN 20.7 mg/dL (7-18); CALCIUM 8.4 mg/dL (8.5-10.1); CREATININE 0.7 mg/dL (0.55-1.3); MAGNESIUM 2.3 mg/dL (1.8-2.4); POTASSIUM 3.9 mmol/L (3.5-5.1)
[2020-04-21] MEDS: PANTOPRAZOLE 20 MG TABLET PO SCH (09:01)
[2020-04-21] MEDS: metoPROLOL SUCCINATE 25 MG TAB.SR.24H (FP) PO SCH (09:01)
[2020-04-21] MEDS: TAMSULOSIN HCL 0.4 MG CAP PO SCH (09:01)
[2020-04-21] MEDS: MUPIROCIN 2% TOPICAL OINTMENT FOR DECOLONIZATION NS SCH ×2 (09:02→22:00)
[2020-04-21] MEDS: VALSARTAN 80 MG TABLET (UD) PO SCH (09:03)
[2020-04-21] MEDS: ENOXAPARIN NA (PORCINE) 40 MG/0.4 ML DISP.SYRIN SQ SCH (09:03)
[2020-04-21] MEDS ORDERED: LABETALOL HCL 5 MG/1 ML (100MG/20 ML VIAL) IVPUSH ONE ×2 (10:32→18:26)
[2020-04-21] MEDS ORDERED: LABETALOL HCL 5 MG/1 ML (100MG/20 ML VIAL) ONE ×2 (10:37→18:29)
--- NOTE | 2020-04-21 12:35 | PN ---
Progress Note (short form) - Note Progress Note: surgery pt seen and examined. remains well. no pain. no n/v. u/o > 1500. no flatus afebrile, hr < 100 abd- non tender, mild distension, latricia serous packing removed. no infection, no cellulitis Laboratory Tests 04/21/20 05:30 WBC 10.3 H Hgb 12.4 A/P 1) Pod#3- cont npo except meds, latricia, ivf 2) prophylaxis- lovenox, protonix, oob, spirometer, 3) htn, copd- on home meds except telmisartan replaced by valsartan 4) tachycardia- resolved 5) hypomagnesemia- corrected 6) pain- morphine, oxycodone, tylenol 7) hypophosphatemia- resolved 8) open wound- packing changed. irrigate daily and lightly pack former colostomy site on left possible transfer to floor if stable per icu
--- NOTE | 2020-04-21 13:20 | PN ---
Teaching Attending Note Name of Resident: Gayatri Mcnally ATTENDING PHYSICIAN STATEMENT I saw and evaluated the patient. I reviewed the resident's note and discussed the case with the resident. I agree with the resident's findings and plan as documented. SUBJECTIVE: Patient seen and examined in the ICU. Awake and alert. Mildly increased co nfusion from yesterday. POD#3 ex-lap/colostomy takedown/low anterior anastamosis/ostomy closure. He denies abdominal pain. No CP or SOB. OBJECTIVE: Intake & Output 04/18/20 04/19/20 04/20/20 04/21/20 23:59 23:59 23:59 23:59 Intake Total 2375 2411 950 1641 Output Total 2135 390 480 475 Balance 240 2021 470 1166 Weight 175 lb Last Vital Signs Temp Pulse Resp BP Pulse Ox 98.8 F 82 20 174/93 H 100 04/21/20 12:00 04/21/20 12:00 04/21/20 08:00 04/21/20 12:00 04/21/20 12:00 Active Medications Chlorhexidine Gluconate (Hibiclens For Decolonization -) 1 applic TP [facility] Last Admin: 04/20/20 22:40 Dose: 1 applic Documented by: Diltiazem HCl (Cardizem Cd -) 120 mg PO DAILY [facility] Last Admin: 04/21/20 09:02 Dose: 120 mg Documented by: Enoxaparin Sodium (Lovenox -) 40 mg SQ DAILY [facility] Last Admin: 04/21/20 09:03 Dose: 40 mg Documented by: Lactated Ringer's (Lactated Ringers Solution) 1,000 mls @ 100 mls/hr IV ASDIR [facility] Last Admin: 04/20/20 14:33 Dose: Not Given Documented by: Metoprolol Succinate (Toprol Xl -) 25 mg PO DAILY [facility] Last Admin: 04/21/20 09:01 Dose: 25 mg Documented by: Montelukast Sodium (Singulair -) 10 mg PO [facility] Last Admin: 04/20/20 22:38 Dose: 10 mg Documented by: Mupirocin (Bactroban Ointment (For Decolonization) -) 1 applic NS BID [facility] Stop: 04/23/20 21:59 Last Admin: 04/21/20 09:02 Dose: 1 applic Documented by: Ondansetron HCl (Zofran Injection) 4 mg IVPUSH Q6H PRN PRN Reason: NAUSEA Pantoprazole Sodium (Protonix -) 20 mg PO DAILY [facility] Last Admin: 04/21/20 09:01 Dose: 20 mg Documented by: Tamsulosin HCl (Flomax -) 0.4 mg PO DAILY@0830 [facility] Last Admin: 04/21/20 09:01 Dose: 0.4 mg Documented by: Valsartan (Diovan -) 160 mg PO DAILY [facility] Last Admin: 04/21/20 09:03 Dose: 160 mg Documented by: Gen: Awake and alert, mildly more confused Heart: RRR Lung: decreased breath sounds at the bases Abd: soft, dressings intact, +YI sanguinous Ext: no edema Laboratory Results - last 24 hr 04/17/20 04/21/20 04/21/20 12:25 05:30 05:30 WBC 10.3 H RBC 4.24 Hgb 12.4 Hct 36.3 MCV 85.7 MCH 29.1 MCHC 34.0 RDW 14.3 Plt Count 172 D MPV 7.9 Absolute Neuts (auto) 8.9 H Neutrophils % 86.7 H Lymphocytes % 6.5 L Monocytes % 4.9 Eosinophils % 1.7 Basophils % 0.2 Nucleated RBC % 0 Sodium 140 Potassium 3.9 Chloride 104 Carbon Dioxide 28 Anion Gap 8 BUN 20.7 H Creatinine 0.7 Est GFR (CKD-EPI)AfAm 99.73 Est GFR (CKD-EPI)NonAf 86.05 Random Glucose 85 Calcium 8.4 L Phosphorus 3.0 Magnesium 2.3 Crossmatch IS Only See Detail ASSESSMENT AND PLAN: h/o Perforated Diverticulitis 04/2019 POD #3 : s/p ex-lap/colostomy takedown/low anterior anastamosis/ostomy closure CAD s/p CABG Hyperlipidemia BPH Acute Delerium Apparent history of mild dementia - Monitor Mental status - IVF - pain control - incentive spirometry - monitor for bowel function - DVT prophylaxis - PO per surgery Dr Mueller
[2020-04-21] MEDS: LACTATED RINGERS SOLUTION 1,000 ML IV SCH (16:45)
[2020-04-21] MEDS: LABETALOL HCL 5 MG/1 ML (100MG/20 ML VIAL) IVPUSH SCH (22:00)
[2020-04-21] MEDS: MONTELUKAST NA 10 MG TABLET PO SCH (22:00)
[2020-04-21] MEDS: CHLORHEXIDINE GLUCONATE 4% CLEANSER FOR DECOLONIZATION TP SCH (22:00)
[2020-04-22] MEDS: LABETALOL HCL 5 MG/1 ML (100MG/20 ML VIAL) IVPUSH SCH ×5 (02:47→17:30)
[2020-04-22] MEDS: LACTATED RINGERS SOLUTION 1,000 ML IV SCH ×2 (05:53→14:33)
[2020-04-22 07:15] LABS: BASO % 0.2 % (0-2.0); EOS % 6.8 % (0-4.5); HEMATOCRIT 34.1 % (35.4-49); HEMOGLOBIN 11.6 GM/dL (11.7-16.9); LYMPH % 8.8 % (8-40); MCH 28.9 pg (25.7-33.7); MCHC 34.1 g/dl (32.0-35.9); MEAN CELL VOLUME 84.8 fl (80-96); MEAN PLT VOLUME 7.6 fl (7.5-11.1); NEUT % 76.2 % (42.8-82.8); PLATELET COUNT 188 K/MM3 (134-434); RBC 4.02 M/mm3 (4.00-5.60); RDW 14.2 % (11.9-15.9); WHITE BLOOD COUNT 8.1 K/mm3 (4.0-10.0)
[2020-04-22 07:32] LABS: BLOOD UREA NITROGEN 19.8 mg/dL (7-18); CALCIUM 8.2 mg/dL (8.5-10.1); CREATININE 0.6 mg/dL (0.55-1.3); MAGNESIUM 2.2 mg/dL (1.8-2.4); PHOSPHOROUS 3.7 mg/dL (2.5-4.9); POTASSIUM 3.6 mmol/L (3.5-5.1)
[2020-04-22] MEDS ORDERED: POTASSIUM CHLORIDE TABS 20 MEQ TABLET.ER (FP) PO ONE (08:24)
[2020-04-22] MEDS: MUPIROCIN 2% TOPICAL OINTMENT FOR DECOLONIZATION NS SCH ×2 (09:58→21:59)
[2020-04-22] MEDS: TAMSULOSIN HCL 0.4 MG CAP PO SCH (09:58)
[2020-04-22] MEDS: ENOXAPARIN NA (PORCINE) 40 MG/0.4 ML DISP.SYRIN SQ SCH (09:59)
[2020-04-22] MEDS: PANTOPRAZOLE 20 MG TABLET PO SCH (09:59)
[2020-04-22] MEDS: VALSARTAN 80 MG TABLET (UD) PO SCH (09:59)
[2020-04-22] MEDS: metoPROLOL SUCCINATE 25 MG TAB.SR.24H (FP) PO SCH (09:59)
--- NOTE | 2020-04-22 12:21 | PN ---
Progress Note (short form) - Note Progress Note: surgery pt seen and examined. remains well. no pain. no n/v. admits to flatus afebrile, hr 70 abd- non tender, moderate distension, latricia serous incisions clean Laboratory Tests 04/22/20 05:30 WBC 8.1 A/P 1) Pod#4- cont npo except meds, latricia, ivf- will start clear liquids in am. 2) prophylaxis- lovenox, protonix, oob, spirometer, 3) htn, copd- on home meds except telmisartan replaced by valsartan 4) tachycardia- resolved 5) hypomagnesemia- corrected 6) pain- tylenol 7) hypophosphatemia- resolved 8) open wound- packing changed. irrigate daily and lightly pack former colostomy site on left possible transfer to floor if stable per icu will need arrangements for vns for wound. expected discharge thursday or thu.
--- NOTE | 2020-04-22 12:24 | PN ---
HC Provider Note Provider Note: Pt was seen and examined by me today at 12:00 noon. He will require visiting nurse services for the condition of an open wound. He has limited mobility and is unable to change the dressing him self.
--- NOTE | 2020-04-22 12:31 | PN ---
Teaching Attending Note Name of Resident: Marcie Lorenzo ATTENDING PHYSICIAN STATEMENT I saw and evaluated the patient. I reviewed the resident's note and discussed the case with the resident. I agree with the resident's findings and plan as documented. SUBJECTIVE: Patient seen and examined in the ICU. Awake and alert. Appears more comfo rtable. (+) Flatus POD#4 ex-lap/colostomy takedown/low anterior anastamosis/ostomy closure. He denies abdominal pain. No CP or SOB. OBJECTIVE: Intake & Output 04/19/20 04/20/20 04/21/20 04/22/20 23:59 23:59 23:59 23:59 Intake Total 2411 950 2841 1200 Output Total 646 785 7415 Balance 2021 470 1096 1200 Weight 175 lb Last Vital Signs Temp Pulse Resp BP Pulse Ox 98.4 F 73 18 173/85 H 100 04/22/20 10:00 04/22/20 10:00 04/22/20 10:00 04/22/20 10:00 04/22/20 10:00 Active Medications Chlorhexidine Gluconate (Hibiclens For Decolonization -) 1 applic TP [facility] Last Admin: 04/21/20 22:00 Dose: 1 applic Documented by: Diltiazem HCl (Cardizem Cd -) 120 mg PO DAILY [facility] Last Admin: 04/22/20 09:58 Dose: 120 mg Documented by: Enoxaparin Sodium (Lovenox -) 40 mg SQ DAILY [facility] Last Admin: 04/22/20 09:59 Dose: 40 mg Documented by: Lactated Ringer's (Lactated Ringers Solution) 1,000 mls @ 100 mls/hr IV ASDIR [facility] Last Admin: 04/22/20 05:53 Dose: 100 mls/hr Documented by: Labetalol HCl (Normodyne Injection -) 10 mg IVPUSH Q4H [facility] Last Admin: 04/22/20 09:59 Dose: 10 mg Documented by: Metoprolol Succinate (Toprol Xl -) 25 mg PO DAILY [facility] Last Admin: 04/22/20 09:59 Dose: 25 mg Documented by: Montelukast Sodium (Singulair -) 10 mg PO [facility] Last Admin: 04/21/20 22:00 Dose: 10 mg Documented by: Mupirocin (Bactroban Ointment (For Decolonization) -) 1 applic NS BID [facility] Stop: 04/23/20 21:59 Last Admin: 04/22/20 09:58 Dose: 1 applic Documented by: Ondansetron HCl (Zofran Injection) 4 mg IVPUSH Q6H PRN PRN Reason: NAUSEA Pantoprazole Sodium (Protonix -) 20 mg PO DAILY [facility] Last Admin: 04/22/20 09:59 Dose: 20 mg Documented by: Tamsulosin HCl (Flomax -) 0.4 mg PO DAILY@0830 [facility] Last Admin: 04/22/20 09:58 Dose: 0.4 mg Documented by: Valsartan (Diovan -) 160 mg PO DAILY [facility] Last Admin: 04/22/20 09:59 Dose: 160 mg Documented by: Gen: Awake and alert, NAD Heart: RRR Lung: decreased breath sounds at the bases Abd: soft, dressings intact, +YI sanguinous Ext: no edema Laboratory Results - last 24 hr 04/17/20 04/22/20 04/22/20 12:25 05:30 05:30 WBC 8.1 RBC 4.02 Hgb 11.6 L Hct 34.1 L MCV 84.8 MCH 28.9 MCHC 34.1 RDW 14.2 Plt Count 188 MPV 7.6 Absolute Neuts (auto) 6.1 Neutrophils % 76.2 Lymphocytes % 8.8 D Monocytes % 8.0 Eosinophils % 6.8 H D Basophils % 0.2 Nucleated RBC % 0 Sodium 140 Potassium 3.6 Chloride 102 Carbon Dioxide 27 Anion Gap 10 BUN 19.8 H Creatinine 0.6 Est GFR (CKD-EPI)AfAm 106.26 Est GFR (CKD-EPI)NonAf 91.68 Random Glucose 69 L Calcium 8.2 L Phosphorus 3.7 Magnesium 2.2 Crossmatch IS Only See Detail ASSESSMENT AND PLAN: h/o Perforated Diverticulitis 04/2019 POD #4 : s/p ex-lap/colostomy takedown/low anterior anastamosis/ostomy closure CAD s/p CABG Hyperlipidemia BPH Acute Delerium Apparent history of mild dementia - Monitor Mental status - IVF - pain control - incentive spirometry - monitor for bowel function - DVT prophylaxis - PO per surgery Dr Mueller
--- NOTE | 2020-04-22 15:58 | PN ---
Physical Exam: SUBJECTIVE: Patient seen and examined. No acute events overnight. Passing flatus, no BM. OBJECTIVE: Vital Signs Period Temp Pulse Resp BP Sys/Young Pulse Ox Last 24 Hr 98 F-98.7 F 73-85 17-84 120-180/57-96 96-100 GENERAL: The patient is awake, alert, and fully oriented, in no acute distress. HEENT: PEERLA; EOMI; no scleral icterus LUNGS: CTA B/L no wrr HEART: RRR S1, S2 without murmur, rub or gallop. ABDOMEN: Soft, dressing c/d/i hypoactive BS; no ttp EXTREMITIES: 2+ pulses, warm, well-perfused, no edema. NEUROLOGICAL: Cranial nerves II through XII grossly intact. PSYCH: Normal mood, normal affect. SKIN: Warm, dry, normal turgor, no rashes or lesions noted Laboratory Results - last 24 hr 04/17/20 04/22/20 04/22/20 12:25 05:30 05:30 WBC 8.1 RBC 4.02 Hgb 11.6 L Hct 34.1 L MCV 84.8 MCH 28.9 MCHC 34.1 RDW 14.2 Plt Count 188 MPV 7.6 Absolute Neuts (auto) 6.1 Neutrophils % 76.2 Lymphocytes % 8.8 D Monocytes % 8.0 Eosinophils % 6.8 H D Basophils % 0.2 Nucleated RBC % 0 Sodium 140 Potassium 3.6 Chloride 102 Carbon Dioxide 27 Anion Gap 10 BUN 19.8 H Creatinine 0.6 Est GFR (CKD-EPI)AfAm 106.26 Est GFR (CKD-EPI)NonAf 91.68 Random Glucose 69 L Calcium 8.2 L Phosphorus 3.7 Magnesium 2.2 Crossmatch IS Only See Detail Active Medications Generic Name Dose Route Start Last Admin Trade Name Freq PRN Reason Stop Dose Admin Chlorhexidine Gluconate 1 applic 04/18/20 22:00 04/21/20 22:00 Hibiclens For Decolonization - TP 1 applic HS RENITA Administration Diltiazem HCl 120 mg 04/19/20 10:04/22/20 09:58 Cardizem Cd - PO 120 mg DAILY RENITA Administration Enoxaparin Sodium 40 mg 04/19/20 10:04/22/20 09:59 Lovenox - SQ 40 mg DAILY RENITA Administration Lactated Ringer's 1,000 mls @ 100 mls/hr 04/18/20 14:00 04/22/20 14:33 Lactated Ringers Solution IV 100 mls/hr ASDIR RENITA Administration Labetalol HCl 10 mg 04/21/20 22:00 04/22/20 14:34 Normodyne Injection - IVPUSH 10 mg Q4H RENITA Administration Metoprolol Succinate 25 mg 04/19/20 10:00 04/22/20 09:59 Toprol Xl - PO 25 mg DAILY RENITA Administration Montelukast Sodium 10 mg 04/18/20 22:00 04/21/20 22:00 Singulair - PO 10 mg HS RENITA Administration Mupirocin 1 applic 04/18/20 22:00 04/22/20 09:58 Bactroban Ointment (For Decolonization) - NS 04/23/20 21:59 1 applic BID RENITA Administration Ondansetron HCl 4 mg 04/18/20 10:29 Zofran Injection IVPUSH Q6H PRN NAUSEA Pantoprazole Sodium 20 mg 04/19/20 10:00 04/22/20 09:59 Protonix - PO 20 mg DAILY RENITA Administration Tamsulosin HCl 0.4 mg 04/19/20 08:30 04/22/20 09:58 Flomax - PO 0.4 mg DAILY@0830 RENITA Administration Valsartan 160 mg 04/19/20 10:00 04/22/20 09:59 Diovan - PO 160 mg DAILY RENITA Administration ASSESSMENT/PLAN: 84 yo M PMH of HTN, CADs s/p quadruple bypass, cholelithiasis, CVA, BPH presented to the hospital for reversal of colostomy. Ddmitted to ICU for post-op observation. POD #4. #Neurological -AAOx3 -head CT neg for acute pathology #Cardiovascular -c/w cardizem, toprol, diovan #Pulmonary -cont singulair -incentive spirometry #ID -s/p ertapenem periop -c/w IVF #GI -POD #3 s/p colostomy reversal -patient is passing flatus, no BM yet #FENLTD -advancedto clear liquid diet thursday. advance as per tolerated/ per surgery recs -LR @ 100cc/hr -bacon 04/19 -YI drain R abdomen 04/19 #PPX -DVT: SCDs #dispo: transfer to telemetry Visit type - Emergency Visit Emergency Visit: No - New Patient This patient is new to me today: Yes Date on this admission: 04/22/20 - Critical Care Critical Care patient: Yes Total Critical Care Time (in minutes): 45 Critical Care Statement: The care of this patient involved high complexity decision making to prevent further life threatening deterioration of the patien t's condition and/or to evaluate & treat vital organ system(s) failure or risk of failure. - Medication Review Med list reviewed for High Risk Meds patients 65 and older: Yes ATTENDING PHYSICIAN STATEMENT I saw and evaluated the patient. I reviewed the resident's note and discussed the case with the resident. I agree with the resident's findings and plan as documented. SUBJECTIVE: OBJECTIVE: ASSESSMENT AND PLAN:
[2020-04-22] MEDS: MONTELUKAST NA 10 MG TABLET PO SCH (22:00)
[2020-04-22] MEDS: CHLORHEXIDINE GLUCONATE 4% CLEANSER FOR DECOLONIZATION TP SCH (22:00)
[2020-04-23] MEDS: LABETALOL HCL 5 MG/1 ML (100MG/20 ML VIAL) IVPUSH SCH ×7 (02:22→21:21)
[2020-04-23 07:17] LABS: BLOOD UREA NITROGEN 20.2 mg/dL (7-18); CALCIUM 8.2 mg/dL (8.5-10.1); CREATININE 0.6 mg/dL (0.55-1.3); MAGNESIUM 2.2 mg/dL (1.8-2.4); PHOSPHOROUS 3.3 mg/dL (2.5-4.9); POTASSIUM 4.1 mmol/L (3.5-5.1)
[2020-04-23 07:37] LABS: BASO % 0.2 % (0-2.0); EOS % 4.8 % (0-4.5); HEMATOCRIT 32.9 % (35.4-49); HEMOGLOBIN 11.4 GM/dL (11.7-16.9); LYMPH % 8.7 % (8-40); MCH 29.3 pg (25.7-33.7); MCHC 34.7 g/dl (32.0-35.9); MEAN CELL VOLUME 84.3 fl (80-96); MEAN PLT VOLUME 7.4 fl (7.5-11.1); MONO % 11.2 % (3.8-10.2); NEUT % 75.1 % (42.8-82.8); PLATELET COUNT 203 K/MM3 (134-434); WHITE BLOOD COUNT 9.5 K/mm3 (4.0-10.0)
--- NOTE | 2020-04-23 08:05 | PN ---
Progress Note (short form) - Note Progress Note: surgery pt remains well. no fever. wbc normal. will give trial of clears. poss d/c tomorrow on full liquids. will need vns arranged for wound care.
[2020-04-23] MEDS: metoPROLOL SUCCINATE 25 MG TAB.SR.24H (FP) PO SCH (09:08)
[2020-04-23] MEDS: VALSARTAN 80 MG TABLET (UD) PO SCH (09:09)
[2020-04-23] MEDS: TAMSULOSIN HCL 0.4 MG CAP PO SCH (09:09)
[2020-04-23] MEDS: PANTOPRAZOLE 20 MG TABLET PO SCH (09:09)
[2020-04-23] MEDS: ENOXAPARIN NA (PORCINE) 40 MG/0.4 ML DISP.SYRIN SQ SCH (09:09)
[2020-04-23] MEDS: MUPIROCIN 2% TOPICAL OINTMENT FOR DECOLONIZATION NS SCH (09:09)
[2020-04-23] MEDS ORDERED: ACETAMINOPHEN 325 MG TABLET (FP) PO PRN (11:36)
--- NOTE | 2020-04-23 11:51 | PN ---
Physical Exam: SUBJECTIVE: Patient seen and examined at bedside. pt has no acute complaints. still has not had BM but endorses gas. clear liquids today without complaints. OBJECTIVE: Vital Signs Period Temp Pulse Resp BP Sys/Young Pulse Ox Last 24 Hr 98.2 F-98.5 F 73-83 18-22 100-160/65-109 93-100 GENERAL: The patient is awake, alert, and fully oriented, in no acute distress. HEAD: Normal with no signs of trauma. LUNGS: Breath sounds equal, clear to auscultation bilaterally, no wheezes, no crackles, no accessory muscle use. HEART: Regular rate and rhythm, S1, S2 systolic murmur ABDOMEN: Soft, nontender, nondistended, normoactive bowel sounds, no guarding. no erythema around surgical jossie. LLQ wound packed EXTREMITIES: 2+ pulses, warm, well-perfused, no edema. CBC, BMP 04/23/20 06:20 04/23/20 06:20 Active Medications Generic Name Dose Route Start Last Admin Trade Name Freq PRN Reason Stop Dose Admin Acetaminophen 650 mg 04/23/20 11:36 Tylenol - PO Q6H PRN PAIN LEVEL 4 - 6 Chlorhexidine Gluconate 1 applic 04/18/20 22:00 04/22/20 22:00 Hibiclens For Decolonization - TP 1 applic HS RENITA Administration Diltiazem HCl 120 mg 04/19/20 10:00 04/23/20 09:09 Cardizem Cd - PO 120 mg DAILY RENITA Administration Enoxaparin Sodium 40 mg 04/19/20 10:00 04/23/20 09:09 Lovenox - SQ 40 mg DAILY RENITA Administration Lactated Ringer's 1,000 mls @ 100 mls/hr 04/18/20 14:00 04/22/20 14:33 Lactated Ringers Solution IV 100 mls/hr ASDIR RENITA Administration Labetalol HCl 10 mg 04/21/20 22:00 04/23/20 09:09 Normodyne Injection - IVPUSH 10 mg Q4H RENITA Administration Metoprolol Succinate 25 mg 04/19/20 10:00 04/23/20 09:08 Toprol Xl - PO 25 mg DAILY RENITA Administration Montelukast Sodium 10 mg 04/18/20 22:00 04/22/20 22:00 Singulair - PO 10 mg HS RENITA Administration Mupirocin 1 applic 04/18/20 22:00 04/23/20 09:09 Bactroban Ointment (For Decolonization) - NS 04/23/20 21:59 1 applic BID RENITA Administration Ondansetron HCl 4 mg 04/18/20 10:29 Zofran Injection IVPUSH Q6H PRN NAUSEA Pantoprazole Sodium 20 mg 04/19/20 10:00 04/23/20 09:09 Protonix - PO 20 mg DAILY RENITA Administration Tamsulosin HCl 0.4 mg 04/19/20 08:30 04/23/20 09:09 Flomax - PO 0.4 mg DAILY@0830 RENITA Administration Valsartan 160 mg 04/19/20 10:00 04/23/20 09:09 Diovan - PO 160 mg DAILY RENITA Administration ASSESSMENT/PLAN: 84 yo M PMH of HTN, CADs s/p quadruple bypass, cholelithiasis, CVA, BPH presented to the hospital for reversal of colostomy. Ddmitted to ICU for post-op observation. POD #5 Neurological -AAOx3 -head CT neg for acute pathology Cardiovascular -c/w cardizem, toprol, diovan Pulmonary -cont singulair -incentive spirometry encouraged ID -s/p ertapenem periop -c/w IVF GI -POD #5 s/p colostomy reversal -patient is passing flatus, no BM yet FENLTD -advancedto clear liquid diet today advance as per tolerated/ per surgery recs -LR @ 100cc/hr -bacon 04/19 -YI drain R abdomen 04/19 PPX -DVT: SCDs dispo: transfer to telemetry. possible DC tomorrow Visit type - Emergency Visit Emergency Visit: No - New Patient This patient is new to me today: No - Critical Care Critical Care patient: Yes Total Critical Care Time (in minutes): 36 Critical Care Statement: The care of this patient involved high complexity decision making to prevent further life threatening deterioration of the patient's condition and/or to evaluate & treat vital organ system(s) failure or risk of failure. - Discharge Referral Referred to [facility] Med P.C.: No - Medication Review Med list reviewed for High Risk Meds patients 65 and older: Yes ATTENDING PHYSICIAN STATEMENT I saw and evaluated the patient. I reviewed the resident's note and discussed the case with the resident. I agree with the resident's findings and plan as documented. SUBJECTIVE: OBJECTIVE: ASSESSMENT AND PLAN:
--- NOTE | 2020-04-23 13:06 | PN ---
Teaching Attending Note Name of Resident: Skylar Gold ATTENDING PHYSICIAN STATEMENT I saw and evaluated the patient. I reviewed the resident's note and discussed the case with the resident. I agree with the resident's findings and plan as documented. SUBJECTIVE: Patient seen and examined in the ICU. Awake and alert. Appears more comfor table. (+) Flatus. No BM. POD#5 ex-lap/colostomy takedown/low anterior anastamosis/ostomy closure. He denies abdominal pain. No CP or SOB. OBJECTIVE: Intake & Output 04/20/20 04/21/20 04/22/20 04/23/20 23:59 23:59 23:59 23:59 Intake Total 950 2841 1200 1200 Output Total 480 1745 610 Balance 470 8646 131 3886 Last Vital Signs Temp Pulse Resp BP Pulse Ox 98.5 F 80 18 140/78 96 04/23/20 10:00 04/23/20 12:00 04/23/20 12:00 04/23/20 12:00 04/23/20 12:00 Active Medications Acetaminophen (Tylenol -) 650 mg PO Q6H PRN PRN Reason: PAIN LEVEL 4 - 6 Last Admin: 04/23/20 11:54 Dose: 650 mg Documented by: Chlorhexidine Gluconate (Hibiclens For Decolonization -) 1 applic TP HS [facility] Last Admin: 04/22/20 22:00 Dose: 1 applic Documented by: Diltiazem HCl (Cardizem Cd -) 120 mg PO DAILY [facility] Last Admin: 04/23/20 09:09 Dose: 120 mg Documented by: Enoxaparin Sodium (Lovenox -) 40 mg SQ DAILY [facility] Last Admin: 04/23/20 09:09 Dose: 40 mg Documented by: Lactated Ringer's (Lactated Ringers Solution) 1,000 mls @ 100 mls/hr IV ASDIR [facility] Last Admin: 04/22/20 14:33 Dose: 100 mls/hr Documented by: Labetalol HCl (Normodyne Injection -) 10 mg IVPUSH Q4H [facility] Last Admin: 04/23/20 09:09 Dose: 10 mg Documented by: Metoprolol Succinate (Toprol Xl -) 25 mg PO DAILY [facility] Last Admin: 04/23/20 09:08 Dose: 25 mg Documented by: Montelukast Sodium (Singulair -) 10 mg PO HS [facility] Last Admin: 04/22/20 22:00 Dose: 10 mg Documented by: Mupirocin (Bactroban Ointment (For Decolonization) -) 1 applic NS BID [facility] Stop: 04/23/20 21:59 Last Admin: 04/23/20 09:09 Dose: 1 applic Documented by: Ondansetron HCl (Zofran Injection) 4 mg IVPUSH Q6H PRN PRN Reason: NAUSEA Pantoprazole Sodium (Protonix -) 20 mg PO DAILY [facility] Last Admin: 04/23/20 09:09 Dose: 20 mg Documented by: Tamsulosin HCl (Flomax -) 0.4 mg PO DAILY@0830 [facility] Last Admin: 04/23/20 09:09 Dose: 0.4 mg Documented by: Valsartan (Diovan -) 160 mg PO DAILY [facility] Last Admin: 04/23/20 09:09 Dose: 160 mg Documented by: Gen: Awake and alert, NAD Heart: RRR Lung: decreased breath sounds at the bases Abd: soft, dressings intact, (+) BS, +YI intact with serosanguinous fluid Ext: no edema Laboratory Results - last 24 hr 04/23/20 04/23/20 06:20 06:20 WBC 9.5 RBC 3.90 L Hgb 11.4 L Hct 32.9 L MCV 84.3 MCH 29.3 MCHC 34.7 RDW 14.0 Plt Count 203 MPV 7.4 L Absolute Neuts (auto) 7.2 Neutrophils % 75.1 Lymphocytes % 8.7 Monocytes % 11.2 H Eosinophils % 4.8 H Basophils % 0.2 Nucleated RBC % 0 Sodium 139 Potassium 4.1 Chloride 103 Carbon Dioxide 26 Anion Gap 10 BUN 20.2 H Creatinine 0.6 Est GFR (CKD-EPI)AfAm 106.26 Est GFR (CKD-EPI)NonAf 91.68 Random Glucose 60 L Calcium 8.2 L Phosphorus 3.3 Magnesium 2.2 ASSESSMENT AND PLAN: h/o Perforated Diverticulitis 04/2019 POD #5 : s/p ex-lap/colostomy takedown/low anterior anastamosis/ostomy closure CAD s/p CABG Hyperlipidemia BPH Acute Delerium Apparent history of mild dementia - Clears per surgery - Monitor Mental status - pain control - incentive spirometry - monitor for bowel function - DVT prophylaxis Dr Mueller
[2020-04-23] MEDS: LACTATED RINGERS SOLUTION 1,000 ML IV SCH (14:37)
[2020-04-23] MEDS ORDERED: PT OWN MED DRAWER 7, Y5N ONE (21:16)
[2020-04-23] MEDS: CHLORHEXIDINE GLUCONATE 4% CLEANSER FOR DECOLONIZATION TP SCH (21:21)
[2020-04-23] MEDS: MONTELUKAST NA 10 MG TABLET PO SCH (21:22)
[2020-04-24] MEDS: LABETALOL HCL 5 MG/1 ML (100MG/20 ML VIAL) IVPUSH SCH ×4 (02:53→16:59)
--- NOTE | 2020-04-24 07:58 | DS ---
Physical Exam: SUBJECTIVE: Patient seen and examined OBJECTIVE: Vital Signs Temperature 98.4 F 04/24/20 06:00 Pulse Rate 71 04/24/20 06:00 Respiratory Rate 19 04/24/20 06:00 Blood Pressure 134/91 04/24/20 06:00 O2 Sat by Pulse Oximetry (%) 96 04/24/20 06:00 PHYSICAL EXAM GENERAL: The patient is awake, alert, in no acute distress. HEAD: Normal with no signs of trauma. EYES: PERRL, extraocular movements intact, sclera anicteric, conjunctiva clear. ENT: Ears normal, nares patent, oropharynx clear without exudates, moist mucous membranes. NECK: Trachea midline, full range of motion, supple. LUNGS: unlabored respirations on room air HEART: rrr ABDOMEN: Soft, midline jossie insitu. LLQ (former ostomy site) packing removed -- wound is clean. No evidenec eof infection. Normoactive bowel sounds, no guarding EXTREMITIES: 2+ pulses, warm, well-perfused, no edema. PSYCH: Normal mood, normal affect. SKIN: Warm, dry, normal turgor, no rashes or lesions noted. LABS CBC,CMP WBC 9.5 K/mm3 (4.0-10.0) 04/23/20 06:20 RBC 3.90 M/mm3 (4.00-5.60) L 04/23/20 06:20 Hgb 11.4 GM/dL (11.7-16.9) L 04/23/20 06:20 Hct 32.9 % (35.4-49) L 04/23/20 06:20 MCV 84.3 fl (80-96) 04/23/20 06:20 MCH 29.3 pg (25.7-33.7) 04/23/20 06:20 MCHC 34.7 g/dl (32.0-35.9) 04/23/20 06:20 RDW 14.0 % (11.9-15.9) 04/23/20 06:20 Plt Count 203 K/MM3 (134-434) 04/23/20 06:20 MPV 7.4 fl (7.5-11.1) L 04/23/20 06:20 Absolute Neuts (auto) 7.2 K/mm3 (1.5-8.0) 04/23/20 06:20 Neutrophils % 75.1 % (42.8-82.8) 04/23/20 06:20 Lymphocytes % 8.7 % (8-40) 04/23/20 06:20 Monocytes % 11.2 % (3.8-10.2) H 04/23/20 06:20 Eosinophils % 4.8 % (0-4.5) H 04/23/20 06:20 Basophils % 0.2 % (0-2.0) 04/23/20 06:20 Nucleated RBC % 0 % (0-0) 04/23/20 06:20 Sodium 139 mmol/L (136-145) 04/23/20 06:20 Potassium 4.1 mmol/L (3.5-5.1) 04/23/20 06:20 Chloride 103 mmol/L (98-107) 04/23/20 06:20 Carbon Dioxide 26 mmol/L (21-32) 04/23/20 06:20 Anion Gap 10 MMOL/L (8-16) 04/23/20 06:20 BUN 20.2 mg/dL (7-18) H 04/23/20 06:20 Creatinine 0.6 mg/dL (0.55-1.3) 04/23/20 06:20 Est GFR (CKD-EPI)AfAm 106.26 04/23/20 06:20 Est GFR (CKD-EPI)NonAf 91.68 04/23/20 06:20 Random Glucose 60 mg/dL (74-106) L 04/23/20 06:20 Calcium 8.2 mg/dL (8.5-10.1) L 04/23/20 06:20 Phosphorus 3.3 mg/dL (2.5-4.9) 04/23/20 06:20 Magnesium 2.2 mg/dL (1.8-2.4) 04/23/20 06:20 Total Bilirubin 1.6 mg/dL (0.2-1) H 04/20/20 06:13 Direct Bilirubin 0.6 mg/dL (0.0-0.2) H 04/20/20 06:13 AST 13 U/L (15-37) L 04/20/20 06:13 ALT 10 U/L (13-61) L 04/20/20 06:13 Alkaline Phosphatase 47 U/L (45-117) 04/20/20 06:13 Total Protein 5.6 g/dl (6.4-8.2) L 04/20/20 06:13 Albumin 2.5 g/dl (3.4-5.0) L 04/20/20 06:13 HOSPITAL COURSE: Date of Admission:04/17/20 Date of Discharge: 04/24/20 The patient was admitted to the ICU after an elective repair of his colostomy. Now, POD # 6 s/p colocolosotomy. The day of surgery, the patient was trasferred to ICU as no beds available on the floor. Marta-operative IV ABX were administered. DVT prophylaxis was achieved with SCDs and early ambulation. Narcotic and non-narcotic pain management control was achieved with an oral and IV approach. Started on clear liquid diet after passed flatus. He is tolerating. Lopez removed and passed trial of void. Patient will be discharged home with his YI (to be removed during his office vist). VNS ordered for daily wound care/packing to LLQ surgical wound. Maintain FULL liquid diet for the next 1-2 weeks. The discharge instructions and an oral pain management plan were reviewed with the patient. All questions answered. Above plan discussed with Dr. Chu and agreed. Minutes to complete discharge: 35 Visit type - Case Type Case Type: Scheduled - New patient This patient is new to me today: Yes Date on this admission: 04/24/20
[2020-04-24] MEDS: TAMSULOSIN HCL 0.4 MG CAP PO SCH (09:30)
[2020-04-24] MEDS: VALSARTAN 80 MG TABLET (UD) PO SCH (11:24)
[2020-04-24] MEDS: ENOXAPARIN NA (PORCINE) 40 MG/0.4 ML DISP.SYRIN SQ SCH (11:24)
[2020-04-24] MEDS: PANTOPRAZOLE 20 MG TABLET PO SCH (11:26)
[2020-04-24] MEDS: metoPROLOL SUCCINATE 25 MG TAB.SR.24H (FP) PO SCH (11:27)
[2020-04-24] MEDS: LACTATED RINGERS SOLUTION 1,000 ML IV SCH (13:00)
--- NOTE | 2020-04-24 13:49 | PN ---
Teaching Attending Note Name of Resident: Virgil Ivy ATTENDING PHYSICIAN STATEMENT I saw and evaluated the patient. I reviewed the resident's note and discussed the case with the resident. I agree with the resident's findings and plan as documented. SUBJECTIVE: Patient seen and examined in the ICU. Awake and alert. Appears more com fortable. (+) Flatus. No BM. POD#6 ex-lap/colostomy takedown/low anterior anastamosis/ostomy closure. He denies abdominal pain. No CP or SOB. OBJECTIVE: Intake & Output 04/21/20 04/22/20 04/23/20 04/24/20 23:59 23:59 23:59 23:59 Intake Total 2841 1200 2880 1320 Output Total 1745 130 035 7816 Balance 8795 719 8434 226 Last Vital Signs Temp Pulse Resp BP Pulse Ox 98.4 F 80 20 142/68 95 04/24/20 06:00 04/24/20 08:00 04/24/20 08:00 04/24/20 08:00 04/24/20 08:00 Active Medications Acetaminophen (Tylenol -) 650 mg PO Q6H PRN PRN Reason: PAIN LEVEL 4 - 6 Last Admin: 04/23/20 11:54 Dose: 650 mg Documented by: Chlorhexidine Gluconate (Hibiclens For Decolonization -) 1 applic TP HS [facility] Last Admin: 04/23/20 21:21 Dose: 1 applic Documented by: Diltiazem HCl (Cardizem Cd -) 120 mg PO DAILY [facility] Last Admin: 04/24/20 11:23 Dose: 120 mg Documented by: Enoxaparin Sodium (Lovenox -) 40 mg SQ DAILY [facility] Last Admin: 04/24/20 11:24 Dose: 40 mg Documented by: Lactated Ringer's (Lactated Ringers Solution) 1,000 mls @ 100 mls/hr IV ASDIR [facility] Last Admin: 04/23/20 14:37 Dose: 100 mls/hr Documented by: Labetalol HCl (Normodyne Injection -) 10 mg IVPUSH Q4H [facility] Last Admin: 04/24/20 11:18 Dose: Not Given Documented by: Metoprolol Succinate (Toprol Xl -) 25 mg PO DAILY [facility] Last Admin: 04/24/20 11:27 Dose: 25 mg Documented by: Montelukast Sodium (Singulair -) 10 mg PO HS [facility] Last Admin: 04/23/20 21:22 Dose: 10 mg Documented by: Ondansetron HCl (Zofran Injection) 4 mg IVPUSH Q6H PRN PRN Reason: NAUSEA Pantoprazole Sodium (Protonix -) 20 mg PO DAILY [facility] Last Admin: 04/24/20 11:26 Dose: 20 mg Documented by: Tamsulosin HCl (Flomax -) 0.4 mg PO DAILY@0830 [facility] Last Admin: 04/24/20 09:30 Dose: 0.4 mg Documented by: Valsartan (Diovan -) 160 mg PO DAILY [facility] Last Admin: 04/24/20 11:24 Dose: 160 mg Documented by: Gen: Awake and alert, NAD Heart: RRR Lung: decreased breath sounds at the bases Abd: soft, dressings intact, (+) BS, +YI intact with serosanguinous fluid Ext: no edema ASSESSMENT AND PLAN: h/o Perforated Diverticulitis 04/2019 POD #6 : s/p ex-lap/colostomy takedown/low anterior anastamosis/ostomy closure CAD s/p CABG Hyperlipidemia BPH Acute Delerium Apparent history of mild dementia - Clears per surgery - pain control - incentive spirometry - monitor for bowel function - DVT prophylaxis - DC planning Dr Mueller
--- NOTE | 2020-04-24 17:09 | PN ---
Physical Exam: SUBJECTIVE: Patient seen and examined at bedside. pt has no acute complaints. OBJECTIVE: Vital Signs Period Temp Pulse Resp BP Sys/Young Pulse Ox Last 24 Hr 98.2 F-98.8 F 71-83 16-26 126-150/64-95 95-98 GENERAL: The patient is awake, alert, and fully oriented, in no acute distress. HEAD: Normal with no signs of trauma. LUNGS: Breath sounds equal, clear to auscultation bilaterally, no accessory muscle use. HEART: Regular rate and rhythm, S1, S2 without murmur, rub or gallop. ABDOMEN: Soft, nontender, nondistended, hypoactive bowel sounds, no guarding EXTREMITIES: 2+ pulses, warm, well-perfused, no edema. Active Medications Generic Name Dose Route Start Last Admin Trade Name Freq PRN Reason Stop Dose Admin Acetaminophen 650 mg 04/23/20 11:36 04/23/20 11:54 Tylenol - PO 650 mg Q6H PRN Administration PAIN LEVEL 4 - 6 Chlorhexidine Gluconate 1 applic 04/18/20 22:00 04/23/20 21:21 Hibiclens For Decolonization - TP 1 applic HS RENITA Administration Diltiazem HCl 120 mg 04/19/20 10:00 04/24/20 11:23 Cardizem Cd - PO 120 mg DAILY RENITA Administration Enoxaparin Sodium 40 mg 04/19/20 10:00 04/24/20 11:24 Lovenox - SQ 40 mg DAILY RENITA Administration Lactated Ringer's 1,000 mls @ 100 mls/hr 04/18/20 14:00 04/24/20 13:00 Lactated Ringers Solution IV 100 mls/hr ASDIR RENITA Administration Labetalol HCl 10 mg 04/21/20 22:00 04/24/20 16:59 Normodyne Injection - IVPUSH Not Given Q4H RENITA Metoprolol Succinate 25 mg 04/19/20 10:00 04/24/20 11:27 Toprol Xl - PO 25 mg DAILY RENITA Administration Montelukast Sodium 10 mg 04/18/20 22:00 04/23/20 21:22 Singulair - PO 10 mg HS RENITA Administration Ondansetron HCl 4 mg 04/18/20 10:29 Zofran Injection IVPUSH Q6H PRN NAUSEA Pantoprazole Sodium 20 mg 04/19/20 10:00 04/24/20 11:26 Protonix - PO 20 mg DAILY RENITA Administration Tamsulosin HCl 0.4 mg 04/19/20 08:30 04/24/20 09:30 Flomax - PO 0.4 mg DAILY@0830 RENITA Administration Valsartan 160 mg 04/19/20 10:00 04/24/20 11:24 Diovan - PO 160 mg DAILY RENITA Administration ASSESSMENT/PLAN: 84 yo M PMH of HTN, CADs s/p quadruple bypass, cholelithiasis, CVA, BPH presented to the hospital for reversal of colostomy. Ddmitted to ICU for post-op observation. POD #6 Neurological -AAOx3 -head CT neg for acute pathology Cardiovascular -c/w cardizem, toprol, diovan will dc labetalol prn Pulmonary -cont singulair -incentive spirometry encouraged ID -s/p ertapenem periop -c/w IVF GI -POD #6 s/p colostomy reversal -patient is passing flatus, no BM yet - will go home with YI drain. should f/u outpt with surgery - will go home with VNS to help care for wound dressing FENLTD -full liquids/ should go home with full liquids x 2 weeks -LR @ 100cc/hr -bacon 04/19 -YI drain R abdomen 04/19 PPX -DVT: SCDs dispo: transfer to telemetry.stable for DC Visit type - Emergency Visit Emergency Visit: No - New Patient This patient is new to me today: No - Critical Care Critical Care patient: Yes Total Critical Care Time (in minutes): 36 Critical Care Statement: The care of this patient involved high complexity decision making to prevent further life threatening deterioration of the patient's condition and/or to evaluate & treat vital organ system(s) failure or risk of failure. - Discharge Referral Referred to [facility] Med P.C.: No - Medication Review Med list reviewed for High Risk Meds patients 65 and older: Yes ATTENDING PHYSICIAN STATEMENT I saw and evaluated the patient. I reviewed the resident's note and discussed the case with the resident. I agree with the resident's findings and plan as documented. SUBJECTIVE: OBJECTIVE: ASSESSMENT AND PLAN:
[2020-04-24] MEDS ORDERED: LACTATED RINGERS SOLUTION 1,000 ML IV SCH (18:53)
[2020-04-24] MEDS ORDERED: ACETAMINOPHEN 325 MG TABLET (FP) PO PRN (18:53)
[2020-04-24] MEDS ORDERED: ONDANSETRON 4 MG/2 ML VIAL IVPUSH PRN (18:53)
[2020-04-24] MEDS ORDERED: MONTELUKAST NA 10 MG TABLET PO SCH (22:00)
[2020-04-24] MEDS ORDERED: CHLORHEXIDINE GLUCONATE 4% CLEANSER FOR DECOLONIZATION TP SCH (22:00)
[2020-04-25] MEDS ORDERED: TAMSULOSIN HCL 0.4 MG CAP PO SCH (08:30)
[2020-04-25] MEDS ORDERED: PT OWN MED DRAWER 7, Y5N ONE (09:43)
[2020-04-25] MEDS ORDERED: metoPROLOL SUCCINATE 25 MG TAB.SR.24H (FP) PO SCH (10:00)
[2020-04-25] MEDS ORDERED: ENOXAPARIN NA (PORCINE) 40 MG/0.4 ML DISP.SYRIN SQ SCH (10:00)
[2020-04-25] MEDS ORDERED: VALSARTAN 80 MG TABLET (UD) PO SCH (10:00)
[2020-04-25] MEDS ORDERED: PANTOPRAZOLE 20 MG TABLET PO SCH (10:00)
[2020-04-25] MEDS ORDERED: VALSARTAN 160 MG TABLET (UD) PO SCH (10:00)
[2020-04-25 15:24] VITALS: BP 137/72; PULSE 89; TEMP 99
--- NOTE | 2020-04-25 15:33 | PN ---
Teaching Attending Note Name of Resident: Delmer Francis ATTENDING PHYSICIAN STATEMENT I saw and evaluated the patient. I reviewed the resident's note and discussed the case with the resident. I agree with the resident's findings and plan as documented. SUBJECTIVE: 84 year old male with known history of HTN, CAD s/p quadruple bypass, cholel ithiasis, CVA, BPH presented to the hospital for reversal of colostomy. Patient was scheduled to get discharged yesterday however, developed urinary retention needing reinsertion of indwelling catheter. Patient is going home with the catheter in place. Will need follow up with the urologist for removal of catheter. OBJECTIVE: ASSESSMENT AND PLAN: 1. DC today 2. May go home with indwelling catheter in place 3. Will send home with a script for flomax 4. Please refer to DC summary by Dr Francis for details of hospitalization 5. Will likely need home PT as quite debilitated. Ivania Francis. IVANIA daughter who was at bedside. IVANIA VNS service who was at the phone.
--- NOTE | 2020-04-25 16:04 | HOSP ---
Subjective - Review of Symptoms Events since last encounter: Pt is POD#7 from colostomy taken-down. Passing gas. No bm. Tolerated CLD while inpt. Was instructed to maintain Lopez until at least POD5. Failed trial of void on POD 6. Pt stayed until POD 7. VNS arranged at home to assist with surgical abd wound care and YI managment. Subjective: Tolerated Jello and Juice for breakfast. Has Flatus. Denies abdominal pain General: Yes: Appetite Pulmonary: No: Cough, Pleuritic Chest Pain Cardiovascular: No: Chest Pain, Palpitations, Orthopnea Gastrointestinal: No: Nausea, Vomiting, Abdominal Pain Neurological: No: Weakness, Numbness Physical Examination Vital Signs: Vital Signs Temperature 99.0 F 04/25/20 14:24 Pulse Rate 89 04/25/20 14:24 Respiratory Rate 20 04/25/20 14:24 Blood Pressure 137/72 04/25/20 14:24 O2 Sat by Pulse Oximetry (%) 95 04/25/20 14:24 Constitutional: Yes: Well Nourished, No Distress, Calm Eyes: Yes: WNL HENT: Yes: WNL Neck: Yes: Supple Cardiovascular: Yes: Regular Rate and Rhythm. No: Murmur, Rub Respiratory: Yes: WNL, Regular, CTA Bilaterally Gastrointestinal: Yes: Normal Bowel Sounds, Soft, Other (dressing in place, without strikethrough. YI with thin serosanguinous drainage) Musculoskeletal: Yes: WNL Extremities: Yes: WNL Edema: No Labs: CBC, BMP 04/23/ 06:20 04/23/20 06:20 Hospitalist Encounter Assessment: Pt is POD 7 from colostomy takedown. Was discharged on POD6, but failed the evening Trial of Void so Lopez(16Fr) was reinserted. Has VNS set-up. Pt has a regular Urologist for follow-up. Was instructed to continue taking his home Flomax. Pt's daughter inquired about the lack of bowel movement for this hospitalization. Daughter was informed that the Surgical Team did not prescribe any medications for constipation. Was advised to take opioid medications as needed, but side effects can include constipation. Deemed stable for discharge. Visit type - Medication Review Med list reviewed for High Risk Meds patients 65 and older: Yes - Emergency Visit Emergency Visit: No - New Patient This patient is new to me today: No - Critical Care Critical Care patient: No
== END 2020-04-25 17:01 | disposition home health service (06) | DRG 330 ==
LOC: EDSTATUS 11-30 08:00 → J8W 04-17 11:05 → JICU 04-18 14:06 → J8W 04-24 19:55
PROVIDERS: ADMIT Surgery; ATTEND Surgery
PROC: 0DBM0ZZ Excision of Descending Colon, Open Approach (ICD-10-PCS; 2020-04-18)
PROC: 0D1E0ZE Bypass Large Intestine to Large Intestine, Open Approach (ICD-10-PCS; 2020-04-18)
PROC: 0DNW0ZZ Release Peritoneum, Open Approach (ICD-10-PCS; 2020-04-18)
PROC: 3E1M38Z Irrigation of Peritoneal Cavity using Irrigating Substance, Percutaneous Approach (ICD-10-PCS; 2020-04-18)
PROC: 0D7P8ZZ Dilation of Rectum, Via Natural or Artificial Opening Endoscopic (ICD-10-PCS; 2020-04-18)
PROC: 0DJD8ZZ Inspection of Lower Intestinal Tract, Via Natural or Artificial Opening Endoscopic (ICD-10-PCS; 2020-04-18)
PROC: 0DSM0ZZ Reposition Descending Colon, Open Approach (ICD-10-PCS; principal; 2020-04-18 08:00)
DX: Z43.3 Encounter for attention to colostomy (principal); F03.91 Unspecified dementia, unspecified severity, with behavioral disturbance; K57.90 Diverticulosis of intestine, part unspecified, without perforation or abscess without bleeding; I25.10 Atherosclerotic heart disease of native coronary artery without angina pectoris; N40.0 Benign prostatic hyperplasia without lower urinary tract symptoms; E78.5 Hyperlipidemia, unspecified; E83.42 Hypomagnesemia; R00.0 Tachycardia, unspecified; J44.9 Chronic obstructive pulmonary disease, unspecified; R41.0 Disorientation, unspecified; E83.39 Other disorders of phosphorus metabolism; K21.9 Gastro-esophageal reflux disease without esophagitis; I10 Essential (primary) hypertension; K66.0 Peritoneal adhesions (postprocedural) (postinfection); Z95.1 Presence of aortocoronary bypass graft; Z99.81 Dependence on supplemental oxygen
CPT/HCPCS: 36415; 70450-TC; 71046-TC-FY; 80048; 80053; 82248; 83735; 84100; 85025; 85027; 86850; 86900; 86901; 86922; 88304-TC; 88307-TC; 93005; 93010; 94760

== ENCOUNTER 2020-04-26 18:04 | Emergency (ER) | payer OTHER ==
[2020-04-26 18:33] VITALS: TEMP 97.8; BMI 34.4
[2020-04-26] MEDS ORDERED: ACETAMINOPHEN 325 MG TABLET (FP) PO ONE (18:50)
[2020-04-26 19:15] LABS: BASO % 0.6 % (0-2.0); EOS % 3.2 % (0-4.5); HEMATOCRIT 31.9 % (35.4-49); HEMOGLOBIN 10.9 GM/dL (11.7-16.9); LYMPH % 7.9 % (8-40); MCH 29.4 pg (25.7-33.7); MCHC 34.2 g/dl (32.0-35.9); MEAN PLT VOLUME 7.6 fl (7.5-11.1); MONO % 7.8 % (3.8-10.2); NEUT % 80.5 % (42.8-82.8); PLATELET COUNT 373 K/MM3 (134-434); RBC 3.71 M/mm3 (4.00-5.60); RDW 14.3 % (11.9-15.9); WHITE BLOOD COUNT 10.5 K/mm3 (4.0-10.0)
[2020-04-26] MEDS ORDERED: ACETAMINOPHEN 325 MG TABLET (FP) ONE (19:30)
[2020-04-26 19:54] LABS: ALBUMIN 2.1 g/dl (3.4-5.0); BILIRUBIN,TOTAL 1.3 mg/dL (0.2-1); BLOOD UREA NITROGEN 15.8 mg/dL (7-18); CALCIUM 8.2 mg/dL (8.5-10.1); CREATININE 0.7 mg/dL (0.55-1.3); POTASSIUM 3.4 mmol/L (3.5-5.1)
[2020-04-26 20:36] LABS: ERYTHROCYTE SEDIMENTATION RATE 110 mm/hr (0-20)
--- NOTE | 2020-04-26 20:50 | PDOC ---
History of Present Illness - General Chief Complaint: Pain Stated Complaint: RIGHT PATELLA PAIN/SWOLLEN Time Seen by Provider: 04/26/20 18:36 History Source: Patient, Family Exam Limitations: No Limitations Past History - Travel History Traveled outside of the country in the last 30 days: No Close contact w/someone who was outside of country & ill: No - Medical History Allergies/Adverse Reactions: Allergies Allergy/AdvReac Type Severity Reaction Status Date / Time No Known Allergies Allergy Verified 08/11/19 09:44 Home Medications: Ambulatory Orders Rosuvastatin Calcium [Crestor] 20 mg PO DAILY 05/21/15 Aspirin Coated [Ecotrin -] 81 mg PO DAILY 02/04/18 Nitroglycerin [Nitrostat] 0.4 mg SL PRN PRN 04/18/19 Telmisartan 40 mg PO DAILY 04/26/19 Diltiazem HCl [Diltiazem 24Hr ER] 120 mg PO DAILY 07/24/19 Montelukast Sodium [Singulair] 10 mg PO HS 07/24/19 Tamsulosin HCl [Flomax] 0.4 mg PO HS 07/24/19 Cholecalciferol (Vitamin D3) [Vitamin D -] 1,000 unit PO DAILY 10/04/19 Cyanocobalamin [Vitamin B12 -] 1,000 mcg PO DAILY 10/04/19 Metoprolol Succinate [Toprol Xl] 25 mg PO DAILY 04/17/20 Pantoprazole Sodium [Protonix -] 20 mg PO DAILY 04/17/20 Acetaminophen W/ Codeine #3 [Tylenol # 3 -] 1 tab PO Q6H #20 tablet MDD 6 04/24/20 Anemia: Yes Asthma: Yes (MILD ASTHMA) Cardiac Disorders: Yes (ASHD-CABG , AFIB) CVA: Yes (CVA/TIA, Dela Cruz's Palsy) COPD: No GI Disorders: Yes (PERFORATED DIVERTICUITIS.DIVERTICULOSIS,ESOPHAGEAL STRICTURE) Disorders: Yes (BPH) HTN: Yes Hypercholesterolemia: Yes - Surgical History Abdominal Surgery: Yes (COLOSTOMY) Cardiac Surgery: Yes (CABG 2005) Orthopedic Surgery: Yes (BARB ARTHROSCOPY) - Immunization History Immunization Up to Date: No - Psycho-Social/Smoking History Smoking History: Never smoked Have you smoked in the past 12 months: No - Substance Abuse Hx (Audit-C & DAST Scrn) How often the patient has a drink containing alcohol: Never Score: In Men: 4 or > Positive; In Women: 3 or > Positive: 0 Screen Result (Pos requires Nsg. Audit-10AR): Negative Review of Systems - Review of Systems Able to Perform ROS?: Yes Comments:: 04/26/20 22:30 CONSTITUTIONAL: Absent: fever, chills, diaphoresis, generalized weakness, malaise, loss of appetite HEENT: Absent: rhinorrhea, nasal congestion, throat pain, throat swelling, difficulty swallowing, mouth swelling, ear pain, eye pain, visual Changes CARDIOVASCULAR: Absent: chest pain, loss of consciousness, palpitations, irregular heart rate, peripheral edema RESPIRATORY: Absent: cough, shortness of breath, dyspnea with exertion, orthopnea, wheezing, stridor, hemoptysis GASTROINTESTINAL: Absent: abdominal pain, abdominal distension, nausea, vomiting, diarrhea, constipation, melena, hematochezia GENITOURINARY: Absent: dysuria, frequency, urgency, hesitancy, hematuria, flank pain, genital pain MUSCULOSKELETAL: Present: Right knee pain and swelling Absent: myalgia SKIN: Absent: rash, itching, pallor HEMATOLOGIC/IMMUNOLOGIC: Absent: easy bleeding, easy bruising, lymphadenopathy, frequent infections ENDOCRINE: Absent: unexplained weight gain, unexplained weight loss, heat intolerance, cold intolerance NEUROLOGIC: Absent: headache, focal weakness or paresthesias, dizziness, unsteady gait, seizure, mental status changes, bladder or bowel incontinence PSYCHIATRIC: Absent: anxiety, depression, suicidal or homicidal ideation, hallucinations. Is the patient limited Yi proficient: No *Physical Exam - Vital Signs Last Vital Signs Temp Pulse Resp BP Pulse Ox 97.8 F 107 H 18 152/84 97 04/26/20 18:21 04/26/20 20:08 04/26/20 20:08 04/26/20 20:08 04/26/20 20:08 - Physical Exam 04/26/20 22:31 GENERAL: Well developed, well nourished. Awake and alert. No acute distress. HEENT: Normocephalic, atraumatic. PERRLA, EOMI. No conjunctival pallor. Sclera are non-icteric. Moist mucous membranes. Oropharynx is clear. NECK: Supple. Full ROM. No JVD. Carotid pulses 2+ and symmetric, without bruits. No thyromegaly. No lymphadenopathy. CARDIOVASCULAR: Regular rate and rhythm. No murmurs, rubs, or gallops. Distal pulses are 2+ and symmetric. PULMONARY: No evidence of respiratory distress. Lungs clear to auscultation bilaterally. No wheezing, rales or rhonchi. ABDOMINAL: Soft. Non-tender. Non-distended. No rebound or guarding. No organomegaly. Normoactive bowel sounds. MUSCULOSKELETAL Tenderness to palpation of the superior anterior aspect of the right knee with associated edema. No obvious cellulitis overlying the tender area. Patient unable to range the knee due to pain. Patient unable to bear weight on the right leg. Normal range of motion at all other joints. No bony deformities or tenderness. No CVA tenderness. EXTREMITIES: No cyanosis. No clubbing. No edema. No calf tenderness. SKIN: Warm and dry. Normal capillary refill. No rashes. No jaundice. NEUROLOGICAL: Alert, awake, appropriate. Cranial nerves 2-12 intact. No deficits to light touch and temperature in face, upper extremities and lower extremities. No motor deficits in the in face, upper extremities and lower extremities. Normoreflexic in the upper and lower extremities. Normal speech. Toes are down-going bilaterally. Gait is normal without ataxia. PSYCHIATRIC: Cooperative. Good eye contact. Appropriate mood and affect. ED Treatment Course - LABORATORY CBC & Chemistry Diagram: 04/26/20 19:00 04/26/20 19:00 - ADDITIONAL ORDERS Additional order review: Laboratory Results 04/26/20 19:00 Sodium 134 L Potassium 3.4 L Chloride 98 Carbon Dioxide 27 Anion Gap 9 BUN 15.8 Creatinine 0.7 Est GFR (CKD-EPI)AfAm 99.73 Est GFR (CKD-EPI)NonAf 86.05 Random Glucose 108 H Calcium 8.2 L Total Bilirubin 1.3 H AST 25 ALT 16 Alkaline Phosphatase 97 C-Reactive Protein 22.3 H Total Protein 6.0 L Albumin 2.1 L 04/26/20 19:00 RBC 3.71 L MCV 86.0 MCHC 34.2 RDW 14.3 MPV 7.6 Neutrophils % 80.5 Lymphocytes % 7.9 L Monocytes % 7.8 Eosinophils % 3.2 Basophils % 0.6 - RADIOLOGY Radiology Studies Ordered: Category Date Time Status KNEE 3 POS-RIGHT [RAD] Stat Radiology 04/26/20 18:49 Taken - Medications Given in the ED: ED Medications Discontinued Medications Generic Name Dose Route Start Last Admin Trade Name Ekta PRN Reason Stop Dose Admin Acetaminophen 1,000 mg 04/26/20 18:50 04/26/20 20:07 Tylenol - PO 04/26/20 18:51 1,000 mg ONCE ONE Administration Medical Decision Making - Medical Decision Making 04/26/20 22:36 The patient is an 84-year-old male with past medical history of [place] status post CABG, hyperlipidemia, hypertension, BPH, osteoarthritis, diverticulitis status post post hemicolectomy with colostomy reversal (discharged on 04/24/2019) presents to the ER with right knee pain. He states that his knee pain started during the course of his hospitalization over the past week. He states that the knee feels swollen and he is unable to move it due to pain. He notes that there is a small abrasion over the right knee and that it feels warm to the t ouch. He states he is unable to walk due to the pain. Denies numbness and tingling to the affected extremity. A/P: Knee pain On exam there is a large effusion over the superior lateral aspect of the right knee. Patient is unable to range the knee due to pain at this time. Differential diagnosis includes septic joint, osteoarthritic effusion, tendinopathy. Basic labs, blood culture sent ESR and CRP are grossly elevated. Synovial fluid aspiration of the right knee performed by Dr. Centeno under the supervision of Dr. Bain. Approx 80cc of fluid drained from the R knee. Cultures, Gram stain, cell count sent Reevaluate 04/26/20 23:44 Patient with increased range of motion now can flex the knee with minimal pain after aspiration. WBCs 7000 in the synovial fluid, 2000 RBCs. Ratio of WBCs/RBCs proves likely arthritic changes Less concerning for septic joint as patient can now range knee. Sign out given to Dr. Centeno pending gram stain results Discharge - Discharge Information Problems reviewed: Yes Clinical Impression/Diagnosis: Knee pain Qualifiers: Chronicity: acute Laterality: right Qualified Code(s): M25.561 - Pain in right knee - Follow up/Referral Referrals: Mikal Le MD [Primary Care Provider] - - Patient Discharge Instructions - Post Discharge Activity
--- NOTE | 2020-04-26 21:46 | PDOC ---
*Physical Exam - Vital Signs Last Vital Signs Temp Pulse Resp BP Pulse Ox 97.8 F 107 H 18 152/84 97 04/26/20 18:21 04/26/20 20:08 04/26/20 20:08 04/26/20 20:08 04/26/20 20:08 - Physical Exam 04/27/20 00:08 sign out was given by KATLYN. Awaiting gram stain. Most likely discharge home . ED Treatment Course - LABORATORY CBC & Chemistry Diagram: 04/26/20 19:00 04/26/20 19:00 - ADDITIONAL ORDERS Additional order review: Laboratory Results 04/26/20 19:00 Sodium 134 L Potassium 3.4 L Chloride 98 Carbon Dioxide 27 Anion Gap 9 BUN 15.8 Creatinine 0.7 Est GFR (CKD-EPI)AfAm 99.73 Est GFR (CKD-EPI)NonAf 86.05 Random Glucose 108 H Calcium 8.2 L Total Bilirubin 1.3 H AST 25 ALT 16 Alkaline Phosphatase 97 C-Reactive Protein 22.3 H Total Protein 6.0 L Albumin 2.1 L 04/26/20 19:00 RBC 3.71 L MCV 86.0 MCHC 34.2 RDW 14.3 MPV 7.6 Neutrophils % 80.5 Lymphocytes % 7.9 L Monocytes % 7.8 Eosinophils % 3.2 Basophils % 0.6 - Medications Given in the ED: ED Medications Discontinued Medications Generic Name Dose Route Start Last Admin Trade Name Dwayneq PRN Reason Stop Dose Admin Acetaminophen 1,000 mg 04/26/20 18:50 04/26/20 20:07 Tylenol - PO 04/26/20 18:51 1,000 mg ONCE ONE Administration Discharge - Discharge Information Problems reviewed: Yes Clinical Impression/Diagnosis: Knee pain Qualifiers: Chronicity: acute Laterality: right Qualified Code(s): M25.561 - Pain in right knee Condition: Improved Disposition: HOME - Follow up/Referral Referrals: Mikal Le MD [Primary Care Provider] - - Patient Discharge Instructions Patient Printed Discharge Instructions: DI for Knee Pain Additional Instructions: You were seen in the ED for complaints of right knee pain. In the ED you were evaluated with bloodwork, imaging. Your results were negative mostly, except for one undetermined test at this point. There does not appear to be an acute need for immediate hospitalization. You are advised to follow up with your Primary Care Physician within 1 week. Your Gram stain/culture result will be reported to you via calling. If you don't get a callback within 24 hours, please call the ED. Return to the ED immediately if you experience worsening knee pain, unable to walk, sign of knee tap getting red/inflamed. If you have knee pain, please use over the counter pain control: tylenol or motrin. You can ice the site for relief. - Post Discharge Activity Procedure Note Procedure: Knee aspiration procedure: Cleaned with betadine 3x numb with lidocaine 2 %, 3 cc used. 65 cc of fluid is drawn. Normal yellow color in joint space. No cloudiness, no blood. Patient is not complained of pain. Supervised by attending doctor.
[2020-04-26 23:03] LABS: BF WBC & OTHER NUCLEATED CELLS 5783 /mm3
[2020-04-26 23:04] LABS: BODY FLUID MACROPHAGES 3 %; BODY FLUID MONOCYTE 6 %
[2020-04-27 02:51] VITALS: BP 146/86; PULSE 95
== END 2020-04-27 02:51 | disposition home or self-care (01) ==
LOC: JER 18:04
PROC: 0S9C3ZZ Drainage of Right Knee Joint, Percutaneous Approach (ICD-10-PCS; principal; 2020-04-26)
DX: M25.561 Pain in right knee (principal)
CPT/HCPCS: 36415; 73562-TC-RT-FY; 80053; 85025; 85651; 86140; 87040; 87070; 87075; 87205; 99285-25

== ENCOUNTER 2021-10-23 07:26 | Inpatient (IN) | payer OTHER ==
[2021-10-23 07:35] VITALS: BMI 25.8
[2021-10-23 08:55] LABS: BASO % 0.4 % (0-2.0); EOS % 5.3 % (0-4.5); HEMOGLOBIN 14.1 GM/dL (11.7-16.9); LYMPH % 12.4 % (8-40); MCH 27.3 pg (25.7-33.7); MCHC 33.5 g/dl (32.0-35.9); MEAN CELL VOLUME 81.6 fl (80-96); MEAN PLT VOLUME 7.5 fl (7.5-11.1); MONO % 7.9 % (3.8-10.2); PLATELET COUNT 204 10^3/uL (134-434); RBC 5.14 M/mm3 (4.00-5.60); RDW 15.6 % (11.9-15.9); WHITE BLOOD COUNT 5.5 K/mm3 (4.0-10.0)
[2021-10-23 09:12] LABS: CALCIUM 9.6 mg/dL (8.5-10.1)
[2021-10-23 09:13] LABS: ALBUMIN 4.3 g/dl (3.4-5.0); BLOOD UREA NITROGEN 18.5 mg/dL (7-18)
[2021-10-23 09:17] LABS: TOT PROT 8.4 g/dl (6.4-8.2)
[2021-10-23 09:18] LABS: BILIRUBIN,TOTAL 0.9 mg/dL (0.2-1)
[2021-10-23] MEDS: DEXTROSE 5%-0.45% SALINE 1,000 ML IV SCH (14:01)
[2021-10-23] MEDS: MAG HYDROX/AL HYDROX/SIMETH 30 ML UNIT-DOSE CUP PO SCH ×2 (14:01→19:32)
[2021-10-23] MEDS: PANTOPRAZOLE 40 MG TABLET PO SCH (22:14)
[2021-10-23] MEDS: ROSUVASTATIN CA 20 MG TABLET PO SCH (22:14)
[2021-10-23] MEDS: MONTELUKAST NA 10 MG TABLET PO SCH (22:14)
[2021-10-24] MEDS: MAG HYDROX/AL HYDROX/SIMETH 30 ML UNIT-DOSE CUP PO SCH ×5 (00:07→23:06)
[2021-10-24] MEDS: DEXTROSE 5%-0.45% SALINE 1,000 ML IV SCH ×2 (01:54→13:59)
[2021-10-24 08:53] LABS: BASO % 0.3 % (0-2.0); EOS % 4.5 % (0-4.5); HEMATOCRIT 40.5 % (35.4-49); HEMOGLOBIN 13.4 GM/dL (11.7-16.9); LYMPH % 12.9 % (8-40); MCH 27.3 pg (25.7-33.7); MEAN CELL VOLUME 82.7 fl (80-96); MEAN PLT VOLUME 7.5 fl (7.5-11.1); NEUT % 74.3 % (42.8-82.8); PLATELET COUNT 191 10^3/uL (134-434); WHITE BLOOD COUNT 6.7 K/mm3 (4.0-10.0)
[2021-10-24 09:14] LABS: BLOOD UREA NITROGEN 16.3 mg/dL (7-18); CALCIUM 9.6 mg/dL (8.5-10.1)
[2021-10-24 09:19] LABS: BILIRUBIN,TOTAL 0.7 mg/dL (0.2-1); TOT PROT 7.7 g/dl (6.4-8.2)
[2021-10-24] MEDS: LOSARTAN POTASSIUM 50 MG TABLET PO SCH (13:58)
[2021-10-24] MEDS: PANTOPRAZOLE SODIUM 40 MG VIAL IVPUSH SCH (13:59)
[2021-10-24] MEDS: PANTOPRAZOLE 40 MG TABLET PO SCH (16:01)
[2021-10-24] MEDS: MONTELUKAST NA 10 MG TABLET PO SCH (21:20)
[2021-10-24] MEDS: ROSUVASTATIN CA 20 MG TABLET PO SCH (21:20)
[2021-10-25] MEDS: MAG HYDROX/AL HYDROX/SIMETH 30 ML UNIT-DOSE CUP PO SCH ×3 (06:34→17:08)
[2021-10-25] MEDS: DEXTROSE 5%-0.45% SALINE 1,000 ML IV SCH (06:41)
[2021-10-25 09:48] LABS: BASO % 0.3 % (0-2.0); EOS % 0.7 % (0-4.5); HEMATOCRIT 38.1 % (35.4-49); HEMOGLOBIN 12.6 GM/dL (11.7-16.9); LYMPH % 5.5 % (8-40); MCH 27.2 pg (25.7-33.7); MEAN CELL VOLUME 82.2 fl (80-96); MONO % 8.1 % (3.8-10.2); NEUT % 85.4 % (42.8-82.8); PLATELET COUNT 175 10^3/uL (134-434); RBC 4.63 M/mm3 (4.00-5.60); RDW 15.7 % (11.9-15.9); WHITE BLOOD COUNT 8.1 K/mm3 (4.0-10.0)
[2021-10-25 10:02] LABS: ALBUMIN 3.6 g/dl (3.4-5.0); BLOOD UREA NITROGEN 16.8 mg/dL (7-18); CALCIUM 9.2 mg/dL (8.5-10.1); MAGNESIUM 2.6 mg/dL (1.8-2.4)
[2021-10-25 10:05] LABS: CREATININE 1.5 mg/dL (0.55-1.3); PHOSPHOROUS 2.3 mg/dL (2.5-4.9)
[2021-10-25 10:07] LABS: BILIRUBIN,TOTAL 1.2 mg/dL (0.2-1); TOT PROT 7.1 g/dl (6.4-8.2)
[2021-10-25] MEDS: LOSARTAN POTASSIUM 50 MG TABLET PO SCH (11:28)
[2021-10-25] MEDS: PANTOPRAZOLE SODIUM 40 MG VIAL IVPUSH SCH (11:29)
[2021-10-25] MEDS: SODIUM CHLORIDE 1,000 ML IV SCH (16:27)
[2021-10-25] MEDS: POLYETHYLENE GLYCOL (HEALTHYLAX) 3350 17 GM PACKET PO SCH (16:27)
[2021-10-25 17:33] LABS: CALCIUM 8.5 mg/dL (8.5-10.1)
[2021-10-25 17:37] LABS: CREATININE 2.2 mg/dL (0.55-1.3)
[2021-10-25] MEDS: MONTELUKAST NA 10 MG TABLET PO SCH (21:10)
[2021-10-25] MEDS: ROSUVASTATIN CA 20 MG TABLET PO SCH (21:10)
[2021-10-25 22:08] LABS: GLIADIN ANTIBODY IGA 4 units (0-19); GLIADIN ANTIBODY IGG 2 units (0-19); TRANSGLUTAMINASE IGG < 2 U/mL (0-5)
[2021-10-26] MEDS: MAG HYDROX/AL HYDROX/SIMETH 30 ML UNIT-DOSE CUP PO SCH ×5 (00:10→23:04)
[2021-10-26 08:47] LABS: EPI CELLS >36 /uL (0-25.1); HYALINE CASTS 2 /uL (0-3.1); URINE APPEARANCE CLEAR; URINE BACTERIA 1546 /uL (0-1359); URINE BILIRUBIN NEGATIVE (NEGATIVE); URINE COLOR YELLOW; URINE GLUCOSE (UA) NEGATIVE (NEGATIVE); URINE KETONE NEGATIVE (NEGATIVE); URINE LEUK ESTERASE 1+ (NEGATIVE); URINE NITRITE NEGATIVE (NEGATIVE); URINE PROTEIN 1+ (NEGATIVE); URINE RBC 19 /uL (0-23.9); URINE UROBILINOGEN 0.2 mg/dL (0.2-1.0); URINE WBC 32 /uL (0-25.8)
[2021-10-26 08:53] LABS: BASO % 0.4 % (0-2.0); EOS % 6.5 % (0-4.5); HEMOGLOBIN 11.5 GM/dL (11.7-16.9); LYMPH % 10.2 % (8-40); MCH 27.9 pg (25.7-33.7); MCHC 33.9 g/dl (32.0-35.9); MEAN CELL VOLUME 82.4 fl (80-96); MEAN PLT VOLUME 7.5 fl (7.5-11.1); MONO % 9.3 % (3.8-10.2); NEUT % 73.6 % (42.8-82.8); PLATELET COUNT 137 10^3/uL (134-434); RBC 4.13 M/mm3 (4.00-5.60); RDW 15.7 % (11.9-15.9); WHITE BLOOD COUNT 6.5 K/mm3 (4.0-10.0)
[2021-10-26 09:20] LABS: BLOOD UREA NITROGEN 27.8 mg/dL (7-18); CALCIUM 8.5 mg/dL (8.5-10.1); MAGNESIUM 2.7 mg/dL (1.8-2.4)
[2021-10-26 09:23] LABS: PHOSPHOROUS 2.3 mg/dL (2.5-4.9)
[2021-10-26 09:25] LABS: TOT PROT 6.1 g/dl (6.4-8.2)
[2021-10-26] MEDS ORDERED: amLODIPine BESYLATE 10 MG TABLET (FP) PO SCH (10:00)
[2021-10-26] MEDS: PANTOPRAZOLE 40 MG TABLET PO SCH (10:09)
[2021-10-26] MEDS: POLYETHYLENE GLYCOL (HEALTHYLAX) 3350 17 GM PACKET PO SCH (10:09)
[2021-10-26] MEDS: TAMSULOSIN HCL 0.4 MG CAP PO SCH (10:10)
[2021-10-26] MEDS: DEXTROSE 5%-0.45% SALINE 1,000 ML IV SCH (10:19)
[2021-10-26] MEDS: SODIUM CHLORIDE 1,000 ML IV SCH (17:42)
[2021-10-26] MEDS: MONTELUKAST NA 10 MG TABLET PO SCH (20:59)
[2021-10-26] MEDS: ROSUVASTATIN CA 20 MG TABLET PO SCH (20:59)
[2021-10-27] MEDS: MAG HYDROX/AL HYDROX/SIMETH 30 ML UNIT-DOSE CUP PO SCH ×2 (05:50→12:45)
[2021-10-27] MEDS: SODIUM CHLORIDE 1,000 ML IV SCH (07:04)
[2021-10-27] MEDS: POLYETHYLENE GLYCOL (HEALTHYLAX) 3350 17 GM PACKET PO SCH (09:09)
[2021-10-27] MEDS: TAMSULOSIN HCL 0.4 MG CAP PO SCH (09:09)
[2021-10-27] MEDS: PANTOPRAZOLE 40 MG TABLET PO SCH (09:09)
[2021-10-27 09:18] LABS: BASO % 0.3 % (0-2.0); EOS % 8.2 % (0-4.5); HEMATOCRIT 34.1 % (35.4-49); HEMOGLOBIN 11.8 GM/dL (11.7-16.9); LYMPH % 12.1 % (8-40); MCH 27.9 pg (25.7-33.7); MCHC 34.4 g/dl (32.0-35.9); MEAN CELL VOLUME 81.2 fl (80-96); MEAN PLT VOLUME 7.7 fl (7.5-11.1); MONO % 10.1 % (3.8-10.2); NEUT % 69.3 % (42.8-82.8); PLATELET COUNT 137 10^3/uL (134-434); RBC 4.21 M/mm3 (4.00-5.60); RDW 15.6 % (11.9-15.9); WHITE BLOOD COUNT 5.4 K/mm3 (4.0-10.0)
[2021-10-27 09:51] LABS: BLOOD UREA NITROGEN 20.3 mg/dL (7-18)
[2021-10-27 09:52] LABS: CALCIUM 8.4 mg/dL (8.5-10.1)
[2021-10-27 09:53] LABS: ALBUMIN 2.9 g/dl (3.4-5.0); MAGNESIUM 2.4 mg/dL (1.8-2.4)
[2021-10-27 09:55] LABS: CREATININE 1.3 mg/dL (0.55-1.3)
[2021-10-27 09:56] LABS: BILIRUBIN,TOTAL 1.3 mg/dL (0.2-1); PHOSPHOROUS 2.8 mg/dL (2.5-4.9)
[2021-10-27 09:57] LABS: TOT PROT 6.2 g/dl (6.4-8.2)
[2021-10-27] MEDS ORDERED: MAG HYDROX/AL HYDROX/SIMETH 30 ML UNIT-DOSE CUP PO PRN (12:28)
[2021-10-27] MEDS: ROSUVASTATIN CA 20 MG TABLET PO SCH (20:59)
[2021-10-27] MEDS: MONTELUKAST NA 10 MG TABLET PO SCH (21:00)
[2021-10-28 07:21] VITALS: TEMP 98.2
[2021-10-28] MEDS: TAMSULOSIN HCL 0.4 MG CAP PO SCH (09:03)
[2021-10-28 09:44] LABS: BASO % 0.5 % (0-2.0); EOS % 6.6 % (0-4.5); HEMATOCRIT 34.7 % (35.4-49); LYMPH % 12.7 % (8-40); MCH 28.2 pg (25.7-33.7); MCHC 34.5 g/dl (32.0-35.9); MEAN CELL VOLUME 81.7 fl (80-96); MEAN PLT VOLUME 7.5 fl (7.5-11.1); NEUT % 67.2 % (42.8-82.8); PLATELET COUNT 150 10^3/uL (134-434); RBC 4.25 M/mm3 (4.00-5.60); WHITE BLOOD COUNT 4.9 K/mm3 (4.0-10.0)
[2021-10-28] MEDS ORDERED: FINASTERIDE 5 MG TABLET (FP) PO SCH (10:00)
[2021-10-28 10:07] LABS: ALBUMIN 3.2 g/dl (3.4-5.0); CALCIUM 9.1 mg/dL (8.5-10.1); MAGNESIUM 2.2 mg/dL (1.8-2.4)
[2021-10-28 10:08] LABS: BLOOD UREA NITROGEN 18.2 mg/dL (7-18)
[2021-10-28 10:10] LABS: PHOSPHOROUS 3.6 mg/dL (2.5-4.9)
[2021-10-28 10:12] LABS: TOT PROT 6.8 g/dl (6.4-8.2)
[2021-10-28] MEDS: POLYETHYLENE GLYCOL (HEALTHYLAX) 3350 17 GM PACKET PO SCH (10:54)
[2021-10-28] MEDS: PANTOPRAZOLE 40 MG TABLET PO SCH (10:54)
[2021-10-28 11:51] VITALS: BP 135/76; PULSE 68
== END 2021-10-28 12:51 | disposition home or self-care (01) | DRG 394 ==
LOC: JER 07:26 → JERBED 07:55 → J8W 12:46 → OBSVTOIN 10-26 08:27
PROVIDERS: ADMIT Internal Medicine; ATTEND Internal Medicine
PROC: 0DB98ZX Excision of Duodenum, Via Natural or Artificial Opening Endoscopic, Diagnostic (ICD-10-PCS; 2021-10-23)
PROC: 0DB78ZX Excision of Stomach, Pylorus, Via Natural or Artificial Opening Endoscopic, Diagnostic (ICD-10-PCS; 2021-10-23)
PROC: 0DB68ZX Excision of Stomach, Via Natural or Artificial Opening Endoscopic, Diagnostic (ICD-10-PCS; 2021-10-23)
PROC: 0DB58ZX Excision of Esophagus, Via Natural or Artificial Opening Endoscopic, Diagnostic (ICD-10-PCS; 2021-10-23)
PROC: 0DC58ZZ Extirpation of Matter from Esophagus, Via Natural or Artificial Opening Endoscopic (ICD-10-PCS; principal; 2021-10-26)
DX: T18.128A Food in esophagus causing other injury, initial encounter (principal); N17.9 Acute kidney failure, unspecified; K25.3 Acute gastric ulcer without hemorrhage or perforation; I25.10 Atherosclerotic heart disease of native coronary artery without angina pectoris; E78.5 Hyperlipidemia, unspecified; N40.1 Benign prostatic hyperplasia with lower urinary tract symptoms; K29.70 Gastritis, unspecified, without bleeding; I48.91 Unspecified atrial fibrillation; R33.8 Other retention of urine; K22.4 Dyskinesia of esophagus; I11.0 Hypertensive heart disease with heart failure; I50.9 Heart failure, unspecified; K57.90 Diverticulosis of intestine, part unspecified, without perforation or abscess without bleeding; G51.0 Bell's palsy; N13.9 Obstructive and reflux uropathy, unspecified; K20.90 Esophagitis, unspecified without bleeding; Z95.1 Presence of aortocoronary bypass graft; Z86.73 Personal history of transient ischemic attack (TIA), and cerebral infarction without residual deficits; Z86.010 Personal history of colon polyps
CPT/HCPCS: 36415; 74176-TC; 74220-TC-FY; 76775-TC; 80048; 80053; 81003; 82570; 82784; 83516; 83735; 84100; 84156; 84300; 85025; 86140; 86850; 86900; 86901; 88305-TC; 88342-TC; 93005; 93010; 99285-25; C9803; G0378; U0003; U0005

== ENCOUNTER 2021-10-30 14:10 | Inpatient (IN) | payer OTHER ==
[2021-10-30 17:10] LABS: BASO % 0.4 % (0-2.0); EOS % 6.7 % (0-4.5); HEMATOCRIT 37.4 % (35.4-49); HEMOGLOBIN 12.4 GM/dL (11.7-16.9); MCH 27.1 pg (25.7-33.7); MCHC 33.1 g/dl (32.0-35.9); MEAN CELL VOLUME 81.9 fl (80-96); MEAN PLT VOLUME 7.6 fl (7.5-11.1); MONO % 10.6 % (3.8-10.2); NEUT % 69.3 % (42.8-82.8); PLATELET COUNT 212 10^3/uL (134-434); RBC 4.57 M/mm3 (4.00-5.60); RDW 15.1 % (11.9-15.9)
[2021-10-30 17:31] LABS: ALBUMIN 3.6 g/dl (3.4-5.0); BLOOD UREA NITROGEN 20.6 mg/dL (7-18); CALCIUM 9.6 mg/dL (8.5-10.1)
[2021-10-30 17:35] LABS: CREATININE 0.9 mg/dL (0.55-1.3)
[2021-10-30 17:36] LABS: BILIRUBIN,TOTAL 0.6 mg/dL (0.2-1); TOT PROT 7.8 g/dl (6.4-8.2)
[2021-10-30] MEDS ORDERED: CEFTRIAXONE 1,000 MG in DEXTROSE 5%-WATER - 50 ML IVPB ONE (18:44)
[2021-10-30 18:58] LABS: EPI CELLS >36 /uL (0-25.1); HYALINE CASTS 5 /uL (0-3.1); PH,URINE 7.5 (5.0-8.0); URINE APPEARANCE CLOUDY; URINE BILIRUBIN 1+ (NEGATIVE); URINE COLOR RED; URINE GLUCOSE (UA) NEGATIVE (NEGATIVE); URINE KETONE NEGATIVE (NEGATIVE); URINE LEUK ESTERASE 2+ (NEGATIVE); URINE NITRITE POSITIVE (NEGATIVE); URINE PROTEIN 3+ (NEGATIVE); URINE RBC 20019 /uL (0-23.9); URINE UROBILINOGEN 0.2 mg/dL (0.2-1.0); URINE WBC 100 /uL (0-25.8)
[2021-10-30] MEDS ORDERED: CEFTRIAXONE 1 GM/50 ML BAG ONE ×2 (19:32→19:39)
[2021-10-30] MEDS ORDERED: ACETAMINOPHEN 325 MG TABLET (FP) PO PRN (21:16)
[2021-10-30 21:24] LABS: URINE BACTERIA 609.9 /uL (0-1359)
[2021-10-30] MEDS ORDERED: ROSUVASTATIN CA 5 MG TABLET PO SCH (22:00)
[2021-10-30] MEDS: MONTELUKAST NA 10 MG TABLET PO SCH (22:56)
[2021-10-30] MEDS: ROSUVASTATIN CA 20 MG TABLET PO SCH (22:56)
[2021-10-30] MEDS: ACETAMINOPHEN WITH CODEINE 300MG/30MG TABLET PO SCH (22:56)
[2021-10-31 00:08] VITALS: BMI 27.1
[2021-10-31] MEDS: ACETAMINOPHEN WITH CODEINE 300MG/30MG TABLET PO SCH ×3 (03:29→17:23)
[2021-10-31 08:57] LABS: BASO % 0.2 % (0-2.0); EOS % 1.1 % (0-4.5); HEMATOCRIT 34.3 % (35.4-49); HEMOGLOBIN 11.8 GM/dL (11.7-16.9); LYMPH % 6.4 % (8-40); MCHC 34.6 g/dl (32.0-35.9); MEAN CELL VOLUME 81.1 fl (80-96); MEAN PLT VOLUME 7.6 fl (7.5-11.1); MONO % 9.6 % (3.8-10.2); NEUT % 82.7 % (42.8-82.8); PLATELET COUNT 198 10^3/uL (134-434); RBC 4.22 M/mm3 (4.00-5.60); RDW 14.9 % (11.9-15.9); WHITE BLOOD COUNT 7.8 K/mm3 (4.0-10.0)
[2021-10-31 09:05] LABS: CALCIUM 8.8 mg/dL (8.5-10.1)
[2021-10-31 09:06] LABS: ALBUMIN 3.1 g/dl (3.4-5.0); BLOOD UREA NITROGEN 18.3 mg/dL (7-18); MAGNESIUM 2.1 mg/dL (1.8-2.4)
[2021-10-31 09:08] LABS: PHOSPHOROUS 3.8 mg/dL (2.5-4.9)
[2021-10-31 09:10] LABS: BILIRUBIN,TOTAL 0.8 mg/dL (0.2-1)
[2021-10-31] MEDS ORDERED: cefTRIAXone SODIUM 1 GM VIAL ONE (09:23)
[2021-10-31] MEDS: TAMSULOSIN HCL 0.4 MG CAP PO SCH (09:34)
[2021-10-31] MEDS: CEFTRIAXONE 1 GM in DEXTROSE 5%-WATER - 50 ML IVPB SCH (09:35)
[2021-10-31] MEDS: FINASTERIDE 5 MG TABLET (FP) PO SCH (09:36)
[2021-10-31] MEDS ORDERED: ASPIRIN COATED 81 MG TABLET.EC PO SCH (10:00)
[2021-10-31] MEDS ORDERED: ACETAMINOPHEN 325 MG TABLET (FP) PO PRN (17:20)
[2021-10-31] MEDS: ROSUVASTATIN CA 20 MG TABLET PO SCH (21:23)
[2021-10-31] MEDS: MONTELUKAST NA 10 MG TABLET PO SCH (21:23)
[2021-11-01] MEDS ORDERED: DEXTROSE 5%-WATER - 50 ML IVPB ONE ×2 (08:56→10:43)
[2021-11-01] MEDS ORDERED: cefTRIAXone SODIUM 1 GM VIAL ONE ×2 (08:56→10:42)
[2021-11-01] MEDS: TAMSULOSIN HCL 0.4 MG CAP PO SCH (09:34)
[2021-11-01] MEDS: CEFTRIAXONE 1 GM in DEXTROSE 5%-WATER - 50 ML IVPB SCH (09:34)
[2021-11-01] MEDS: FINASTERIDE 5 MG TABLET (FP) PO SCH (09:35)
[2021-11-01 09:52] LABS: BASO % 0.4 % (0-2.0); EOS % 5.4 % (0-4.5); HEMATOCRIT 36.4 % (35.4-49); HEMOGLOBIN 12.3 GM/dL (11.7-16.9); LYMPH % 10.1 % (8-40); MCH 27.9 pg (25.7-33.7); MCHC 33.8 g/dl (32.0-35.9); MEAN CELL VOLUME 82.5 fl (80-96); MEAN PLT VOLUME 7.4 fl (7.5-11.1); MONO % 10.2 % (3.8-10.2); NEUT % 73.9 % (42.8-82.8); PLATELET COUNT 194 10^3/uL (134-434); RBC 4.41 M/mm3 (4.00-5.60); RDW 15.2 % (11.9-15.9); WHITE BLOOD COUNT 7.3 K/mm3 (4.0-10.0)
[2021-11-01 10:13] LABS: BLOOD UREA NITROGEN 24.8 mg/dL (7-18); MAGNESIUM 2.2 mg/dL (1.8-2.4)
[2021-11-01 10:16] LABS: CREATININE 1.1 mg/dL (0.55-1.3); PHOSPHOROUS 3.4 mg/dL (2.5-4.9)
[2021-11-01] MEDS ORDERED: PROPOFOL 20 ML ONE (11:59)
[2021-11-01] MEDS ORDERED: MIDAZOLAM HCL 2 MG/2 ML SINGLE DOSE VIAL ONE (12:00)
[2021-11-01] MEDS ORDERED: PROMETHAZINE HCL 25 MG/1 ML VIAL IVPUSH PRN ×2 (12:02→14:05)
[2021-11-01] MEDS ORDERED: ONDANSETRON 4 MG/2 ML VIAL IVPUSH PRN ×2 (12:02→14:05)
[2021-11-01] MEDS ORDERED: LACTATED RINGERS SOLUTION 1,000 ML IV SCH ×2 (12:15→14:05)
[2021-11-01] MEDS ORDERED: LIDOCAINE HCL 2% JELLY 10 ML CARTRIDGE ONE (12:50)
[2021-11-01] MEDS ORDERED: ACETAMINOPHEN 325 MG TABLET (FP) PO PRN (14:05)
[2021-11-01] MEDS: LACTATED RINGERS SOLUTION 1,000 ML IV SCH (21:26)
[2021-11-01] MEDS: ROSUVASTATIN CA 20 MG TABLET PO SCH (21:26)
[2021-11-01] MEDS: MONTELUKAST NA 10 MG TABLET PO SCH (21:26)
[2021-11-02] MEDS: LACTATED RINGERS SOLUTION 1,000 ML IV SCH ×2 (08:57→18:49)
[2021-11-02] MEDS: TAMSULOSIN HCL 0.4 MG CAP PO SCH (09:01)
[2021-11-02 09:13] LABS: BASO % 0.2 % (0-2.0); HEMATOCRIT 33.9 % (35.4-49); HEMOGLOBIN 11.7 GM/dL (11.7-16.9); LYMPH % 4.8 % (8-40); MCH 27.9 pg (25.7-33.7); MCHC 34.4 g/dl (32.0-35.9); MEAN PLT VOLUME 7.5 fl (7.5-11.1); MONO % 5.2 % (3.8-10.2); NEUT % 89.8 % (42.8-82.8); PLATELET COUNT 204 10^3/uL (134-434); RBC 4.18 M/mm3 (4.00-5.60); RDW 14.9 % (11.9-15.9); WHITE BLOOD COUNT 9.3 K/mm3 (4.0-10.0)
[2021-11-02 09:25] LABS: BLOOD UREA NITROGEN 23.8 mg/dL (7-18); CALCIUM 8.4 mg/dL (8.5-10.1)
[2021-11-02 09:28] LABS: PHOSPHOROUS 2.9 mg/dL (2.5-4.9)
[2021-11-02] MEDS ORDERED: cefTRIAXone SODIUM 1 GM VIAL ONE (10:05)
[2021-11-02] MEDS ORDERED: DEXTROSE 5%-WATER - 50 ML IVPB ONE (10:06)
[2021-11-02] MEDS: FINASTERIDE 5 MG TABLET (FP) PO SCH (10:11)
[2021-11-02] MEDS: CEFTRIAXONE 1 GM in DEXTROSE 5%-WATER - 50 ML IVPB SCH (10:11)
[2021-11-02] MEDS: ASPIRIN COATED 81 MG TABLET.EC PO SCH (10:11)
[2021-11-02] MEDS: ROSUVASTATIN CA 20 MG TABLET PO SCH (22:21)
[2021-11-02] MEDS: MONTELUKAST NA 10 MG TABLET PO SCH (22:21)
[2021-11-03 04:54] VITALS: TEMP 97.4
[2021-11-03] MEDS: LACTATED RINGERS SOLUTION 1,000 ML IV SCH (06:33)
[2021-11-03] MEDS ORDERED: cefTRIAXone SODIUM 1 GM VIAL ONE (09:30)
[2021-11-03] MEDS ORDERED: DEXTROSE 5%-WATER - 50 ML IVPB ONE (09:31)
[2021-11-03] MEDS: CEFTRIAXONE 1 GM in DEXTROSE 5%-WATER - 50 ML IVPB SCH (09:36)
[2021-11-03] MEDS: ASPIRIN COATED 81 MG TABLET.EC PO SCH (09:37)
[2021-11-03] MEDS: TAMSULOSIN HCL 0.4 MG CAP PO SCH (09:37)
[2021-11-03] MEDS: FINASTERIDE 5 MG TABLET (FP) PO SCH (09:37)
[2021-11-03 09:51] LABS: BASO % 0.3 % (0-2.0); EOS % 0.8 % (0-4.5); HEMATOCRIT 33.3 % (35.4-49); HEMOGLOBIN 11.2 GM/dL (11.7-16.9); LYMPH % 11.1 % (8-40); MCH 27.5 pg (25.7-33.7); MCHC 33.6 g/dl (32.0-35.9); MEAN CELL VOLUME 81.9 fl (80-96); MEAN PLT VOLUME 7.7 fl (7.5-11.1); NEUT % 80.8 % (42.8-82.8); PLATELET COUNT 219 10^3/uL (134-434); RBC 4.07 M/mm3 (4.00-5.60); RDW 14.9 % (11.9-15.9); WHITE BLOOD COUNT 8.2 K/mm3 (4.0-10.0)
[2021-11-03 10:09] LABS: PHOSPHOROUS 2.9 mg/dL (2.5-4.9)
[2021-11-03 10:10] LABS: BILIRUBIN,TOTAL 0.4 mg/dL (0.2-1); TOT PROT 6.4 g/dl (6.4-8.2)
[2021-11-03 10:34] LABS: ALBUMIN 2.8 g/dl (3.4-5.0); BLOOD UREA NITROGEN 21.6 mg/dL (7-18); CALCIUM 8.7 mg/dL (8.5-10.1)
[2021-11-03 10:35] VITALS: BP 128/66; PULSE 74
[2021-11-03 10:36] LABS: MAGNESIUM 2.1 mg/dL (1.8-2.4)
== END 2021-11-03 16:39 | disposition home or self-care (01) | DRG 666 ==
LOC: JER 14:10 → JERBED 18:50 → J6S 23:14
PROVIDERS: ADMIT Internal Medicine
PROC: 0V508ZZ Destruction of Prostate, Via Natural or Artificial Opening Endoscopic (ICD-10-PCS; 2021-11-01)
PROC: 0TJB8ZZ Inspection of Bladder, Via Natural or Artificial Opening Endoscopic (ICD-10-PCS; 2021-11-01)
PROC: 0TCB8ZZ Extirpation of Matter from Bladder, Via Natural or Artificial Opening Endoscopic (ICD-10-PCS; 2021-11-01)
PROC: 0VT08ZZ Resection of Prostate, Via Natural or Artificial Opening Endoscopic (ICD-10-PCS; principal; 2021-11-01 12:00)
DX: T83.018A Breakdown (mechanical) of other urinary catheter, initial encounter (principal); N39.0 Urinary tract infection, site not specified; N17.9 Acute kidney failure, unspecified; N40.0 Benign prostatic hyperplasia without lower urinary tract symptoms; I10 Essential (primary) hypertension; E78.5 Hyperlipidemia, unspecified; I25.10 Atherosclerotic heart disease of native coronary artery without angina pectoris; Z95.1 Presence of aortocoronary bypass graft; R31.0 Gross hematuria; Z86.73 Personal history of transient ischemic attack (TIA), and cerebral infarction without residual deficits; R33.9 Retention of urine, unspecified; N47.2 Paraphimosis; Y84.6 Urinary catheterization as the cause of abnormal reaction of the patient, or of later complication, without mention of misadventure at the time of the procedure
CPT/HCPCS: 36415; 71046-TC-FY; 74018-TC-FY; 76700-TC; 76856-TC; 80048; 80053; 81003; 83735; 84100; 85025; 86850; 86900; 86901; 87086; 87186; 88305-TC; 93005; 93010; 94760; 99285-25; C9803; U0003; U0005

== ENCOUNTER 2022-07-02 08:26 | Observation (INO) | payer OTHER ==
[2022-07-02] MEDS ORDERED: ASPIRIN 81 MG CHEWABLE TABLETS PO ONE (08:59)
[2022-07-02] MEDS ORDERED: NITROGLYCERIN 2% OINTMENT - 1GM PACKET TD ONE ×2 (09:08→09:14)
[2022-07-02] MEDS ORDERED: ASPIRIN 81 MG CHEWABLE TABLETS ONE (09:09)
[2022-07-02 09:13] LABS: BASO % 0.4 % (0-2.0); EOS % 3.2 % (0-4.5); HEMATOCRIT 40.6 % (35.4-49); HEMOGLOBIN 13.6 GM/dL (11.7-16.9); LYMPH % 11.6 % (8-40); MCH 28.7 pg (25.7-33.7); MCHC 33.5 g/dl (32.0-35.9); MEAN CELL VOLUME 85.7 fl (80-96); MEAN PLT VOLUME 7.6 fl (7.5-11.1); MONO % 6.7 % (3.8-10.2); NEUT % 78.1 % (42.8-82.8); PLATELET COUNT 173 10^3/uL (134-434); RBC 4.74 M/mm3 (4.00-5.60); WHITE BLOOD COUNT 6.9 K/mm3 (4.0-10.0)
[2022-07-02 09:22] LABS: CALCIUM 9.2 mg/dL (8.5-10.1)
[2022-07-02 09:23] LABS: BLOOD UREA NITROGEN 28.3 mg/dL (7-18)
[2022-07-02 09:26] LABS: CREATININE 1.1 mg/dL (0.55-1.3)
[2022-07-02 09:28] LABS: BILIRUBIN,TOTAL 0.8 mg/dL (0.2-1); TOT PROT 7.6 g/dl (6.4-8.2)
[2022-07-02] MEDS ORDERED: ATORVASTATIN CA 80 MG TABLET (FP) PO ONE (11:39)
[2022-07-02] MEDS ORDERED: ATORVASTATIN CA 80 MG TABLET (FP) ONE (12:47)
[2022-07-02] MEDS ORDERED: TAMSULOSIN HCL 0.4 MG CAP ONE (12:47)
[2022-07-02] MEDS ORDERED: metoPROLOL SUCCINATE 25 MG TAB.SR.24H (FP) PO ONE (12:47)
[2022-07-02] MEDS: TAMSULOSIN HCL 0.4 MG CAP PO SCH (12:48)
[2022-07-02] MEDS: metoPROLOL SUCCINATE 25 MG TAB.SR.24H (FP) PO SCH (12:48)
[2022-07-02] MEDS ORDERED: ATORVASTATIN CA 40 MG TABLET (FP) PO SCH (22:00)
[2022-07-02] MEDS ORDERED: MONTELUKAST NA 10 MG TABLET PO SCH (22:00)
[2022-07-02 23:31] VITALS: BMI 28.3
[2022-07-03 01:34] LABS: EPI CELLS 7 /uL (0-25.1); HYALINE CASTS 1 /uL (0-3.1); PH,URINE 5.5 (5.0-8.0); URINE APPEARANCE CLEAR; URINE BACTERIA 2 /uL (0-1359); URINE BILIRUBIN NEGATIVE (NEGATIVE); URINE COLOR YELLOW; URINE GLUCOSE (UA) NEGATIVE (NEGATIVE); URINE KETONE NEGATIVE (NEGATIVE); URINE LEUK ESTERASE TRACE (NEGATIVE); URINE NITRITE NEGATIVE (NEGATIVE); URINE PROTEIN NEGATIVE (NEGATIVE); URINE RBC 7 /uL (0-23.9); URINE UROBILINOGEN 0.2 mg/dL (0.2-1.0); URINE WBC 60 /uL (0-25.8)
[2022-07-03 08:12] LABS: BASO % 0.9 % (0-2.0); HEMATOCRIT 39.7 % (35.4-49); HEMOGLOBIN 13.7 GM/dL (11.7-16.9); LYMPH % 21.4 % (8-40); MCH 29.5 pg (25.7-33.7); MCHC 34.5 g/dl (32.0-35.9); MEAN CELL VOLUME 85.4 fl (80-96); MEAN PLT VOLUME 8.6 fl (7.5-11.1); MONO % 8.2 % (3.8-10.2); NEUT % 64.5 % (42.8-82.8); PLATELET COUNT 161 10^3/uL (134-434); RBC 4.65 M/mm3 (4.00-5.60); RDW 14.8 % (11.9-15.9); WHITE BLOOD COUNT 8.2 K/mm3 (4.0-10.0)
[2022-07-03 08:17] VITALS: RESP 16
[2022-07-03 08:27] LABS: CALCIUM 9.1 mg/dL (8.5-10.1); MAGNESIUM 2.2 mg/dL (1.8-2.4)
[2022-07-03 08:28] LABS: BLOOD UREA NITROGEN 30.7 mg/dL (7-18)
[2022-07-03 08:31] LABS: PHOSPHOROUS 3.3 mg/dL (2.5-4.9)
[2022-07-03] MEDS ORDERED: ENOXAPARIN NA (PORCINE) 40 MG/0.4 ML DISP.SYRIN SQ SCH (10:00)
[2022-07-03] MEDS ORDERED: ASPIRIN COATED 81 MG TABLET.EC PO SCH (10:00)
[2022-07-03] MEDS ORDERED: PANTOPRAZOLE 40 MG TABLET PO SCH (10:00)
[2022-07-03] MEDS ORDERED: LOSARTAN POTASSIUM 50 MG TABLET PO SCH (10:00)
[2022-07-03] MEDS ORDERED: REGADENOSON 0.4 MG/5 ML PRE-FILLED SYRINGE IVPUSH ONE ×2 (11:01→11:15)
[2022-07-03] MEDS: metoPROLOL SUCCINATE 25 MG TAB.SR.24H (FP) PO SCH (12:24)
[2022-07-03] MEDS: TAMSULOSIN HCL 0.4 MG CAP PO SCH (12:25)
[2022-07-03 12:36] VITALS: PULSE 75
[2022-07-03 15:31] VITALS: BP 107/61; TEMP 97.4
[2022-07-03] MEDS ORDERED: ROSUVASTATIN CA 20 MG TABLET PO SCH (22:00)
== END 2022-07-03 16:15 | disposition home or self-care (01) ==
LOC: JER 08:26 → JERBED 10:55 → J4W 23:16
PROVIDERS: ATTEND Internal Medicine
PROC: 3E023GC Introduction of Other Therapeutic Substance into Muscle, Percutaneous Approach (ICD-10-PCS; principal; 2022-07-02)
PROC: 3E033GC Introduction of Other Therapeutic Substance into Peripheral Vein, Percutaneous Approach (ICD-10-PCS; 2022-07-02)
DX: I11.0 Hypertensive heart disease with heart failure (principal); R01.1 Cardiac murmur, unspecified; I25.10 Atherosclerotic heart disease of native coronary artery without angina pectoris; E78.5 Hyperlipidemia, unspecified; Z95.1 Presence of aortocoronary bypass graft; I50.9 Heart failure, unspecified; N40.0 Benign prostatic hyperplasia without lower urinary tract symptoms; Z86.73 Personal history of transient ischemic attack (TIA), and cerebral infarction without residual deficits
CPT/HCPCS: 36415; 71045-TC-FY; 78452-TC; 80048; 80053; 81003; 83735; 84100; 84484; 85025; 87086; 93005; 93010; 93017; 96372; 96374; 99285-25; A9502; C9803-CS; G0378; J2785; U0003; U0005

== ENCOUNTER 2023-05-03 05:56 | Day surgery (SDC) | payer OTHER ==
[2023-05-03 06:33] VITALS: RESP 18; BMI 28.1
[2023-05-03 06:46] LABS: BASO % 0.8 % (0-2.0); EOS % 5.3 % (0-4.5); HEMATOCRIT 40.8 % (35.4-49); HEMOGLOBIN 13.6 GM/dL (11.7-16.9); MCH 30.3 pg (25.7-33.7); MCHC 33.2 g/dl (32.0-35.9); MEAN CELL VOLUME 91.1 fl (80-96); MEAN PLT VOLUME 7.5 fl (7.5-11.1); MONO % 8.2 % (3.8-10.2); NEUT % 72.7 % (42.8-82.8); PLATELET COUNT 186 10^3/uL (134-434); RBC 4.48 M/mm3 (4.00-5.60); RDW 14.6 % (11.9-15.9); WHITE BLOOD COUNT 7.4 K/mm3 (4.0-10.0)
[2023-05-03 06:53] LABS: INR 1.11 (0.83-1.09); PROTHROMBIN TIME (PATIENT) 12.9 SEC (9.7-13.0)
[2023-05-03 06:56] LABS: ACTIVATED PTT 30.1 SECONDS (25.2-36.5)
[2023-05-03 07:06] LABS: POTASSIUM 4.3 mmol/L (3.5-5.1)
[2023-05-03 07:09] LABS: ALBUMIN 3.8 g/dl (3.4-5.0); BLOOD UREA NITROGEN 28.2 mg/dL (7-18)
[2023-05-03 07:12] LABS: CREATININE 1.2 mg/dL (0.55-1.3)
[2023-05-03 07:13] LABS: BILIRUBIN,TOTAL 0.7 mg/dL (0.2-1); TOT PROT 7.5 g/dl (6.4-8.2)
[2023-05-03] MEDS ORDERED: GLUCAGON 1 MG KIT IVPUSH ONE (09:37)
[2023-05-03] MEDS ORDERED: GLUCAGON 1 MG KIT ONE (09:40)
[2023-05-03] MEDS ORDERED: FENTANYL CITRATE/PF 50 MCG/ML VIAL ONE (10:45)
[2023-05-03] MEDS ORDERED: ONDANSETRON 4 MG/2 ML VIAL IVPUSH PRN (11:47)
[2023-05-03] MEDS ORDERED: LACTATED RINGERS SOLUTION 1,000 ML IV SCH (12:00)
[2023-05-03 12:42] VITALS: TEMP 97.1
[2023-05-03 13:27] VITALS: PULSE 65
[2023-05-03 14:20] VITALS: BP 144/82
== END 2023-05-03 15:00 | disposition home or self-care (01) ==
LOC: JER 05:56 → JASUSAT 09:52 → J8W 13:29 → JASUSAT 15:00
PROVIDERS: ATTEND Internal Medicine Gastroenterology
PROC: 0DC58ZZ Extirpation of Matter from Esophagus, Via Natural or Artificial Opening Endoscopic (ICD-10-PCS; principal; 2023-05-03 10:45)
DX: T18.128A Food in esophagus causing other injury, initial encounter (principal); K22.2 Esophageal obstruction
CPT/HCPCS: 36415; 70490-TC; 71250-TC; 80053; 85025; 85610; 85730; 86850; 86900; 86901; 93005; 93010; 94760; 99285-25